=== PATIENT | male | born 1965 | race Hispanic/Latino ===

== ENCOUNTER 2017-09-16 15:26 | Emergency (ER) | payer OTHER ==
[2017-09-16 15:43] VITALS: BMI 21.8
[2017-09-16 15:48] VITALS: O2SAT 100
--- NOTE | 2017-09-16 16:17 | C.PDOC ---
History Of Present Illness 51 y/o male presents to ED requesting ETOH detox. Patient state she drinks 2 bottles of wine daily and currently denies SI/HI, nausea, vomiting, sob or any other physical complaints at this time. Time Seen by Provider: 09/16/17 16:05 Chief Complaint (Nursing): Substance Abuse History Per: Patient History/Exam Limitations: no limitations Onset/Duration Of Symptoms: Days Current Symptoms Are (Timing): Still Present Suicide/Self Injury Attempted (Context): None Modifying Factor(s): Alcohol Past Medical History Reviewed: Historical Data, Nursing Documentation, Vital Signs Vital Signs: Last Vital Signs Temp 98.6 F 09/16/17 16:26 Pulse 88 09/16/17 16:26 Resp 20 09/16/17 16:26 BP 112/72 09/16/17 16:26 Pulse Ox 100 09/16/17 16:26 - Medical History PMH: No Chronic Diseases Surgical History: No Surg Hx Family History: States: No Known Family Hx - Social History Hx Alcohol Use: Yes Hx Substance Use: No - Immunization History Hx Tetanus Toxoid Vaccination: No Hx Influenza Vaccination: No Hx Pneumococcal Vaccination: No Review Of Systems Constitutional: Negative for: Fever, Chills Cardiovascular: Negative for: Chest Pain Respiratory: Negative for: Shortness of Breath Skin: Negative for: Rash Psych: Negative for: Suicidal ideation, Withdrawal Physical Exam - Physical Exam Appears: Non-toxic, Chronically Ill, Other (Mild tremors) Skin: Warm, Dry Head: Atraumatic, Normacephalic Eye(s): bilateral: Normal Inspection Oral Mucosa: Moist Neck: Normal ROM, Supple Cardiovascular: Rhythm Regular Respiratory: Normal Breath Sounds, No Rales, No Rhonchi, No Wheezing Gastrointestinal/Abdominal: Soft, No Tenderness, No Guarding, No Rebound Neurological/Psych: Oriented x3, Normal Speech, Normal Cognition Gait: Steady ED Course And Treatment O2 Sat by Pulse Oximetry: 100 (RA) Pulse Ox Interpretation: Normal Medical Decision Making Medical Decision Making: seeking etoh detox, none available today d/c with outpatient f/u. Disposition Doctor Will See Patient In The: Office Counseled Patient/Family Regarding: Studies Performed, Diagnosis - Disposition Referrals: [facility] [Outside] [facility] [Outside] [facility] [Outside] Disposition: HOME/ ROUTINE Disposition Time: 16:16 Condition: GOOD Additional Instructions: continue to seek outpatient psych and alcohol abuse resources Instructions: Alcohol Use - When Is Drinking a Problem?, Drug Abuse and Drug Addiction (DC) Forms: [facility] ([place]) - Clinical Impression Clinical Impression: Alcohol dependence - Scribe Statement The provider has reviewed the documentation as recorded by the Jerzyibjax Black All medical record entries made by the Jerzyibjax were at my direction and personally dictated by me. I have reviewed the chart and agree that the record accurately reflects my personal performance of the history, physical exam, medical decision making, and the department course for this patient. I have also personally directed, reviewed, and agree with the discharge instructions and disposition.
[2017-09-16 16:38] VITALS: BP 112/72; PULSE 88; RESP 20; TEMP 98.6
== END 2017-09-16 16:34 | disposition home or self-care (01) ==
LOC: C.ER 15:26
DX: F10.20 Alcohol dependence, uncomplicated (principal)

== ENCOUNTER 2017-09-17 12:52 | Inpatient (IN) | payer OTHER ==
[2017-09-17 12:57] VITALS: BMI 21.2
[2017-09-17 13:56] LABS: BASO % 0.4 % (0.0-2.0); EOS % 0.4 % (0.0-4.0); HEMOGLOBIN 11.2 g/dL (12.0-18.0); LYMPH % 12.6 % (20.0-40.0); MEAN CELL VOLUME 108.1 fL (80.0-94.0); MEAN CORPUSCULAR HEMOGLOBIN 37.3 pg (27.0-31.0); MEAN CORPUSCULAR HGB CONC 34.5 g/dL (33.0-37.0); MEAN PLATELET VOLUME 10.3 fL (7.2-11.7); MONO # 0.7 K/uL (0.0-0.8); MONO % 9.5 % (0.0-10.0); NEUT % 77.1 % (50.0-75.0); NRBC % 0.4 % (0.0-2.0); RBC 2.99 Mil/uL (4.40-5.90); RED CELL DISTRIBUTION WIDTH 14.9 % (11.5-14.5); WHITE BLOOD COUNT 7.7 K/uL (4.8-10.8)
[2017-09-17 14:09] LABS: ALB/GLOB RATIO 0.9 (1.0-2.1); ALBUMIN 3.5 g/dL (3.5-5.0); ALT/SGPT 115 U/L (21-72); AST/SGOT 321 U/L (17-59); BLOOD UREA NITROGEN 6 mg/dL (9-20); CALCIUM 9.4 mg/dl (8.6-10.4); GFR AFRICAN-AMERICAN > 60; GFR NON-AFRICAN AMERICAN > 60
[2017-09-17 16:00] LABS: SQUAMOUS EPITHIAL < 1 /hpf (0-5); URINE AMORPHOUS SEDIMENT RARE /ul (<OCC); URINE BACTERIA RARE (<OCC); URINE BILIRUBIN 1+ (NEGATIVE); URINE BLOOD NEGATIVE (NEGATIVE); URINE CLARITY Hazy (Clear); URINE COLOR Amber (YELLOW); URINE GLUCOSE (UA) NORMAL (Normal); URINE HYALINE CAST 0-2 /lpf (0-2); URINE LEUKOCYTE ESTERASE NEG Leu/uL (Negative); URINE PROTEIN 1+ mg/dL (NEGATIVE)
[2017-09-17 16:31] LABS: BARBITURATES, UR NEGATIVE (NEGATIVE); BENZODIAZEPINES, UR POSITIVE (NEGATIVE); OPIATES, UR NEGATIVE (NEGATIVE); PHENCYCLIDINE, UR NEGATIVE (NEGATIVE)
--- NOTE | 2017-09-17 16:42 | C.PDOC ---
History Of Present Illness Pt is here requesting detox from alcohol. Pt states last drink was 2 days ago. Time Seen by Provider: 09/17/17 13:08 Chief Complaint (Nursing): Substance Abuse History Per: Patient, Family Onset/Duration Of Symptoms: Days Current Symptoms Are (Timing): Still Present Suicide/Self Injury Attempted (Context): None Modifying Factor(s): Alcohol Severity: Severe Associated Symptoms: denies: Suicidal Thoughts, Suicidal Plan Additional History Per: Prior Records Past Medical History Reviewed: Historical Data, Nursing Documentation, Vital Signs Vital Signs: Last Vital Signs Temp 98.1 F 09/17/17 15:28 Pulse 129 H 09/17/17 15:28 Resp 18 09/17/17 15:28 BP 114/83 09/17/17 15:28 Pulse Ox 100 09/17/17 16:42 - Medical History Other PMH: Alcohol abuse Family History: States: Unknown Family Hx - Social History Hx Tobacco Use: Yes Hx Alcohol Use: Yes (Wine) Hx Substance Use: No - Immunization History Hx Tetanus Toxoid Vaccination: No Hx Influenza Vaccination: No Hx Pneumococcal Vaccination: No Review Of Systems Except As Marked, All Systems Reviewed And Found Negative. Constitutional: Negative for: Fever Cardiovascular: Negative for: Chest Pain Respiratory: Negative for: Shortness of Breath Gastrointestinal: Negative for: Vomiting, Abdominal Pain Musculoskeletal: Negative for: Neck Pain Neurological: Negative for: Weakness, Seizures Psych: Negative for: Psychosis Physical Exam - Physical Exam Appears: No Acute Distress Skin: Warm, Dry Head: Atraumatic Eye(s): bilateral: PERRL, EOMI Neck: Normal ROM, Supple Gastrointestinal/Abdominal: Soft, No Tenderness Extremity: Normal ROM, No Deformity Neurological/Psych: Oriented x3, Normal Motor, Other (Pt is mildly tremulous) ED Course And Treatment - Laboratory Results Result Diagrams: 09/17/17 13:50 09/17/17 13:50 Interpretation Of Abnormal: Abnormal LFTs, thrombocytopenia. Sequelae of chronic alcohol abuse. ECG: Interpreted By Me, Viewed By Me ECG Rhythm: Sinus Tachycardia, Nonspecific Changes Rate From EC O2 Sat by Pulse Oximetry: 100 Pulse Ox Interpretation: Normal Progress Note: Pt is medically stable for detox admission. Disposition Counseled Patient/Family Regarding: Studies Performed, Diagnosis, Smoking Cessation - Disposition Disposition: HOSPITALIZED Disposition Time: 16:54 Condition: STABLE - Clinical Impression Clinical Impression: Alcohol dependence Decision To Admit - Pt Status Changed To: Hospital Disposition Of: Inpatient - Admit Certification Admit to Inpatient:: After my assessment, the patient will require hospitalization for at least two midnights. This is because of the severity of symptoms shown, intensity of services needed, and/or the medical risk in this patient being treated as an outpatient. - InPatient: Physician Admission Certification: I certify that this patient requires 2 or more midnights of care for the following reason:: Detox. - . Bed Request Type: Detox Admitting Physician: Brooks Steele Patient Diagnosis: Alcohol dependence
--- NOTE | 2017-09-18 07:39 | PCM.PSYCH ---
Initial Psychiatric Evaluation - Initial Psychiatric Evaluation Type of Admission: Voluntary Legal Status: Capacity Chief Complaint (in patient's own words): "Alcohol" History of Present Illness and Precipitating Events: This is a 51 y/o LM, lives with his , unemployed He is here for alcohol detox He says he drinks "a lot" but denies seizures/DTs and this is his first detox He was admitted to [facility] but d/c'ed bc of medical issues. 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 Family psych hx: Unknown Current Medications: Active Medications Generic Name Dose Route Start Last Admin Trade Name Freq PRN Reason Stop Dose Admin Clonidine HCl 0.1 mg 09/17/17 17:51 Catapres PO Q4H PRN Symptoms of alcohol withdrawl Folic Acid 1 mg 09/18/17 10:00 Folic Acid PO DAILY YAIMA Gabapentin 300 mg 09/17/17 18:00 09/17/17 18:27 Neurontin PO 300 mg TID YAIMA Administration Hydroxyzine HCl 25 mg 09/17/17 18:00 Atarax PO Q6H PRN Anxiety Lorazepam 1 mg 09/17/17 17:51 Ativan PO Q4H PRN Symptoms of alcohol withdrawl Lorazepam 2 mg 09/17/17 18:00 09/18/17 05:39 Ativan PO 09/22/17 17:59 2 mg Q4H YAIMA Administration Taper Multivitamins 1 tab 09/18/17 10:00 Hexavitamin PO DAILY YAIMA Thiamine HCl 100 mg 09/18/17 10:00 Vitamin B1 Tab PO DAILY YAIMA Trazodone HCl 50 mg 09/17/17 22:00 09/17/17 22:09 Desyrel PO Not Given HS YAIMA Past Psychiatric History - Past Psychiatric History Previous Treatment History: None Pertinent Medical Hx (Current Medical&Sleep Prob, Allergies): Allergies Allergy/AdvReac Type Severity Reaction Status Date / Time No Known Allergies Allergy Verified 09/17/17 12:56 Ibuprofen [Advil] 2 tab PO PRN PRN 09/16/17 Review of Systems - Neurological Neurological: Focal Weakness (legs), Lack of Coordination, Tremor, Weakness - Psychiatric Psychiatric: Abnormal Sleep Pattern, Anhedonia, Anxiety, Depression, Difficulty Concentrating. absent: Homicidal Ideation, Paranoia, Suicidal Ideation Mental Status Examination - Personal Presentation Personal Presentation: Looks older than stated age - Affect Affect: Constricted - Motor Activity Motor Activity: Calm - Reliability in Providing Information Reliability in Providing Information: Good - Speech Speech: Organized - Mood Mood: Depressed, Anxious - Formal Thought Process Formal Thought Process: No Impairment - Cognitive Functions Orientation: Person, Place, Situation, Time Sensorium: Alert Attention/Concentration: Easily distracted Estimate of Intelligence: Average Judgement: Intact, as evidence by: Insight regarding need for hospitalization Memory: Recent intact, as evidence by: Ability to recall events of the day, Remote intact, as evidenced by: Abilit to recall sig. life events - Risk Risk: Withdrawal, Diminished functioning - Strength & Assets Inventory Strength & Assets Inventory: Cooperative DSM 5 DX - DSM 5 DSM 5 Diagnosis: Alcohol withdrawal with complication Alcohol use d/o- severe Depressive d/o- unspecified - Recommended/Plan of Treatment Treatment Recommendations and Plan of Treatment: Ativan detox As needed medications Gabapentin for augmentation if needed All risks, benefits and alternatives of medications, including no medications, discussed and the patient understood and agreed. Attend groups and activities Supportive therapy and psychoeducation MT for abstinence CBT for relapse prevention Encourage MAT Refer to rehab or IOP Attend self-help groups as well MT for smoking cessation and patch if needed 34 min Projected ELOS: 4 days - Smoking Cessation Smoking Cessation Initiated: Yes
[2017-09-18 08:53] LABS: BASO % 0.3 % (0.0-2.0); EOS # 0.1 K/uL (0.0-0.7); EOS % 0.7 % (0.0-4.0); HEMOGLOBIN 10.6 g/dL (12.0-18.0); LYMPH # 1.1 K/uL (1.0-4.3); LYMPH % 14.9 % (20.0-40.0); MEAN CORPUSCULAR HEMOGLOBIN 37.3 pg (27.0-31.0); MEAN CORPUSCULAR HGB CONC 34.2 g/dL (33.0-37.0); MEAN PLATELET VOLUME 10.4 fL (7.2-11.7); MONO # 0.9 K/uL (0.0-0.8); MONO % 11.2 % (0.0-10.0); NEUT # 5.6 K/uL (1.8-7.0); NEUT % 72.9 % (50.0-75.0); NRBC % 0.3 % (0.0-2.0); RBC 2.84 Mil/uL (4.40-5.90); RED CELL DISTRIBUTION WIDTH 15.1 % (11.5-14.5); WHITE BLOOD COUNT 7.7 K/uL (4.8-10.8)
[2017-09-18] MEDS: Multiple Vitamins Tab PO SCH (11:08)
--- NOTE | 2017-09-18 15:46 | PCM.BM ---
<Deb Smith - Last Filed: 09/18/17 15:44> Treatment Plan Problems - Problems identified on initial assessmt Potential for alcohol withdrawal Date Initiated: 09/18/17 Time Initiated: 15:46 Assessment reference: NA Treatment assets and liabiliti Patient Assests: cooperative, cognitively intact Patient Liabilities: medical problems (neuropathy), other (needs help with ADL's ) - Milieu Protocol Maintain good personal hygiene: daily Encourage regular showers, daily Remind patient to perform daily oral care, daily Assist patient to perform ADL's Conduct patient checks and document Observation sheet: Q15 minutes Maintain personal safety: every shift Educate patient to report safety concerns to staff, every shift Monitor environment for contraband/sharps Medication safety: Monitor for expected outcome, potential side effects: every shift, Assess barriers to learning: every shift, Assess readiness for medication education: every shift <Brooks Steele - Last Filed: 09/19/17 14:56> - Diagnosis (1) Alcohol dependence Status: Acute Interventions: 09/19/17 14:55 * Assess 7x/week regarding severity of withdrawal * Educate regarding risks, benefits, side effects and alternatives of medications * Use Motivational Interviewing for abstinence * Use CBT for relapse prevention * Medication management for withdrawal symptoms * Encourage medication assisted treatment *
[2017-09-19] MEDS: Multiple Vitamins Tab PO SCH (09:15)
[2017-09-19] MEDS ORDERED: Multivitamin (MVI) 10 ML, Thiamine 100 MG, Folic Acid 1 MG in Sodium Chloride 0.9% 1,00... IV ONE (10:00)
[2017-09-19 11:57] LABS: BASO % 0.6 % (0.0-2.0); EOS % 0.5 % (0.0-4.0); HEMOGLOBIN 10.6 g/dL (12.0-18.0); LYMPH # 1.1 K/uL (1.0-4.3); LYMPH % 14.7 % (20.0-40.0); MEAN CORPUSCULAR HEMOGLOBIN 37.3 pg (27.0-31.0); MEAN CORPUSCULAR HGB CONC 34.2 g/dL (33.0-37.0); MEAN PLATELET VOLUME 10.1 fL (7.2-11.7); MONO # 1.1 K/uL (0.0-0.8); MONO % 15.3 % (0.0-10.0); NEUT % 68.9 % (50.0-75.0); NRBC % 0.3 % (0.0-2.0); RBC 2.84 Mil/uL (4.40-5.90); RED CELL DISTRIBUTION WIDTH 15.1 % (11.5-14.5); WHITE BLOOD COUNT 7.2 K/uL (4.8-10.8)
[2017-09-19 12:15] LABS: ALB/GLOB RATIO 0.9 (1.0-2.1); ALBUMIN 3.2 g/dL (3.5-5.0); ALT/SGPT 88 U/L (21-72); AST/SGOT 194 U/L (17-59); BLOOD UREA NITROGEN 7 mg/dL (9-20); CALCIUM 8.9 mg/dl (8.6-10.4); GFR AFRICAN-AMERICAN > 60; GFR NON-AFRICAN AMERICAN > 60
--- NOTE | 2017-09-19 12:57 | CP.PCM.CON ---
<ClaudiaabyShira TulioJossie - Last Filed: 09/19/17 16:46> History of Present Illness - History of Present Illness History of Present Illness: Consult for Ambulatory dysfunction Patient is a 51 year old male with no past medical history who originally presents to the hospital for alcohol detox. Patient drinks 1/2 gallon of wine daily for the past 8 years. He first started drinking at 14 years of age. Patient's last drink was night. Patient states he has had ambulatory issues for the past 6 months. He uses a cane to ambulate. He also states he has has bilateral lower extremity neuropathy and weakness for "at least 3 months". 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 Patient denies chest pain, dyspnea, headaches, dizziness, nausea, vomiting, fevers, abdominal pain. Patient is lethargic and is a poor historian. PMHx: denies SurgHx: denies FamHx: Father- [place] SocHx: drinks 1/2 gallon of wine daily x8 years; started drinking at age 14. Smokes 1/4 pack daily since age 14. denies drug use; lives with in [place]. Unemployed Allergies: NKDA Medications: denies Review of Systems - Review of Systems Review of Systems: Limited due to patients condition, lethargy, sedated - Constitutional Constitutional: Weakness. absent: Fever, Headache - EENT Ears: absent: Dizziness - Cardiovascular Cardiovascular: absent: Chest Pain, Dyspnea - Respiratory Respiratory: absent: Cough, Dyspnea - Gastrointestinal Gastrointestinal: absent: Abdominal Pain, Constipation, Diarrhea, Nausea, Vomiting - Genitourinary Genitourinary: absent: Dysuria - Musculoskeletal Musculoskeletal: Limited Range of Motion, Muscle Weakness, Numbness - Neurological Neurological: Numbness (tingling b/l LE), Weakness (b/l LE&UE). absent: Dizziness, Headaches Past Patient History - Past Medical History & Family History Past Medical History?: Yes - Past Social History Smoking Status: Light Smoker < 10 Cigarettes Daily - CARDIAC Hx Cardiac Disorders: No Hx Hypertension: No - PULMONARY Hx Tuberculosis: No - NEUROLOGICAL HX Cerebrovascular Accident: No Hx Seizures: No - HEMATOLOGICAL/ONCOLOGICAL Hx Cancer: No Hx Human Immunodeficiency Virus (HIV): No - MUSCULOSKELETAL/RHEUMATOLOGICAL Hx Falls: Yes Other/Comment: Neuropathy - GENITOURINARY/GYNECOLOGICAL Hx Sexually Transmitted Disorders: No - PSYCHIATRIC Hx Substance Use: Yes - SURGICAL HISTORY Hx Surgeries: No - ANESTHESIA Hx Anesthesia: No Meds Allergies/Adverse Reactions: Allergies Allergy/AdvReac Type Severity Reaction Status Date / Time No Known Allergies Allergy Verified 09/17/17 12:56 - Medications Medications: Current Medications Clonidine HCl (Catapres) 0.1 mg PO Q4H PRN PRN Reason: Symptoms of alcohol withdrawl Folic Acid (Folic Acid) 1 mg PO DAILY [facility] Last Admin: 09/19/17 09:15 Dose: 1 mg Hydroxyzine HCl (Atarax) 25 mg PO Q6H PRN PRN Reason: Anxiety Multivitamins/Vitamin C 10 ml/Thiamine HCl 100 mg/ Folic Acid 1 mg/ Sodium Chloride 1,011.2 mls @ 75 mls/hr IV .[id number] ONE Stop: 09/20/17 01:39 Lorazepam (Ativan) 1 mg PO Q4H PRN PRN Reason: Symptoms of alcohol withdrawl Last Admin: 09/19/17 09:15 Dose: 1 mg Lorazepam (Ativan) 1 mg PO TID [facility] PRN Reason: Taper Stop: 09/22/17 13:59 Multivitamins (Hexavitamin) 1 tab PO DAILY [facility] Last Admin: 09/19/17 09:15 Dose: 1 tab Thiamine HCl (Vitamin B1 Tab) 100 mg PO DAILY [facility] Last Admin: 09/19/17 09:15 Dose: 100 mg Trazodone HCl (Desyrel) 50 mg PO HS [facility] Last Admin: 09/18/17 21:21 Dose: Not Given Physical Exam - Constitutional Appears: No Acute Distress - Head Exam Head Exam: ATRAUMATIC, NORMAL INSPECTION - Eye Exam Eye Exam: EOMI, PERRL - ENT Exam ENT Exam: Mucous Membranes Moist - Respiratory Exam Respiratory Exam: NORMAL BREATHING PATTERN. absent: Rales, Rhonchi, Wheezes, Respiratory Distress - Cardiovascular Exam Cardiovascular Exam: Tachycardia, REGULAR RHYTHM, +S1, +S2 - GI/Abdominal Exam GI & Abdominal Exam: Normal Bowel Sounds, Soft. absent: Distended, Firm, Tenderness - Extremities Exam Extremities exam: Positive for: pedal pulses present. Negative for: full ROM ( decreased ROM due to weakness), normal inspection (tremors bilateral UE/LE), pedal edema, tenderness Additional comments: babinski negative b/l; sensation intact-withdraws to pain; pain with palpation of LE b/l 2/2 neuropathy. 1/5 strength b/l LE; 2/5 strength b/l UE - Neurological Exam Neurological exam: Abnormal Gait, Oriented x3 Additional comments: babinski negative b/l; sensation intact-withdraws to pain; pain with palpation of LE b/l 2/2 neuropathy. 1/5 strength b/l LE; 2/5 strength b/l UE; no saddle anesthesia. - Psychiatric Exam Psychiatric exam: Flat Affect (lethargic) - Skin Skin Exam: Dry, Intact, Normal Color, Warm Results - Vital Signs Recent Vital Signs: Last Vital Signs Temp 98.4 F 09/19/17 09:00 Pulse 117 H 09/19/17 09:00 Resp 18 09/19/17 09:00 BP 94/68 L 09/19/17 09:00 Pulse Ox 99 09/19/17 09:00 - Labs Result Diagrams: 09/19/17 11:45 09/19/17 11:45 Labs: Laboratory Results - last 24 hr 09/19/17 09/19/17 11:45 11:45 WBC 7.2 RBC 2.84 L Hgb 10.6 L Hct 31.0 L MCV 109.0 H MCH 37.3 H MCHC 34.2 RDW 15.1 H Plt Count 72 L MPV 10.1 Neut % (Auto) 68.9 Lymph % (Auto) 14.7 L [place] % (Auto) 15.3 H Eos % (Auto) 0.5 Baso % (Auto) 0.6 Neut # (Auto) 5.0 Lymph # (Auto) 1.1 [place] # (Auto) 1.1 H Eos # (Auto) 0.0 Baso # (Auto) 0.0 Sodium 140 Potassium 3.5 L Chloride 105 Carbon Dioxide 25 Anion Gap 14 BUN 7 L Creatinine 0.7 L Est GFR ( Amer) > 60 Est GFR (Non-Af Amer) > 60 Random Glucose 89 Calcium 8.9 Phosphorus 3.5 Magnesium 1.5 L Total Bilirubin 1.6 H AST 194 H D ALT 88 H D Alkaline Phosphatase 171 H Total Creatine Kinase < 20 L Total Protein 6.9 Albumin 3.2 L Globulin 3.7 Albumin/Globulin Ratio 0.9 L TSH 3rd Generation 0.82 Assessment & Plan (1) Ambulatory dysfunction Assessment and Plan: Neurology consulted, Dr. Abdi, to rule out neurologic causes of ambulatory dysfunction. Help appreciated. Per Neurology, dysfunction may be due to parkinson's Transferred to medical floors Lumbar xray: f/u results Lumbar MRI: f/u results Head CT: f/u results Ammonia level: f/u results Fall precautions PT/OT Medication: - Pramipexole 0.25mg PO BID (started on 09/19 by neurologist) Status: Acute (2) Alcohol dependence Assessment and Plan: Per psychiatry Transferred from Detox to Med/Surg Floors Continue to monitor Medications: - Clonidine 0.1mg PO Q4 prn - Atarax 25mg PO Q6 prn - Ativan 1mg PO Q4 prn - Ativan 1mg taper - Trazadone 50mg PO HS - Banana bag to be give on 09/20/17 - Folic Acid 1mg PO daily (held due to banana bag- restart on 09/21/17) - Multivitamin daily (held due to banana bag- restart on 09/21/17) - Thiamine 100mg PO daily (held due to banana bag- restart on 09/21/17) Status: Acute <Patrizia Gonzalez V - Last Filed: 09/19/17 17:43> Meds - Medications Medications: Current Medications Clonidine HCl (Catapres) 0.1 mg PO Q4H PRN PRN Reason: Symptoms of alcohol withdrawl Folic Acid (Folic Acid) 1 mg PO DAILY [facility] Last Admin: 09/19/17 09:15 Dose: 1 mg Hydroxyzine HCl (Atarax) 25 mg PO Q6H PRN PRN Reason: Anxiety Multivitamins/Vitamin C 10 ml/Thiamine HCl 100 mg/ Folic Acid 1 mg/ Sodium Chloride 1,011.2 mls @ 75 mls/hr IV .[id number] ONE Stop: 09/21/17 01:28 Lorazepam (Ativan) 1 mg PO Q8 [facility] PRN Reason: Taper Stop: 09/22/17 13:59 Last Admin: 09/19/17 14:56 Dose: 1 mg Multivitamins (Hexavitamin) 1 tab PO DAILY [facility] Last Admin: 09/19/17 09:15 Dose: 1 tab Pramipexole Dihydrochloride (Mirapex) 0.25 mg PO BID [facility] Thiamine HCl (Vitamin B1 Tab) 100 mg PO DAILY YAIMA Last Admin: 09/19/17 09:15 Dose: 100 mg Trazodone HCl (Desyrel) 50 mg PO HS [facility] Last Admin: 09/18/17 21:21 Dose: Not Given Results - Vital Signs Recent Vital Signs: Last Vital Signs Temp 98.4 F 09/19/17 09:00 Pulse 117 H 09/19/17 09:00 Resp 18 09/19/17 09:00 BP 94/68 L 09/19/17 09:00 Pulse Ox 99 09/19/17 09:00 - Labs Result Diagrams: 09/19/17 11:45 09/19/17 11:45 Labs: Laboratory Results - last 24 hr 09/19/17 09/19/17 09/19/17 11:45 11:45 13:31 WBC 7.2 RBC 2.84 L Hgb 10.6 L Hct 31.0 L MCV 109.0 H MCH 37.3 H MCHC 34.2 RDW 15.1 H Plt Count 72 L MPV 10.1 Neut % (Auto) 68.9 Lymph % (Auto) 14.7 L [place] % (Auto) 15.3 H Eos % (Auto) 0.5 Baso % (Auto) 0.6 Neut # (Auto) 5.0 Lymph # (Auto) 1.1 [place] # (Auto) 1.1 H Eos # (Auto) 0.0 Baso # (Auto) 0.0 Sodium 140 Potassium 3.5 L Chloride 105 Carbon Dioxide 25 Anion Gap 14 BUN 7 L Creatinine 0.7 L Est GFR ( Amer) > 60 Est GFR (Non-Af Amer) > 60 Random Glucose 89 Calcium 8.9 Phosphorus 3.5 Magnesium 1.5 L Total Bilirubin 1.6 H AST 194 H D ALT 88 H D Alkaline Phosphatase 171 H Ammonia 31 Total Creatine Kinase < 20 L Total Protein 6.9 Albumin 3.2 L Globulin 3.7 Albumin/Globulin Ratio 0.9 L Vitamin B12 > 1000 H Folate > 20.0 TSH 3rd Generation 0.82 Assessment & Plan (1) Alcohol dependence Status: Acute (2) Ambulatory dysfunction Status: Acute (3) Abnormal gait Status: Acute (4) Tremor Status: Acute Attending/Attestation - Attestation I have personally seen and examined this patient.: Yes I have fully participated in the care of the patient.: Yes I have reviewed all pertinent clinical information: Yes Notes (Text): Patient seen, examined and case discussed with day-time resident. medicine consult given change in patient's gait. Per ED triage note, patient was able to walk in. history noted for smoking, neuropathy secondary to alcohol use, and alcoholism. Per discussion with detox staff, patient's walked in to detox but there was change in gait wherein patient cannot put weight on his legs. Patient required the use of the early mobility device this morning which was change from psychiatry who had saw him on the weekend. Patient reports he has some sort of disease which affects his legs unclear if its neuropathy or something else. Patient reports last drink was about /Tuesday on exam. Patient has mild tremor noticable on left hand. Patient had received Ativan prior to our arrival this morning. Patient reports he had a fall last week but reports did not need to go to the hospital and denies LOC. Recommend for neurology consult; discussed with neurology concern for Parkinson' s dz; has started patient on Mirapex. Fall precautions Place on telemetry for alcohol withdrawal Assessment/Plan 1) Alcohol Abuse Alcohol Withdrawal Transaminitis Assessment/Plan * Psych (Dr. Steele) on board-->help appreciated * Ativan 1mg PO q8H * MVI 1 tab PO daily * Thiamine 100mg PO daily * Folic aicd 1mg PO daily * Ammonia level: normal * Abdominal US (09/19/17): hepatomegaly, hepatic steatosis. otherwise unremarkable study * Clondine 0.1 mg PO q4H PRN 2) Ambulatory Dysfunction Gait Dysfunction Concern for Parkinsons Disease Assessment/Plan * Lumbar xray (09/19/17): unremarkable * pending MRI Lumbar Spine * Order for Brain MRI with and without contrast * Start Mirapex 0.25mg PO daily 3) s/p Fall Assessment/Plan * CT Head (09/19/17): no evidence of acute intracranial hemorrhage intracranial collection mass effect or midline shift. Moderate atrophy. 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 * Lumbar xray (09/19/17): unremarkable 4) Thrombocytopenia Assessment/Plan * Likely secondary to bone marrow suppression secondary to alcoholism * Abdominal US (09/19/17): hepatomegaly, hepatic steatosis. otherwise unremarkable study * will order for HIV and hepatitis panel 5) Electrolyte disorder Assessment/Plan * monitor and replete 6) Prophylatic measure * Fall risk precautions * PT/OT eval * Chemical contraindication to DVT ppx secondary to thrombocytopenia
[2017-09-19 13:21] LABS: FOLATE > 20.0 ng/mL
--- NOTE | 2017-09-19 14:38 | CT ---
PROCEDURE: CT HEAD WITHOUT CONTRAST. HISTORY: ambulatory dysfunction COMPARISON: None available. TECHNIQUE: Axial computed tomography images were obtained through the head/brain without intravenous contrast. Radiation dose: Total exam DLP = 833.02 mGy-cm. This CT exam was performed using one or more of the following dose reduction techniques: Automated exposure control, adjustment of the mA and/or kV according to patient size, and/or use of iterative reconstruction technique. FINDINGS: HEMORRHAGE: No intracranial hemorrhage. BRAIN: No mass effect or edema. Rltn-bo-jvfrlued atrophy is noted. There are also mild white matter changes likely represent chronic microvascular ischemic disease. VENTRICLES: Unremarkable. No hydrocephalus. CALVARIUM: Unremarkable. PARANASAL SINUSES: Unremarkable as visualized. No significant inflammatory changes. MASTOID AIR CELLS: Unremarkable as visualized. No inflammatory changes. OTHER FINDINGS: None. IMPRESSION: No evidence of acute intracranial hemorrhage intracranial collection mass effect or midline shift. Moderate atrophy. Mild white matter changes likely represent chronic microvascular ischemic disease.
--- NOTE | 2017-09-19 14:55 | PCM.PYCHPN ---
Psychiatric Progress Note - Psychiatric Progress Note Patient seen today, length of contact: 18 min Patient Chief Complaint: "I am very weak" Problems Identified/Issues Discussed: The pt is seen, chart reviewed, case discussed with staff. The pt is compliant with medications and reports some sedation. Symptoms are NOT improving and needs more time to stabilize. We called medicine as he seemed worse now bc he says he cannot walk properly PT also called, wheelchair/walker and 1:1 provided due to fall risk Support and psychoeducation given. Meds adjusted to decrease sedation Medication Change: Yes (detox adjusted) Medical Record Reviewed: Yes Mental Status Examination - Cognitive Function Orientation: Person, Place, Situation, Time Memory: Impaired Attention: Poor Concentration: Poor Association: WNL Fund of Knowledge: WNL - Mood Mood: Depressed, Anxious - Affect Affect: Constricted - Speech Speech: Appropriate - Formal Thought Process Formal Thought Process: No Impairment - Suicidal Ideation Suicidal Ideation: No - Homicidal Ideation Homicidal Ideation: No Goal/Treatment Plan - Goal/Treatment Plan Need for Continued Stay: Discharge may exacerbated symptoms, Severe functional impairment Progress Toward Problem(s) and Goals/Treatment Plan: Ativan detox adjusted To be transferred to medicine As needed medications Gabapentin for augmentation discontinued All risks, benefits and alternatives of medications, including no medications, discussed and the patient understood and agreed. Attend groups and activities Supportive therapy and psychoeducation [place] for abstinence Refer to rehab or IOP Attend self-help groups as well [place] for smoking cessation and patch if needed PT Labs
--- NOTE | 2017-09-19 15:03 | US ---
HISTORY: Alcohol use, COMPARISON: None. TECHNIQUE: Sonographic evaluation of the abdomen. FINDINGS: LIVER: Measures 20.7 cm. Patent portal vein. Portal venous flow: Hepatopetal. Unremarkable echogenicity of the liver parenchyma. No mass. No intrahepatic bile duct dilatation. GALLBLADDER: Sludge identified. No gallstones apparent. COMMON BILE DUCT: Measures 3.4 mm. No stones. No dilatation. PANCREAS: Unremarkable as visualized. No mass. No ductal dilatation. RIGHT KIDNEY: Measures 4.7 x 12.0cm. Normal echogenicity. No calculus, mass, or hydronephrosis. LEFT KIDNEY: Measures 6.3 x 13.5cm. Normal echogenicity. No calculus, mass, or hydronephrosis. SPLEEN: Normal in size and contour. No mass. AORTA: No aneurysmal dilatation. IVC: Unremarkable. OTHER FINDINGS: None. IMPRESSION: Hepatomegaly, hepatic steatosis. Otherwise unremarkable study.
--- NOTE | 2017-09-19 15:59 | RAD ---
PROCEDURE: Radiographs of the Lumbar Spine. HISTORY: ambulatory dysfunction COMPARISON: No prior. FINDINGS: BONES: Normal alignment. No listhesis. No fracture. DISC SPACES: Unremarkable. OTHER FINDINGS: None. IMPRESSION: Unremarkable radiographs of the lumbar spine.
[2017-09-19] MEDS ORDERED: Potassium Chloride 20 mEq ER Tab PO ONE (17:24)
[2017-09-19] MEDS: Magnesium Sulfate 1 gm in D5W 1 GM/100 ML BAG IVPB SCH ×2 (18:04→18:42)
--- NOTE | 2017-09-20 10:30 | CP.PCM.PN ---
<Shira Brown - Last Filed: 09/20/17 16:19> Subjective - Date & Time of Evaluation Date of Evaluation: 09/20/17 Time of Evaluation: 10:28 - Subjective Subjective: Medicine progress note for Dr. Gonzalez Patient was seen and examined at bedside in no acute distress. He reports he "was holding his at 4 am and saw creatures and vampires at night". Patient currently denies visual and auditory hallucinations. Patient denies chest pain, abdominal pain, nausea, vomiting, fevers, tremors, dyspnea, leg pain, leg swelling. Objective - Vital Signs/Intake and Output Vital Signs (last 24 hours): Temp Pulse Resp BP Pulse Ox 97.3 F L 97 H 20 113/80 97 09/20/17 07:40 09/20/17 07:40 09/20/17 07:40 09/20/17 07:40 09/20/17 07:40 - Medications Medications: Current Medications Clonidine HCl (Catapres) 0.1 mg PO Q4H PRN PRN Reason: Symptoms of alcohol withdrawl Last Admin: 09/20/17 02:08 Dose: 0.1 mg Folic Acid (Folic Acid) 1 mg PO DAILY [facility] Last Admin: 09/19/17 09:15 Dose: 1 mg Hydroxyzine HCl (Atarax) 25 mg PO Q6H PRN PRN Reason: Anxiety Multivitamins/Vitamin C 10 ml/Thiamine HCl 100 mg/ Folic Acid 1 mg/ Sodium Chloride 1,011.2 mls @ 75 mls/hr IV .[id number] ONE Stop: 09/21/17 01:28 Lorazepam (Ativan) 1 mg PO Q8 [facility] PRN Reason: Taper Stop: 09/22/17 13:59 Last Admin: 09/20/17 06:07 Dose: 1 mg Multivitamins (Hexavitamin) 1 tab PO DAILY [facility] Last Admin: 09/19/17 09:15 Dose: 1 tab Pramipexole Dihydrochloride (Mirapex) 0.25 mg PO BID [facility] Last Admin: 09/19/17 18:04 Dose: 0.25 mg Thiamine HCl (Vitamin B1 Tab) 100 mg PO DAILY [facility] Last Admin: 09/19/17 09:15 Dose: 100 mg Trazodone HCl (Desyrel) 50 mg PO HS [facility] Last Admin: 09/19/17 21:10 Dose: 50 mg - Labs Labs: 09/19/17 11:45 09/19/17 11:45 - Additional Findings Additional findings: - Constitutional Appears: No Acute Distress - Head Exam Head Exam: ATRAUMATIC, NORMAL INSPECTION - Eye Exam Eye Exam: EOMI, PERRL - ENT Exam ENT Exam: Mucous Membranes Moist - Respiratory Exam Respiratory Exam: NORMAL BREATHING PATTERN. absent: Rales, Rhonchi, Wheezes, Respiratory Distress - Cardiovascular Exam Cardiovascular Exam: REGULAR RHYTHM, +S1, +S2 - GI/Abdominal Exam GI & Abdominal Exam: Normal Bowel Sounds, Soft. absent: Distended, Firm, Tenderness - Extremities Exam Extremities exam: Positive for: pedal pulses present. Negative for: full ROM ( decreased ROM due to weakness), normal inspection (tremors bilateral UE/LE), pedal edema, tenderness Additional comments: babinski negative b/l; sensation intact-withdraws to pain; pain with palpation of LE b/l 2/2 neuropathy. 2/5 strength b/l LE; 2/5 strength b/l UE - Neurological Exam Neurological exam: Abnormal Gait, Oriented x3 Additional comments: babinski negative b/l; sensation intact-withdraws to pain; pain with palpation of LE b/l 2/2 neuropathy. 2/5 strength b/l LE; 2/5 strength b/l UE; no saddle anesthesia. - Psychiatric Exam Psychiatric exam: Flat Affect (lethargic) - Skin Skin Exam: Dry, Intact, Normal Color, Warm Assessment and Plan (1) Ambulatory dysfunction Status: Acute (2) Alcohol dependence Status: Acute - Assessment and Plan (Free Text) Plan: (1) Ambulatory dysfunction Parkinson's Disease? Assessment and Plan: Neurology consulted, Dr. Abdi, to rule out neurologic causes of ambulatory dysfunction. Help appreciated. Per Neurology, dysfunction may be due to parkinson's Transferred to medical floors Lumbar xray: unremarkable Lumbar MRI: f/u results Head CT: no evidence of acute intracranial hemorrhage intracranial collection mass effect or midline shift. Moderate atrophy. 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 Brain MRI: f/u results Ammonia level: 31, wnl TSH wnl Folate >20, wnl, Vit B12 >1000 H Fall precautions PT/OT Medication: - Pramipexole 0.25mg PO BID (started on 09/19 by neurologist) - Per neurologist, will increase by 0.25mg daily BID (2) Alcohol dependence/withdrawal Assessment and Plan: Per psychiatry Transferred from Detox to Med/Surg Floors Continue to monitor Medications: - Clonidine 0.1mg PO Q4 prn - Atarax 25mg PO Q6 prn - Seroquel 25mg PO daily prn for agitation (per neurologist) - Trazadone 50mg PO HS - Banana bag to be give on 09/20/17 - Folic Acid 1mg PO daily (held due to banana bag- restart on 09/21/17) - Multivitamin daily (held due to banana bag- restart on 09/21/17) - Thiamine 100mg PO daily (held due to banana bag- restart on 09/21/17) (3) Hx of Fall Assessment and Plan: - CT Head (09/19/17): no evidence of acute intracranial hemorrhage intracranial collection mass effect or midline shift. Moderate atrophy. 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 - Lumbar xray (09/19/17): unremarkable (4) Thrombocytopenia Assessment and Plan: - HIV: negative - Hepatitis panel: negative - Abdominal US: hepatomegaly, hepatic steatosis - Likely secondary to alcohol abuse (5) Prophylaxis Assessment and Plan: - Fall precautions - PT/OT - Chemical anticoagulation contraindicated 2/2 thrombocytopenia <Patrizia Gonzalez V - Last Filed: 09/20/17 22:37> Objective - Vital Signs/Intake and Output Vital Signs (last 24 hours): Temp Pulse Resp BP Pulse Ox 98.1 F 92 H 20 147/76 98 09/20/17 17:01 09/20/17 17:01 09/20/17 17:01 09/20/17 17:01 09/20/17 17:01 - Medications Medications: Current Medications Clonidine HCl (Catapres) 0.1 mg PO Q4H PRN PRN Reason: Symptoms of alcohol withdrawl Last Admin: 09/20/17 02:08 Dose: 0.1 mg Folic Acid (Folic Acid) 1 mg PO DAILY [facility] Last Admin: 09/19/17 09:15 Dose: 1 mg Hydroxyzine HCl (Atarax) 25 mg PO Q6H PRN PRN Reason: Anxiety Multivitamins/Vitamin C 10 ml/Thiamine HCl 100 mg/ Folic Acid 1 mg/ Sodium Chloride 1,011.2 mls @ 75 mls/hr IV .[id number] ONE Stop: 09/21/17 01:28 Last Admin: 09/20/17 11:30 Dose: 75 mls/hr Lorazepam (Ativan) 1 mg IVP Q6H PRN PRN Reason: Seizure activity Multivitamins (Hexavitamin) 1 tab PO DAILY [facility] Last Admin: 09/19/17 09:15 Dose: 1 tab Pramipexole Dihydrochloride (Mirapex) 0.25 mg PO TID [facility] Last Admin: 09/20/17 18:54 Dose: 0.25 mg Quetiapine Fumarate (Seroquel) 25 mg PO HS PRN PRN Reason: Agitation Thiamine HCl (Vitamin B1 Tab) 100 mg PO DAILY [facility] Last Admin: 09/19/17 09:15 Dose: 100 mg Trazodone HCl (Desyrel) 50 mg PO HS [facility] Last Admin: 09/20/17 21:47 Dose: 50 mg - Labs Labs: 09/20/17 11:20 09/20/17 11:20 Assessment and Plan (1) Alcohol dependence Status: Acute (2) Ambulatory dysfunction Status: Acute (3) Abnormal gait Status: Acute (4) Tremor Status: Acute Attending/Attestation - Attestation I have personally seen and examined this patient.: Yes I have fully participated in the care of the patient.: Yes I have reviewed all pertinent clinical information, including history, physical exam and plan: Yes Notes (Text): Patient seen, examined and case discussed with day-time resident. Patient seen this morning working with physical therapy. Patient is remarkably doing better compared to my last visit with him. He is more alert, participatory , and moving his body to engage with physical therapist. Discussed case with neurology, hallucinations likely due to suspected Parkinsons. We are awaiting MRI studies. Resident has spoken with patient's since there was concern patient may have metal/rods in his body and points to legs unclear. To the best of 's knowledge, he has not had such procedures. Patient had attempted to go to MRI but was kicking and screaming inspite PRN seroquel. Will re-attempt tomorrow per MRI trailer. Also note, Patient has hepatitis C which is reactive, it is unclear if that means he has hepatitis; he will need further testing as outpatient. Assessment/Plan (1) Ambulatory dysfunction Suspected Parkinson's Disease? Assessment and Plan: * Neurology consulted, Dr. Abdi, to rule out neurologic causes of ambulatory dysfunction. Help appreciated. * Per Neurology, dysfunction may be due to parkinson's * Transferred to medical floors on 09/19/17 * Lumbar xray: unremarkable * Lumbar MRI: f/u results * Head CT: no evidence of acute intracranial hemorrhage intracranial collection mass effect or midline shift. Moderate atrophy. Mild white matter changes likely represent chronic microvacular ischemic disease * Brain MRI: f/u results * Ammonia level: 31, wnl * TSH wnl * Folate >20, wnl, Vit B12 >1000 H * Fall precautions * PT/OT eval * Medication: * Pramipexole 0.25mg PO BID (started on 09/19 by neurologist) * Per neurologist, will increase by 0.25mg daily BID (2) Alcohol dependence/withdrawal Assessment and Plan: * Per psychiatry * Transferred from Detox to Med/Surg Floors on 09/19/17 * Continue to monitor * Neurology has recommended to d/c ativan and recommended seroquel for agitation Medications: * Clonidine 0.1mg PO Q4 prn * Atarax 25mg PO Q6 prn * Seroquel 25mg PO daily prn for agitation (per neurologist) * Trazadone 50mg PO HS * Banana bag to be give on 09/20/17 * Folic Acid 1mg PO daily (held due to banana bag- restart on 09/21/17) * Multivitamin daily (held due to banana bag- restart on 09/21/17) * Thiamine 100mg PO daily (held due to banana bag- restart on 09/21/17) (3) Hx of Fall Assessment and Plan: * CT Head (09/19/17): no evidence of acute intracranial hemorrhage intracranial collection mass effect or midline shift. Moderate atrophy. Mild white matter changes likely reprsent chronic microvascular ischemic disease * Lumbar xray (09/19/17): unremarkable (4) Thrombocytopenia Assessment and Plan: * HIV: negative * Hepatitis panel: negative * Abdominal US: hepatomegaly, hepatic steatosis * Likely secondary to alcohol abuse * improving (5) Hepatitis C Reactive Assessment and Plan: * will need outpatient following in regards to possible hepatitis C (5) Prophylaxis Assessment and Plan: * Fall precautions * PT/OT eval * Chemical anticoagulation contraindicated 2/2 thrombocytopenia
[2017-09-20 11:33] LABS: BASO % 0.4 % (0.0-2.0); EOS % 0.6 % (0.0-4.0); LYMPH # 1.2 K/uL (1.0-4.3); LYMPH % 17.3 % (20.0-40.0); MEAN CELL VOLUME 109.7 fL (80.0-94.0); MEAN CORPUSCULAR HEMOGLOBIN 36.7 pg (27.0-31.0); MEAN CORPUSCULAR HGB CONC 33.5 g/dL (33.0-37.0); MEAN PLATELET VOLUME 9.7 fL (7.2-11.7); MONO % 13.7 % (0.0-10.0); NEUT # 4.8 K/uL (1.8-7.0); NRBC % 0.1 % (0.0-2.0); RBC 2.99 Mil/uL (4.40-5.90); RED CELL DISTRIBUTION WIDTH 14.9 % (11.5-14.5); WHITE BLOOD COUNT 7.1 K/uL (4.8-10.8)
--- NOTE | 2017-09-20 11:39 | CP.PCM.CON ---
History of Present Illness - History of Present Illness History of Present Illness: 51 yr old male who has a history of alcoholism for many years, consumes about 1/2 gallon of wine daily, and was in the detox facility in [facility], when he was found to have frequent falls and altered mental status. On my examination, Mr. Mejia appeared to have bradykinesia, pill rolling tremor of left hand, but normal mentation. He told me the president, made a joke, but did have trouble with calculations. There is no history of epilepsy, or stroke, and he lives at home with his family who takes complete care of him. 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 PMH/PSH: as above. FH/SH: as above. All: nkda. On exam: aaox3. PERRL. decreased facial expression. Has resolving nystagmus bilaterally. CN 2-12 normal. no facial asymmetry. square wave jerks on exam. Motor: strength 3/5 in upper limbs, lower limbs : 2/5, but i feel that this is bradykinesia. +cogwheel rigidity in right arm more than left. +tremor left more than right. +2 dtr ul andll bl. toes downgoing no clonus. Past Patient History - Past Medical History & Family History Past Medical History?: Yes - Past Social History Smoking Status: Light Smoker < 10 Cigarettes Daily - CARDIAC Hx Cardiac Disorders: No Hx Hypertension: No - PULMONARY Hx Tuberculosis: No - NEUROLOGICAL HX Cerebrovascular Accident: No Hx Seizures: No - HEMATOLOGICAL/ONCOLOGICAL Hx Cancer: No Hx Human Immunodeficiency Virus (HIV): No - MUSCULOSKELETAL/RHEUMATOLOGICAL Hx Falls: Yes Other/Comment: Neuropathy - GENITOURINARY/GYNECOLOGICAL Hx Sexually Transmitted Disorders: No - PSYCHIATRIC Hx Substance Use: Yes - SURGICAL HISTORY Hx Surgeries: No - ANESTHESIA Hx Anesthesia: No Meds Allergies/Adverse Reactions: Allergies Allergy/AdvReac Type Severity Reaction Status Date / Time No Known Allergies Allergy Verified 09/17/17 12:56 - Medications Medications: Current Medications Clonidine HCl (Catapres) 0.1 mg PO Q4H PRN PRN Reason: Symptoms of alcohol withdrawl Last Admin: 09/20/17 02:08 Dose: 0.1 mg Folic Acid (Folic Acid) 1 mg PO DAILY [facility] Last Admin: 09/19/17 09:15 Dose: 1 mg Hydroxyzine HCl (Atarax) 25 mg PO Q6H PRN PRN Reason: Anxiety Multivitamins/Vitamin C 10 ml/Thiamine HCl 100 mg/ Folic Acid 1 mg/ Sodium Chloride 1,011.2 mls @ 75 mls/hr IV .[id number] ONE Stop: 09/21/17 01:28 Lorazepam (Ativan) 1 mg PO Q8 [facility] PRN Reason: Taper Stop: 09/22/17 13:59 Last Admin: 09/20/17 06:07 Dose: 1 mg Multivitamins (Hexavitamin) 1 tab PO DAILY [facility] Last Admin: 09/19/17 09:15 Dose: 1 tab Pramipexole Dihydrochloride (Mirapex) 0.25 mg PO BID [facility] Last Admin: 09/20/17 10:52 Dose: 0.25 mg Thiamine HCl (Vitamin B1 Tab) 100 mg PO DAILY [facility] Last Admin: 09/19/17 09:15 Dose: 100 mg Trazodone HCl (Desyrel) 50 mg PO HS [facility] Last Admin: 09/19/17 21:10 Dose: 50 mg Results - Vital Signs Recent Vital Signs: Last Vital Signs Temp 97.3 F L 09/20/17 07:40 Pulse 97 H 09/20/17 07:40 Resp 20 09/20/17 07:40 BP 113/80 09/20/17 07:40 Pulse Ox 97 09/20/17 07:40 - Labs Result Diagrams: 09/20/17 11:20 09/19/17 11:45 Labs: Laboratory Results - last 24 hr 09/19/17 09/19/17 09/19/17 11:45 11:45 13:31 WBC 7.2 RBC 2.84 L Hgb 10.6 L Hct 31.0 L MCV 109.0 H MCH 37.3 H MCHC 34.2 RDW 15.1 H Plt Count 72 L MPV 10.1 Neut % (Auto) 68.9 Lymph % (Auto) 14.7 L [place] % (Auto) 15.3 H Eos % (Auto) 0.5 Baso % (Auto) 0.6 Neut # (Auto) 5.0 Lymph # (Auto) 1.1 [place] # (Auto) 1.1 H Eos # (Auto) 0.0 Baso # (Auto) 0.0 Sodium 140 Potassium 3.5 L Chloride 105 Carbon Dioxide 25 Anion Gap 14 BUN 7 L Creatinine 0.7 L Est GFR ( Amer) > 60 Est GFR (Non-Af Amer) > 60 Random Glucose 89 Calcium 8.9 Phosphorus 3.5 Magnesium 1.5 L Total Bilirubin 1.6 H AST 194 H D ALT 88 H D Alkaline Phosphatase 171 H Ammonia 31 Total Creatine Kinase < 20 L Total Protein 6.9 Albumin 3.2 L Globulin 3.7 Albumin/Globulin Ratio 0.9 L Vitamin B12 > 1000 H Folate > 20.0 TSH 3rd Generation 0.82 Assessment & Plan - Assessment and Plan (Free Text) Assessment: 51 yr old male who I feel has young onset bradykinesia predominant Parkinsons disease, etiology as of yet unclear. It is possible that he may have had a stroke in the basal ganglia, but more likely this is related to one of the PARK genes. Plan; 1. in this age group, i prefer mirapex because it avoids the sinemet induced dyskinesias.Start at .250 mg bid and increase daily by .25mg bid. 2. Physical therapy tomorrow. 3. MRI Brain without contrast. Thank you Dr. calloway
[2017-09-20 11:54] LABS: ALB/GLOB RATIO 0.9 (1.0-2.1); ALBUMIN 3.2 g/dL (3.5-5.0); ALT/SGPT 82 U/L (21-72); AST/SGOT 178 U/L (17-59); BLOOD UREA NITROGEN 5 mg/dL (9-20); CALCIUM 8.6 mg/dl (8.6-10.4); GFR AFRICAN-AMERICAN > 60; GFR NON-AFRICAN AMERICAN > 60
[2017-09-20] MEDS ORDERED: Multivitamin (MVI) 10 ML, Thiamine 100 MG, Folic Acid 1 MG in Sodium Chloride 0.9% 1,00... IV ONE (12:00)
--- NOTE | 2017-09-20 12:09 | CARD ---
APPROVED REPORT EKG Measurement Heart [id number] <Conclusion> Sinus tachycardia Cannot rule out Anterior infarct, age undetermined Abnormal ECG
--- NOTE | 2017-09-20 12:40 | PCM.PYCHPN ---
Psychiatric Progress Note - Psychiatric Progress Note Patient seen today, length of contact: 17 min Patient Chief Complaint: "I am not well" Problems Identified/Issues Discussed: The pt is seen, chart reviewed, case discussed with staff. Still sedated, tremulous, somewhat disoriented Denies severe psych sxs Detox is ongoing Seen by neuro - may have Parkinsons Medication Change: Yes (detox adjusted) Medical Record Reviewed: Yes Mental Status Examination - Cognitive Function Orientation: Person, Situation Memory: Impaired Attention: Poor Concentration: Poor Association: WNL Fund of Knowledge: WNL - Mood Mood: Depressed, Anxious - Affect Affect: Constricted - Speech Speech: Appropriate - Formal Thought Process Formal Thought Process: No Impairment - Suicidal Ideation Suicidal Ideation: No - Homicidal Ideation Homicidal Ideation: No Goal/Treatment Plan - Goal/Treatment Plan Need for Continued Stay: Discharge may exacerbated symptoms, Severe functional impairment, Other (medical) Progress Toward Problem(s) and Goals/Treatment Plan: Ativan detox adjusted As needed medications All risks, benefits and alternatives of medications, including no medications, discussed and the patient understood and agreed. Supportive therapy and psychoeducation [place] for abstinence Refer to rehab or [place] Attend self-help groups as well [place] for smoking cessation and patch if needed PT Labs
[2017-09-20 14:49] LABS: HEPATITIS B SURFACE AG Negative (NEGATIVE)
[2017-09-20 14:55] LABS: HEPATITIS A IGM NEGATIVE (NEGATIVE); HEPATITIS B CORE AB NEGATIVE (NEGATIVE)
[2017-09-20 16:31] LABS: HEPATITIS C ANTIBODY REACTIVE (NEGATIVE)
--- NOTE | 2017-09-20 17:07 | RAD ---
PROCEDURE: Bilateral ankles dated 09/20/2017 HISTORY: Unknown surgical history- check for metal COMPARISON: No prior study available for comparison TECHNIQUE: AP oblique and lateral views of the right and left ankles performed. No prior study available for comparison FINDINGS: No acute displaced fracture nor dislocation. The osseous structures appear intact. Talar dome is intact. Ankle mortises maintained. . No significant soft tissue swelling. No significant degenerative osteoarthritis. IMPRESSION: Unremarkable examination of the right and left ankle
--- NOTE | 2017-09-21 06:51 | CP.PCM.PN ---
<Shira Brown - Last Filed: 09/21/17 17:52> Subjective - Date & Time of Evaluation Date of Evaluation: 09/21/17 Time of Evaluation: 06:48 - Subjective Subjective: Medicine progress note for Dr. Gonzalez Patient was seen and examined at bedside in no acute distress. Patient is awake , oriented to person, place, and knows its 2018; however, he still appears confused. Patient denies complaints at this time. Review of systems otherwise negative. Per nursing, patient was agitated overnight. Objective - Vital Signs/Intake and Output Vital Signs (last 24 hours): Temp Pulse Resp BP Pulse Ox 98 F 115 H 20 148/86 98 09/21/17 01:00 09/21/17 01:00 09/21/17 01:00 09/21/17 01:00 09/21/17 01:00 - Medications Medications: Current Medications Clonidine HCl (Catapres) 0.1 mg PO Q4H PRN PRN Reason: Symptoms of alcohol withdrawl Last Admin: 09/21/17 03:05 Dose: 0.1 mg Folic Acid (Folic Acid) 1 mg PO DAILY [facility] Last Admin: 09/19/17 09:15 Dose: 1 mg Hydroxyzine HCl (Atarax) 25 mg PO Q6H PRN PRN Reason: Anxiety Lorazepam (Ativan) 1 mg IVP Q6H PRN PRN Reason: Seizure activity Multivitamins (Hexavitamin) 1 tab PO DAILY [facility] Last Admin: 09/19/17 09:15 Dose: 1 tab Pramipexole Dihydrochloride (Mirapex) 0.5 mg PO BID [facility] Quetiapine Fumarate (Seroquel) 25 mg PO HS PRN PRN Reason: Agitation Thiamine HCl (Vitamin B1 Tab) 100 mg PO DAILY [facility] Last Admin: 09/19/17 09:15 Dose: 100 mg Trazodone HCl (Desyrel) 50 mg PO HS [facility] Last Admin: 09/20/17 21:47 Dose: 50 mg - Labs Labs: 09/20/17 11:20 09/20/17 11:20 - Additional Findings Additional findings: - Constitutional Appears: No Acute Distress - Head Exam Head Exam: ATRAUMATIC, NORMAL INSPECTION - Eye Exam Eye Exam: EOMI, PERRL - ENT Exam ENT Exam: Mucous Membranes Moist - Respiratory Exam Respiratory Exam: NORMAL BREATHING PATTERN. absent: Rales, Rhonchi, Wheezes, Respiratory Distress - Cardiovascular Exam Cardiovascular Exam: REGULAR RHYTHM, +S1, +S2 - GI/Abdominal Exam GI & Abdominal Exam: Normal Bowel Sounds, Soft. absent: Distended, Firm, Tenderness - Extremities Exam Extremities exam: Positive for: pedal pulses present. Negative for: full ROM ( decreased ROM due to weakness), normal inspection (tremors bilateral UE/LE), pedal edema, tenderness Additional comments: babinski negative b/l; sensation intact-withdraws to pain; pain with palpation of LE b/l 2/2 neuropathy. 2/5 strength b/l LE; 2/5 strength b/l UE - Neurological Exam Neurological exam: Abnormal Gait, Oriented x3 Additional comments: babinski negative b/l; sensation intact-withdraws to pain; pain with palpation of LE b/l 2/2 neuropathy. 2/5 strength b/l LE; 2/5 strength b/l UE; no saddle anesthesia. - Psychiatric Exam Psychiatric exam: Flat Affect (lethargic) - Skin Skin Exam: Dry, Intact, Normal Color, Warm Assessment and Plan (1) Ambulatory dysfunction Status: Acute (2) Alcohol dependence Status: Acute - Assessment and Plan (Free Text) Plan: (1) Ambulatory dysfunction Parkinson's Disease? Assessment and Plan: Neurology consulted, Dr. Abdi, to rule out neurologic causes of ambulatory dysfunction. Help appreciated. Per Neurology, dysfunction may be due to parkinson's Transferred to medical floors Lumbar xray: unremarkable Lumbar MRI: f/u results Head CT: no evidence of acute intracranial hemorrhage intracranial collection mass effect or midline shift. Moderate atrophy. 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 Brain MRI: f/u results Ammonia level: 31, wnl TSH wnl Folate >20, wnl, Vit B12 >1000 H Fall precautions PT/OT Medication: - Pramipexole 0.5mg PO BID (started 0.25 on 09/19 by neurologist) - Per neurologist, will increase by 0.25mg daily BID (2) Alcohol dependence/withdrawal Assessment and Plan: Per psychiatry Transferred from Detox to Med/Surg Floors Continue to monitor Medications: - Clonidine 0.1mg PO Q4 prn - Atarax 25mg PO Q6 prn - Seroquel 25mg PO bid prn for agitation (per neurologist) - Ativan prn for seizure activity - Trazadone 50mg PO HS - Banana bag given on 09/20/17 - Folic Acid 1mg PO daily - Multivitamin daily - Thiamine 100mg PO daily (3) Hx of Fall Assessment and Plan: - CT Head (09/19/17): no evidence of acute intracranial hemorrhage intracranial collection mass effect or midline shift. Moderate atrophy. 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 - Lumbar xray (09/19/17): unremarkable (4) Thrombocytopenia Assessment and Plan: - Improving - HIV: negative - Hepatitis B panel: negative - Hepatitis C reactive - Abdominal US: hepatomegaly, hepatic steatosis - Likely secondary to alcohol abuse (5) Hepatitis C Reactive Assessment and Plan: - Hep C reactive - Will need outpatient follow up (6) Conjunctivitis Assessment and Plan: - Artificial tears - Tobramycin opht solution OU Q6 (7) Prophylaxis Assessment and Plan: - Fall precautions - PT/OT - Chemical anticoagulation contraindicated 2/2 thrombocytopenia <Patrizia Gonzalez V - Last Filed: 09/21/17 21:01> Objective - Vital Signs/Intake and Output Vital Signs (last 24 hours): Temp Pulse Resp BP Pulse Ox 97.3 F L 108 H 20 138/98 H 98 09/21/17 07:40 09/21/17 07:40 09/21/17 07:40 09/21/17 07:40 09/21/17 07:40 - Medications Medications: Current Medications Artificial Tears (Artificial Tears) 1 ml OU Q4 PRN PRN Reason: Other Clonidine HCl (Catapres) 0.1 mg PO Q4H PRN PRN Reason: Symptoms of alcohol withdrawl Last Admin: 09/21/17 03:05 Dose: 0.1 mg Diphenhydramine HCl (Benadryl) 50 mg IVP Q12 PRN PRN Reason: Agitation Folic Acid (Folic Acid) 1 mg PO DAILY [facility] Last Admin: 09/19/17 09:15 Dose: 1 mg Hydroxyzine HCl (Atarax) 25 mg PO Q6H PRN PRN Reason: Anxiety Lorazepam (Ativan) 1 mg IVP Q6H PRN PRN Reason: Seizure activity Multivitamins (Hexavitamin) 1 tab PO DAILY [facility] Last Admin: 09/19/17 09:15 Dose: 1 tab Pramipexole Dihydrochloride (Mirapex) 0.5 mg PO BID [facility] Last Admin: 09/21/17 11:09 Dose: 0.5 mg Quetiapine Fumarate (Seroquel) 25 mg PO BID PRN PRN Reason: Agitation Thiamine HCl (Vitamin B1 Tab) 100 mg PO DAILY [facility] Last Admin: 09/19/17 09:15 Dose: 100 mg Tobramycin Sulfate (Tobrex 0.3% Ophth Soln) 0 drop OU Q6H [facility] Last Admin: 09/21/17 14:06 Dose: 1 applic Trazodone HCl (Desyrel) 50 mg PO HS [facility] Last Admin: 09/20/17 21:47 Dose: 50 mg - Labs Labs: 09/21/17 07:00 09/21/17 07:00 Assessment and Plan (1) Alcohol dependence Status: Acute (2) Ambulatory dysfunction Status: Acute (3) Abnormal gait Status: Acute (4) Tremor Status: Acute Attending/Attestation - Attestation I have personally seen and examined this patient.: Yes I have fully participated in the care of the patient.: Yes I have reviewed all pertinent clinical information, including history, physical exam and plan: Yes Notes (Text): Patient seen, examined and case discussed with program medical director. Patient seen this morning. Patient's movement appears to be improving. Patient mutters which makes it hard to understand. Patient is awaiting MRI. Delayed secondary to due agitation yesterday and again patient was agitated again today. We will try to coordinate with MRI timing tomorrow such that patient can receive his MRI. I spoke with patient's Kristy, i have indicated the concern for Parkinsons and awaiting the MRI. Patient is on medication to help improvement. Per description when she saw him this afternoon, that it appeared for the patient to be improving and speaking with her. However, he notes patient is very eager to go home and associates seeing her with being able to go home. We try to coordinate with MRI to retrieve imaging and coordinate with neurology for discharge planning purposes. Patient is on higher dose of Praipexole 0.5mg PO bid today and Bendaryl PRN. We have indicated for Ativan PRN for seizure activity since he is long time alcoholic. Patient does have a tremor, likely more Parkinson than alcohol related. Assessment/Plan (1) Ambulatory dysfunction Suspected Parkinson's Disease? Assessment and Plan: * Neurology consulted, Dr. Abdi, to rule out neurologic causes of ambulatory dysfunction. Help appreciated. * Per Neurology, dysfunction may be due to parkinson's * Transferred to medical floors on 09/19/17 * Lumbar xray: unremarkable * Lumbar MRI: f/u results * Head CT: no evidence of acute intracranial hemorrhage intracranial collection mass effect or midline shift. Moderate atrophy. Mild white matter changes likely represent chronic microvacular ischemic disease * Brain MRI: f/u results * Ammonia level: 31, wnl * TSH wnl * Folate >20, wnl, Vit B12 >1000 H * Fall precautions * PT/OT eval * Medication: * Pramipexole 0.5mg PO BID (2) Alcohol dependence/withdrawal Assessment and Plan: * Per psychiatry * Transferred from Detox to Med/Surg Floors on 09/19/17 * Continue to monitor * Neurology has recommended to d/c ativan and recommended seroquel for agitation Medications: * Clonidine 0.1mg PO Q4 prn * Atarax 25mg PO Q6 prn * Seroquel 25mg PO daily prn for agitation (per neurologist) * Trazadone 50mg PO HS * Banana bag to be give on 09/20/17 * Folic Acid 1mg PO daily (held due to banana bag- restart on 09/21/17) * Multivitamin daily (held due to banana bag- restart on 09/21/17) * Thiamine 100mg PO daily (held due to banana bag- restart on 09/21/17) (3) Hx of Fall Assessment and Plan: * CT Head (09/19/17): no evidence of acute intracranial hemorrhage intracranial collection mass effect or midline shift. Moderate atrophy. Mild white matter changes likely reprsent chronic microvascular ischemic disease * Lumbar xray (09/19/17): unremarkable (4) Thrombocytopenia Assessment and Plan: * HIV: negative * Hepatitis panel: negative * Abdominal US: hepatomegaly, hepatic steatosis * Likely secondary to alcohol abuse * improving (5) Hepatitis C Reactive Assessment and Plan: * will need outpatient following in regards to possible hepatitis C (5) Prophylaxis Assessment and Plan: * Fall precautions * PT/OT eval * Chemical anticoagulation contraindicated 2/2 thrombocytopenia
[2017-09-21 07:07] LABS: BASO # 0.1 K/uL (0.0-0.2); BASO % 0.7 % (0.0-2.0); EOS % 0.5 % (0.0-4.0); HEMOGLOBIN 11.1 g/dL (12.0-18.0); LYMPH # 1.5 K/uL (1.0-4.3); LYMPH % 18.3 % (20.0-40.0); MEAN CELL VOLUME 108.9 fL (80.0-94.0); MEAN CORPUSCULAR HEMOGLOBIN 37.3 pg (27.0-31.0); MEAN CORPUSCULAR HGB CONC 34.2 g/dL (33.0-37.0); MEAN PLATELET VOLUME 9.7 fL (7.2-11.7); MONO # 1.3 K/uL (0.0-0.8); MONO % 15.9 % (0.0-10.0); NEUT # 5.2 K/uL (1.8-7.0); NEUT % 64.6 % (50.0-75.0); NRBC % 0.1 % (0.0-2.0); RBC 2.98 Mil/uL (4.40-5.90); RED CELL DISTRIBUTION WIDTH 14.7 % (11.5-14.5)
--- NOTE | 2017-09-21 07:16 | CP.PCM.PN ---
Subjective - Date & Time of Evaluation Date of Evaluation: 09/21/17 Time of Evaluation: 07:08 - Subjective Subjective: Mr. Mejia was seen and examined at the bedside. He is awake with confusion unable to state place, time, and person. He mumbles incomprehensible words. He is slowly moving his bilateral upper extremities and withdraws from pain stimuli. He had episode of agitation and restlessness last night with bilateral hand mittens on. Objective - Vital Signs/Intake and Output Vital Signs (last 24 hours): Temp Pulse Resp BP Pulse Ox 98 F 115 H 20 148/86 98 09/21/17 01:00 09/21/17 01:00 09/21/17 01:00 09/21/17 01:00 09/21/17 01:00 - Medications Medications: Current Medications Clonidine HCl (Catapres) 0.1 mg PO Q4H PRN PRN Reason: Symptoms of alcohol withdrawl Last Admin: 09/21/17 03:05 Dose: 0.1 mg Folic Acid (Folic Acid) 1 mg PO DAILY [facility] Last Admin: 09/19/17 09:15 Dose: 1 mg Hydroxyzine HCl (Atarax) 25 mg PO Q6H PRN PRN Reason: Anxiety Lorazepam (Ativan) 1 mg IVP Q6H PRN PRN Reason: Seizure activity Multivitamins (Hexavitamin) 1 tab PO DAILY [facility] Last Admin: 09/19/17 09:15 Dose: 1 tab Pramipexole Dihydrochloride (Mirapex) 0.5 mg PO BID [facility] Quetiapine Fumarate (Seroquel) 25 mg PO HS PRN PRN Reason: Agitation Thiamine HCl (Vitamin B1 Tab) 100 mg PO DAILY [facility] Last Admin: 09/19/17 09:15 Dose: 100 mg Trazodone HCl (Desyrel) 50 mg PO HS [facility] Last Admin: 09/20/17 21:47 Dose: 50 mg - Labs Labs: 09/20/17 11:20 09/20/17 11:20 - Constitutional Appears: No Acute Distress - Head Exam Head Exam: NORMAL INSPECTION - Neurological Exam Neurological Exam: Awake Neuro motor strength exam: Left Upper Extremity: 3, Right Upper Extremity: 2/1, Left Lower Extremity: 2/1, Right Lower Extremity: 2/1 Additional comments: awake, confused, unable to follow simple commands, keeps on mumbling incomprehensible words. Assessment and Plan (1) Bradykinesia Assessment & Plan: Case discussed with Dr. Abdi, continue all current medical regimen, recommend increasing mirapex .25 mg PO BID daily, just increase from .25 to .5 mg PO BID, encourage PO intake, Status: Acute
[2017-09-21 08:14] LABS: ALB/GLOB RATIO 0.9 (1.0-2.1); ALBUMIN 3.3 g/dL (3.5-5.0); ALT/SGPT 76 U/L (21-72); AST/SGOT 171 U/L (17-59); BLOOD UREA NITROGEN 3 mg/dL (9-20); CALCIUM 8.8 mg/dl (8.6-10.4); GFR AFRICAN-AMERICAN > 60; GFR NON-AFRICAN AMERICAN > 60
--- NOTE | 2017-09-21 13:14 | PCM.PYCHPN ---
Psychiatric Progress Note - Psychiatric Progress Note Patient seen today, length of contact: 15 min Patient Chief Complaint: "I am home" Problems Identified/Issues Discussed: He is seen, chart reviewed, case discussed he is more confused and agitated today He is in delirium Support given Medication Change: Yes (detox adjusted) Medical Record Reviewed: Yes Mental Status Examination - Cognitive Function Orientation: Situation (disoriented) Memory: Impaired Attention: Poor Concentration: Poor Association: Loose Fund of Knowledge: WNL - Mood Mood: Anxious - Affect Affect: Constricted - Speech Speech: Slurred - Formal Thought Process Formal Thought Process: Hallucinations, Loosening of associations - Suicidal Ideation Suicidal Ideation: No - Homicidal Ideation Homicidal Ideation: No Goal/Treatment Plan - Goal/Treatment Plan Need for Continued Stay: Discharge may exacerbated symptoms, Severe functional impairment, Other (medical) Progress Toward Problem(s) and Goals/Treatment Plan: Ativan detox - increase the dose As needed medications Supportive therapy and psychoeducation Refer to rehab or [place] after d/c Attend self-help groups as well afetr d/c [place] for smoking cessation and patch if needed PT Labs
[2017-09-21] MEDS: Tobramycin 0.3% OPHT SOLN OU SCH ×2 (14:06→18:27)
[2017-09-22] MEDS: Tobramycin 0.3% OPHT SOLN OU SCH ×4 (00:39→18:22)
--- NOTE | 2017-09-22 06:59 | CP.PCM.PN ---
<Shira Brown - Last Filed: 09/22/17 13:22> Subjective - Date & Time of Evaluation Date of Evaluation: 09/22/17 Time of Evaluation: 06:59 - Subjective Subjective: Medicine progress note for Dr. Gonzalez Patient was seen and examined at bedside in no acute distress. Patient is oriented, however, is talking about sports when asked questions. Patient answered correctly to person, place, president, and said the year was "18". Patient says he still feels weak, however, denies chest pain, abdominal pain, nausea, vomiting, hallucinations, tremors, dyspnea. Objective - Vital Signs/Intake and Output Vital Signs (last 24 hours): Temp Pulse Resp BP Pulse Ox 98.1 F 97 H 20 135/89 98 09/22/17 00:32 09/22/17 01:00 09/22/17 00:32 09/22/17 00:32 09/22/17 00:32 Intake and Output: 09/21/17 09/22/17 18:59 06:59 Intake Total 250 Output Total 200 Balance 50 - Medications Medications: Current Medications Artificial Tears (Artificial Tears) 1 ml OU Q4 PRN PRN Reason: Other Clonidine HCl (Catapres) 0.1 mg PO Q4H PRN PRN Reason: Symptoms of alcohol withdrawl Last Admin: 09/21/17 03:05 Dose: 0.1 mg Diphenhydramine HCl (Benadryl) 50 mg IVP Q12 PRN PRN Reason: Agitation Folic Acid (Folic Acid) 1 mg PO DAILY [facility] Last Admin: 09/19/17 09:15 Dose: 1 mg Hydroxyzine HCl (Atarax) 25 mg PO Q6H PRN PRN Reason: Anxiety Lorazepam (Ativan) 1 mg IVP Q6H PRN PRN Reason: Seizure activity Last Admin: 09/21/17 18:55 Dose: 1 mg Multivitamins (Hexavitamin) 1 tab PO DAILY [facility] Last Admin: 09/19/17 09:15 Dose: 1 tab Pramipexole Dihydrochloride (Mirapex) 0.75 mg PO BID [facility] Quetiapine Fumarate (Seroquel) 25 mg PO BID PRN PRN Reason: Agitation Thiamine HCl (Vitamin B1 Tab) 100 mg PO DAILY [facility] Last Admin: 09/19/17 09:15 Dose: 100 mg Tobramycin Sulfate (Tobrex 0.3% Ophth Soln) 0 drop OU Q6H [facility] Last Admin: 09/22/17 06:52 Dose: 1 drop Trazodone HCl (Desyrel) 50 mg PO HS [facility] Last Admin: 09/21/17 22:21 Dose: 50 mg - Labs Labs: 09/21/17 07:00 09/21/17 07:00 - Additional Findings Additional findings: - Constitutional Appears: No Acute Distress - Head Exam Head Exam: ATRAUMATIC, NORMAL INSPECTION - Eye Exam Eye Exam: EOMI, PERRL - ENT Exam ENT Exam: Mucous Membranes Moist - Respiratory Exam Respiratory Exam: NORMAL BREATHING PATTERN. absent: Rales, Rhonchi, Wheezes, Respiratory Distress - Cardiovascular Exam Cardiovascular Exam: REGULAR RHYTHM, +S1, +S2 - GI/Abdominal Exam GI & Abdominal Exam: Normal Bowel Sounds, Soft. absent: Distended, Firm, Tenderness - Extremities Exam Extremities exam: Positive for: pedal pulses present. Negative for: full ROM ( decreased ROM due to weakness), normal inspection (tremors bilateral UE/LE), pedal edema, tenderness Additional comments: babinski negative b/l; sensation intact-withdraws to pain; pain with palpation of LE b/l 2/2 neuropathy. 2/5 strength b/l LE; 2/5 strength b/l UE; patient withdraws to pain b/l when palpating feet - Neurological Exam Neurological exam: Abnormal Gait, Oriented x3 Additional comments: babinski negative b/l; sensation intact-withdraws to pain; pain with palpation of LE b/l 2/2 neuropathy. 2/5 strength b/l LE; 2/5 strength b/l UE; no saddle anesthesia. - Psychiatric Exam Psychiatric exam: Flat Affect (lethargic) - Skin Skin Exam: Dry, Intact, Normal Color, Warm Assessment and Plan (1) Ambulatory dysfunction Status: Acute (2) Alcohol dependence Status: Acute - Assessment and Plan (Free Text) Plan: (1) Ambulatory dysfunction Parkinson's Disease? Assessment and Plan: Neurology consulted, Dr. Abdi, to rule out neurologic causes of ambulatory dysfunction. Help appreciated. Per Neurology, dysfunction may be due to parkinson's Transferred to medical floors Lumbar xray: unremarkable Lumbar MRI: f/u results Head CT: no evidence of acute intracranial hemorrhage intracranial collection mass effect or midline shift. Moderate atrophy. 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 Brain MRI: no acute intracranial hemorrhage or infarction; minimal chronic pervientricular white matter ischemic changes; moderate generalized volume loss ; no enhancing lesions. Ammonia level: 31, wnl TSH wnl Folate >20, wnl, Vit B12 >1000 H Fall precautions PT/OT Medication: - Pramipexole 0.75mg PO BID (started 0.25 on 09/19 by neurologist) - Per neurologist, will increase by 0.25mg daily BID (2) Alcohol dependence/withdrawal Assessment and Plan: Per psychiatry Transferred from Detox to Med/Surg Floors Continue to monitor Medications: - Clonidine 0.1mg PO Q4 prn - Atarax 25mg PO Q6 prn - Benadryl 25mg IV Q12 prn for agitation (per neurologist) - Seroquel 25mg PO bid prn for agitation (per neurologist) - Ativan prn for seizure activity - Trazadone 50mg PO HS - Banana bag given on 09/20/17 - Folic Acid 1mg PO daily - Multivitamin daily - Thiamine 100mg PO daily (3) Hx of Fall Assessment and Plan: - CT Head (09/19/17): no evidence of acute intracranial hemorrhage intracranial collection mass effect or midline shift. Moderate atrophy. 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 - Lumbar xray (09/19/17): unremarkable (4) Thrombocytopenia Assessment and Plan: - Improving - HIV: negative - Hepatitis B panel: negative - Hepatitis C reactive - Abdominal US: hepatomegaly, hepatic steatosis - Likely secondary to alcohol abuse (5) Hepatitis C Reactive Assessment and Plan: - Hep C reactive - Will need outpatient follow up (6) Conjunctivitis Assessment and Plan: - Artificial tears - Tobramycin opht solution OU Q6 (7) Tachycardia Assessment and Plan: - Likely secondary to withdrawal - TSH: wnl - Free T4: f/u - EKG: f/u - DDimer: f/u (8) Prophylaxis Assessment and Plan: - Fall precautions - PT/OT - Chemical anticoagulation contraindicated 2/2 thrombocytopenia <Patrizia Gonzalez V - Last Filed: 09/25/17 22:40> Objective - Vital Signs/Intake and Output Vital Signs (last 24 hours): Temp Pulse Resp BP Pulse Ox 97.7 F 83 20 142/76 100 09/25/17 15:10 09/25/17 15:10 09/25/17 15:10 09/25/17 18:43 09/25/17 15:10 - Medications Medications: Current Medications Artificial Tears (Artificial Tears) 1 ml OU Q4 PRN PRN Reason: Other Last Admin: 09/24/17 09:12 Dose: 1 drop Clonidine HCl (Catapres) 0.1 mg PO Q4H PRN PRN Reason: Symptoms of alcohol withdrawl Last Admin: 09/21/17 03:05 Dose: 0.1 mg Folic Acid (Folic Acid) 1 mg PO DAILY [facility] Last Admin: 09/25/17 11:11 Dose: 1 mg Hydroxyzine HCl (Atarax) 25 mg PO Q6H PRN PRN Reason: Anxiety Sodium Chloride (Sodium Chloride 0.9%) 1,000 mls @ 75 mls/hr IV .[id number] [facility] Last Admin: 09/25/17 07:15 Dose: Not Given Piperacillin Sod/Tazobactam (Sod 3.375 gm/ Sodium Chloride) 100 mls @ 200 mls/ hr IVPB Q6H [facility] PRN Reason: Protocol Last Admin: 09/25/17 21:35 Dose: 200 mls/hr Metoprolol Tartrate (Lopressor) 25 mg PO BID [facility] Last Admin: 09/25/17 18:43 Dose: 25 mg Multivitamins (Hexavitamin) 1 tab PO DAILY [facility] Last Admin: 09/25/17 11:11 Dose: 1 tab Pramipexole Dihydrochloride (Mirapex) 0.75 mg PO 0700,1200,1500 [facility] Last Admin: 09/25/17 15:54 Dose: 0.75 mg Quetiapine Fumarate (Seroquel) 25 mg PO ONCE PRN PRN Reason: Agitation Last Admin: 09/25/17 18:43 Dose: 25 mg Thiamine HCl (Vitamin B1 Tab) 100 mg PO DAILY [facility] Last Admin: 09/25/17 11:12 Dose: 100 mg Tobramycin Sulfate (Tobrex 0.3% Ophth Soln) 1 drop OU Q6H [facility] Stop: 09/26/17 18:46 Last Admin: 09/25/17 18:46 Dose: 1 drop Trazodone HCl (Desyrel) 50 mg PO HS [facility] Last Admin: 09/25/17 21:35 Dose: 50 mg - Labs Labs: 09/25/17 06:53 09/25/17 06:53 Assessment and Plan (1) Alcohol dependence Status: Acute (2) Ambulatory dysfunction Status: Acute (3) Abnormal gait Status: Acute (4) Tremor Status: Acute Attending/Attestation - Attestation I have personally seen and examined this patient.: Yes I have fully participated in the care of the patient.: Yes I have reviewed all pertinent clinical information, including history, physical exam and plan: Yes Notes (Text): This is late computer entry for 09/22/17. patient seen, examined and case discussed with medical office professional instructor. Patient noted this morning to crust over his eyelids bilateral. We have started artifical tears and tobramycin eye drops. Patient went to Brain MRI and Lumbar MRI this morning. Patient was seen following completion of this imaging. Patient had received Ativan prior to imaging given his agitation inspite two attempts this week. Patient remains persistently tachycardia. Unclear if this due to alcohol withdrawal. We have ordered for TSH/Free T4, EKG, and d-dimer. If D-dimer is positive, we will order for CT angio to rule out PE and dopplers to r/o clots. I spoke with patient's in regards to completion of Brain MRI/Lumbar MRI and the need for possible CT scan. Patient's Brain MRI discussed with neurology-->does not rule out parkinson's for the patient. Mirapex dose adjusted in the afternoon to three times a day when I discussed with neurologist. Assessment/Plan (1) Ambulatory dysfunction Suspected Parkinson's Disease? Assessment and Plan: * Neurology consulted, Dr. Abdi, to rule out neurologic causes of ambulatory dysfunction. Help appreciated. * Per Neurology, dysfunction may be due to parkinson's * Transferred to medical floors on 09/19/17 * Lumbar xray: unremarkable * Lumbar MRI: f/u results * Head CT: no evidence of acute intracranial hemorrhage intracranial collection mass effect or midline shift. Moderate atrophy. Mild white matter changes likely represent chronic microvacular ischemic disease * Brain MRI: f/u results * Ammonia level: 31, wnl * TSH wnl * Folate >20, wnl, Vit B12 >1000 H * Fall precautions * PT/OT eval * Medication: * Pramipexole 0.5mg PO BID (2) Alcohol dependence/withdrawal Assessment and Plan: * Per psychiatry * Transferred from Detox to Med/Surg Floors on 09/19/17 * Continue to monitor * Neurology has recommended to d/c ativan and recommended seroquel for agitation Medications: * Clonidine 0.1mg PO Q4 prn * Atarax 25mg PO Q6 prn * Seroquel 25mg PO daily prn for agitation (per neurologist) * Trazadone 50mg PO HS * Banana bag to be give on 09/20/17 * Folic Acid 1mg PO daily * Multivitamin daily * Thiamine 100mg PO daily (3) Hx of Fall Assessment and Plan: * CT Head (09/19/17): no evidence of acute intracranial hemorrhage intracranial collection mass effect or midline shift. Moderate atrophy. Mild white matter changes likely reprsent chronic microvascular ischemic disease * Lumbar xray (09/19/17): unremarkable (4) Thrombocytopenia Assessment and Plan: * HIV: negative * Hepatitis panel: negative * Abdominal US: hepatomegaly, hepatic steatosis * Likely secondary to alcohol abuse * improving (5) Hepatitis C Reactive Assessment and Plan: * will need outpatient following in regards to possible hepatitis C (6) Conjunctivitis Assessment and Plan: * Artificial tears * Tobramycin opht solution OU Q6H (7) Prophylaxis Assessment and Plan: * Fall precautions * PT/OT eval * Chemical anticoagulation contraindicated 2/2 thrombocytopenia
[2017-09-22 07:41] LABS: BASO % 0.4 % (0.0-2.0); EOS % 0.5 % (0.0-4.0); LYMPH # 1.4 K/uL (1.0-4.3); LYMPH % 14.4 % (20.0-40.0); MEAN CELL VOLUME 108.3 fL (80.0-94.0); MEAN CORPUSCULAR HEMOGLOBIN 37.2 pg (27.0-31.0); MEAN CORPUSCULAR HGB CONC 34.3 g/dL (33.0-37.0); MEAN PLATELET VOLUME 9.8 fL (7.2-11.7); MONO # 1.5 K/uL (0.0-0.8); MONO % 14.8 % (0.0-10.0); NEUT # 6.9 K/uL (1.8-7.0); NEUT % 69.9 % (50.0-75.0); NRBC % 0.2 % (0.0-2.0); RBC 3.24 Mil/uL (4.40-5.90); RED CELL DISTRIBUTION WIDTH 14.4 % (11.5-14.5); WHITE BLOOD COUNT 9.8 K/uL (4.8-10.8)
[2017-09-22 07:50] LABS: ALB/GLOB RATIO 0.9 (1.0-2.1); ALBUMIN 3.5 g/dL (3.5-5.0); ALT/SGPT 79 U/L (21-72); AST/SGOT 154 U/L (17-59); BLOOD UREA NITROGEN 6 mg/dL (9-20); GFR AFRICAN-AMERICAN > 60; GFR NON-AFRICAN AMERICAN > 60
--- NOTE | 2017-09-22 08:15 | CP.PCM.PN ---
Subjective - Date & Time of Evaluation Date of Evaluation: 09/22/17 Time of Evaluation: 08:15 - Subjective Subjective: Mr. Mejia was seen and examined at the bedside. He is awake with confusion unable to state place, time, and person. He mumbles incomprehensible words, but able to let the staff knows his needs. He is slowly moving his bilateral upper extremities and withdraws from pain stimuli. He had episode of agitation and restlessness last night with bilateral hand mittens on.He remains on 1: 1 sitter for patient safety. Objective - Vital Signs/Intake and Output Vital Signs (last 24 hours): Temp Pulse Resp BP Pulse Ox 98.1 F 97 H 20 135/89 98 09/22/17 00:32 09/22/17 01:00 09/22/17 00:32 09/22/17 00:32 09/22/17 00:32 Intake and Output: 09/22/17 09/22/17 06:59 18:59 Intake Total 250 Output Total 200 Balance 50 - Medications Medications: Current Medications Artificial Tears (Artificial Tears) 1 ml OU Q4 PRN PRN Reason: Other Clonidine HCl (Catapres) 0.1 mg PO Q4H PRN PRN Reason: Symptoms of alcohol withdrawl Last Admin: 09/21/17 03:05 Dose: 0.1 mg Diphenhydramine HCl (Benadryl) 50 mg IVP Q12 PRN PRN Reason: Agitation Folic Acid (Folic Acid) 1 mg PO DAILY [facility] Last Admin: 09/19/17 09:15 Dose: 1 mg Hydroxyzine HCl (Atarax) 25 mg PO Q6H PRN PRN Reason: Anxiety Lorazepam (Ativan) 1 mg IVP Q6H PRN PRN Reason: Seizure activity Last Admin: 09/21/17 18:55 Dose: 1 mg Multivitamins (Hexavitamin) 1 tab PO DAILY [facility] Last Admin: 09/19/17 09:15 Dose: 1 tab Pramipexole Dihydrochloride (Mirapex) 0.75 mg PO BID [facility] Quetiapine Fumarate (Seroquel) 25 mg PO BID PRN PRN Reason: Agitation Thiamine HCl (Vitamin B1 Tab) 100 mg PO DAILY [facility] Last Admin: 09/19/17 09:15 Dose: 100 mg Tobramycin Sulfate (Tobrex 0.3% Ophth Soln) 0 drop OU Q6H [facility] Last Admin: 09/22/17 06:52 Dose: 1 drop Trazodone HCl (Desyrel) 50 mg PO HS [facility] Last Admin: 09/21/17 22:21 Dose: 50 mg - Labs Labs: 09/22/17 07:19 09/22/17 07:19 - Constitutional Appears: No Acute Distress - Head Exam Head Exam: NORMAL INSPECTION - Eye Exam Pupil Exam: PERRL - Neurological Exam Neurological Exam: Awake Neuro motor strength exam: Left Upper Extremity: 4, Right Upper Extremity: 4, Left Lower Extremity: 2/1, Right Lower Extremity: 2/1 Additional comments: neurological unchanged from previous examination. Assessment and Plan (1) Bradykinesia Assessment & Plan: ase discussed with Dr. Abdi, continue all current medical regimen, recommend increasing mirapex .25 mg PO BID daily, just increase from .25 to .75 mg PO BID , encourage PO intake, Status: Acute
[2017-09-22] MEDS: Multiple Vitamins Tab PO SCH (09:12)
[2017-09-22] MEDS ORDERED: Gadodiamide 287 mg/ml 20 ml IV ONE (10:45)
--- NOTE | 2017-09-22 10:55 | PCM.PYCHPN ---
Psychiatric Progress Note - Psychiatric Progress Note Patient seen today, length of contact: 16 min Patient Chief Complaint: "I don't know" Problems Identified/Issues Discussed: He is seen, chart reviewed, case discussed Still disoriented and confused Less agitated/restless Support given Medication Change: Yes (detox changes daily) Medical Record Reviewed: Yes Mental Status Examination - Cognitive Function Orientation: Situation (disoriented) Memory: Impaired Attention: Poor Concentration: Poor Association: Loose Fund of Knowledge: WNL - Mood Mood: Anxious - Affect Affect: Constricted - Speech Speech: Slurred - Formal Thought Process Formal Thought Process: Hallucinations, Loosening of associations - Suicidal Ideation Suicidal Ideation: No - Homicidal Ideation Homicidal Ideation: No Goal/Treatment Plan - Goal/Treatment Plan Need for Continued Stay: Discharge may exacerbated symptoms, Severe functional impairment, Other (medical) Progress Toward Problem(s) and Goals/Treatment Plan: Ativan detox - increase the dose As needed medications Supportive therapy and psychoeducation Refer to rehab or [place] after d/c Attend self-help groups as well afetr d/c [place] for smoking cessation and patch if needed PT Labs
--- NOTE | 2017-09-22 12:33 | MRI ---
PROCEDURE: MRI BRAIN WITH AND WITHOUT CONTRAST HISTORY: Gait dysfunction, concern for parkinsons dz COMPARISON: None. TECHNIQUE: Multiplanar, multisequence MR images of the brain were obtained with and without intravenous contrast enhancement. FINDINGS: HEMORRHAGE: No acute parenchymal, subarachnoid or extra-axial hemorrhage. No evidence of hemosiderin deposition identified on gradient echo weighted sequence. DWI: No evidence of an acute or early subacute infarction seen on diffusion imaging. . BRAIN PARENCHYMA: Minimal chronic periventricular white matter ischemic changes felt be present. Mild chronic periventricular white matter ischemic changes. ENHANCEMENT: No enhancing parenchymal nor extra-axial masses or collections. No evidence of abnormal meningeal enhancement VENTRICLES: No obstructive hydrocephalus. CRANIUM: Unremarkable. ORBITS: Orbits and contents unremarkable. PARANASAL SINUSES/MASTOIDS: Minor mucosal thickening within the right anterior superior ethmoid air complex/ frontal sinus junction. Questionable minimal mucosal thickening floor right maxillary antrum VASCULAR SYSTEM: Major vascular flow voids at skull base patent. OTHER FINDINGS: None . IMPRESSION: No acute intracranial hemorrhage or infarction. Minimal chronic periventricular white matter ischemic changes. Moderate generalized volume loss. No enhancing lesions.
--- NOTE | 2017-09-22 16:27 | MRI ---
PROCEDURE: MRI lumbar spine dated 09/22/2017 HISTORY: Ambulatory dysfunction COMPARISON: None available. TECHNIQUE: Multiecho multiplanar sequences were performed through the lumbar spine without the use of intravenous contrast. . . Note that the study is limited by motion artifact. FINDINGS: Normal lumbar lordosis. Vertebral body heights are preserved. Marrow signal unremarkable. Conus medullaris terminates at approximately mid to upper L1 level Paraspinal soft tissues are unremarkable. T12-L1: No disc herniation, spinal canal stenosis or neural foraminal narrowing. . . L1-2: No disc herniation, spinal canal stenosis or neural foraminal narrowing. Facet joints are moderately hypertrophic distally. L2-3: No disc herniation, spinal canal stenosis or neural foraminal narrowing. Facets moderately hypertrophic at this level. L3-4: No disc herniation, spinal canal stenosis or neural foraminal narrowing. Facets mildly hypertrophic. L4-5: Mild age related disc desiccation. Disc space height maintained. No disc herniation or significant disc bulge. Facets are hypertrophic. Proximal exit foramina appear mildly narrowed on the left. Note also made of a small radial fissure in the left posterolateral annulus at the of the level of the proximal exit foramen. L5-S1: Mild age related disc desiccation. Minor posterior disc space narrowing. Small broad-based bulge of the posterior annulus with an associated tiny the fissure in the posterolateral border of the annulus near the proximal aspect of the left exit foramen. Facets are hypertrophic. Central canal and exit foramina adequate. OTHER FINDINGS: None. IMPRESSION: Limited motion degraded study. Multilevel facet arthropathy. No disc herniations nor significant disc bulges. . Small annular fissure seen within the at L4-L5 and L5-S1 posterolateral disc margins as outlined above.
[2017-09-22 16:52] LABS: SQUAMOUS EPITHIAL 1 /hpf (0-5); URINE BACTERIA OCC (<OCC); URINE BILIRUBIN 1+ (NEGATIVE); URINE BLOOD NEGATIVE (NEGATIVE); URINE CALCIUM OXALATE CRYSTALS FEW /hpf (<OCC); URINE CLARITY Hazy (Clear); URINE COLOR Amber (YELLOW); URINE GLUCOSE (UA) NORMAL (Normal); URINE LEUKOCYTE ESTERASE NEG Leu/uL (Negative); URINE PROTEIN NEGATIVE (NEGATIVE)
[2017-09-22] MEDS: DiphenhydrAMINE 50 mg/ml Inj IVP PRN (23:46)
[2017-09-23] MEDS: Tobramycin 0.3% OPHT SOLN OU SCH ×4 (00:10→18:12)
--- NOTE | 2017-09-23 08:00 | CP.PCM.PN ---
Subjective - Date & Time of Evaluation Date of Evaluation: 09/23/17 Time of Evaluation: 08:00 - Subjective Subjective: Mr. Mejia was seen and examined at the bedside. He is awake with confusion unable to state place, time, and person. He mumbles incomprehensible words, but able to let the staff knows his needs such as using bedpan. He is moveshis bilateral upper extremities with no problem, strong, and withdraws from pain stimuli. He had episode of agitation and restlessness last night with bilateral hand mittens on.He remains on 1: 1 sitter for patient safety. Objective - Vital Signs/Intake and Output Vital Signs (last 24 hours): Temp Pulse Resp BP Pulse Ox 97.5 F L 106 H 20 132/84 97 09/23/17 00:00 09/23/17 00:00 09/23/17 00:00 09/23/17 00:00 09/23/17 00:00 Intake and Output: 09/23/17 09/23/17 06:59 18:59 Intake Total 200 Balance 200 - Medications Medications: Current Medications Artificial Tears (Artificial Tears) 1 ml OU Q4 PRN PRN Reason: Other Clonidine HCl (Catapres) 0.1 mg PO Q4H PRN PRN Reason: Symptoms of alcohol withdrawl Last Admin: 09/21/17 03:05 Dose: 0.1 mg Diphenhydramine HCl (Benadryl) 50 mg IVP Q12 PRN PRN Reason: Agitation Last Admin: 09/22/17 23:46 Dose: 50 mg Folic Acid (Folic Acid) 1 mg PO DAILY [facility] Last Admin: 09/22/17 09:12 Dose: 1 mg Hydroxyzine HCl (Atarax) 25 mg PO Q6H PRN PRN Reason: Anxiety Ceftriaxone Sodium 1 gm/ (Sodium Chloride) 100 mls @ 100 mls/hr IVPB DAILY@ 1500 [facility] PRN Reason: Protocol Last Admin: 09/22/17 14:55 Dose: 100 mls/hr Lorazepam (Ativan) 1 mg IVP Q6H PRN PRN Reason: Seizure activity Last Admin: 09/23/17 00:58 Dose: 1 mg Multivitamins (Hexavitamin) 1 tab PO DAILY [facility] Last Admin: 09/22/17 09:12 Dose: 1 tab Pramipexole Dihydrochloride (Mirapex) 0.75 mg PO 0700,1200,1500 [facility] Last Admin: 09/23/17 06:58 Dose: 0.75 mg Quetiapine Fumarate (Seroquel) 25 mg PO BID PRN PRN Reason: Agitation Thiamine HCl (Vitamin B1 Tab) 100 mg PO DAILY [facility] Last Admin: 09/22/17 09:14 Dose: 100 mg Tobramycin Sulfate (Tobrex 0.3% Ophth Soln) 0 drop OU Q6H [facility] Last Admin: 09/23/17 05:55 Dose: 1 drop Trazodone HCl (Desyrel) 50 mg PO HS [facility] Last Admin: 09/22/17 21:17 Dose: 50 mg - Labs Labs: 09/22/17 07:19 09/22/17 07:19 - Constitutional Appears: No Acute Distress - Head Exam Head Exam: NORMAL INSPECTION - Eye Exam Pupil Exam: PERRL - Neurological Exam Neurological Exam: Awake Neuro motor strength exam: Left Upper Extremity: 5, Right Upper Extremity: 5, Left Lower Extremity: 3, Right Lower Extremity: 3 Additional comments: neurological improving, the strength of his bilateral upper extremities are improving, but remains with extremities tremors. Assessment and Plan (1) Bradykinesia Assessment & Plan: Case discussed with Dr. Abdi, continue all current medical regimen, recommend increasing mirapex .25 mg PO BID daily, with a target dose of 1.5 mg PO q 8 hours for maintenance.,encourage PO intake, Status: Acute
[2017-09-23 08:01] LABS: BASO # 0.1 K/uL (0.0-0.2); BASO % 0.5 % (0.0-2.0); EOS % 0.3 % (0.0-4.0); HEMOGLOBIN 11.9 g/dL (12.0-18.0); LYMPH # 1.5 K/uL (1.0-4.3); LYMPH % 12.8 % (20.0-40.0); MEAN CELL VOLUME 108.1 fL (80.0-94.0); MEAN CORPUSCULAR HEMOGLOBIN 36.5 pg (27.0-31.0); MEAN CORPUSCULAR HGB CONC 33.8 g/dL (33.0-37.0); MEAN PLATELET VOLUME 9.4 fL (7.2-11.7); MONO # 1.5 K/uL (0.0-0.8); MONO % 12.1 % (0.0-10.0); NEUT % 74.3 % (50.0-75.0); NRBC % 0.1 % (0.0-2.0); RBC 3.27 Mil/uL (4.40-5.90); RED CELL DISTRIBUTION WIDTH 14.2 % (11.5-14.5); WHITE BLOOD COUNT 12.1 K/uL (4.8-10.8)
[2017-09-23 08:21] LABS: ALB/GLOB RATIO 0.9 (1.0-2.1); ALBUMIN 3.6 g/dL (3.5-5.0); ALT/SGPT 74 U/L (21-72); AST/SGOT 140 U/L (17-59); BLOOD UREA NITROGEN 6 mg/dL (9-20); CALCIUM 9.2 mg/dl (8.6-10.4); GFR AFRICAN-AMERICAN > 60; GFR NON-AFRICAN AMERICAN > 60
[2017-09-23] MEDS: Multiple Vitamins Tab PO SCH (10:10)
[2017-09-23] MEDS: DiphenhydrAMINE 50 mg/ml Inj IVP PRN (11:27)
[2017-09-23] MEDS ORDERED: Iodixanol 320 MG/ML 100 ML BOTTLE IV ONE (11:50)
--- NOTE | 2017-09-23 12:54 | CT ---
PROCEDURE: CT Chest with contrast (Pulmonary Angiogram) HISTORY: Status tachycardia, elevated d-dimer COMPARISON: None available. TECHNIQUE: Axial computed tomography images were obtained of the chest in the pulmonary arterial phase of enhancement. Coronal and sagittal reformatted images were created and reviewed. Intravenous contrast dose: Radiation dose: Total exam DLP = 358.76 mGy-cm. This CT exam was performed using one or more of the following dose reduction techniques: Automated exposure control, adjustment of the mA and/or kV according to patient size, and/or use of iterative reconstruction technique. FINDINGS: PULMONARY ARTERIES: Unremarkable. No pulmonary embolism. The visualized portions of the pulmonary trunk, right and left main, lobar, segmental and proximal subsegmental branches of the pulmonary arteries are well opacified with no definitive filling defects seen to suggest pulmonary embolus. Pulmonary trunk measures approximately 3.0 cm AORTA: No acute findings. No thoracic aortic aneurysm. Ascending thoracic aorta measures approximately 3 point 2 cm and descending thoracic aorta measures approximately 2.9 cm. LUNGS: Mild centrilobular emphysematous changes upper lobe predominance. Small calcified granuloma right anterior upper lobe near the anterior pleural surface image 29. Small granuloma right lateral upper lobe in the anterolateral pleural surface image 37. Another tiny granuloma posterolateral pleural surface right lung apex. An additional punctate granuloma right lateral upper lobe image 18. Small left pleural based scar right lung posterior pleural surface right upper lobe image 19. There numerous small calcified granulomata right lung base - image numbers [id number]). Mild scarring changes left lung base and left posterior sulcus. . . There is also 2 small linear a nodular densities left lateral upper lung field near the lateral pleural surface image 32 and 33. Punctate granuloma seen lateral lower lung base image 44. The the the the Mild passive/dependent type atelectasis both posterior lower lung zones. Minimal biapical pleural thickening PLEURAL SPACES: Unremarkable. No evidence of effusion or pneumothorax. HEART: Heart size normal. No significant pericardial effusion. LYMPH NODES: There are multiple small nonspecific mediastinal lymph nodes. BONES, CHEST WALL: There are chronic appearing anterior wedge deformities of the T3 and T4 segments. The minor multilevel degenerative spondylosis of the thoracic spine. Mild changes of gynecomastia. OTHER FINDINGS: There is a small hiatal hernia with wall thickening of the distal esophagus likely due to protrusion of gastric mucosa however esophagitis or other intrinsic wall lesion not excluded. Clinical correlation recommended. Spleen appears upper limits of normal/borderline enlarged. IMPRESSION: No evidence of acute central pulmonary embolus. Multiple calcified granulomata scattered throughout the right lung and to a lesser degree left lung. Findings consistent with prior exposure to granulomatous disease process. Mild dependent atelectasis both posterior lower lung zones. Mild scarring changes left lung base. Borderline splenomegaly.
[2017-09-23] MEDS ORDERED: Magnesium Sulfate 1 gm in D5W 1 GM/100 ML BAG IVPB ONE (14:31)
--- NOTE | 2017-09-23 14:37 | CP.PCM.PN ---
<Nicole Adrian - Last Filed: 09/23/17 14:32> Subjective - Date & Time of Evaluation Date of Evaluation: 09/23/17 Time of Evaluation: 07:00 - Subjective Subjective: PGY2- Dr. Gonzalez's Service Patient seen and examined at bedside and in no acute distress. Patient is slightly confused, but is able to tell me he is in the hospital. Patient denies any headache, chest pain, abdominal pain, nausea, vomiting, constipation, or diarrhea. Objective - Vital Signs/Intake and Output Vital Signs (last 24 hours): Temp Pulse Resp BP Pulse Ox 98.7 F 106 H 20 112/81 97 09/23/17 08:27 09/23/17 08:27 09/23/17 08:27 09/23/17 08:27 09/23/17 08:27 Intake and Output: 09/23/17 09/23/17 06:59 18:59 Intake Total 200 Balance 200 - Medications Medications: Current Medications Artificial Tears (Artificial Tears) 1 ml OU Q4 PRN PRN Reason: Other Clonidine HCl (Catapres) 0.1 mg PO Q4H PRN PRN Reason: Symptoms of alcohol withdrawl Last Admin: 09/21/17 03:05 Dose: 0.1 mg Diphenhydramine HCl (Benadryl) 50 mg IVP Q12 PRN PRN Reason: Agitation Last Admin: 09/23/17 11:27 Dose: 50 mg Folic Acid (Folic Acid) 1 mg PO DAILY [facility] Last Admin: 09/23/17 10:10 Dose: 1 mg Hydroxyzine HCl (Atarax) 25 mg PO Q6H PRN PRN Reason: Anxiety Ceftriaxone Sodium 1 gm/ (Sodium Chloride) 100 mls @ 100 mls/hr IVPB DAILY@ 1500 [facility] PRN Reason: Protocol Last Admin: 09/22/17 14:55 Dose: 100 mls/hr Sodium Chloride (Sodium Chloride 0.9%) 1,000 mls @ 75 mls/hr IV .[id number] [facility] Magnesium Sulfate/Dextrose (Magnesium Sulfate 1 Gm/100 Ml D5w) 1 gm in 100 mls @ 200 mls/hr IVPB ONCE ONE Stop: 09/23/17 15:00 Lactulose (Enulose) 20 gm PO ONCE ONE Stop: 09/23/17 14:31 Lorazepam (Ativan) 1 mg IVP Q6H PRN PRN Reason: Seizure activity Last Admin: 09/23/17 00:58 Dose: 1 mg Metoprolol Tartrate (Lopressor) 25 mg PO BID [facility] Multivitamins (Hexavitamin) 1 tab PO DAILY [facility] Last Admin: 09/23/17 10:10 Dose: 1 tab Pramipexole Dihydrochloride (Mirapex) 0.75 mg PO 0700,1200,1500 [facility] Last Admin: 09/23/17 11:28 Dose: 0.75 mg Quetiapine Fumarate (Seroquel) 25 mg PO BID PRN PRN Reason: Agitation Thiamine HCl (Vitamin B1 Tab) 100 mg PO DAILY [facility] Last Admin: 09/23/17 10:10 Dose: 100 mg Tobramycin Sulfate (Tobrex 0.3% Ophth Soln) 0 drop OU Q6H [facility] Last Admin: 09/23/17 11:27 Dose: 1 drop Trazodone HCl (Desyrel) 50 mg PO HS [facility] Last Admin: 09/22/17 21:17 Dose: 50 mg - Labs Labs: 09/23/17 07:48 09/23/17 07:48 - Additional Findings Additional findings: - Constitutional Appears: No Acute Distress - Head Exam Head Exam: ATRAUMATIC, NORMAL INSPECTION - Eye Exam Eye Exam: EOMI, PERRL - ENT Exam ENT Exam: Mucous Membranes Moist - Respiratory Exam Respiratory Exam: NORMAL BREATHING PATTERN. absent: Rales, Rhonchi, Wheezes, Respiratory Distress - Cardiovascular Exam Cardiovascular Exam: REGULAR RHYTHM, +S1, +S2 - GI/Abdominal Exam GI & Abdominal Exam: Normal Bowel Sounds, Soft. absent: Distended, Firm, Tenderness - Extremities Exam Extremities exam: Positive for: pedal pulses present. Negative for: full ROM ( decreased ROM due to weakness), normal inspection (tremors bilateral UE/LE), pedal edema, tenderness Additional comments: babinski negative b/l; sensation intact-withdraws to pain; pain with palpation of LE b/l 2/2 neuropathy. 2/5 strength b/l LE; 2/5 strength b/l UE; patient withdraws to pain b/l when palpating feet - Neurological Exam Neurological exam: Abnormal Gait, Oriented x3 Additional comments: babinski negative b/l; sensation intact-withdraws to pain; pain with palpation of LE b/l 2/2 neuropathy. 2/5 strength b/l LE; 2/5 strength b/l UE; no saddle anesthesia. - Psychiatric Exam Psychiatric exam: Flat Affect (lethargic) - Skin Skin Exam: Dry, Intact, Normal Color, Warm Assessment and Plan - Assessment and Plan (Free Text) Assessment: (1) Ambulatory dysfunction Parkinson's Disease? Assessment and Plan: Neurology consulted, Dr. Abdi, to rule out neurologic causes of ambulatory dysfunction. Help appreciated. Per Neurology, dysfunction may be due to parkinson's Transferred to medical floors Lumbar xray: unremarkable Lumbar MRI: f/u results Head CT: no evidence of acute intracranial hemorrhage intracranial collection mass effect or midline shift. Moderate atrophy. 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 Brain MRI: no acute intracranial hemorrhage or infarction; minimal chronic pervientricular white matter ischemic changes; moderate generalized volume loss ; no enhancing lesions. Ammonia level: 31, wnl TSH wnl Folate >20, wnl, Vit B12 >1000 H Fall precautions PT/OT Medication: - Pramipexole 0.75mg PO BID (started 0.25 on 09/19 by neurologist) - Per neurologist, will increase by 0.25mg daily BID (2) Alcohol dependence/withdrawal Assessment and Plan: Per psychiatry Transferred from Detox to Med/Surg Floors Continue to monitor Medications: - Clonidine 0.1mg PO Q4 prn - Atarax 25mg PO Q6 prn - Benadryl 25mg IV Q12 prn for agitation (per neurologist) - Seroquel 25mg PO bid prn for agitation (per neurologist) - Ativan prn for seizure activity - Trazadone 50mg PO HS - Banana bag given on 09/20/17 - Folic Acid 1mg PO daily - Multivitamin daily - Thiamine 100mg PO daily (3) Hx of Fall Assessment and Plan: - CT Head (09/19/17): no evidence of acute intracranial hemorrhage intracranial collection mass effect or midline shift. Moderate atrophy. 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 - Lumbar xray (09/19/17): unremarkable (4) Thrombocytopenia Assessment and Plan: - Improving - HIV: negative - Hepatitis B panel: negative - Hepatitis C reactive - Abdominal US: hepatomegaly, hepatic steatosis - Likely secondary to alcohol abuse (5) Hepatitis C Reactive Assessment and Plan: - Hep C reactive - Will need outpatient follow up (6) Conjunctivitis Assessment and Plan: - Artificial tears - Tobramycin opht solution OU Q6 (7) Tachycardia Assessment and Plan: - Likely secondary to withdrawal - TSH: wnl - Free T4: 1.41 - DDimer: 736 -CTA: neg for PE -f/u LE dopplers -started on Lopressor 25mg po BID (8) Constipation -lactulose given on 09/23 (9) Hypomagnesemia -Mg 1.5 -check level in AM (8) Prophylaxis Assessment and Plan: - Fall precautions - PT/OT - Chemical anticoagulation contraindicated 2/2 thrombocytopenia -NS at 75cc started on 09/23 <Patrizia Gonzalez V - Last Filed: 09/25/17 22:47> Objective - Vital Signs/Intake and Output Vital Signs (last 24 hours): Temp Pulse Resp BP Pulse Ox 97.7 F 83 20 142/76 100 09/25/17 15:10 09/25/17 15:10 09/25/17 15:10 09/25/17 18:43 09/25/17 15:10 Intake and Output: 09/25/17 09/26/17 18:59 06:59 Output Total 400 Balance -400 - Medications Medications: Current Medications Artificial Tears (Artificial Tears) 1 ml OU Q4 PRN PRN Reason: Other Last Admin: 09/24/17 09:12 Dose: 1 drop Clonidine HCl (Catapres) 0.1 mg PO Q4H PRN PRN Reason: Symptoms of alcohol withdrawl Last Admin: 09/21/17 03:05 Dose: 0.1 mg Folic Acid (Folic Acid) 1 mg PO DAILY [facility] Last Admin: 09/25/17 11:11 Dose: 1 mg Hydroxyzine HCl (Atarax) 25 mg PO Q6H PRN PRN Reason: Anxiety Sodium Chloride (Sodium Chloride 0.9%) 1,000 mls @ 75 mls/hr IV .[id number] [facility] Last Admin: 09/25/17 07:15 Dose: Not Given Piperacillin Sod/Tazobactam (Sod 3.375 gm/ Sodium Chloride) 100 mls @ 200 mls/ hr IVPB Q6H [facility] PRN Reason: Protocol Last Admin: 09/25/17 21:35 Dose: 200 mls/hr Metoprolol Tartrate (Lopressor) 25 mg PO BID [facility] Last Admin: 09/25/17 18:43 Dose: 25 mg Multivitamins (Hexavitamin) 1 tab PO DAILY [facility] Last Admin: 09/25/17 11:11 Dose: 1 tab Pramipexole Dihydrochloride (Mirapex) 0.75 mg PO 0700,1200,1500 [facility] Last Admin: 09/25/17 15:54 Dose: 0.75 mg Quetiapine Fumarate (Seroquel) 25 mg PO ONCE PRN PRN Reason: Agitation Last Admin: 09/25/17 18:43 Dose: 25 mg Thiamine HCl (Vitamin B1 Tab) 100 mg PO DAILY [facility] Last Admin: 09/25/17 11:12 Dose: 100 mg Tobramycin Sulfate (Tobrex 0.3% Oph Soln) 1 drop OU Q6H [facility] Stop: 09/26/17 18:46 Last Admin: 09/25/17 18:46 Dose: 1 drop Trazodone HCl (Desyrel) 50 mg PO HS [facility] Last Admin: 09/25/17 21:35 Dose: 50 mg - Labs Labs: 09/25/17 06:53 09/25/17 06:53 Assessment and Plan (1) Alcohol dependence Status: Acute (2) Ambulatory dysfunction Status: Acute (3) Abnormal gait Status: Acute (4) Tremor Status: Acute Attending/Attestation - Attestation I have personally seen and examined this patient.: Yes I have fully participated in the care of the patient.: Yes I have reviewed all pertinent clinical information, including history, physical exam and plan: Yes Notes (Text): This is late computer entry for 09/23/17. Patient seen, examined, and case discussed with day-time resident. Patient seen this morning. He was slightly confused per clinical partner this morning. When I spoke with his nurse, he was able to eat his lunch. I spoke with his and mother in law during rounds. I have indicated the results of the brain mri to them and we have also given the family's phone number for the neurologist to elaborate on in terms of parkinson's diagnoses. Patient's CT angio is negative for PE. Patient is pending dopplers; i have spoken with cardiovascular doppler department to see if this can get done. Patient is having difficult time having a bowel movement. He has been seen on the bed pain but discussion with nursing staff notes he is not going. We will given him a dose of Lactulose. We will start gentle IV hydration since he looks dehydrated. Will continue to monitor on telemetry Assessment/Plan (1) Ambulatory dysfunction Suspected Parkinson's Disease? Assessment and Plan: * Neurology consulted, Dr. Abdi, to rule out neurologic causes of ambulatory dysfunction. Help appreciated. * Per Neurology, dysfunction may be due to parkinson's * Transferred to medical floors on 09/19/17 * Lumbar xray: unremarkable * Lumbar MRI:Limited motion degraded study. Multilevel facet arthropathy. No disc herniations nor significant disc bulges. Small annual fissure seen within the L4-L5 and L5-S1 posterior lateral disc margins as outlined above * Head CT: no evidence of acute intracranial hemorrhage intracranial collection mass effect or midline shift. Moderate atrophy. Mild white matter changes likely represent chronic microvacular ischemic disease * Brain MRI: No acute intracranial hemorrhage or infarction. Minimal chronic periventricular white matter ischemic changes. Moderate generalized volume loss. No enhancing lesions. * Ammonia level: 31, wnl * TSH wnl * Folate >20, wnl, Vit B12 >1000 H * Fall precautions * PT/OT eval * Medication: * Pramipexole 0.75mg PO TID (2) Alcohol dependence/withdrawal Assessment and Plan: * Per psychiatry * Transferred from Detox to Med/Surg Floors on 09/19/17 * Continue to monitor * Neurology has recommended to d/c ativan and recommended seroquel for agitation Medications: * Clonidine 0.1mg PO Q4 prn * Atarax 25mg PO Q6 prn * Seroquel 25mg PO daily prn for agitation (per neurologist) * Trazadone 50mg PO HS * Banana bag to be give on 09/20/17 * Folic Acid 1mg PO daily * Multivitamin daily * Thiamine 100mg PO daily (3) Hx of Fall Assessment and Plan: * CT Head (09/19/17): no evidence of acute intracranial hemorrhage intracranial collection mass effect or midline shift. Moderate atrophy. Mild white matter changes likely reprsent chronic microvascular ischemic disease * Lumbar xray (09/19/17): unremarkable * Lumbar MRI:Limited motion degraded study. Multilevel facet arthropathy. No disc herniations nor significant disc bulges. Small annual fissure seen within the L4-L5 and L5-S1 posterior lateral disc margins as outlined above (4) Thrombocytopenia Assessment and Plan: * HIV: negative * Hepatitis panel: negative * Abdominal US: hepatomegaly, hepatic steatosis * Likely secondary to alcohol abuse * improving (5) Hepatitis C Reactive Assessment and Plan: * will need outpatient following in regards to possible hepatitis C (6) Conjunctivitis Assessment and Plan: * Artificial tears * Tobramycin opht solution OU Q6H (7) Tachycardia-->controlled Assessment and Plan: * CT angio (09/23/17): No evidence of acute central pulmonary embolus. Multiple calcified granulomata scattered throughout the right lung and to a lesser degree left lung findings consistent with prior exposure to granulomatous disease process. Mild dependent atelectasis both posterior lower lung zones mild scarring of the left lung base borderline splenomegaly * pending dopplers * Thyroid studies are within normal * Suspecting tachycardia secondary to withdrawal * Patient start on Lopressor 25 mg by mouth twice a day (8) Prophylaxis Assessment and Plan: * Fall precautions * PT/OT eval * Chemical anticoagulation contraindicated 2/2 thrombocytopenia
[2017-09-23] MEDS: Sodium Chloride 0.9% 1,000 ML IV SCH (14:56)
--- NOTE | 2017-09-23 22:50 | CARD ---
APPROVED REPORT EKG Measurement Heart [id number] <Conclusion> Sinus tachycardia Anterolateral infarct, age undetermined Abnormal ECG
--- NOTE | 2017-09-24 00:52 | CP.PCM.PN ---
<Shira Brown - Last Filed: 09/24/17 00:46> Subjective - Date & Time of Evaluation Date of Evaluation: 09/24/17 Time of Evaluation: 00:46 - Subjective Subjective: Medicine progress note for Dr. Gonzalez Patient was seen and examined at bedside in no acute distress. Patient appears lethargic, however, per nursing, he recently received medication. Review of systems limited because patient was sleeping. Per nursing, no acute events overnight. Objective - Vital Signs/Intake and Output Vital Signs (last 24 hours): Temp Pulse Resp BP Pulse Ox 98 F 96 H 20 130/89 96 09/23/17 23:33 09/23/17 23:33 09/23/17 23:33 09/23/17 23:33 09/23/17 23:33 Intake and Output: 09/23/17 09/24/17 18:59 06:59 Intake Total 300 850 Balance 300 850 - Medications Medications: Current Medications Artificial Tears (Artificial Tears) 1 ml OU Q4 PRN PRN Reason: Other Clonidine HCl (Catapres) 0.1 mg PO Q4H PRN PRN Reason: Symptoms of alcohol withdrawl Last Admin: 09/21/17 03:05 Dose: 0.1 mg Diphenhydramine HCl (Benadryl) 50 mg IVP Q12 PRN PRN Reason: Agitation Last Admin: 09/23/17 11:27 Dose: 50 mg Folic Acid (Folic Acid) 1 mg PO DAILY [facility] [place] Last Admin: 09/23/17 10:10 Dose: 1 mg Hydroxyzine HCl (Atarax) 25 mg PO Q6H PRN PRN Reason: Anxiety Sodium Chloride (Sodium Chloride 0.9%) 1,000 mls @ 75 mls/hr IV .[id number] [facility] [place] Last Admin: 09/23/17 14:56 Dose: 75 mls/hr Lorazepam (Ativan) 1 mg IVP Q6H [facility] [place] Last Admin: 09/23/17 19:28 Dose: 1 mg Metoprolol Tartrate (Lopressor) 25 mg PO BID [facility] [place] Last Admin: 09/23/17 18:11 Dose: 25 mg Multivitamins (Hexavitamin) 1 tab PO DAILY [facility] [place] Last Admin: 09/23/17 10:10 Dose: 1 tab Pramipexole Dihydrochloride (Mirapex) 0.75 mg PO 0700,1200,1500 [facility] [place] Last Admin: 09/23/17 15:51 Dose: 0.75 mg Quetiapine Fumarate (Seroquel) 25 mg PO BID PRN PRN Reason: Agitation Thiamine HCl (Vitamin B1 Tab) 100 mg PO DAILY [facility] [place] Last Admin: 09/23/17 10:10 Dose: 100 mg Tobramycin Sulfate (Tobrex 0.3% Ophth Soln) 0 drop OU Q6H [facility] [place] Last Admin: 09/23/17 18:12 Dose: 1 drop Trazodone HCl (Desyrel) 50 mg PO HS [facility] [place] Last Admin: 09/23/17 21:44 Dose: Not Given - Labs Labs: 09/23/17 07:48 09/23/17 07:48 - Additional Findings Additional findings: - Constitutional Appears: No Acute Distress, sedated - Head Exam Head Exam: ATRAUMATIC, NORMAL INSPECTION - Eye Exam Eye Exam: EOMI, PERRL - ENT Exam ENT Exam: Mucous Membranes Moist - Respiratory Exam Respiratory Exam: NORMAL BREATHING PATTERN. absent: Rales, Rhonchi, Wheezes, Respiratory Distress - Cardiovascular Exam Cardiovascular Exam: REGULAR RHYTHM, +S1, +S2 - GI/Abdominal Exam GI & Abdominal Exam: Normal Bowel Sounds, Soft. absent: Distended, Firm, Tenderness - Extremities Exam Extremities exam: Positive for: pedal pulses present. Negative for: full ROM ( decreased ROM due to weakness), normal inspection (tremors bilateral UE/LE), pedal edema, tenderness Additional comments: babinski negative b/l; sensation intact-withdraws to pain; pain with palpation of LE b/l 2/2 neuropathy. 2/5 strength b/l LE; 2/5 strength b/l UE; patient withdraws to pain b/l when palpating feet - Neurological Exam Neurological exam: Abnormal Gait, Oriented x3 Additional comments: babinski negative b/l; sensation intact-withdraws to pain; pain with palpation of LE b/l 2/2 neuropathy. 2/5 strength b/l LE; 2/5 strength b/l UE; no saddle anesthesia. - Psychiatric Exam Psychiatric exam: Flat Affect (lethargic) - Skin Skin Exam: Dry, Intact, Normal Color, Warm Assessment and Plan (1) Ambulatory dysfunction Status: Acute (2) Alcohol dependence Status: Acute - Assessment and Plan (Free Text) Plan: (1) Ambulatory dysfunction Parkinson's Disease? Assessment and Plan: - Neurology consulted, Dr. Abdi, to rule out neurologic causes of ambulatory dysfunction. Help appreciated. - Per Neurology, dysfunction may be due to parkinson's - Transferred to medical floors - Lumbar xray: unremarkable - Lumbar MRI: f/u results - Head CT: no evidence of acute intracranial hemorrhage intracranial collection mass effect or midline shift. Moderate atrophy. 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 - Ammonia level: 31, wnl - TSH wnl - Folate >20, wnl, Vit B12 >1000 H - Fall precautions - PT/OT Medication: - Pramipexole 0.75mg PO TID at 7am, 12pm, & 3pm (started 0.25 on 09/19 by neurologist) (2) Alcohol dependence/withdrawal Assessment and Plan: Per psychiatry Transferred from Detox to Med/Surg Floors Continue to monitor Medications: - Clonidine 0.1mg PO Q4 prn - Atarax 25mg PO Q6 prn - Benadryl 50mg IV Q12 prn for agitation (per neurologist) - Seroquel 25mg PO bid prn for agitation (per neurologist) - Ativan prn for agitation/seizure activity - Trazadone 50mg PO HS - Banana bag given on 09/20/17 - Folic Acid 1mg PO daily - Multivitamin daily - Thiamine 100mg PO daily (3) Hx of Fall Assessment and Plan: - CT Head (09/19/17): no evidence of acute intracranial hemorrhage intracranial collection mass effect or midline shift. Moderate atrophy. 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 - Lumbar xray (09/19/17): unremarkable (4) Thrombocytopenia Assessment and Plan: - Improving - HIV: negative - Hepatitis B panel: negative - Hepatitis C reactive - Abdominal US: hepatomegaly, hepatic steatosis - Likely secondary to alcohol abuse (5) Hepatitis C Reactive Assessment and Plan: - Hep C reactive - Will need outpatient follow up (6) Conjunctivitis Assessment and Plan: - Artificial tears - Tobramycin opht solution OU Q6 (7) Tachycardia Assessment and Plan: - Likely secondary to withdrawal - Started on Lopressor 25mg PO BID (active since 09/23) - TSH: wnl - Free T4: 1.41 - DDimer: 736 - CTA: neg for PE - f/u LE dopplers (8) Constipation - Lactulose given on 09/23 (9) Hypomagnesemia - Mg 1.5 - Continue to monitor (8) Prophylaxis Assessment and Plan: - Fall precautions - PT/OT - Chemical anticoagulation contraindicated 2/2 thrombocytopenia - NS at 75cc started on 09/23 <Patrizia Gonzalez V - Last Filed: 09/24/17 18:12> Objective - Vital Signs/Intake and Output Vital Signs (last 24 hours): Temp Pulse Resp BP Pulse Ox 98.1 F 89 20 137/70 100 09/24/17 15:00 09/24/17 15:00 09/24/17 15:00 09/24/17 17:29 09/24/17 15:00 Intake and Output: 09/24/17 09/24/17 06:59 18:59 Intake Total 850 850 Balance 850 850 - Medications Medications: Current Medications Artificial Tears (Artificial Tears) 1 ml OU Q4 PRN PRN Reason: Other Last Admin: 09/24/17 09:12 Dose: 1 drop Clonidine HCl (Catapres) 0.1 mg PO Q4H PRN PRN Reason: Symptoms of alcohol withdrawl Last Admin: 09/21/17 03:05 Dose: 0.1 mg Diphenhydramine HCl (Benadryl) 50 mg IVP Q12 PRN PRN Reason: Agitation Last Admin: 09/23/17 11:27 Dose: 50 mg Folic Acid (Folic Acid) 1 mg PO DAILY [facility] [place] Last Admin: 09/24/17 09:10 Dose: 1 mg Hydroxyzine HCl (Atarax) 25 mg PO Q6H PRN PRN Reason: Anxiety Sodium Chloride (Sodium Chloride 0.9%) 1,000 mls @ 75 mls/hr IV .[id number] Last Admin: 09/24/17 17:13 Dose: Not Given Piperacillin Sod/Tazobactam (Sod 3.375 gm/ Sodium Chloride) 100 mls @ 200 mls/ hr IVPB Q6H [facility] PRN Reason: Protocol Last Admin: 09/24/17 17:03 Dose: 200 mls/hr Lorazepam (Ativan) 1 mg IVP Q6H [facility] [place] Last Admin: 09/24/17 13:49 Dose: Not Given Metoprolol Tartrate (Lopressor) 25 mg PO BID [facility] [place] Last Admin: 09/24/17 17:29 Dose: 25 mg Multivitamins (Hexavitamin) 1 tab PO DAILY [facility] [place] Last Admin: 09/24/17 09:10 Dose: 1 tab Pramipexole Dihydrochloride (Mirapex) 0.75 mg PO 0700,1200,1500 [facility] [place] Last Admin: 09/24/17 15:55 Dose: 0.75 mg Quetiapine Fumarate (Seroquel) 25 mg PO BID PRN PRN Reason: Agitation Last Admin: 09/24/17 09:10 Dose: 25 mg Thiamine HCl (Vitamin B1 Tab) 100 mg PO DAILY [facility] [place] Last Admin: 09/24/17 09:09 Dose: 100 mg Tobramycin Sulfate (Tobrex 0.3% Oph Soln) 0 drop OU Q6H [facility] [place] Last Admin: 09/24/17 17:14 Dose: 1 drop Trazodone HCl (Desyrel) 50 mg PO HS [facility] [place] Last Admin: 09/23/17 21:44 Dose: Not Given - Labs Labs: 09/24/17 07:30 09/24/17 07:30 Assessment and Plan (1) Alcohol dependence Status: Acute (2) Ambulatory dysfunction Status: Acute (3) Abnormal gait Status: Acute (4) Tremor Status: Acute Attending/Attestation - Attestation I have personally seen and examined this patient.: Yes I have fully participated in the care of the patient.: Yes I have reviewed all pertinent clinical information, including history, physical exam and plan: Yes Notes (Text): Patient seen, examined, and case discussed with medical claims representative. Patient seen this morning. Patient was okay was not agitated we briefly spoke he would like to go home. He doesn't feel like eating his breakfast. Spoke with his nurse patient was agitated this try to get out of bed. Per review of labs: Patient's white count is increasing. I have ordered for blood cultures, urine culture, and pro-calcitonin. Patient started on empiric Zosyn IV. Renewed telemetry. If discontinue the Ativan dose. I have lowered the Seroquel 25 mg by mouth once when necessary for agitation. And I discontinue the Benadryl dose. Assessment/Plan (1) Ambulatory dysfunction Suspected Parkinson's Disease? Assessment and Plan: * Neurology consulted, Dr. Abdi, help appreciated * Per Neurology, dysfunction may be due to parkinson's * Transferred to medical floors on 09/19/17 * Lumbar xray: unremarkable * Lumbar MRI: Limited motion degraded study. Multilevel facet arthropathy. No disc herniations nor significant disc bulges. Small annual fissure seen within the L4-L5 and L5-S1 posterior lateral disc margins as outlined above * Head CT: no evidence of acute intracranial hemorrhage intracranial collection mass effect or midline shift. Moderate atrophy. Mild white matter changes likely represent chronic microvacular ischemic disease * Brain MRI: No acute intracranial hemorrhage or infarction. Minimal chronic periventricular white matter ischemic changes. Moderate generalized volume loss. No enhancing lesions. * Ammonia level: 31, wnl * TSH wnl * Folate >20, wnl, Vit B12 >1000 H * Fall precautions * PT/OT eval * Medication: * Pramipexole 0. 75 mg by mouth 3 times a day specifically at 7 AM 12 PM and 3 PM and advised and neurology did not give a dose after 5 PM because it'll cause patient to become very restless. (2) Alcohol dependence/withdrawal Assessment and Plan: * Per psychiatry * Transferred from Detox to Med/Surg Floors on 09/19/17 * Continue to monitor * Have discontinued the Ativan, Benadryl. Medications: * Clonidine 0.1mg PO Q4 prn * Atarax 25mg PO Q6 prn * Seroquel 25mg PO daily prn for agitation (per neurologist) * Trazadone 50mg PO HS * Folic Acid 1mg PO daily * Multivitamin daily * Thiamine 100mg PO daily (3) Hx of Fall Assessment and Plan: * CT Head (09/19/17): no evidence of acute intracranial hemorrhage intracranial collection mass effect or midline shift. Moderate atrophy. Mild white matter changes likely reprsent chronic microvascular ischemic disease * Lumbar xray (09/19/17): unremarkable * Lumbar MRI: Limited motion degraded study. Multilevel facet arthropathy. No disc herniations nor significant disc bulges. Small annual fissure seen within the L4-L5 and L5-S1 posterior lateral disc margins as outlined above (4) Thrombocytopenia-->resolved Assessment and Plan: * HIV: negative * Hepatitis panel: negative * Abdominal US: hepatomegaly, hepatic steatosis * Have normalized (5) Hepatitis C Reactive Assessment and Plan: * will need outpatient following in regards to possible hepatitis C (6) Leukocytosis Assessment and Plan: * Increasing * Blood cultures follow-up on September 25 * Urine culture follow-up September 25 * Started on Zosyn 3.375 IV every 6 on September 25 * Pro-calcitonin is elevated (7) Tachycardia Assessment and Plan: * CT angio (09/23/17): No evidence of acute central pulmonary embolus. Multiple calcified granulomata scattered throughout the right lung and to a lesser degree left lung findings consistent with prior exposure to granulomatous disease process. Mild dependent atelectasis both posterior lower lung zones mild scarring of the left lung base borderline splenomegaly * Thyroid studies are within normal * Suspecting tachycardia secondary to withdrawal * Patient start on Lopressor 25 mg by mouth twice a day since September 23 (8) Conjunctivitis Assessment and Plan: * Started on Tobrex 0.3 every 6 hours since September 21 * Should complete a five-day course * Improving * Patient is seen well and is not in renal failure (9) Prophylaxis Assessment and Plan: * Fall precautions * PT/OT eval * We'll start heparin 5000 subcutaneous 8Hfor DVT prophylaxis * Aspiration precautions * Seizure precautions
[2017-09-24] MEDS: Tobramycin 0.3% OPHT SOLN OU SCH ×5 (02:10→18:48)
[2017-09-24] MEDS: Sodium Chloride 0.9% 1,000 ML IV SCH ×3 (03:57→17:13)
[2017-09-24 07:38] LABS: BASO # 0.1 K/uL (0.0-0.2); BASO % 0.7 % (0.0-2.0); EOS % 0.2 % (0.0-4.0); HEMOGLOBIN 11.5 g/dL (12.0-18.0); LYMPH # 1.4 K/uL (1.0-4.3); MEAN CELL VOLUME 108.7 fL (80.0-94.0); MEAN CORPUSCULAR HEMOGLOBIN 35.9 pg (27.0-31.0); MEAN CORPUSCULAR HGB CONC 33.1 g/dL (33.0-37.0); MEAN PLATELET VOLUME 9.8 fL (7.2-11.7); MONO # 1.5 K/uL (0.0-0.8); MONO % 10.2 % (0.0-10.0); NEUT # 11.4 K/uL (1.8-7.0); NEUT % 78.9 % (50.0-75.0); RBC 3.19 Mil/uL (4.40-5.90); RED CELL DISTRIBUTION WIDTH 14.5 % (11.5-14.5); WHITE BLOOD COUNT 14.5 K/uL (4.8-10.8)
[2017-09-24 08:23] LABS: ALB/GLOB RATIO 0.9 (1.0-2.1); ALBUMIN 3.3 g/dL (3.5-5.0); ALT/SGPT 68 U/L (21-72); AST/SGOT 117 U/L (17-59); BLOOD UREA NITROGEN 6 mg/dL (9-20); CALCIUM 8.8 mg/dl (8.6-10.4); GFR AFRICAN-AMERICAN > 60; GFR NON-AFRICAN AMERICAN > 60
[2017-09-24] MEDS: Multiple Vitamins Tab PO SCH (09:10)
[2017-09-24] MEDS: Aritificial Tears (15ml) OU PRN (09:12)
[2017-09-24] MEDS: Piperacillin/Tazobact 3.375 GM in Sodium Chloride 100 ML IVPB SCH ×3 (11:00→21:58)
[2017-09-25] MEDS: Tobramycin 0.3% OPHT SOLN OU SCH ×4 (01:08→18:46)
--- NOTE | 2017-09-25 02:57 | CP.PCM.PN ---
<Shira Brown - Last Filed: 09/25/17 02:48> Subjective - Date & Time of Evaluation Date of Evaluation: 09/25/17 Time of Evaluation: 02:48 - Subjective Subjective: Medicine progress note for Dr. Gonzalez Patient was seen and examined at bedside in no acute distress. Patient still appears lethargic. Per nursing, patient is intermittently agitated throughout the day. Review of systems limited because patient was sleeping. Per nursing, no acute events overnight. Objective - Vital Signs/Intake and Output Vital Signs (last 24 hours): Temp Pulse Resp BP Pulse Ox 98.7 F 76 20 125/75 98 09/25/17 00:00 09/25/17 00:00 09/25/17 00:00 09/25/17 00:00 09/25/17 00:00 Intake and Output: 09/24/17 09/25/17 18:59 06:59 Intake Total 850 1150 Output Total 500 Balance 850 650 - Medications Medications: Current Medications Artificial Tears (Artificial Tears) 1 ml OU Q4 PRN PRN Reason: Other Last Admin: 09/24/17 09:12 Dose: 1 drop Clonidine HCl (Catapres) 0.1 mg PO Q4H PRN PRN Reason: Symptoms of alcohol withdrawl Last Admin: 09/21/17 03:05 Dose: 0.1 mg Folic Acid (Folic Acid) 1 mg PO DAILY [facility] Last Admin: 09/24/17 09:10 Dose: 1 mg Hydroxyzine HCl (Atarax) 25 mg PO Q6H PRN PRN Reason: Anxiety Sodium Chloride (Sodium Chloride 0.9%) 1,000 mls @ 75 mls/hr IV .[id number] [facility] Last Admin: 09/24/17 17:13 Dose: Not Given Piperacillin Sod/Tazobactam (Sod 3.375 gm/ Sodium Chloride) 100 mls @ 200 mls/ hr IVPB Q6H [facility] PRN Reason: Protocol Last Admin: 09/24/17 21:58 Dose: 200 mls/hr Metoprolol Tartrate (Lopressor) 25 mg PO BID [facility] Last Admin: 09/24/17 17:29 Dose: 25 mg Multivitamins (Hexavitamin) 1 tab PO DAILY [facility] Last Admin: 09/24/17 09:10 Dose: 1 tab Pramipexole Dihydrochloride (Mirapex) 0.75 mg PO 0700,1200,1500 [facility] Last Admin: 09/24/17 15:55 Dose: 0.75 mg Quetiapine Fumarate (Seroquel) 25 mg PO ONCE PRN PRN Reason: Agitation Last Admin: 09/25/17 01:07 Dose: 25 mg Thiamine HCl (Vitamin B1 Tab) 100 mg PO DAILY [facility] Last Admin: 09/24/17 09:09 Dose: 100 mg Tobramycin Sulfate (Tobrex 0.3% Ophth Soln) 1 drop OU Q6H [facility] Stop: 09/26/17 18:46 Last Admin: 09/25/17 01:08 Dose: 1 drop Trazodone HCl (Desyrel) 50 mg PO HS [facility] Last Admin: 09/24/17 21:55 Dose: 50 mg - Labs Labs: 09/24/17 07:30 09/24/17 07:30 - Additional Findings Additional findings: - Constitutional Appears: No Acute Distress, sedated - Head Exam Head Exam: ATRAUMATIC, NORMAL INSPECTION - Eye Exam Eye Exam: EOMI, PERRL - ENT Exam ENT Exam: Mucous Membranes Moist - Respiratory Exam Respiratory Exam: NORMAL BREATHING PATTERN. absent: Rales, Rhonchi, Wheezes, Respiratory Distress - Cardiovascular Exam Cardiovascular Exam: REGULAR RHYTHM, +S1, +S2 - GI/Abdominal Exam GI & Abdominal Exam: Normal Bowel Sounds, Soft. absent: Distended, Firm, Tenderness - Extremities Exam Extremities exam: Positive for: pedal pulses present. Negative for: full ROM ( decreased ROM due to weakness), normal inspection (tremors bilateral UE/LE), pedal edema, tenderness Additional comments: babinski negative b/l; sensation intact-withdraws to pain; pain with palpation of LE b/l 2/2 neuropathy. 2/5 strength b/l LE; 2/5 strength b/l UE; patient withdraws to pain b/l when palpating feet - Neurological Exam Neurological exam: Abnormal Gait, Oriented x3 Additional comments: babinski negative b/l; sensation intact-withdraws to pain; pain with palpation of LE b/l 2/2 neuropathy. 2/5 strength b/l LE; 2/5 strength b/l UE; no saddle anesthesia. - Psychiatric Exam Psychiatric exam: Flat Affect (lethargic) - Skin Skin Exam: Dry, Intact, Normal Color, Warm Assessment and Plan (1) Ambulatory dysfunction Status: Acute (2) Alcohol dependence Status: Acute - Assessment and Plan (Free Text) Plan: (1) Ambulatory dysfunction Parkinson's Disease? Assessment and Plan: - Neurology consulted, Dr. Abdi, to rule out neurologic causes of ambulatory dysfunction. Help appreciated. - Per Neurology, dysfunction may be due to parkinson's - Transferred to medical floors - Lumbar xray: unremarkable - Lumbar MRI: Multilevel facet arthropathy. No disc herniations nor significant disc bulges. Small annual fissure seen within the L4-L5 and L5-S1 posterior lateral disc margins as outlined above - Head CT: no evidence of acute intracranial hemorrhage intracranial collection mass effect or midline shift. Moderate atrophy. 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 - Ammonia level: 31, wnl - TSH wnl - Folate >20, wnl, Vit B12 >1000 H - Fall precautions - PT/OT Medication: - Pramipexole 0.75mg PO TID at 7am, 12pm, & 3pm (started 0.25 on 09/19 by neurologist) (2) Alcohol dependence/withdrawal Assessment and Plan: Per psychiatry Transferred from Detox to Med/Surg Floors Continue to monitor Medications: - Clonidine 0.1mg PO Q4 prn - Atarax 25mg PO Q6 prn - Benadryl 50mg IV Q12 prn for agitation (per neurologist) - Seroquel 25mg PO daily prn for agitation (per neurologist) - Ativan prn for agitation/seizure activity - Trazadone 50mg PO HS - Banana bag given on 09/20/17 - Folic Acid 1mg PO daily - Multivitamin daily - Thiamine 100mg PO daily (3) Hx of Fall Assessment and Plan: - CT Head (09/19/17): no evidence of acute intracranial hemorrhage intracranial collection mass effect or midline shift. Moderate atrophy. 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 - Lumbar xray (09/19/17): unremarkable (4) Thrombocytopenia, resolved Assessment and Plan: - Improving - HIV: negative - Hepatitis B panel: negative - Hepatitis C reactive - Abdominal US: hepatomegaly, hepatic steatosis - Likely secondary to alcohol abuse (5) Hepatitis C Reactive Assessment and Plan: - Hep C reactive - Will need outpatient follow up (6) Conjunctivitis Assessment and Plan: - Artificial tears - Tobramycin opht solution OU Q6 (7) Tachycardia Assessment and Plan: - Likely secondary to withdrawal - Started on Lopressor 25mg PO BID (active since 09/23) - TSH: wnl - Free T4: 1.41 - DDimer: 736 - CTA: neg for PE - f/u LE dopplers (8) Constipation - Lactulose given on 09/23 (9) Hypomagnesemia - Mg 1.5 - Continue to monitor (10) Leukocytosis Assessment and Plan: - Increasing - Pro-calcitonin: elevated - Blood cultures (09/24): f/u - Urine culture (09/24): f/u - Started on Zosyn 3.375 IV Q6h on September 25 (11) Prophylaxis Assessment and Plan: - Heparin 5000u SC Q8h - Fall precautions - PT/OT - Aspiration/seizure precautions <Patrizia Gonzalez V - Last Filed: 09/25/17 12:43> Objective - Vital Signs/Intake and Output Vital Signs (last 24 hours): Temp Pulse Resp BP Pulse Ox 97.5 F L 96 H 20 138/82 98 09/25/17 07:25 09/25/17 07:25 09/25/17 07:25 09/25/17 11:12 09/25/17 07:25 Intake and Output: 09/25/17 09/25/17 06:59 18:59 Intake Total 1250 Output Total 1000 Balance 250 - Medications Medications: Current Medications Artificial Tears (Artificial Tears) 1 ml OU Q4 PRN PRN Reason: Other Last Admin: 09/24/17 09:12 Dose: 1 drop Clonidine HCl (Catapres) 0.1 mg PO Q4H PRN PRN Reason: Symptoms of alcohol withdrawl Last Admin: 09/21/17 03:05 Dose: 0.1 mg Folic Acid (Folic Acid) 1 mg PO DAILY [facility] Last Admin: 09/24/17 09:10 Dose: 1 mg Hydroxyzine HCl (Atarax) 25 mg PO Q6H PRN PRN Reason: Anxiety Sodium Chloride (Sodium Chloride 0.9%) 1,000 mls @ 75 mls/hr IV .[id number] [facility] Last Admin: 09/24/17 17:13 Dose: Not Given Piperacillin Sod/Tazobactam (Sod 3.375 gm/ Sodium Chloride) 100 mls @ 200 mls/ hr IVPB Q6H [facility] PRN Reason: Protocol Last Admin: 09/25/17 11:10 Dose: 200 mls/hr Metoprolol Tartrate (Lopressor) 25 mg PO BID [facility] Last Admin: 09/25/17 11:12 Dose: 25 mg Multivitamins (Hexavitamin) 1 tab PO DAILY [facility] Last Admin: 09/25/17 11:11 Dose: 1 tab Pramipexole Dihydrochloride (Mirapex) 0.75 mg PO 0700,1200,1500 [facility] Last Admin: 09/25/17 11:11 Dose: 0.75 mg Quetiapine Fumarate (Seroquel) 25 mg PO ONCE PRN PRN Reason: Agitation Last Admin: 09/25/17 01:07 Dose: 25 mg Thiamine HCl (Vitamin B1 Tab) 100 mg PO DAILY [facility] Last Admin: 09/25/17 11:12 Dose: 100 mg Tobramycin Sulfate ([facility]obrex [facility]) 1 drop OU Q6H [facility] Stop: 09/26/17 18:46 Last Admin: 09/25/17 05:45 Dose: 1 drop Trazodone HCl (Desyrel) 50 mg PO HS [facility] Last Admin: 09/24/17 21:55 Dose: 50 mg - Labs Labs: 09/25/17 06:53 09/25/17 06:53 Assessment and Plan (1) Alcohol dependence Status: Acute (2) Ambulatory dysfunction Status: Acute (3) Abnormal gait Status: Acute (4) Tremor Status: Acute Attending/Attestation - Attestation I have personally seen and examined this patient.: Yes I have fully participated in the care of the patient.: Yes I have reviewed all pertinent clinical information, including history, physical exam and plan: Yes Notes (Text): Patient seen, examined, and case discussed with medical billing coder. Patient seen at 12:10PM. Patient is doing remarkably better. Patient is off sedative medications. Patient has urinated. When I spoke with the clinical partner, appeared patient was struggling to urinate. patient has cira colored urine in the matthews bag. We will order for renal/bladder US. procalcitonin was mildly elevated. We will need to f/u blood and urine culture from 09/24/17. Per review of labs: Patient's white count is increasing. Discontinued telemetry. If discontinue the Ativan dose. I have lowered the Seroquel 25 mg by mouth once when necessary for agitation. And I discontinue the Benadryl dose. We will need to f/u blood and urine (09/24/17), renal/bladder US, and f/u pt/ot. We will see from neurology regarding any further recommendations for discharge planning purposes. Assessment/Plan (1) Ambulatory dysfunction Suspected Parkinson's Disease? Assessment and Plan: * Neurology consulted, Dr. Abdi, help appreciated * Per Neurology, dysfunction may be due to parkinson's * Transferred to medical floors on 09/19/17 * Lumbar xray: unremarkable * Lumbar MRI: Limited motion degraded study. Multilevel facet arthropathy. No disc herniations nor significant disc bulges. Small annual fissure seen within the L4-L5 and L5-S1 posterior lateral disc margins as outlined above * Head CT: no evidence of acute intracranial hemorrhage intracranial collection mass effect or midline shift. Moderate atrophy. Mild white matter changes likely represent chronic microvacular ischemic disease * Brain MRI: No acute intracranial hemorrhage or infarction. Minimal chronic periventricular white matter ischemic changes. Moderate generalized volume loss. No enhancing lesions. * Ammonia level: 31, wnl * TSH wnl * Folate >20, wnl, Vit B12 >1000 H * Fall precautions * PT/OT eval * Medication: * Pramipexole 0. 75 mg by mouth 3 times a day specifically at 7 AM 12 PM and 3 PM and advised and neurology did not give a dose after 5 PM because it'll cause patient to become very restless. (2) Alcohol dependence/withdrawal Assessment and Plan: * Per psychiatry * Transferred from Detox to Med/Surg Floors on 09/19/17 * Continue to monitor * Have discontinued the Ativan, Benadryl. Medications: * Clonidine 0.1mg PO Q4 prn * Atarax 25mg PO Q6 prn * Seroquel 25mg PO daily prn for agitation (per neurologist) * Trazadone 50mg PO HS * Folic Acid 1mg PO daily * Multivitamin daily * Thiamine 100mg PO daily (3) Hx of Fall Assessment and Plan: * CT Head (09/19/17): no evidence of acute intracranial hemorrhage intracranial collection mass effect or midline shift. Moderate atrophy. Mild white matter changes likely reprsent chronic microvascular ischemic disease * Lumbar xray (09/19/17): unremarkable * Lumbar MRI: Limited motion degraded study. Multilevel facet arthropathy. No disc herniations nor significant disc bulges. Small annual fissure seen within the L4-L5 and L5-S1 posterior lateral disc margins as outlined above (4) Thrombocytopenia-->resolved Assessment and Plan: * HIV: negative * Hepatitis panel: negative * Abdominal US: hepatomegaly, hepatic steatosis * Have normalized (5) Hepatitis C Reactive Assessment and Plan: * will need outpatient following in regards to possible hepatitis C * will need to cruise counselor patient since he is more awake and alert today (6) Leukocytosis Assessment and Plan: * Increasing * Blood cultures follow-up on September 25 * Urine culture follow-up September 25 * Started on Zosyn 3.375 IV every 6 on September 25 * Pro-calcitonin is elevated (7) Tachycardia-->controlled Assessment and Plan: * CT angio (09/23/17): No evidence of acute central pulmonary embolus. Multiple calcified granulomata scattered throughout the right lung and to a lesser degree left lung findings consistent with prior exposure to granulomatous disease process. Mild dependent atelectasis both posterior lower lung zones mild scarring of the left lung base borderline splenomegaly * Thyroid studies are within normal * Suspecting tachycardia secondary to withdrawal * Patient start on Lopressor 25 mg by mouth twice a day since September 23 (8) Conjunctivitis Assessment and Plan: * Started on Tobrex 0.3 every 6 hours since September 21 * Should complete a five-day course to end today * Improving * Patient is seen well and is not in renal failure (9) Prophylaxis Assessment and Plan: * Fall precautions * PT/OT eval * We'll start heparin 5000 subcutaneous 8H for DVT prophylaxis * Aspiration precautions * Seizure precautions
[2017-09-25] MEDS: Piperacillin/Tazobact 3.375 GM in Sodium Chloride 100 ML IVPB SCH ×4 (04:51→21:35)
[2017-09-25 07:00] LABS: BASO # 0.2 K/uL (0.0-0.2); BASO % 1.1 % (0.0-2.0); EOS # 0.1 K/uL (0.0-0.7); EOS % 0.4 % (0.0-4.0); HEMOGLOBIN 11.6 g/dL (12.0-18.0); LYMPH # 1.4 K/uL (1.0-4.3); LYMPH % 9.8 % (20.0-40.0); MEAN CELL VOLUME 107.9 fL (80.0-94.0); MEAN CORPUSCULAR HEMOGLOBIN 35.5 pg (27.0-31.0); MEAN PLATELET VOLUME 9.5 fL (7.2-11.7); MONO # 1.2 K/uL (0.0-0.8); MONO % 8.1 % (0.0-10.0); NEUT # 11.8 K/uL (1.8-7.0); NEUT % 80.6 % (50.0-75.0); NRBC % 0.1 % (0.0-2.0); PLATELET COUNT 201 K/uL (130-400); RBC 3.27 Mil/uL (4.40-5.90); RED CELL DISTRIBUTION WIDTH 14.6 % (11.5-14.5); WHITE BLOOD COUNT 14.6 K/uL (4.8-10.8)
[2017-09-25] MEDS: Sodium Chloride 0.9% 1,000 ML IV SCH ×2 (07:15→20:46)
[2017-09-25 07:20] LABS: ALB/GLOB RATIO 0.8 (1.0-2.1); ALBUMIN 3.1 g/dL (3.5-5.0); ALT/SGPT 70 U/L (21-72); AST/SGOT 125 U/L (17-59); BLOOD UREA NITROGEN 5 mg/dL (9-20); CALCIUM 8.8 mg/dl (8.6-10.4); GFR AFRICAN-AMERICAN > 60; GFR NON-AFRICAN AMERICAN > 60
[2017-09-25 08:50] LABS: ANISOCYTOSIS SLIGHT; BANDS 6 % (0-2); LYMPHOCYTE 5 % (20-40); MONOCYTE 7 % (0-10); NEUTROPHIL 82 % (50-75); PLATELET ESTIMATE NORMAL (NORMAL); TOTAL CELLS COUNTED 100
[2017-09-25 08:51] LABS: HYPOCHROMIC SLIGHT; OVALOCYTES SLIGHT; POLYCHROMIC SLIGHT; TOXIC GRANULATION PRESENT
[2017-09-25] MEDS: Multiple Vitamins Tab PO SCH (11:11)
--- NOTE | 2017-09-25 15:18 | US ---
PROCEDURE: Ultrasound of the Kidneys HISTORY: Urinary retention COMPARISON: None available. TECHNIQUE: Grayscale imaging was performed. FINDINGS: RIGHT KIDNEY: Measures: 12.4 cm. Normal in size, contour and echogenicity. No stone, solid mass lesion or hydronephrosis visualized. LEFT KIDNEY: Measures: 11.3 cm. Normal in size, contour and echogenicity. No stone, solid mass lesion or hydronephrosis visualized. OTHER FINDINGS: The urinary bladder is partially distended and grossly normal in appearance. Bilateral ureteral jets were not visualized on color flow imaging. The patient was not able to void. The prevoid urinary volume is 106.8 cc. IMPRESSION: No nephrolithiasis or hydronephrosis.
[2017-09-26] MEDS: Tobramycin 0.3% OPHT SOLN OU SCH ×4 (01:45→18:12)
[2017-09-26] MEDS: Piperacillin/Tazobact 3.375 GM in Sodium Chloride 100 ML IVPB SCH ×4 (04:59→21:34)
--- NOTE | 2017-09-26 06:53 | CP.PCM.PN ---
Subjective - Date & Time of Evaluation Date of Evaluation: 09/26/17 Time of Evaluation: 06:52 - Subjective Subjective: Mr. Mejia was seen and examined at the bedside. He is awake, able to state person (Trump), but confused of time ( 1985), and place ( at home). He is able to verbalize clear words such as " I am ok." He is moves his bilateral upper extremities with no problem, strong, and withdraws from pain stimuli. He had episode of agitation and restlessness last night with bilateral hand mittens on.He remains on 1: 1 sitter for patient safety. Objective - Vital Signs/Intake and Output Vital Signs (last 24 hours): Temp Pulse Resp BP Pulse Ox 98.1 F 96 H 20 124/88 98 09/25/17 23:37 09/25/17 23:37 09/25/17 23:37 09/25/17 23:37 09/25/17 23:37 Intake and Output: 09/25/17 09/26/17 18:59 06:59 Intake Total 1260 Output Total 1000 Balance 260 - Medications Medications: Current Medications Artificial Tears (Artificial Tears) 1 ml OU Q4 PRN PRN Reason: Other Last Admin: 09/24/17 09:12 Dose: 1 drop Clonidine HCl (Catapres) 0.1 mg PO Q4H PRN PRN Reason: Symptoms of alcohol withdrawl Last Admin: 09/21/17 03:05 Dose: 0.1 mg Folic Acid (Folic Acid) 1 mg PO DAILY [facility] Last Admin: 09/25/17 11:11 Dose: 1 mg Hydroxyzine HCl (Atarax) 25 mg PO Q6H PRN PRN Reason: Anxiety Sodium Chloride (Sodium Chloride 0.9%) 1,000 mls @ 75 mls/hr IV .[id number] [facility] Last Admin: 09/25/17 20:46 Dose: 75 mls/hr Piperacillin Sod/Tazobactam (Sod 3.375 gm/ Sodium Chloride) 100 mls @ 200 mls/ hr IVPB Q6H [facility] PRN Reason: Protocol Last Admin: 09/26/17 04:59 Dose: 200 mls/hr Metoprolol Tartrate (Lopressor) 25 mg PO BID [facility] Last Admin: 09/25/17 18:43 Dose: 25 mg Multivitamins (Hexavitamin) 1 tab PO DAILY [facility] Last Admin: 09/25/17 11:11 Dose: 1 tab Pramipexole Dihydrochloride (Mirapex) 1 mg PO TID [facility] Quetiapine Fumarate (Seroquel) 25 mg PO ONCE PRN PRN Reason: Agitation Last Admin: 09/25/17 18:43 Dose: 25 mg Thiamine HCl (Vitamin B1 Tab) 100 mg PO DAILY [facility] Last Admin: 09/25/17 11:12 Dose: 100 mg Tobramycin Sulfate (Tobrex 0.3% [facility]) 1 drop OU Q6H [facility] Stop: 09/26/17 18:46 Last Admin: 09/26/17 06:37 Dose: Not Given Trazodone HCl (Desyrel) 50 mg PO [facility] Last Admin: 09/25/17 21:35 Dose: 50 mg - Labs Labs: 09/25/17 06:53 09/25/17 06:53 - Constitutional Appears: No Acute Distress - Head Exam Head Exam: NORMAL INSPECTION - Neurological Exam Neurological Exam: Awake Neuro motor strength exam: Left Upper Extremity: 4, Right Upper Extremity: 4, Left Lower Extremity: 3, Right Lower Extremity: 3 Additional comments: neurological improving from previous examination. Assessment and Plan (1) Bradykinesia Assessment & Plan: Case discussed with Dr. York, continue all current medical regimen. Recommend Mirapex 1 mg PO TID ( 0700, 1200, 1500), hydration, treat any underlying infection, and electrolyte abnormalities. keep head of bed elevated at least 30 degrees. Status: Acute
[2017-09-26 07:58] LABS: BASO # 0.1 K/uL (0.0-0.2); EOS # 0.1 K/uL (0.0-0.7); EOS % 0.5 % (0.0-4.0); HEMOGLOBIN 11.8 g/dL (12.0-18.0); LYMPH # 1.3 K/uL (1.0-4.3); LYMPH % 9.7 % (20.0-40.0); MEAN CELL VOLUME 106.7 fL (80.0-94.0); MEAN CORPUSCULAR HEMOGLOBIN 36.1 pg (27.0-31.0); MEAN CORPUSCULAR HGB CONC 33.8 g/dL (33.0-37.0); MEAN PLATELET VOLUME 9.8 fL (7.2-11.7); MONO # 0.9 K/uL (0.0-0.8); MONO % 6.2 % (0.0-10.0); NEUT # 11.5 K/uL (1.8-7.0); NEUT % 82.6 % (50.0-75.0); NRBC % 0.1 % (0.0-2.0); PLATELET COUNT 209 K/uL (130-400); RBC 3.28 Mil/uL (4.40-5.90); RED CELL DISTRIBUTION WIDTH 14.6 % (11.5-14.5); WHITE BLOOD COUNT 13.9 K/uL (4.8-10.8)
[2017-09-26 08:22] LABS: ALB/GLOB RATIO 0.8 (1.0-2.1); ALT/SGPT 72 U/L (21-72); AST/SGOT 127 U/L (17-59); BLOOD UREA NITROGEN 4 mg/dL (9-20); CALCIUM 8.4 mg/dl (8.6-10.4); GFR AFRICAN-AMERICAN > 60; GFR NON-AFRICAN AMERICAN > 60
[2017-09-26] MEDS: Sodium Chloride 0.9% 1,000 ML IV SCH ×2 (09:00→18:36)
[2017-09-26] MEDS: Multiple Vitamins Tab PO SCH (09:02)
[2017-09-26 09:22] LABS: BANDS 2 % (0-2); LYMPHOCYTE 7 % (20-40); MONOCYTE 4 % (0-10); NEUTROPHIL 87 % (50-75); TOTAL CELLS COUNTED 100
[2017-09-26 09:23] LABS: HYPOCHROMIC SLIGHT; PLATELET ESTIMATE NORMAL (NORMAL); POLYCHROMIC SLIGHT
[2017-09-26 09:24] LABS: MICROCYTOSIS SLIGHT
--- NOTE | 2017-09-26 10:06 | CP.PCM.PN ---
Subjective - Date & Time of Evaluation Date of Evaluation: 09/26/17 Time of Evaluation: 10:02 - Subjective Subjective: Medicine progress note for Dr. Steve Gómez Patient was seen and examined at bedside in no acute distress. Patient is awake , but disoriented. He knows the president, but believes its 1987 and thinks he is home. He says he is feeling a little stronger and wants to go home. Patient denies chest pain, abdominal pain, nausea, vomiting, fevers, headaches, leg pain and swelling. Objective - Vital Signs/Intake and Output Vital Signs (last 24 hours): Temp Pulse Resp BP Pulse Ox 98.4 F 76 20 118/70 98 09/26/17 07:00 09/26/17 07:00 09/26/17 07:00 09/26/17 09:02 09/26/17 07:00 Intake and Output: 09/26/17 09/26/17 06:59 18:59 Intake Total 1260 Output Total 1000 Balance 260 - Medications Medications: Current Medications Artificial Tears (Artificial Tears) 1 ml OU Q4 PRN PRN Reason: Other Last Admin: 09/24/17 09:12 Dose: 1 drop Clonidine HCl (Catapres) 0.1 mg PO Q4H PRN PRN Reason: Symptoms of alcohol withdrawl Last Admin: 09/21/17 03:05 Dose: 0.1 mg Folic Acid (Folic Acid) 1 mg PO DAILY [facility] Last Admin: 09/26/17 09:02 Dose: 1 mg Hydroxyzine HCl (Atarax) 25 mg PO Q6H PRN PRN Reason: Anxiety Sodium Chloride (Sodium Chloride 0.9%) 1,000 mls @ 75 mls/hr IV .[id number] [facility] Last Admin: 09/26/17 09:00 Dose: 75 mls/hr Piperacillin Sod/Tazobactam (Sod 3.375 gm/ Sodium Chloride) 100 mls @ 200 mls/ hr IVPB Q6H [facility] PRN Reason: Protocol Last Admin: 09/26/17 09:43 Dose: 200 mls/hr Metoprolol Tartrate (Lopressor) 25 mg PO BID [facility] Last Admin: 09/26/17 09:02 Dose: 25 mg Multivitamins (Hexavitamin) 1 tab PO DAILY [facility] Last Admin: 09/26/17 09:02 Dose: 1 tab Pramipexole Dihydrochloride (Mirapex) 1 mg PO 0700,1200,1500 [facility] Quetiapine Fumarate (Seroquel) 25 mg PO ONCE PRN PRN Reason: Agitation Last Admin: 09/25/17 18:43 Dose: 25 mg Thiamine HCl (Vitamin B1 Tab) 100 mg PO DAILY [facility] Last Admin: 09/26/17 09:02 Dose: 100 mg Tobramycin Sulfate (Tobrex 0.3% Ophth Soln) 1 drop OU Q6H [facility] Stop: 09/26/17 18:46 Last Admin: 09/26/17 06:37 Dose: Not Given Trazodone HCl (Desyrel) 50 mg PO HS [facility] Last Admin: 09/25/17 21:35 Dose: 50 mg - Labs Labs: 09/26/17 07:50 09/26/17 07:50 - Additional Findings Additional findings: - Constitutional Appears: No Acute Distress - Head Exam Head Exam: ATRAUMATIC, NORMAL INSPECTION - Eye Exam Eye Exam: EOMI, PERRL - ENT Exam ENT Exam: Mucous Membranes Moist - Respiratory Exam Respiratory Exam: NORMAL BREATHING PATTERN. absent: Rales, Rhonchi, Wheezes, Respiratory Distress - Cardiovascular Exam Cardiovascular Exam: REGULAR RHYTHM, +S1, +S2 - GI/Abdominal Exam GI & Abdominal Exam: Normal Bowel Sounds, Soft. absent: Distended, Firm, Tenderness - Extremities Exam Extremities exam: Positive for: pedal pulses present. Negative for: full ROM ( decreased ROM due to weakness), normal inspection (tremors bilateral UE/LE), pedal edema, tenderness Additional comments: babinski negative b/l; sensation intact-withdraws to pain; pain with palpation of LE b/l 2/2 neuropathy. 2/5 strength b/l LE; 2/5 strength b/l UE; patient withdraws to pain b/l when palpating feet - Neurological Exam Neurological exam: Abnormal Gait Additional comments: babinski negative b/l; sensation intact-withdraws to pain; pain with palpation of LE b/l 2/2 neuropathy. 2/5 strength b/l LE; 2/5 strength b/l UE; no saddle anesthesia. - Psychiatric Exam Psychiatric exam: Normal affect - Skin Skin Exam: Dry, Intact, Normal Color, Warm Assessment and Plan (1) Ambulatory dysfunction Status: Acute (2) Alcohol dependence Status: Acute - Assessment and Plan (Free Text) Plan: (1) Ambulatory dysfunction Parkinson's Disease? Assessment and Plan: - Neurology consulted, Dr. Abdi, to rule out neurologic causes of ambulatory dysfunction. Help appreciated. - Per Neurology, dysfunction may be due to parkinson's - Transferred to medical floors - Lumbar xray: unremarkable - Lumbar MRI: Multilevel facet arthropathy. No disc herniations nor significant disc bulges. Small annual fissure seen within the L4-L5 and L5-S1 posterior lateral disc margins as outlined above - Head CT: no evidence of acute intracranial hemorrhage intracranial collection mass effect or midline shift. Moderate atrophy. 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 - Ammonia level: 31, wnl - TSH wnl - Folate >20, wnl, Vit B12 >1000 H - Fall precautions - PT/OT Medication: - Pramipexole 1mg PO TID at 7am, 12pm, & 3pm (started 0.25 on 09/19 by neurologist) * Per neurology recommendation: Target goal of increasing mirapex 0.25 mg PO BID daily, with a target dose of 1.5 mg PO q 8 hours for maintenance. * Please note this should be timed last dose of medication should be before 5PM. (2) Alcohol dependence/withdrawal Assessment and Plan: Per psychiatry Transferred from Detox to Med/Surg Floors Continue to monitor Medications: - Clonidine 0.1mg PO Q4 prn - Atarax 25mg PO Q6 prn - Seroquel 25mg PO daily prn for agitation (per neurologist) - Trazadone 50mg PO HS - Banana bag given on 09/20/17 - Folic Acid 1mg PO daily - Multivitamin daily - Thiamine 100mg PO daily (3) Hx of Fall Assessment and Plan: - CT Head (09/19/17): no evidence of acute intracranial hemorrhage intracranial collection mass effect or midline shift. Moderate atrophy. 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 - Lumbar xray (09/19/17): unremarkable (4) Thrombocytopenia, resolved Assessment and Plan: - Improving - HIV: negative - Hepatitis B panel: negative - Hepatitis C reactive - Abdominal US: hepatomegaly, hepatic steatosis - Likely secondary to alcohol abuse (5) Hepatitis C Reactive Assessment and Plan: - Hep C reactive - Will need outpatient follow up (6) Conjunctivitis Assessment and Plan: - Artificial tears - Tobramycin opht solution OU Q6 (7) Tachycardia Assessment and Plan: - Likely secondary to withdrawal - Started on Lopressor 25mg PO BID (active since 09/23) - TSH: wnl - Free T4: 1.41 - DDimer: 736 - CTA: neg for PE - f/u LE dopplers (8) Constipation - Lactulose given on 09/23 (9) Hypomagnesemia - Mg 1.5 - Continue to monitor (10) Leukocytosis Assessment and Plan: - Decreasing - Pro-calcitonin: elevated, 0.94 - Blood cultures (09/24): negative to date - Urine culture (09/24): negative to do - Started on Zosyn 3.375 IV Q6h on September 25--> last dose to be given on 09/27/17 (11) Prophylaxis Assessment and Plan: - Heparin 5000u SC Q8h - Fall precautions - PT/OT - Aspiration/seizure precautions - Case management/social consult for DC planning to [place]
[2017-09-26] MEDS ORDERED: Magnesium Sulfate 1 gm in D5W 1 GM/100 ML BAG IVPB ONE (12:44)
[2017-09-26] MEDS ORDERED: Potassium Chloride 20 mEq ER Tab PO ONE (12:45)
--- NOTE | 2017-09-26 14:08 | PCM.PYCHPN ---
Psychiatric Progress Note - Psychiatric Progress Note Patient seen today, length of contact: 15 min Patient Chief Complaint: "OK" Problems Identified/Issues Discussed: He is seen, chart reviewed, case discussed He is still in cognitive decline; disoriented, confabulates, gets perplexed, guesses or makes up answers... He is wearing mittens, on 1:1, has poor judgment and doesn't know why he is here Detox completed already He likely has dementia or cognitive loss due to chronic alcohol use (and newly- diagnosed Parkinson's) Support given Medication Change: Yes (detox ended) Medical Record Reviewed: Yes Mental Status Examination - Cognitive Function Orientation: Situation (disoriented) Memory: Impaired Attention: Poor Concentration: Poor Association: Loose Fund of Knowledge: WNL - Mood Mood: Anxious - Affect Affect: Constricted - Speech Speech: Slurred - Formal Thought Process Formal Thought Process: Loosening of associations - Suicidal Ideation Suicidal Ideation: No - Homicidal Ideation Homicidal Ideation: No Goal/Treatment Plan - Goal/Treatment Plan Need for Continued Stay: Discharge may exacerbated symptoms, Severe functional impairment, Other (medical) Progress Toward Problem(s) and Goals/Treatment Plan: As needed medications Supportive therapy and psychoeducation Refer to rehab or [place] after d/c Attend self-help groups as well after d/c AL for smoking cessation and patch if needed PT Psych will sign off
[2017-09-27] MEDS: Piperacillin/Tazobact 3.375 GM in Sodium Chloride 100 ML IVPB SCH ×2 (04:32→10:32)
--- NOTE | 2017-09-27 07:04 | CP.PCM.PN ---
<Shira Brown - Last Filed: 09/27/17 16:17> Subjective - Date & Time of Evaluation Date of Evaluation: 09/27/17 Time of Evaluation: 07:04 - Subjective Subjective: Medicine progress note for Dr. Steve Gómez Patient was seen and examined at bedside in no acute distress. Patient appears alert, awake but is disoriented (does not know time or place). He reports feeling well and says he "he has to leave to get to work". He thinks he is at his aunt's and uncle's house. Patient states he feels well and denies chest pain , abdominal pain, dyspnea, nausea, vomiting, fevers, headaches, dysuria, constipation, and diarrhea. Objective - Vital Signs/Intake and Output Vital Signs (last 24 hours): Temp Pulse Resp BP Pulse Ox 98.3 F 98 H 22 143/95 H 98 09/26/17 23:43 09/26/17 23:43 09/26/17 23:43 09/26/17 23:43 09/26/17 23:43 Intake and Output: 09/27/17 09/27/17 06:59 18:59 Intake Total 600 Balance 600 - Medications Medications: Current Medications Artificial Tears (Artificial Tears) 1 ml OU Q4 PRN PRN Reason: Other Last Admin: 09/24/17 09:12 Dose: 1 drop Clonidine HCl (Catapres) 0.1 mg PO Q4H PRN PRN Reason: Symptoms of alcohol withdrawl Last Admin: 09/21/17 03:05 Dose: 0.1 mg Folic Acid (Folic Acid) 1 mg PO DAILY [facility] Last Admin: 09/26/17 09:02 Dose: 1 mg Hydroxyzine HCl (Atarax) 25 mg PO Q6H PRN PRN Reason: Anxiety Last Admin: 09/27/17 01:45 Dose: 25 mg Piperacillin Sod/Tazobactam (Sod 3.375 gm/ Sodium Chloride) 100 mls @ 200 mls/ hr IVPB Q6H [facility] PRN Reason: Protocol Last Admin: 09/27/17 04:32 Dose: 200 mls/hr Sodium Chloride (Sodium Chloride 0.9%) 1,000 mls @ 50 mls/hr IV .Q20H [facility] Last Admin: 09/26/17 18:36 Dose: 50 mls/hr Metoprolol Tartrate (Lopressor) 25 mg PO BID [facility] Last Admin: 09/26/17 18:10 Dose: 25 mg Multivitamins (Hexavitamin) 1 tab PO DAILY [facility] Last Admin: 09/26/17 09:02 Dose: 1 tab Pramipexole Dihydrochloride (Mirapex) 1 mg PO 0700,1200,1500 [facility] Last Admin: 09/26/17 14:23 Dose: 1 mg Thiamine HCl (Vitamin B1 Tab) 100 mg PO DAILY [facility] Last Admin: 09/26/17 09:02 Dose: 100 mg Trazodone HCl (Desyrel) 50 mg PO HS [facility] Last Admin: 09/26/17 21:33 Dose: 50 mg - Labs Labs: 09/26/17 07:50 09/26/17 07:50 - Additional Findings Additional findings: - Constitutional Appears: No Acute Distress, confused - Head Exam Head Exam: ATRAUMATIC, NORMAL INSPECTION - Eye Exam Eye Exam: EOMI, PERRL - ENT Exam ENT Exam: Mucous Membranes Moist - Respiratory Exam Respiratory Exam: NORMAL BREATHING PATTERN. absent: Rales, Rhonchi, Wheezes, Respiratory Distress - Cardiovascular Exam Cardiovascular Exam: REGULAR RHYTHM, +S1, +S2 - GI/Abdominal Exam GI & Abdominal Exam: Normal Bowel Sounds, Soft. absent: Distended, Firm, Tenderness - Extremities Exam Extremities exam: Positive for: pedal pulses present. Negative for: full ROM ( decreased ROM due to weakness- improving), normal inspection (tremors bilateral UE/LE), pedal edema, tenderness Additional comments: babinski negative b/l; sensation intact-withdraws to pain; pain with palpation of LE b/l 2/2 neuropathy. 3/5 strength b/l LE-improving; 4/ 5 strength b/l UE-improving; patient withdraws to pain b/l when palpating feet - Neurological Exam Neurological exam: Abnormal Gait Additional comments: babinski negative b/l; sensation intact-withdraws to pain; pain with palpation of LE b/l 2/2 neuropathy. 3/5 strength b/l LE-improving; 4/ 5 strength b/l UE-improving; no saddle anesthesia. - Psychiatric Exam Psychiatric exam: Normal affect - Skin Skin Exam: Dry, Intact, Normal Color, Warm Assessment and Plan (1) Ambulatory dysfunction Status: Acute (2) Alcohol dependence Status: Acute - Assessment and Plan (Free Text) Plan: (1) Ambulatory dysfunction Parkinson's Disease? Assessment and Plan: - Neurology consulted, Dr. Abdi, to rule out neurologic causes of ambulatory dysfunction. Help appreciated. - Per Neurology, dysfunction may be due to parkinson's - Transferred to medical floors - Lumbar xray: unremarkable - Lumbar MRI: Multilevel facet arthropathy. No disc herniations nor significant disc bulges. Small annual fissure seen within the L4-L5 and L5-S1 posterior lateral disc margins as outlined above - Head CT: no evidence of acute intracranial hemorrhage intracranial collection mass effect or midline shift. Moderate atrophy. 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 - Ammonia level: 31, wnl - TSH wnl - Folate >20, wnl, Vit B12 >1000 H - Fall precautions - PT/OT Medication: - Pramipexole 1mg PO TID at 7am, 12pm, & 3pm (started 0.25 on 09/19 by neurologist) * Per neurology recommendation: Target goal of increasing mirapex 0.25 mg PO BID daily, with a target dose of 1.5 mg PO q 8 hours for maintenance. * Please note this should be timed last dose of medication should be before 5PM. - Valproic acid started on 09/27 for agitation per neurologist * Valproic acid 1000mg loading dose given * Continue Valproic acid 500mg PO BID (2) Alcohol dependence/withdrawal Assessment and Plan: Per psychiatry Transferred from Detox to Med/Surg Floors Continue to monitor Medications: - Clonidine 0.1mg PO Q4 prn - Atarax 25mg PO Q6 prn - Seroquel 25mg PO daily prn for agitation (per neurologist) - Trazadone 50mg PO HS - Banana bag given on 09/20/17 - Folic Acid 1mg PO daily - Multivitamin daily - Thiamine 100mg PO daily (3) Hx of Fall Assessment and Plan: - CT Head (09/19/17): no evidence of acute intracranial hemorrhage intracranial collection mass effect or midline shift. Moderate atrophy. 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 - Lumbar xray (09/19/17): unremarkable (4) Thrombocytopenia, resolved Assessment and Plan: - Improving - HIV: negative - Hepatitis B panel: negative - Hepatitis C reactive - Abdominal US: hepatomegaly, hepatic steatosis - Likely secondary to alcohol abuse (5) Hepatitis C Reactive Assessment and Plan: - Hep C reactive - Will need outpatient follow up (6) Conjunctivitis, resolved Assessment and Plan: - Artificial tears - Tobramycin opht solution OU Q6--> discontinued on 09.27 (7) Tachycardia Assessment and Plan: - Likely secondary to withdrawal - Started on Lopressor 25mg PO BID (active since 09/23) - TSH: wnl - Free T4: 1.41 - DDimer: 736 - CTA: neg for PE - f/u LE dopplers (8) Constipation - Lactulose given on 09/23 (9) Hypomagnesemia - Mg 1.5 - Continue to monitor (10) Leukocytosis Assessment and Plan: - Decreasing - Pro-calcitonin: elevated, 0.94 - Blood cultures (09/24): negative to date - Urine culture (09/24): negative to do - Discontinued Zosyn 3.375 IV Q6h--> last dose given on 09/27/17 (11) Prophylaxis Assessment and Plan: - Heparin 5000u SC Q8h - Fall precautions - PT/OT - Aspiration/seizure precautions - Case management/social consult for DC planning to [facility] <Nolan Gómez - Last Filed: 09/27/17 20:14> Objective - Vital Signs/Intake and Output Vital Signs (last 24 hours): Temp Pulse Resp BP Pulse Ox 97.9 F 89 20 167/77 H 97 09/27/17 15:54 09/27/17 15:54 09/27/17 15:54 09/27/17 17:18 09/27/17 15:54 Intake and Output: 09/27/17 09/28/17 18:59 06:59 Intake Total 500 Output Total 100 Balance 400 - Medications Medications: Current Medications Artificial Tears (Artificial Tears) 1 ml OU Q4 PRN PRN Reason: Other Last Admin: 09/24/17 09:12 Dose: 1 drop Clonidine HCl (Catapres) 0.1 mg PO Q4H PRN PRN Reason: Symptoms of alcohol withdrawl Last Admin: 09/21/17 03:05 Dose: 0.1 mg Folic Acid (Folic Acid) 1 mg PO DAILY [facility] Last Admin: 09/27/17 10:32 Dose: 1 mg Hydroxyzine HCl (Atarax) 25 mg PO Q6H PRN PRN Reason: Anxiety Last Admin: 09/27/17 01:45 Dose: 25 mg Sodium Chloride (Sodium Chloride 0.9%) 1,000 mls @ 50 mls/hr IV .Q20H [facility] Last Admin: 09/27/17 13:23 Dose: Not Given Valproate Sodium 500 mg/ (Sodium Chloride) 105 mls @ 100 mls/hr IVPB Q12H [facility] Metoprolol Tartrate (Lopressor) 25 mg PO BID [facility] Last Admin: 09/27/17 17:18 Dose: 25 mg Multivitamins (Hexavitamin) 1 tab PO DAILY [facility] Last Admin: 09/27/17 10:32 Dose: 1 tab Pramipexole Dihydrochloride (Mirapex) 1.25 mg PO 0700,1200,1500 [facility] Thiamine HCl (Vitamin B1 Tab) 100 mg PO DAILY [facility] Last Admin: 09/27/17 10:32 Dose: 100 mg Trazodone HCl (Desyrel) 50 mg PO HS [facility] Last Admin: 09/26/17 21:33 Dose: 50 mg - Labs Labs: 09/27/17 10:49 09/27/17 10:49 Attending/Attestation - Attestation I have personally seen and examined this patient.: Yes I have fully participated in the care of the patient.: Yes I have reviewed all pertinent clinical information, including history, physical exam and plan: Yes Notes (Text): 09/27/17 20:07 Patient was seen and examined at 5:45 PM Exam, assessment and plan were discussed with Resident Dr. Collado Patient was awake and alert but not oriented. When asking about ROS he stated that he saw a thick mustached woman earlier. He does not appear to be aware of his current medical situation at the time of my exam He followed some aspect of exam (when performing CN exam) but not others (would not breath in deeply during Respiratory exam or not be able to follow instructions when trying to perform muscle strength testing) Spoke with [employer] present in the room and patient ate his breakfast and lunch without difficulty (had to be assisted as he has bilateral mittens on as he has been trying to get out of bed and go to work in [employer]ED[employer] AT [facility], which he repeated to me at the time of my exam). Neurology has added Valproic Acid 500 mg PO Q12H after giving 1,000 mg bolus to hopefully help stabilize mood. I have explained to Nurse Arabella who was caring for patient today that Medicine Team did not want to give Ativan or Haldol at this time for agitation as patient has been more alert and we don't want to potentially regress him. Zosyn was discontinued as blood culture is negative at 72 hours, no fevers. Tachycardia has resolved Conjunctivitis has resolved and he has finished Tobramycin drops Thrombocytopenia has resolved Will speak with Panel Monitor concerning placement Nolan Gómez D.O.
[2017-09-27] MEDS: Multiple Vitamins Tab PO SCH (10:32)
[2017-09-27 11:00] LABS: BASO # 0.1 K/uL (0.0-0.2); BASO % 1.1 % (0.0-2.0); EOS % 0.3 % (0.0-4.0); HEMOGLOBIN 11.9 g/dL (12.0-18.0); LYMPH # 1.3 K/uL (1.0-4.3); LYMPH % 9.3 % (20.0-40.0); MEAN CORPUSCULAR HEMOGLOBIN 35.6 pg (27.0-31.0); MEAN CORPUSCULAR HGB CONC 33.3 g/dL (33.0-37.0); MEAN PLATELET VOLUME 10.1 fL (7.2-11.7); MONO % 7.2 % (0.0-10.0); NEUT # 11.5 K/uL (1.8-7.0); NEUT % 82.1 % (50.0-75.0); PLATELET COUNT 216 K/uL (130-400); RBC 3.33 Mil/uL (4.40-5.90); RED CELL DISTRIBUTION WIDTH 14.9 % (11.5-14.5)
[2017-09-27 11:14] LABS: ALB/GLOB RATIO 0.9 (1.0-2.1); ALBUMIN 3.3 g/dL (3.5-5.0); ALT/SGPT 73 U/L (21-72); AST/SGOT 147 U/L (17-59); BLOOD UREA NITROGEN 5 mg/dL (9-20); CALCIUM 8.6 mg/dl (8.6-10.4); GFR AFRICAN-AMERICAN > 60; GFR NON-AFRICAN AMERICAN > 60
[2017-09-27 11:30] LABS: BANDS 1 % (0-2); LYMPHOCYTE 10 % (20-40); MONOCYTE 5 % (0-10); NEUTROPHIL 84 % (50-75); TOTAL CELLS COUNTED 100
[2017-09-27 11:31] LABS: PLATELET ESTIMATE NORMAL (NORMAL)
[2017-09-27] MEDS ORDERED: Potassium Chloride 20 mEq ER Tab PO ONE (13:21)
[2017-09-27] MEDS: Sodium Chloride 0.9% 1,000 ML IV SCH (13:23)
[2017-09-27] MEDS ORDERED: Valproate 1,000 MG in Sodium Chloride 0.9% 100 ML IVPB ONE (15:30)
[2017-09-28] MEDS: Sodium Chloride 0.9% 1,000 ML IV SCH ×3 (01:37→22:26)
[2017-09-28] MEDS ORDERED: Valproate 1,000 MG in Sodium Chloride 0.9% 100 ML IVPB SCH (03:00)
[2017-09-28] MEDS ORDERED: Valproate 500 MG in Sodium Chloride 0.9% 100 ML IVPB SCH (04:00)
--- NOTE | 2017-09-28 06:42 | CP.PCM.PN ---
Subjective - Date & Time of Evaluation Date of Evaluation: 09/28/17 Time of Evaluation: 06:41 - Subjective Subjective: Mr Mejia was seen and examined at the bedside. He is asleep, however according to the staff,the patient just fell asleep at around 5:30 am. He has episode of agitation yesterday where depakote was given with some relief.He moves his upper extremities spontaneously. He moves his lower extremities slower than the upper. Objective - Vital Signs/Intake and Output Vital Signs (last 24 hours): Temp Pulse Resp BP Pulse Ox 97.8 F 74 20 147/89 98 09/28/17 00:00 09/28/17 00:00 09/28/17 00:00 09/28/17 00:00 09/28/17 00:00 Intake and Output: 09/27/17 09/28/17 18:59 06:59 Intake Total 500 1120 Output Total 100 Balance 400 1120 - Medications Medications: Current Medications Artificial Tears (Artificial Tears) 1 ml OU Q4 PRN PRN Reason: Other Last Admin: 09/24/17 09:12 Dose: 1 drop Clonidine HCl (Catapres) 0.1 mg PO Q4H PRN PRN Reason: Symptoms of alcohol withdrawl Last Admin: 09/21/17 03:05 Dose: 0.1 mg Folic Acid (Folic Acid) 1 mg PO DAILY [facility] Last Admin: 09/27/17 10:32 Dose: 1 mg Hydroxyzine HCl (Atarax) 25 mg PO Q6H PRN PRN Reason: Anxiety Last Admin: 09/28/17 02:18 Dose: 25 mg Sodium Chloride (Sodium Chloride 0.9%) 1,000 mls @ 50 mls/hr IV .Q20H [facility] Last Admin: 09/28/17 01:37 Dose: 50 mls/hr Metoprolol Tartrate (Lopressor) 25 mg PO BID [facility] Last Admin: 09/27/17 17:18 Dose: 25 mg Multivitamins (Hexavitamin) 1 tab PO DAILY [facility] Last Admin: 09/27/17 10:32 Dose: 1 tab Pramipexole Dihydrochloride (Mirapex) 1.25 mg PO 0700,1200,1500 [facility] Thiamine HCl (Vitamin B1 Tab) 100 mg PO DAILY [facility] Last Admin: 09/27/17 10:32 Dose: 100 mg Trazodone HCl (Desyrel) 50 mg PO HS [facility] Last Admin: 09/27/17 21:15 Dose: 50 mg - Labs Labs: 09/27/17 10:49 09/27/17 10:49 - Constitutional Appears: No Acute Distress - Neurological Exam Neuro motor strength exam: Left Upper Extremity: 3, Right Upper Extremity: 3, Left Lower Extremity: 2/1, Right Lower Extremity: 2/1 Additional comments: asleep, unable to do assessment. Assessment and Plan (1) Bradykinesia Assessment & Plan: Case discussed with Dr. York, continue all current medical regimen, this am mirapex will be increase to 1.2 mg PO TID., seroquel 12.5 mg Po q HS PRN to help with his agitation. Recommend to discontinue depakote due to elevated liver enzymes, hydration, treat any underlying infection and electrolytes abnormalities. Status: Acute
--- NOTE | 2017-09-28 06:52 | CP.PCM.PN ---
Subjective - Date & Time of Evaluation Date of Evaluation: 09/28/17 Time of Evaluation: 06:52 - Subjective Subjective: Medicine progress note for Dr. Steve Gómez Patient was seen and examined at bedside in no acute distress. Patient was sleeping comfortably in bed. Patient denies chest pain, abdominal pain, dyspnea , nausea, vomiting, fevers, headaches. No acute events overnight. Objective - Vital Signs/Intake and Output Vital Signs (last 24 hours): Temp Pulse Resp BP Pulse Ox 97.8 F 74 20 147/89 98 09/28/17 00:00 09/28/17 00:00 09/28/17 00:00 09/28/17 00:00 09/28/17 00:00 Intake and Output: 09/27/17 09/28/17 18:59 06:59 Intake Total 500 1120 Output Total 100 Balance 400 1120 - Medications Medications: Current Medications Artificial Tears (Artificial Tears) 1 ml OU Q4 PRN PRN Reason: Other Last Admin: 09/24/17 09:12 Dose: 1 drop Clonidine HCl (Catapres) 0.1 mg PO Q4H PRN PRN Reason: Symptoms of alcohol withdrawl Last Admin: 09/21/17 03:05 Dose: 0.1 mg Folic Acid (Folic Acid) 1 mg PO DAILY [facility] Last Admin: 09/27/17 10:32 Dose: 1 mg Hydroxyzine HCl (Atarax) 25 mg PO Q6H PRN PRN Reason: Anxiety Last Admin: 09/28/17 02:18 Dose: 25 mg Sodium Chloride (Sodium Chloride 0.9%) 1,000 mls @ 50 mls/hr IV .Q20H [facility] Last Admin: 09/28/17 01:37 Dose: 50 mls/hr Metoprolol Tartrate (Lopressor) 25 mg PO BID [facility] Last Admin: 09/27/17 17:18 Dose: 25 mg Multivitamins (Hexavitamin) 1 tab PO DAILY [facility] Last Admin: 09/27/17 10:32 Dose: 1 tab Pramipexole Dihydrochloride (Mirapex) 1.25 mg PO 0700,1200,1500 [facility] Thiamine HCl (Vitamin B1 Tab) 100 mg PO DAILY [facility] Last Admin: 09/27/17 10:32 Dose: 100 mg Trazodone HCl (Desyrel) 50 mg PO HS [facility] Last Admin: 09/27/17 21:15 Dose: 50 mg - Labs Labs: 09/27/17 10:49 09/27/17 10:49 - Additional Findings Additional findings: - Constitutional Appears: No Acute Distress, confused - Head Exam Head Exam: ATRAUMATIC, NORMAL INSPECTION - Eye Exam Eye Exam: EOMI, PERRL - ENT Exam ENT Exam: Mucous Membranes Moist - Respiratory Exam Respiratory Exam: NORMAL BREATHING PATTERN. absent: Rales, Rhonchi, Wheezes, Respiratory Distress - Cardiovascular Exam Cardiovascular Exam: REGULAR RHYTHM, +S1, +S2 - GI/Abdominal Exam GI & Abdominal Exam: Normal Bowel Sounds, Soft. absent: Distended, Firm, Tenderness - Extremities Exam Extremities exam: Positive for: pedal pulses present. Negative for: full ROM ( decreased ROM due to weakness- improving), normal inspection (tremors bilateral UE/LE), pedal edema, tenderness Additional comments: babinski negative b/l; sensation intact-withdraws to pain; pain with palpation of LE b/l 2/2 neuropathy. 3/5 strength b/l LE-improving; 4/ 5 strength b/l UE-improving; patient withdraws to pain b/l when palpating feet - Neurological Exam Neurological exam: Abnormal Gait Additional comments: babinski negative b/l; sensation intact-withdraws to pain; pain with palpation of LE b/l 2/2 neuropathy. 3/5 strength b/l LE-improving; 4/ 5 strength b/l UE-improving; no saddle anesthesia. - Psychiatric Exam Psychiatric exam: Normal affect - Skin Skin Exam: Dry, Intact, Normal Color, Warm Assessment and Plan (1) Ambulatory dysfunction Status: Acute (2) Alcohol dependence Status: Acute - Assessment and Plan (Free Text) Plan: (1) Ambulatory dysfunction Parkinson's Disease? Assessment and Plan: - Neurology consulted, Dr. Abdi, to rule out neurologic causes of ambulatory dysfunction. Help appreciated. - Per Neurology, dysfunction may be due to parkinson's - Transferred to medical floors - Lumbar xray: unremarkable - Lumbar MRI: Multilevel facet arthropathy. No disc herniations nor significant disc bulges. Small annual fissure seen within the L4-L5 and L5-S1 posterior lateral disc margins as outlined above - Head CT: no evidence of acute intracranial hemorrhage intracranial collection mass effect or midline shift. Moderate atrophy. 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 - Ammonia level: 31, wnl - TSH wnl - Folate >20, wnl, Vit B12 >1000 H - Fall precautions - PT/OT Medication: - Pramipexole 1.25mg PO TID at 7am, 12pm, & 3pm (started 0.25 on 09/19 by neurologist) * Per neurology recommendation: Target goal of increasing mirapex 0.25 mg PO BID daily, with a target dose of 1.5 mg PO q 8 hours for maintenance. * Please note this should be timed last dose of medication should be before 5PM. - Valproic acid started on 09/27 for agitation per neurologist * Valproic acid 1000mg loading dose given * Continue Valproic acid 500mg PO BID (2) Alcohol dependence/withdrawal Assessment and Plan: Per psychiatry Transferred from Detox to Med/Surg Floors Continue to monitor Medications: - Clonidine 0.1mg PO Q4 prn - Atarax 25mg PO Q6 prn - Seroquel 25mg PO daily prn for agitation (per neurologist) - Trazadone 50mg PO HS - Banana bag given on 09/20/17 - Folic Acid 1mg PO daily - Multivitamin daily - Thiamine 100mg PO daily (3) Hx of Fall Assessment and Plan: - CT Head (09/19/17): no evidence of acute intracranial hemorrhage intracranial collection mass effect or midline shift. Moderate atrophy. 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 - Lumbar xray (09/19/17): unremarkable (4) Thrombocytopenia, resolved Assessment and Plan: - Improving - HIV: negative - Hepatitis B panel: negative - Hepatitis C reactive - Abdominal US: hepatomegaly, hepatic steatosis - Likely secondary to alcohol abuse (5) Hepatitis C Reactive Assessment and Plan: - Hep C reactive - Will need outpatient follow up (6) Conjunctivitis, resolved Assessment and Plan: - Artificial tears - Tobramycin opht solution OU Q6--> discontinued on 09.27 (7) Tachycardia, resolved Assessment and Plan: - Likely secondary to withdrawal - Started on Lopressor 25mg PO BID (active since 09/23) - TSH: wnl - Free T4: 1.41 - DDimer: 736 - CTA: neg for PE - LE dopplers- negative (8) Constipation - Lactulose given on 09/23 (9) Hypomagnesemia - Mg 1.5 - Continue to monitor (10) Leukocytosis Assessment and Plan: - Decreasing - Pro-calcitonin: elevated, 0.94 - Blood cultures (09/24): negative to date - Urine culture (09/24): negative to do - Discontinued Zosyn 3.375 IV Q6h--> last dose given on 09/27/17 (11) Prophylaxis Assessment and Plan: - Heparin 5000u SC Q8h - Fall precautions - PT/OT - Aspiration/seizure precautions - Case management/social consult for DC planning to [place]
[2017-09-28 08:39] LABS: BASO # 0.1 K/uL (0.0-0.2); BASO % 0.8 % (0.0-2.0); EOS # 0.1 K/uL (0.0-0.7); EOS % 0.5 % (0.0-4.0); HEMOGLOBIN 11.8 g/dL (12.0-18.0); LYMPH # 1.9 K/uL (1.0-4.3); LYMPH % 14.7 % (20.0-40.0); MEAN CELL VOLUME 105.2 fL (80.0-94.0); MEAN CORPUSCULAR HEMOGLOBIN 35.6 pg (27.0-31.0); MEAN CORPUSCULAR HGB CONC 33.9 g/dL (33.0-37.0); MEAN PLATELET VOLUME 10.3 fL (7.2-11.7); MONO % 7.6 % (0.0-10.0); NEUT # 10.1 K/uL (1.8-7.0); NEUT % 76.4 % (50.0-75.0); NRBC % 0.1 % (0.0-2.0); RBC 3.3 Mil/uL (4.40-5.90); RED CELL DISTRIBUTION WIDTH 14.9 % (11.5-14.5); WHITE BLOOD COUNT 13.2 K/uL (4.8-10.8)
[2017-09-28 08:56] LABS: ALB/GLOB RATIO 0.8 (1.0-2.1); ALBUMIN 3.1 g/dL (3.5-5.0); ALT/SGPT 76 U/L (21-72); AST/SGOT 145 U/L (17-59); BLOOD UREA NITROGEN 3 mg/dL (9-20); CALCIUM 8.3 mg/dl (8.6-10.4); GFR AFRICAN-AMERICAN > 60; GFR NON-AFRICAN AMERICAN > 60
[2017-09-28] MEDS: Multiple Vitamins Tab PO SCH (09:39)
--- NOTE | 2017-09-28 10:03 | VASCLAB ---
PROCEDURE: Lower Extremity Venous Duplex Exam. HISTORY: Elevated D-Dimer PRIORS: None. TECHNIQUE: Bilateral common femoral, femoral, popliteal and posterior tibial, peroneal and great saphenous veins were evaluated. Flow was assessed with color Doppler, compressibility, assessment of phasic flow and augmentation response. Report prepared by LUKE Parra FINDINGS: RIGHT: 1. Common Femoral Vein: 1.1. Compressibility - Fully compressible: Thrombus - None : Flow - Phasic: Augmentation -Normal: Reflux - None. 2. Femoral Vein: 2.1. Compressibility - Fully compressible: Thrombus - None : Flow - Phasic: Augmentation -Normal: Reflux - None. 3. Popliteal Vein: 3.1. Compressibility - Fully compressible: Thrombus - None : Flow - Phasic: Augmentation -Normal: Reflux - None. 4. Posterior Tibial Vein: 4.1. Compressibility - Fully compressible: Thrombus - None: Flow - Phasic: Augmentation -Normal: Reflux - None. 5. Peroneal Vein: 5.1. Compressibility - Fully compressible: Thrombus - None: Flow - Phasic: Augmentation -Normal: Reflux - None. 6. Great Saphenous Vein: 6.1. Compressibility - Fully compressible: Thrombus - None: Flow - Phasic: Augmentation - Normal: Reflux - None. LEFT: 1. Common Femoral Vein: 1.1. Compressibility - Fully compressible: Thrombus - None: Flow - Phasic: Augmentation -Normal: Reflux - None. 2. Femoral Vein: 2.1. Compressibility - Fully compressible: Thrombus - None: Flow - Phasic: Augmentation -Normal: Reflux - None. 3. Popliteal Vein: 3.1. Compressibility - Fully compressible: Thrombus - None : Flow - Phasic: Augmentation -Normal: Reflux - None. 4. Posterior Tibial Vein: 4.1. Compressibility - Fully compressible: Thrombus - None: Flow - Phasic: Augmentation -Normal: Reflux - None. 5. Peroneal Vein: 5.1. Compressibility - Fully compressible: Thrombus - None: Flow - Phasic: Augmentation -Normal: Reflux - None. 6. Great Saphenous Vein: 6.1. Compressibility - Fully compressible: Thrombus - None: Flow - Phasic: Augmentation - Normal: Reflux - None. OTHER FINDINGS: Right: None significant. Left: None significant. IMPRESSION: Right: No evidence of deep or superficial vein thrombosis of the right lower extremity. Normal valve function noted of the right side. Left: No evidence of deep or superficial vein thrombosis of the left lower extremity. Normal valve function noted of the left side.
--- NOTE | 2017-09-28 10:03 | VASCLAB ---
PROCEDURE: Upper Extremity Venous Duplex Exam HISTORY: Elevated D-Dimer PRIORS: None. TECHNIQUE: Bilateral upper extremity, internal jugular, subclavian, axillary, brachial, ulnar, radial, basilic and upper cephalic veins were evaluated. Flow was assessed with color Doppler, compressibility, assessment of phasic flow and augmentation response. Report prepared by LUKE Parra FINDINGS: RIGHT: 1. Internal Jugular: 1.1. Compressibility - Fully compressible: Thrombus - None : Flow - Phasic: Augmentation -Normal: Reflux - None. 2. Subclavian: 2.1. Compressibility - Fully compressible: Thrombus - None : Flow - Phasic: Augmentation -Normal: Reflux - None. 3. Axillary: 3.1. Compressibility - Fully compressible: Thrombus - None : Flow - Phasic: Augmentation -Normal: Reflux - None. 4. Brachial: 4.1. Compressibility - Fully compressible: Thrombus - None: Flow - Phasic: Augmentation -Normal: Reflux - None. 5. Ulnar: Line in forearm 6. Radial: Line in forearm 7. Cephalic: Upper arm only 7.1. Compressibility - Fully compressible: Thrombus - None: Flow - Phasic: Augmentation -Normal: Reflux - None. 8. Basilic: Upper arm only 8.1. Compressibility - Fully compressible: Thrombus - None: Flow - Phasic: Augmentation -Normal: Reflux - None. LEFT: 1. Internal Jugular: 1.1. Compressibility - Fully compressible: Thrombus - None : Flow - Phasic: Augmentation -Normal: Reflux - None. 2. Subclavian: 2.1. Compressibility - Fully compressible: Thrombus - None : Flow - Phasic: Augmentation -Normal: Reflux - None. 3. Axillary: 3.1. Compressibility - Fully compressible: Thrombus - None : Flow - Phasic: Augmentation -Normal: Reflux - None. 4. Brachial: 4.1. Compressibility - Fully compressible: Thrombus - None: Flow - Phasic: Augmentation -Normal: Reflux - None. 5. Ulnar: Line in forearm 6. Radial: Line in forearm 7. Cephalic:Upper arm only 7.1. Compressibility - Fully compressible: Thrombus - None: Flow - Phasic: Augmentation -Normal: Reflux - None. 8. Basilic: Upper arm only 8.1. Compressibility - Fully compressible: Thrombus - None: Flow - Phasic: Augmentation -Normal: Reflux - None. OTHER FINDINGS: Right: None. Left: None. IMPRESSION: Right: No evidence of vein thrombosis of the right upper extremity with excellent venous flow. Normal valve function noted of the right side. Left: No evidence of vein thrombosis of the left upper extremity with excellent venous flow. Normal valve function noted of the left side.
[2017-09-28] MEDS ORDERED: Potassium Chloride 20 mEq ER Tab PO ONE (17:30)
[2017-09-29] MEDS: QUEtiapine 12.5 MG TAB PO PRN (00:37)
[2017-09-29] MEDS: Sodium Chloride 0.9% 1,000 ML IV SCH ×2 (05:50→17:30)
--- NOTE | 2017-09-29 06:59 | CP.PCM.PN ---
<Shira Brown - Last Filed: 09/29/17 15:04> Subjective - Date & Time of Evaluation Date of Evaluation: 09/29/17 Time of Evaluation: 06:58 - Subjective Subjective: Medicine progress note for Patient was seen and examined at bedside in no acute distress. Patient was more awake, followed commands, and went in and out of confusion. Patient was oriented to person, time and president, but not place. Patient denies chest pain , abdominal pain, dyspnea, nausea, vomiting, fevers, headaches. Objective - Vital Signs/Intake and Output Vital Signs (last 24 hours): Temp Pulse Resp BP Pulse Ox 98.2 F 67 18 143/96 H 99 09/28/17 23:49 09/28/17 23:49 09/28/17 23:49 09/28/17 23:49 09/28/17 23:49 Intake and Output: 09/28/17 09/29/17 18:59 06:59 Intake Total 600 Output Total 400 650 Balance -400 -50 - Medications Medications: Current Medications Artificial Tears (Artificial Tears) 1 ml OU Q4 PRN PRN Reason: Other Last Admin: 09/24/17 09:12 Dose: 1 drop Clonidine HCl (Catapres) 0.1 mg PO Q4H PRN PRN Reason: Symptoms of alcohol withdrawl Last Admin: 09/21/17 03:05 Dose: 0.1 mg Folic Acid (Folic Acid) 1 mg PO DAILY [facility] Last Admin: 09/28/17 09:39 Dose: 1 mg Hydroxyzine HCl (Atarax) 25 mg PO Q6H PRN PRN Reason: Anxiety Last Admin: 09/28/17 02:18 Dose: 25 mg Sodium Chloride (Sodium Chloride 0.9%) 1,000 mls @ 50 mls/hr IV .Q20H [facility] Last Admin: 09/29/17 05:50 Dose: Not Given Metoprolol Tartrate (Lopressor) 25 mg PO BID [facility] Last Admin: 09/28/17 18:20 Dose: 25 mg Multivitamins (Hexavitamin) 1 tab PO DAILY [facility] Last Admin: 09/28/17 09:39 Dose: 1 tab Pramipexole Dihydrochloride (Mirapex) 1.5 mg PO TID [facility] Quetiapine Fumarate (Seroquel) 12.5 mg PO HS PRN PRN Reason: Agitation Last Admin: 09/29/17 00:37 Dose: 12.5 mg Thiamine HCl (Vitamin B1 Tab) 100 mg PO DAILY [facility] Last Admin: 09/28/17 09:39 Dose: 100 mg Trazodone HCl (Desyrel) 50 mg PO HS [facility] Last Admin: 09/28/17 22:27 Dose: 50 mg - Labs Labs: 09/28/17 08:22 09/28/17 08:22 - Additional Findings Additional findings: - Constitutional Appears: No Acute Distress, confused - Head Exam Head Exam: ATRAUMATIC, NORMAL INSPECTION - Eye Exam Eye Exam: EOMI, PERRL - ENT Exam ENT Exam: Mucous Membranes Moist - Respiratory Exam Respiratory Exam: NORMAL BREATHING PATTERN. absent: Rales, Rhonchi, Wheezes, Respiratory Distress - Cardiovascular Exam Cardiovascular Exam: REGULAR RHYTHM, +S1, +S2 - GI/Abdominal Exam GI & Abdominal Exam: Normal Bowel Sounds, Soft. absent: Distended, Firm, Tenderness - Extremities Exam Extremities exam: Positive for: pedal pulses present. Negative for: full ROM ( decreased ROM due to weakness- improving), normal inspection (tremors bilateral UE/LE), pedal edema, tenderness Additional comments: babinski negative b/l; sensation intact-withdraws to pain; pain with palpation of LE b/l 2/2 neuropathy. 4/5 strength b/l LE-improving; 5/ 5 strength b/l UE-improving; patient withdraws to pain b/l when palpating feet; poor balance when standing/unstable. - Neurological Exam Neurological exam: Abnormal Gait Additional comments: babinski negative b/l; sensation intact-withdraws to pain; pain with palpation of LE b/l 2/2 neuropathy. 4/5 strength b/l LE-improving; 5/ 5 strength b/l UE-improving; no saddle anesthesia. - Psychiatric Exam Psychiatric exam: Normal affect - Skin Skin Exam: Dry, Intact, Normal Color, Warm Assessment and Plan (1) Ambulatory dysfunction Status: Acute (2) Alcohol dependence Status: Acute - Assessment and Plan (Free Text) Plan: (1) Ambulatory dysfunction Parkinson's Disease? Assessment and Plan: - Neurology consulted, Dr. Abdi, to rule out neurologic causes of ambulatory dysfunction. Help appreciated. - Per Neurology, dysfunction may be due to parkinson's - Transferred to medical floors - Lumbar xray: unremarkable - Lumbar MRI: Multilevel facet arthropathy. No disc herniations nor significant disc bulges. Small annual fissure seen within the L4-L5 and L5-S1 posterior lateral disc margins as outlined above - Head CT: no evidence of acute intracranial hemorrhage intracranial collection mass effect or midline shift. Moderate atrophy. 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 - Ammonia level: 31, wnl - TSH wnl - Folate >20, wnl, Vit B12 >1000 H - Fall precautions - PT/OT Medication: - Pramipexole 1.25mg PO TID at 7am, 12pm, & 3pm (started 0.25 on 09/19 by neurologist) * Per neurology recommendation: Target goal of increasing mirapex 0.25 mg PO BID daily, with a target dose of 1.5 mg PO q 8 hours for maintenance. * Please note this should be timed last dose of medication should be before 5PM. - Discontinued Valproic acid due to transaminitis on 09/29 (2) Alcohol dependence/withdrawal Assessment and Plan: Per psychiatry Transferred from Detox to Med/Surg Floors Continue to monitor Medications: - Clonidine 0.1mg PO Q4 prn - Atarax 25mg PO Q6 prn - Seroquel 12.5mg PO HS prn for agitation (per neurologist) - Trazadone 50mg PO HS - Banana bag given on 09/20/17 - Folic Acid 1mg PO daily - Multivitamin daily - Thiamine 100mg PO daily (3) Hx of Fall Assessment and Plan: - CT Head (09/19/17): no evidence of acute intracranial hemorrhage intracranial collection mass effect or midline shift. Moderate atrophy. 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 - Lumbar xray (09/19/17): unremarkable (4) Thrombocytopenia, resolved Assessment and Plan: - Improving - HIV: negative - Hepatitis B panel: negative - Hepatitis C reactive - Abdominal US: hepatomegaly, hepatic steatosis - Likely secondary to alcohol abuse (5) Hepatitis C Reactive Assessment and Plan: - Hep C reactive - Will need outpatient follow up (6) Conjunctivitis, resolved Assessment and Plan: - Artificial tears - Tobramycin opht solution OU Q6--> discontinued on 09.27 (7) Tachycardia, resolved Assessment and Plan: - Likely secondary to withdrawal - Started on Lopressor 25mg PO BID (active since 09/23) - TSH: wnl - Free T4: 1.41 - DDimer: 736 - CTA: neg for PE - LE dopplers- negative (8) Constipation - Lactulose given on 09/23 (9) Hypomagnesemia - Mg 1.5 - Continue to monitor (10) Leukocytosis Assessment and Plan: - Decreasing - Pro-calcitonin: elevated, 0.94 - Blood cultures (09/24): negative to date - Urine culture (09/24): negative to do - Discontinued Zosyn 3.375 IV Q6h--> last dose given on 09/27/17 (11) Transaminitis Assessment and Plan: - Likely due to valproic acid - Discontinued on 09/29 - Continue to monitor (12) Prophylaxis Assessment and Plan: - Heparin 5000u SC Q8h - Fall precautions - PT/OT - Aspiration/seizure precautions - Case management/social consult for DC planning to [facility] <Nolan Gómez - Last Filed: 09/29/17 23:25> Objective - Vital Signs/Intake and Output Vital Signs (last 24 hours): Temp Pulse Resp BP Pulse Ox 97.7 F 75 20 145/91 H 96 09/29/17 15:54 09/29/17 15:54 09/29/17 15:54 09/29/17 17:32 09/29/17 15:54 Intake and Output: 09/29/17 09/30/17 18:59 06:59 Intake Total 400 Output Total 400 Balance -400 400 - Medications Medications: Current Medications Artificial Tears (Artificial Tears) 1 ml OU Q4 PRN PRN Reason: Other Last Admin: 09/24/17 09:12 Dose: 1 drop Clonidine HCl (Catapres) 0.1 mg PO Q4H PRN PRN Reason: Symptoms of alcohol withdrawl Last Admin: 09/21/17 03:05 Dose: 0.1 mg Folic Acid (Folic Acid) 1 mg PO DAILY [facility] Last Admin: 09/29/17 09:17 Dose: 1 mg Hydroxyzine HCl (Atarax) 25 mg PO Q6H PRN PRN Reason: Anxiety Last Admin: 09/28/17 02:18 Dose: 25 mg Sodium Chloride (Sodium Chloride 0.9%) 1,000 mls @ 50 mls/hr IV .Q20H [facility] Last Admin: 09/29/17 17:30 Dose: 50 mls/hr Metoprolol Tartrate (Lopressor) 25 mg PO BID [facility] Last Admin: 09/29/17 17:32 Dose: 25 mg Multivitamins (Hexavitamin) 1 tab PO DAILY [facility] Last Admin: 09/29/17 09:18 Dose: 1 tab Potassium Chloride (K-Dur 20 Meq Er Tab) 20 meq PO DAILY [facility] Last Admin: 09/29/17 09:19 Dose: 20 meq Pramipexole Dihydrochloride (Mirapex) 1.5 mg PO TIDCC [facility] Last Admin: 09/29/17 17:31 Dose: 1.5 mg Quetiapine Fumarate (Seroquel) 12.5 mg PO HS PRN PRN Reason: Agitation Last Admin: 09/29/17 00:37 Dose: 12.5 mg Thiamine HCl (Vitamin B1 Tab) 100 mg PO DAILY [facility] Last Admin: 09/29/17 09:20 Dose: 100 mg Trazodone HCl (Desyrel) 50 mg PO HS [facility] Last Admin: 09/29/17 21:25 Dose: 50 mg - Labs Labs: 09/29/17 08:19 09/29/17 08:19 Attending/Attestation - Attestation I have personally seen and examined this patient.: Yes I have fully participated in the care of the patient.: Yes I have reviewed all pertinent clinical information, including history, physical exam and plan: Yes Notes (Text): 09/29/17 23:20 Patient was seen together with resident Dr. Collado. Exam, assessment and plan were gone over with Dr. Collado. Patient had much improved mentation today. Dr. Collado and I tried to get patient out of bed and into standing position. Patient was unable to stand upright on his own without our assistance and even then was very unsteady on his feet. I believe that the patient has cognitive decline and possibly the beginnings of dementia due to his history of heavy alcohol abuse and finding of moderate volume loss on CT Head. We will need clearance from Psychiatry, Neurology prior to transferring patient to either [facility] or watermaster placement. Medicine Team please cotinue to keep patient's updated. Dr. Collado has been doing so this week. Nolan Gómez D.O.
--- NOTE | 2017-09-29 07:01 | CP.PCM.PN ---
Subjective - Date & Time of Evaluation Date of Evaluation: 09/29/17 Time of Evaluation: 06:55 - Subjective Subjective: Mr. Mejia was seen and examined at the bedside. He is awake, but confused unable to state his name, time, and place. 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 He is able to follow simple commands such as raising his bilateral upper extremities and slow movement of his lower extremities. He remains on 1:1 sitter for patient safety. There was no untoward events overnight. Objective - Vital Signs/Intake and Output Vital Signs (last 24 hours): Temp Pulse Resp BP Pulse Ox 98.2 F 67 18 143/96 H 99 09/28/17 23:49 09/28/17 23:49 09/28/17 23:49 09/28/17 23:49 09/28/17 23:49 Intake and Output: 09/28/17 09/29/17 18:59 06:59 Intake Total 600 Output Total 400 650 Balance -400 -50 - Medications Medications: Current Medications Artificial Tears (Artificial Tears) 1 ml OU Q4 PRN PRN Reason: Other Last Admin: 09/24/17 09:12 Dose: 1 drop Clonidine HCl (Catapres) 0.1 mg PO Q4H PRN PRN Reason: Symptoms of alcohol withdrawl Last Admin: 09/21/17 03:05 Dose: 0.1 mg Folic Acid (Folic Acid) 1 mg PO DAILY [facility] Last Admin: 09/28/17 09:39 Dose: 1 mg Hydroxyzine HCl (Atarax) 25 mg PO Q6H PRN PRN Reason: Anxiety Last Admin: 09/28/17 02:18 Dose: 25 mg Sodium Chloride (Sodium Chloride 0.9%) 1,000 mls @ 50 mls/hr IV .Q20H [facility] Last Admin: 09/29/17 05:50 Dose: Not Given Metoprolol Tartrate (Lopressor) 25 mg PO BID [facility] Last Admin: 09/28/17 18:20 Dose: 25 mg Multivitamins (Hexavitamin) 1 tab PO DAILY [facility] Last Admin: 09/28/17 09:39 Dose: 1 tab Pramipexole Dihydrochloride (Mirapex) 1.5 mg PO TID [facility] Quetiapine Fumarate (Seroquel) 12.5 mg PO HS PRN PRN Reason: Agitation Last Admin: 09/29/17 00:37 Dose: 12.5 mg Thiamine HCl (Vitamin B1 Tab) 100 mg PO DAILY [facility] Last Admin: 09/28/17 09:39 Dose: 100 mg Trazodone HCl (Desyrel) 50 mg PO HS [facility] Last Admin: 09/28/17 22:27 Dose: 50 mg - Labs Labs: 09/28/17 08:22 09/28/17 08:22 - Constitutional Appears: No Acute Distress - Head Exam Head Exam: NORMAL INSPECTION - Eye Exam Pupil Exam: PERRL - Neurological Exam Neurological Exam: Awake Neuro motor strength exam: Left Upper Extremity: 5, Right Upper Extremity: 5, Left Lower Extremity: 3 (slow), Right Lower Extremity: 3 (slow) Additional comments: neurological unchanged from previous examination Assessment and Plan (1) Bradykinesia Assessment & Plan: Case discussed with Dr. York, continue all current medical regimen, this am mirapex will be increase to 1.5 mg PO TID.Recommend to discontinue depakote due to elevated liver enzymes, hydration, treat any underlying infection and electrolytes abnormalities. Status: Acute
[2017-09-29 08:28] LABS: BASO # 0.1 K/uL (0.0-0.2); BASO % 0.8 % (0.0-2.0); EOS # 0.1 K/uL (0.0-0.7); EOS % 0.9 % (0.0-4.0); HEMOGLOBIN 11.8 g/dL (12.0-18.0); LYMPH # 1.5 K/uL (1.0-4.3); LYMPH % 12.1 % (20.0-40.0); MEAN CELL VOLUME 106.1 fL (80.0-94.0); MEAN CORPUSCULAR HEMOGLOBIN 35.5 pg (27.0-31.0); MEAN CORPUSCULAR HGB CONC 33.5 g/dL (33.0-37.0); MEAN PLATELET VOLUME 10.7 fL (7.2-11.7); MONO # 0.9 K/uL (0.0-0.8); MONO % 7.2 % (0.0-10.0); NEUT # 9.6 K/uL (1.8-7.0); NRBC % 0.1 % (0.0-2.0); RBC 3.32 Mil/uL (4.40-5.90); RED CELL DISTRIBUTION WIDTH 15.1 % (11.5-14.5); WHITE BLOOD COUNT 12.1 K/uL (4.8-10.8)
[2017-09-29 08:43] LABS: ALB/GLOB RATIO 0.8 (1.0-2.1); ALBUMIN 3.1 g/dL (3.5-5.0); ALT/SGPT 87 U/L (21-72); AST/SGOT 152 U/L (17-59); BLOOD UREA NITROGEN 3 mg/dL (9-20); CALCIUM 8.5 mg/dl (8.6-10.4); GFR AFRICAN-AMERICAN > 60; GFR NON-AFRICAN AMERICAN > 60
[2017-09-29] MEDS: Multiple Vitamins Tab PO SCH (09:18)
[2017-09-29] MEDS: Potassium Chloride 20 mEq ER Tab PO SCH (09:19)
[2017-09-29] MEDS: Magnesium Sulfate 1 gm in D5W 1 GM/100 ML BAG IVPB SCH ×2 (16:31→17:30)
--- NOTE | 2017-09-30 06:43 | CP.PCM.PN ---
Subjective - Date & Time of Evaluation Date of Evaluation: 09/30/17 Time of Evaluation: 06:43 - Subjective Subjective: Mr. Mejia was seen and examined at the bedside. He is awake, but confused unable to state his name, time, and place. According to the staff, his behavior is much improved last night that seroquel was not given. 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 He is able to follow simple commands such as raising his bilateral upper extremities and slow movement of his lower extremities. He remains on 1:1 sitter for patient safety. There was no untoward events overnight. Objective - Vital Signs/Intake and Output Vital Signs (last 24 hours): Temp Pulse Resp BP Pulse Ox 98.6 F 91 H 18 140/91 H 96 09/30/17 00:11 09/30/17 00:11 09/30/17 00:11 09/30/17 00:11 09/30/17 00:11 Intake and Output: 09/29/17 09/30/17 18:59 06:59 Intake Total 800 Output Total 400 Balance -400 800 - Medications Medications: Current Medications Artificial Tears (Artificial Tears) 1 ml OU Q4 PRN PRN Reason: Other Last Admin: 09/24/17 09:12 Dose: 1 drop Clonidine HCl (Catapres) 0.1 mg PO Q4H PRN PRN Reason: Symptoms of alcohol withdrawl Last Admin: 09/21/17 03:05 Dose: 0.1 mg Folic Acid (Folic Acid) 1 mg PO DAILY [facility] Last Admin: 09/29/17 09:17 Dose: 1 mg Hydroxyzine HCl (Atarax) 25 mg PO Q6H PRN PRN Reason: Anxiety Last Admin: 09/28/17 02:18 Dose: 25 mg Sodium Chloride (Sodium Chloride 0.9%) 1,000 mls @ 50 mls/hr IV .Q20H [facility] Last Admin: 09/29/17 17:30 Dose: 50 mls/hr Metoprolol Tartrate (Lopressor) 25 mg PO BID [facility] Last Admin: 09/29/17 17:32 Dose: 25 mg Multivitamins (Hexavitamin) 1 tab PO DAILY [facility] Last Admin: 09/29/17 09:18 Dose: 1 tab Potassium Chloride (K-Dur 20 Meq Er Tab) 20 meq PO DAILY [facility] Last Admin: 09/29/17 09:19 Dose: 20 meq Pramipexole Dihydrochloride (Mirapex) 1.5 mg PO TIDCC [facility] Last Admin: 09/29/17 17:31 Dose: 1.5 mg Quetiapine Fumarate (Seroquel) 12.5 mg PO HS PRN PRN Reason: Agitation Last Admin: 09/29/17 00:37 Dose: 12.5 mg Thiamine HCl (Vitamin B1 Tab) 100 mg PO DAILY [facility] Last Admin: 09/29/17 09:20 Dose: 100 mg Trazodone HCl (Desyrel) 50 mg PO HS [facility] Last Admin: 09/29/17 21:25 Dose: 50 mg - Labs Labs: 09/29/17 08:19 09/29/17 08:19 - Constitutional Appears: No Acute Distress - Head Exam Head Exam: NORMAL INSPECTION - Neurological Exam Neurological Exam: Awake Neuro motor strength exam: Left Upper Extremity: 4, Right Upper Extremity: 4, Left Lower Extremity: 3, Right Lower Extremity: 3 Additional comments: neurostatus unchanged from previous examination. Assessment and Plan (1) Bradykinesia Assessment & Plan: Case discussed with Dr. York, continue all current medical, physical, and occupational regimen. Recommend hydration, treat any underlying infection and electrolytes abnormalities. Status: Acute
[2017-09-30 08:28] LABS: BASO # 0.1 K/uL (0.0-0.2); BASO % 0.9 % (0.0-2.0); EOS # 0.1 K/uL (0.0-0.7); EOS % 0.6 % (0.0-4.0); HEMOGLOBIN 11.3 g/dL (12.0-18.0); LYMPH # 1.6 K/uL (1.0-4.3); LYMPH % 13.2 % (20.0-40.0); MEAN CELL VOLUME 105.3 fL (80.0-94.0); MEAN CORPUSCULAR HEMOGLOBIN 35.5 pg (27.0-31.0); MEAN CORPUSCULAR HGB CONC 33.8 g/dL (33.0-37.0); MEAN PLATELET VOLUME 10.7 fL (7.2-11.7); MONO # 0.9 K/uL (0.0-0.8); MONO % 7.1 % (0.0-10.0); NEUT # 9.5 K/uL (1.8-7.0); NEUT % 78.2 % (50.0-75.0); NRBC % 0.1 % (0.0-2.0); RBC 3.18 Mil/uL (4.40-5.90); RED CELL DISTRIBUTION WIDTH 14.8 % (11.5-14.5); WHITE BLOOD COUNT 12.2 K/uL (4.8-10.8)
[2017-09-30 08:42] LABS: ALB/GLOB RATIO 0.8 (1.0-2.1); ALT/SGPT 85 U/L (21-72); AST/SGOT 132 U/L (17-59); BLOOD UREA NITROGEN 4 mg/dL (9-20); CALCIUM 8.4 mg/dl (8.6-10.4); GFR AFRICAN-AMERICAN > 60; GFR NON-AFRICAN AMERICAN > 60
--- NOTE | 2017-09-30 09:18 | CP.PCM.PN ---
<Shira Brown - Last Filed: 09/30/17 14:48> Subjective - Date & Time of Evaluation Date of Evaluation: 09/30/17 Time of Evaluation: 09:15 - Subjective Subjective: Medicine progress note for Dr. Landry Patient was seen and examined at bedside in no acute distress. Patient was more lethargic today. Nodded his head yes and no to questions. Patient denies chest pain, abdominal pain, dyspnea, nausea, vomiting, fevers, headaches, and leg pain. No acute events overnight. Objective - Vital Signs/Intake and Output Vital Signs (last 24 hours): Temp Pulse Resp BP Pulse Ox 98.6 F 91 H 18 140/91 H 96 09/30/17 00:11 09/30/17 00:11 09/30/17 00:11 09/30/17 00:11 09/30/17 00:11 Intake and Output: 09/30/17 09/30/17 06:59 18:59 Intake Total 800 Balance 800 - Medications Medications: Current Medications Artificial Tears (Artificial Tears) 1 ml OU Q4 PRN PRN Reason: Other Last Admin: 09/24/17 09:12 Dose: 1 drop Clonidine HCl (Catapres) 0.1 mg PO Q4H PRN PRN Reason: Symptoms of alcohol withdrawl Last Admin: 09/21/17 03:05 Dose: 0.1 mg Folic Acid (Folic Acid) 1 mg PO DAILY [facility] Last Admin: 09/29/17 09:17 Dose: 1 mg Hydroxyzine HCl (Atarax) 25 mg PO Q6H PRN PRN Reason: Anxiety Last Admin: 09/28/17 02:18 Dose: 25 mg Sodium Chloride (Sodium Chloride 0.9%) 1,000 mls @ 50 mls/hr IV .Q20H [facility] Last Admin: 09/29/17 17:30 Dose: 50 mls/hr Metoprolol Tartrate (Lopressor) 25 mg PO BID [facility] Last Admin: 09/29/17 17:32 Dose: 25 mg Multivitamins (Hexavitamin) 1 tab PO DAILY [facility] Last Admin: 09/29/17 09:18 Dose: 1 tab Potassium Chloride (K-Dur 20 Meq Er Tab) 20 meq PO DAILY [facility] Last Admin: 09/29/17 09:19 Dose: 20 meq Pramipexole Dihydrochloride (Mirapex) 1.5 mg PO TIDCC [facility] Last Admin: 09/30/17 08:08 Dose: 1.5 mg Quetiapine Fumarate (Seroquel) 12.5 mg PO HS PRN PRN Reason: Agitation Last Admin: 09/29/17 00:37 Dose: 12.5 mg Thiamine HCl (Vitamin B1 Tab) 100 mg PO DAILY [facility] Last Admin: 09/29/17 09:20 Dose: 100 mg Trazodone HCl (Desyrel) 50 mg PO HS [facility] Last Admin: 09/29/17 21:25 Dose: 50 mg - Labs Labs: 09/30/17 08:18 09/30/17 08:18 - Additional Findings Additional findings: - Constitutional Appears: No Acute Distress, confused - Head Exam Head Exam: ATRAUMATIC, NORMAL INSPECTION - Eye Exam Eye Exam: EOMI, PERRL - ENT Exam ENT Exam: Mucous Membranes Moist - Respiratory Exam Respiratory Exam: NORMAL BREATHING PATTERN. absent: Rales, Rhonchi, Wheezes, Respiratory Distress - Cardiovascular Exam Cardiovascular Exam: REGULAR RHYTHM, +S1, +S2 - GI/Abdominal Exam GI & Abdominal Exam: Normal Bowel Sounds, Soft. absent: Distended, Firm, Tenderness - Extremities Exam Extremities exam: Positive for: pedal pulses present. Negative for: full ROM ( decreased ROM due to weakness- improving), normal inspection (tremors bilateral UE/LE), pedal edema, tenderness Additional comments: babinski negative b/l; sensation intact-withdraws to pain; pain with palpation of LE b/l 2/2 neuropathy. 4/5 strength b/l LE-improving; 5/ 5 strength b/l UE-improving; patient withdraws to pain b/l when palpating feet; poor balance when standing/unstable. - Neurological Exam Neurological exam: Abnormal Gait Additional comments: babinski negative b/l; sensation intact-withdraws to pain; pain with palpation of LE b/l 2/2 neuropathy. 4/5 strength b/l LE-improving; 5/ 5 strength b/l UE-improving; no saddle anesthesia. - Psychiatric Exam Psychiatric exam: lethargic - Skin Skin Exam: Dry, Intact, Normal Color, Warm Assessment and Plan (1) Ambulatory dysfunction Status: Acute (2) Alcohol dependence Status: Acute - Assessment and Plan (Free Text) Plan: (1) Ambulatory dysfunction Parkinson's Disease? Assessment and Plan: - Neurology consulted, Dr. Abdi, to rule out neurologic causes of ambulatory dysfunction. Help appreciated. - Per Neurology, dysfunction may be due to parkinson's - Transferred to medical floors - Lumbar xray: unremarkable - Lumbar MRI: Multilevel facet arthropathy. No disc herniations nor significant disc bulges. Small annual fissure seen within the L4-L5 and L5-S1 posterior lateral disc margins as outlined above - Head CT: no evidence of acute intracranial hemorrhage intracranial collection mass effect or midline shift. Moderate atrophy. 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 - Ammonia level: 31, wnl - TSH wnl - Folate >20, wnl, Vit B12 >1000 H - Fall precautions - PT/OT Medication: - Pramipexole 1.5mg PO TID at 7am, 12pm, & 3pm (started 0.25 on 09/19 by neurologist) * Per neurology recommendation: Target goal of increasing mirapex 0.25 mg PO BID daily, with a target dose of 1.5 mg PO q 8 hours for maintenance. * Please note this should be timed last dose of medication should be before 5PM. - Discontinued Valproic acid due to transaminitis on 09/29 (2) Alcohol dependence/withdrawal Assessment and Plan: Per psychiatry Transferred from Detox to Med/Surg Floors Continue to monitor Medications: - Clonidine 0.1mg PO Q4 prn - Atarax 25mg PO Q6 prn - Seroquel 12.5mg PO HS prn for agitation (per neurologist) - Trazadone 50mg PO HS - Banana bag given on 09/20/17 - Folic Acid 1mg PO daily - Multivitamin daily - Thiamine 100mg PO daily (3) Hx of Fall Assessment and Plan: - CT Head (09/19/17): no evidence of acute intracranial hemorrhage intracranial collection mass effect or midline shift. Moderate atrophy. 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 - Lumbar xray (09/19/17): unremarkable (4) Thrombocytopenia, resolved Assessment and Plan: - Improving - HIV: negative - Hepatitis B panel: negative - Hepatitis C reactive - Abdominal US: hepatomegaly, hepatic steatosis - Likely secondary to alcohol abuse (5) Hepatitis C Reactive Assessment and Plan: - Hep C reactive - Will need outpatient follow up (6) Conjunctivitis, resolved Assessment and Plan: - Artificial tears - Tobramycin opht solution OU Q6--> discontinued on 09.27 (7) Tachycardia, resolved Assessment and Plan: - Likely secondary to withdrawal - Started on Lopressor 25mg PO BID (active since 09/23) - TSH: wnl - Free T4: 1.41 - DDimer: 736 - CTA: neg for PE - LE dopplers- negative (8) Constipation - Lactulose given on 09/23 (9) Hypomagnesemia - Mg 1.5 - Continue to monitor (10) Leukocytosis Assessment and Plan: - Decreasing - Pro-calcitonin: elevated, 0.94 - Blood cultures (09/24): negative to date - Urine culture (09/24): negative to do - Discontinued Zosyn 3.375 IV Q6h--> last dose given on 09/27/17 (11) Transaminitis Assessment and Plan: - Likely due to valproic acid - Discontinued on 09/29 - Continue to monitor (12) Prophylaxis Assessment and Plan: - Heparin 5000u SC Q8h - Fall precautions - PT/OT - Aspiration/seizure precautions - Case management/social consult for DC planning to [facility] <Osmani Landry - Last Filed: 10/02/17 08:13> Objective - Vital Signs/Intake and Output Vital Signs (last 24 hours): Temp Pulse Resp BP Pulse Ox 98.2 F 86 20 122/85 97 10/02/17 07:40 10/02/17 07:40 10/02/17 07:40 10/02/17 07:40 10/02/17 07:40 Intake and Output: 10/02/17 10/02/17 06:59 18:59 Intake Total 1100 Output Total 300 Balance 800 - Medications Medications: Current Medications Artificial Tears (Artificial Tears) 1 ml OU Q4 PRN PRN Reason: Other Last Admin: 10/01/17 18:31 Dose: 1 drop Clonidine HCl (Catapres) 0.1 mg PO Q4H PRN PRN Reason: Symptoms of alcohol withdrawl Last Admin: 09/30/17 10:08 Dose: 0.1 mg Folic Acid (Folic Acid) 1 mg PO DAILY [facility] Last Admin: 10/01/17 12:36 Dose: 1 mg Hydroxyzine HCl (Atarax) 25 mg PO Q6H PRN PRN Reason: Anxiety Last Admin: 10/02/17 02:54 Dose: 25 mg Metoprolol Tartrate (Lopressor) 25 mg PO BID [facility] Last Admin: 10/01/17 17:26 Dose: 25 mg Multivitamins (Hexavitamin) 1 tab PO DAILY [facility] Last Admin: 10/01/17 10:27 Dose: 1 tab Potassium Chloride (K-Dur 20 Meq Er Tab) 20 meq PO DAILY [facility] Last Admin: 10/01/17 10:27 Dose: 20 meq Pramipexole Dihydrochloride (Mirapex) 1.5 mg PO TIDCC [facility] Last Admin: 10/01/17 17:23 Dose: 1.5 mg Quetiapine Fumarate (Seroquel) 12.5 mg PO HS PRN PRN Reason: Agitation Last Admin: 09/29/17 00:37 Dose: 12.5 mg Thiamine HCl (Vitamin B1 Tab) 100 mg PO DAILY [facility] Last Admin: 10/01/17 10:27 Dose: 100 mg Trazodone HCl (Desyrel) 50 mg PO HS [facility] Last Admin: 10/01/17 21:07 Dose: 50 mg - Labs Labs: 10/01/17 07:20 10/01/17 07:20 Attending/Attestation - Attestation I have personally seen and examined this patient.: Yes I have fully participated in the care of the patient.: Yes I have reviewed all pertinent clinical information, including history, physical exam and plan: Yes Notes (Text): Seen and examined with the resident Patient is confused . Lying comfortable ambulatory disfunction.Started on Parkinsonism medication by neurologist we will follow with CW about D/C plan Assessment and the plan discussed with the resident and I agree with documentation
[2017-09-30] MEDS: Aritificial Tears (15ml) OU PRN (10:06)
[2017-09-30] MEDS: Multiple Vitamins Tab PO SCH (10:09)
[2017-09-30] MEDS: Potassium Chloride 20 mEq ER Tab PO SCH (10:09)
[2017-09-30] MEDS: Sodium Chloride 0.9% 1,000 ML IV SCH (22:31)
--- NOTE | 2017-10-01 04:13 | CP.PCM.PN ---
<DillanIsabelaarianna E - Last Filed: 10/01/17 08:21> Subjective - Date & Time of Evaluation Date of Evaluation: 10/01/17 Time of Evaluation: 00:50 - Subjective Subjective: Medicine progress note ( Hospitalist Service) Patient was seen and examined at bedside. Patient was resting comfortably in bed. Patient nodded "no" to any discomfort. Objective - Vital Signs/Intake and Output Vital Signs (last 24 hours): Temp Pulse Resp BP Pulse Ox 98.1 F 74 20 132/85 95 09/30/17 23:06 09/30/17 23:06 09/30/17 23:06 09/30/17 23:06 09/30/17 23:06 Intake and Output: 09/30/17 10/01/17 18:59 06:59 Intake Total 650 800 Output Total 500 Balance 650 300 - Medications Medications: Current Medications Artificial Tears (Artificial Tears) 1 ml OU Q4 PRN PRN Reason: Other Last Admin: 09/30/17 10:06 Dose: 1 drop Clonidine HCl (Catapres) 0.1 mg PO Q4H PRN PRN Reason: Symptoms of alcohol withdrawl Last Admin: 09/30/17 10:08 Dose: 0.1 mg Folic Acid (Folic Acid) 1 mg PO DAILY [facility] Last Admin: 09/30/17 10:08 Dose: 1 mg Hydroxyzine HCl (Atarax) 25 mg PO Q6H PRN PRN Reason: Anxiety Last Admin: 09/30/17 10:00 Dose: 25 mg Sodium Chloride (Sodium Chloride 0.9%) 1,000 mls @ 50 mls/hr IV .Q20H [facility] Last Admin: 09/30/17 22:31 Dose: 50 mls/hr Metoprolol Tartrate (Lopressor) 25 mg PO BID [facility] Last Admin: 09/30/17 17:47 Dose: 25 mg Multivitamins (Hexavitamin) 1 tab PO DAILY [facility] Last Admin: 09/30/17 10:09 Dose: 1 tab Potassium Chloride (K-Dur 20 Meq Er Tab) 20 meq PO DAILY [facility] Last Admin: 09/30/17 10:09 Dose: 20 meq Pramipexole Dihydrochloride (Mirapex) 1.5 mg PO TIDCC [facility] Last Admin: 09/30/17 17:47 Dose: 1.5 mg Quetiapine Fumarate (Seroquel) 12.5 mg PO HS PRN PRN Reason: Agitation Last Admin: 09/29/17 00:37 Dose: 12.5 mg Thiamine HCl (Vitamin B1 Tab) 100 mg PO DAILY [facility] Last Admin: 09/30/17 10:08 Dose: 100 mg Trazodone HCl (Desyrel) 50 mg PO HS [facility] Last Admin: 09/30/17 21:41 Dose: Not Given - Labs Labs: 09/30/17 08:18 09/30/17 08:18 - Constitutional Appears: No Acute Distress - Head Exam Head Exam: ATRAUMATIC - Eye Exam Eye Exam: EOMI - Respiratory Exam Respiratory Exam: NORMAL BREATHING PATTERN. absent: Prolonged Expiratory Phase , Rhonchi, Wheezes, Respiratory Distress - Cardiovascular Exam Cardiovascular Exam: REGULAR RHYTHM, +S1, +S2 - GI/Abdominal Exam GI & Abdominal Exam: Soft, Normal Bowel Sounds. absent: Firm, Guarding, Rigid, Tenderness - Extremities Exam Extremities Exam: Pedal Edema. absent: Full ROM Additional comments: babinski negative b/l; sensation intact-withdraws to pain; pain with palpation of LE b/l 2/2 neuropathy. 4/5 strength b/l LE-improving; 5/5 strength b/l UE- improving; patient withdraws to pain b/l when palpating feet; poor balance when standing/unstable. - Neurological Exam Neurological Exam: Abnormal Gait. absent: Oriented x3 - Psychiatric Exam Psychiatric exam: Flat Affect - Skin Skin Exam: Normal Color Assessment and Plan (1) Ambulatory dysfunction Assessment & Plan: - Neurology consulted, Dr. Abdi, to rule out neurologic causes of ambulatory dysfunction. Help appreciated. - Per Neurology, dysfunction may be due to parkinson's - Transferred to medical floors - Lumbar xray: unremarkable - Lumbar MRI: Multilevel facet arthropathy. No disc herniations nor significant disc bulges. Small annual fissure seen within the L4-L5 and L5-S1 posterior lateral disc margins as outlined above - Head CT: no evidence of acute intracranial hemorrhage intracranial collection mass effect or midline shift. Moderate atrophy. 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 - Ammonia level: 31, wnl - TSH wnl - Folate >20, wnl, Vit B12 >1000 H - Fall precautions - PT/OT Medication: - Pramipexole 1.5mg PO TID at 7am, 12pm, & 3pm (started 0.25 on 09/19 by neurologist) * Per neurology recommendation: Target goal of increasing mirapex 0.25 mg PO BID daily, with a target dose of 1.5 mg PO q 8 hours for maintenance. * Please note this should be timed last dose of medication should be before 5PM. - Discontinued Valproic acid due to transaminitis on 09/29 Status: Acute (2) Alcohol dependence with withdrawal Assessment & Plan: Per psychiatry Transferred from Detox to Med/Surg Floors Continue to monitor Medications: - Clonidine 0.1mg PO Q4 prn - Atarax 25mg PO Q6 prn - Seroquel 12.5mg PO HS prn for agitation (per neurologist) - Trazadone 50mg PO HS - Banana bag given on 09/20/17 - Folic Acid 1mg PO daily - Multivitamin daily - Thiamine 100mg PO daily Status: Acute (3) Hx of fall Assessment & Plan: - CT Head (09/19/17): no evidence of acute intracranial hemorrhage intracranial collection mass effect or midline shift. Moderate atrophy. 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 - Lumbar xray (09/19/17): unremarkable Status: Acute (4) Thrombocytopenia Assessment & Plan: Resolved - HIV: negative - Hepatitis B panel: negative - Hepatitis C reactive - Abdominal US: hepatomegaly, hepatic steatosis - Likely secondary to alcohol abuse Status: Acute (5) Hepatitis C Assessment & Plan: - Hep C reactive - Will need outpatient follow up Status: Acute (6) Conjunctivitis Assessment & Plan: - Artificial tears - Tobramycin opht solution OU Q6--> discontinued on 09.27 Status: Acute (7) Tachycardia Assessment & Plan: Resolved - Likely secondary to withdrawal - Started on Lopressor 25mg PO BID (active since 09/23) - TSH: wnl - Free T4: 1.41 - DDimer: 736 - CTA: neg for PE - LE dopplers- negative Status: Acute (8) Transaminitis Assessment & Plan: D/C hepatoxic medications Continue to monitor Status: Acute (9) Prophylactic measure Assessment & Plan: - Heparin 5000u SC Q8h - Fall precautions - PT/OT - Aspiration/seizure precautions - Case management/social consult for DC planning to [facility] Status: Acute <MichaelKobe [email or web address] - Last Filed: 10/02/17 08:14> Objective - Vital Signs/Intake and Output Vital Signs (last 24 hours): Temp Pulse Resp BP Pulse Ox 98.2 F 86 20 122/85 97 10/02/17 07:40 10/02/17 07:40 10/02/17 07:40 10/02/17 07:40 10/02/17 07:40 Intake and Output: 10/02/17 10/02/17 06:59 18:59 Intake Total 1100 Output Total 300 Balance 800 - Medications Medications: Current Medications Artificial Tears (Artificial Tears) 1 ml OU Q4 PRN PRN Reason: Other Last Admin: 10/01/17 18:31 Dose: 1 drop Clonidine HCl (Catapres) 0.1 mg PO Q4H PRN PRN Reason: Symptoms of alcohol withdrawl Last Admin: 09/30/17 10:08 Dose: 0.1 mg Folic Acid (Folic Acid) 1 mg PO DAILY [facility] Last Admin: 10/01/17 12:36 Dose: 1 mg Hydroxyzine HCl (Atarax) 25 mg PO Q6H PRN PRN Reason: Anxiety Last Admin: 10/02/17 02:54 Dose: 25 mg Metoprolol Tartrate (Lopressor) 25 mg PO BID [facility] Last Admin: 10/01/17 17:26 Dose: 25 mg Multivitamins (Hexavitamin) 1 tab PO DAILY [facility] Last Admin: 10/01/17 10:27 Dose: 1 tab Potassium Chloride (K-Dur 20 Meq Er Tab) 20 meq PO DAILY [facility] Last Admin: 10/01/17 10:27 Dose: 20 meq Pramipexole Dihydrochloride (Mirapex) 1.5 mg PO TIDCC [facility] Last Admin: 10/01/17 17:23 Dose: 1.5 mg Quetiapine Fumarate (Seroquel) 12.5 mg PO HS PRN PRN Reason: Agitation Last Admin: 09/29/17 00:37 Dose: 12.5 mg Thiamine HCl (Vitamin B1 Tab) 100 mg PO DAILY [facility] Last Admin: 10/01/17 10:27 Dose: 100 mg Trazodone HCl (Desyrel) 50 mg PO HS [facility] Last Admin: 10/01/17 21:07 Dose: 50 mg - Labs Labs: 10/01/17 07:20 10/01/17 07:20 Attending/Attestation - Attestation I have personally seen and examined this patient.: Yes I have fully participated in the care of the patient.: Yes I have reviewed all pertinent clinical information, including history, physical exam and plan: Yes Notes (Text): Seen and examined by me. awake and oriented,confused,lying on bed comfortable. I agree with the resident's documentation
[2017-10-01 07:29] LABS: BASO # 0.1 K/uL (0.0-0.2); BASO % 0.6 % (0.0-2.0); EOS # 0.1 K/uL (0.0-0.7); EOS % 0.8 % (0.0-4.0); HEMOGLOBIN 12.3 g/dL (12.0-18.0); LYMPH # 1.7 K/uL (1.0-4.3); MEAN CELL VOLUME 105.3 fL (80.0-94.0); MEAN CORPUSCULAR HEMOGLOBIN 35.2 pg (27.0-31.0); MEAN CORPUSCULAR HGB CONC 33.5 g/dL (33.0-37.0); MEAN PLATELET VOLUME 11.3 fL (7.2-11.7); MONO # 0.9 K/uL (0.0-0.8); MONO % 6.3 % (0.0-10.0); NEUT # 11.5 K/uL (1.8-7.0); NEUT % 80.3 % (50.0-75.0); RBC 3.49 Mil/uL (4.40-5.90); RED CELL DISTRIBUTION WIDTH 15.3 % (11.5-14.5); WHITE BLOOD COUNT 14.3 K/uL (4.8-10.8)
[2017-10-01 07:46] LABS: ALB/GLOB RATIO 0.8 (1.0-2.1); ALBUMIN 3.2 g/dL (3.5-5.0); ALT/SGPT 83 U/L (21-72); AST/SGOT 129 U/L (17-59); BLOOD UREA NITROGEN 4 mg/dL (9-20); CALCIUM 8.6 mg/dl (8.6-10.4); GFR AFRICAN-AMERICAN > 60; GFR NON-AFRICAN AMERICAN > 60
[2017-10-01] MEDS: Potassium Chloride 20 mEq ER Tab PO SCH (10:27)
[2017-10-01] MEDS: Aritificial Tears (15ml) OU PRN ×2 (10:27→18:31)
[2017-10-01] MEDS: Multiple Vitamins Tab PO SCH (10:27)
[2017-10-01] MEDS ORDERED: Potassium Chloride 20 mEq ER Tab PO ONE (17:05)
[2017-10-01] MEDS: Sodium Chloride 0.9% 1,000 ML IV SCH (17:24)
[2017-10-01] MEDS: Magnesium Sulfate 1 gm in D5W 1 GM/100 ML BAG IVPB SCH ×2 (17:25→18:38)
--- NOTE | 2017-10-02 03:54 | CP.PCM.PN ---
<DillanIsabelaarianna E - Last Filed: 10/02/17 07:34> Subjective - Date & Time of Evaluation Date of Evaluation: 10/02/17 Time of Evaluation: 01:45 - Subjective Subjective: Medicine progress note ( Hospitalist Service) Patient was seen and examined at bedside. Patient is clinically unchanged. Patient still remains on 1:1 observation Objective - Vital Signs/Intake and Output Vital Signs (last 24 hours): Temp Pulse Resp BP Pulse Ox 98 F 81 20 124/80 98 10/01/17 23:54 10/01/17 23:54 10/01/17 23:54 10/01/17 23:54 10/01/17 23:54 Intake and Output: 10/01/17 10/02/17 18:59 06:59 Intake Total 480 700 Output Total 800 Balance -320 700 - Medications Medications: Current Medications Artificial Tears (Artificial Tears) 1 ml OU Q4 PRN PRN Reason: Other Last Admin: 10/01/17 18:31 Dose: 1 drop Clonidine HCl (Catapres) 0.1 mg PO Q4H PRN PRN Reason: Symptoms of alcohol withdrawl Last Admin: 09/30/17 10:08 Dose: 0.1 mg Folic Acid (Folic Acid) 1 mg PO DAILY [facility] Last Admin: 10/01/17 12:36 Dose: 1 mg Hydroxyzine HCl (Atarax) 25 mg PO Q6H PRN PRN Reason: Anxiety Last Admin: 10/02/17 02:54 Dose: 25 mg Metoprolol Tartrate (Lopressor) 25 mg PO BID [facility] Last Admin: 10/01/17 17:26 Dose: 25 mg Multivitamins (Hexavitamin) 1 tab PO DAILY [facility] Last Admin: 10/01/17 10:27 Dose: 1 tab Potassium Chloride (K-Dur 20 Meq Er Tab) 20 meq PO DAILY [facility] Last Admin: 10/01/17 10:27 Dose: 20 meq Pramipexole Dihydrochloride (Mirapex) 1.5 mg PO TIDCC [facility] Last Admin: 10/01/17 17:23 Dose: 1.5 mg Quetiapine Fumarate (Seroquel) 12.5 mg PO HS PRN PRN Reason: Agitation Last Admin: 09/29/17 00:37 Dose: 12.5 mg Thiamine HCl (Vitamin B1 Tab) 100 mg PO DAILY [facility] Last Admin: 10/01/17 10:27 Dose: 100 mg Trazodone HCl (Desyrel) 50 mg PO HS [facility] Last Admin: 10/01/17 21:07 Dose: 50 mg - Labs Labs: 10/01/17 07:20 10/01/17 07:20 - Constitutional Appears: No Acute Distress - Eye Exam Eye Exam: EOMI - Respiratory Exam Respiratory Exam: Clear to Ausculation Bilateral, NORMAL BREATHING PATTERN. absent: Rhonchi, Wheezes - Cardiovascular Exam Cardiovascular Exam: REGULAR RHYTHM, +S1, +S2. absent: Murmur - GI/Abdominal Exam GI & Abdominal Exam: Soft, Normal Bowel Sounds. absent: Firm, Guarding, Rigid, Tenderness - Extremities Exam Additional comments: babinski negative b/l; sensation intact-withdraws to pain; pain with palpation of LE b/l 2/2 neuropathy. 4/5 strength b/l LE-improving; 5/5 strength b/l UE- improving; patient withdraws to pain b/l when palpating feet; poor balance when standing/unstable. - Neurological Exam Neurological Exam: Alert, Awake. absent: Oriented x3 Additional comments: babinski negative b/l; sensation intact-withdraws to pain; pain with palpation of LE b/l 2/2 neuropathy. 4/5 strength b/l LE-improving; 5/5 strength b/l UE- improving; patient withdraws to pain b/l when palpating feet; poor balance when standing/unstable. - Psychiatric Exam Psychiatric exam: Flat Affect Assessment and Plan (1) Ambulatory dysfunction Assessment & Plan: - Neurology consulted, Dr. Abdi, to rule out neurologic causes of ambulatory dysfunction. Help appreciated. - Per Neurology, dysfunction may be due to parkinson's - Transferred to medical floors - Lumbar xray: unremarkable - Lumbar MRI: Multilevel facet arthropathy. No disc herniations nor significant disc bulges. Small annual fissure seen within the L4-L5 and L5-S1 posterior lateral disc margins as outlined above - Head CT: no evidence of acute intracranial hemorrhage intracranial collection mass effect or midline shift. Moderate atrophy. 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 - Ammonia level: 31, wnl - TSH wnl - Folate >20, wnl, Vit B12 >1000 H - Fall precautions - PT/OT Medication: - Pramipexole 1.5mg PO TID at 7am, 12pm, & 3pm (started 0.25 on 09/19 by neurologist) * Per neurology recommendation: Target goal of increasing mirapex 0.25 mg PO BID daily, with a target dose of 1.5 mg PO q 8 hours for maintenance. * Please note this should be timed last dose of medication should be before 5PM. - Discontinued Valproic acid due to transaminitis on 09/29 Status: Acute (2) Alcohol dependence with withdrawal Assessment & Plan: Per psychiatry Transferred from Detox to Med/Surg Floors Continue to monitor Medications: - Clonidine 0.1mg PO Q4 prn - Atarax 25mg PO Q6 prn - Seroquel 12.5mg PO HS prn for agitation (per neurologist) - Trazadone 50mg PO HS - Banana bag given on 09/20/17 - Folic Acid 1mg PO daily - Multivitamin daily - Thiamine 100mg PO daily Status: Acute (3) Hx of fall Assessment & Plan: - CT Head (09/19/17): no evidence of acute intracranial hemorrhage intracranial collection mass effect or midline shift. Moderate atrophy. 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 - Lumbar xray (09/19/17): unremarkable Status: Acute (4) Thrombocytopenia Assessment & Plan: Resolved - HIV: negative - Hepatitis B panel: negative - Hepatitis C reactive - Abdominal US: hepatomegaly, hepatic steatosis - Likely secondary to alcohol abuse Status: Acute (5) Hepatitis C Assessment & Plan: - Hep C reactive - Will need outpatient follow up Status: Acute (6) Conjunctivitis Assessment & Plan: - Artificial tears - Tobramycin opht solution OU Q6--> discontinued on 09/27 Status: Acute (7) Tachycardia Assessment & Plan: Resolved - Likely secondary to withdrawal - Started on Lopressor 25mg PO BID (active since 09/23) - TSH: wnl - Free T4: 1.41 - DDimer: 736 - CTA: neg for PE - LE dopplers- negative Status: Acute (8) Transaminitis Assessment & Plan: Downtrending D/C hepatoxic medications Continue to monitor Status: Acute (9) Prophylactic measure Assessment & Plan: - Heparin 5000u SC Q8h - Fall precautions - PT/OT - Aspiration/seizure precautions - Case management/social consult for DC planning to [place] Status: Acute <Patrizia Gonzalez V - Last Filed: 10/02/17 17:40> Objective - Vital Signs/Intake and Output Vital Signs (last 24 hours): Temp Pulse Resp BP Pulse Ox 98.2 F 86 20 114/69 97 10/02/17 07:40 10/02/17 07:40 10/02/17 07:40 10/02/17 09:46 10/02/17 07:40 Intake and Output: 10/02/17 10/02/17 06:59 18:59 Intake Total 1100 Output Total 300 Balance 800 - Medications Medications: Current Medications Artificial Tears (Artificial Tears) 1 ml OU Q4 PRN PRN Reason: Other Last Admin: 10/01/17 18:31 Dose: 1 drop Clonidine HCl (Catapres) 0.1 mg PO Q4H PRN PRN Reason: Symptoms of alcohol withdrawl Last Admin: 09/30/17 10:08 Dose: 0.1 mg Folic Acid (Folic Acid) 1 mg PO DAILY [facility] Last Admin: 10/02/17 09:46 Dose: 1 mg Hydroxyzine HCl (Atarax) 25 mg PO Q6H PRN PRN Reason: Anxiety Last Admin: 10/02/17 02:54 Dose: 25 mg Metoprolol Tartrate (Lopressor) 25 mg PO BID [facility] Last Admin: 10/02/17 09:46 Dose: 25 mg Multivitamins (Hexavitamin) 1 tab PO DAILY [facility] Last Admin: 10/02/17 09:46 Dose: 1 tab Pramipexole Dihydrochloride (Mirapex) 1.5 mg PO TIDCC [facility] Last Admin: 10/02/17 09:46 Dose: 1.5 mg Quetiapine Fumarate (Seroquel) 12.5 mg PO HS PRN PRN Reason: Agitation Last Admin: 09/29/17 00:37 Dose: 12.5 mg Thiamine HCl (Vitamin B1 Tab) 100 mg PO DAILY [facility] Last Admin: 10/02/17 09:46 Dose: 100 mg Trazodone HCl (Desyrel) 50 mg PO HS [facility] Last Admin: 10/01/17 21:07 Dose: 50 mg - Labs Labs: 10/02/17 07:50 10/02/17 07:50 Assessment and Plan (1) Alcohol dependence Status: Acute (2) Ambulatory dysfunction Status: Acute (3) Abnormal gait Status: Acute (4) Tremor Status: Acute Attending/Attestation - Attestation I have personally seen and examined this patient.: Yes I have fully participated in the care of the patient.: Yes I have reviewed all pertinent clinical information, including history, physical exam and plan: Yes Notes (Text): Patient seen, examined and case discussed with medical director. Patient seen this morning the clinical partner at bedside. Patient trying to get out of bed. Patient unable to state the correct date report it's in the 1920s. However when I ask him with a present is he reports: "It's the ugly sena or its the crazy sena". Patient is on a max dose of Mirapex 1.5 mg by mouth 3 times a day. Patient's prior urine culture and blood cultures are negative. Electrolytes were repleted. Patient's pro calcitonin repeated. Reviewed prior to social work note which indicated [place]place [place] the [place] we will fall forward social and case management for discharge planning. Prior PT note as well indicating for subacute rehabilitation. Prior OT note from September 23 noted for subacute rehabilitation. We'll plan for discharge planning hopefully for tomorrow. I have spoken with neurology as well home and patient may follow-up with him as outpatient for Parkinson's. Assessment/Plan (1) Ambulatory dysfunction Suspected Parkinson's Disease Assessment and Plan: * Neurology consulted, Dr. Abdi, help appreciated * Per Neurology, dysfunction may be due to parkinson's * Transferred to medical floors on 09/19/17 * Lumbar xray: unremarkable * Lumbar MRI: Limited motion degraded study. Multilevel facet arthropathy. No disc herniations nor significant disc bulges. Small annual fissure seen within the L4-L5 and L5-S1 posterior lateral disc margins as outlined above * Head CT: no evidence of acute intracranial hemorrhage intracranial collection mass effect or midline shift. Moderate atrophy. Mild white matter changes likely represent chronic microvacular ischemic disease * Brain MRI: No acute intracranial hemorrhage or infarction. Minimal chronic periventricular white matter ischemic changes. Moderate generalized volume loss. No enhancing lesions. * Ammonia level: 31, wnl * TSH wnl * Folate >20, wnl, Vit B12 >1000 H * Fall precautions * PT/OT eval * Medication: * Pramipexole 1.5 mg by mouth 3 times a day specifically at 7 AM 12 PM and 3 PM and advised and neurology did not give a dose after 5 PM because it'll cause patient to become very restless. (2) Alcohol dependence/withdrawal Cognitive Decline to Multifactorial (Alcohol and Parkinsons) Assessment and Plan: * Completed detox * Transferred from Detox to Med/Surg Floors on 09/19/17 * Continue to monitor Medications: * Seroquel 12.5mg PO daily prn for agitation (per neurologist) * Trazadone 50mg PO HS * Folic Acid 1mg PO daily * Multivitamin daily * Thiamine 100mg PO daily (3) Hx of Fall Assessment and Plan: * CT Head (09/19/17): no evidence of acute intracranial hemorrhage intracranial collection mass effect or midline shift. Moderate atrophy. Mild white matter changes likely reprsent chronic microvascular ischemic disease * Lumbar xray (09/19/17): unremarkable * Lumbar MRI: Limited motion degraded study. Multilevel facet arthropathy. No disc herniations nor significant disc bulges. Small annual fissure seen within the L4-L5 and L5-S1 posterior lateral disc margins as outlined above (4) Thrombocytopenia-->resolved Assessment and Plan: * HIV: negative * Hepatitis panel: negative * Abdominal US: hepatomegaly, hepatic steatosis * Have normalized (5) Hepatitis C Reactive Assessment and Plan: * will need outpatient following in regards to possible hepatitis C * will need to general counsel patient since this is treatable (6) Leukocytosis Assessment and Plan: * Decreasing * Blood cultures (09/25/17): negative * Urine culture (09/25/17): no growth * Completed 5 days of IV abx * Pro-calcitonin is elevated-->will repeat (7) Tachycardia-->controlled Assessment and Plan: * CT angio (09/23/17): No evidence of acute central pulmonary embolus. Multiple calcified granulomata scattered throughout the right lung and to a lesser degree left lung findings consistent with prior exposure to granulomatous disease process. Mild dependent atelectasis both posterior lower lung zones mild scarring of the left lung base borderline splenomegaly * Thyroid studies are within normal * Suspecting tachycardia secondary to withdrawal * Patient start on Lopressor 25 mg by mouth twice a day since September 23 (8) Conjunctivitis-->resolved Assessment and Plan: * Started on Tobrex 0.3 every 6 hours since September 21 and finished * Patient is seen well (9) Prophylaxis Assessment and Plan: * Fall precautions * PT/OT eval * Heparin 5000 subcutaneous 8H for DVT prophylaxis * Aspiration precautions * Seizure precautions
--- NOTE | 2017-10-02 08:15 | CP.PCM.PN ---
Subjective - Date & Time of Evaluation Date of Evaluation: 10/02/17 Time of Evaluation: 08:15 - Subjective Subjective: Mr. Mejia was seen and examined at the bedside. He is awake, but confused unable to state his name, time, and place. According to the staff, his behavior is much improved milder last night. 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 He is able to follow simple commands such as raising his bilateral upper extremities and slow movement of his lower extremities. He remains on 1:1 sitter and bilateral hand mitten for patient safety. There was no untoward events overnight. Objective - Vital Signs/Intake and Output Vital Signs (last 24 hours): Temp Pulse Resp BP Pulse Ox 98.2 F 86 20 122/85 97 10/02/17 07:40 10/02/17 07:40 10/02/17 07:40 10/02/17 07:40 10/02/17 07:40 Intake and Output: 10/02/17 10/02/17 06:59 18:59 Intake Total 1100 Output Total 300 Balance 800 - Medications Medications: Current Medications Artificial Tears (Artificial Tears) 1 ml OU Q4 PRN PRN Reason: Other Last Admin: 10/01/17 18:31 Dose: 1 drop Clonidine HCl (Catapres) 0.1 mg PO Q4H PRN PRN Reason: Symptoms of alcohol withdrawl Last Admin: 09/30/17 10:08 Dose: 0.1 mg Folic Acid (Folic Acid) 1 mg PO DAILY [facility] Last Admin: 10/01/17 12:36 Dose: 1 mg Hydroxyzine HCl (Atarax) 25 mg PO Q6H PRN PRN Reason: Anxiety Last Admin: 10/02/17 02:54 Dose: 25 mg Metoprolol Tartrate (Lopressor) 25 mg PO BID [facility] Last Admin: 10/01/17 17:26 Dose: 25 mg Multivitamins (Hexavitamin) 1 tab PO DAILY [facility] Last Admin: 10/01/17 10:27 Dose: 1 tab Potassium Chloride (K-Dur 20 Meq Er Tab) 20 meq PO DAILY [facility] Last Admin: 10/01/17 10:27 Dose: 20 meq Pramipexole Dihydrochloride (Mirapex) 1.5 mg PO TIDCC [facility] Last Admin: 10/01/17 17:23 Dose: 1.5 mg Quetiapine Fumarate (Seroquel) 12.5 mg PO HS PRN PRN Reason: Agitation Last Admin: 09/29/17 00:37 Dose: 12.5 mg Thiamine HCl (Vitamin B1 Tab) 100 mg PO DAILY [facility] Last Admin: 10/01/17 10:27 Dose: 100 mg Trazodone HCl (Desyrel) 50 mg PO HS [facility] Last Admin: 10/01/17 21:07 Dose: 50 mg - Labs Labs: 10/01/17 07:20 10/01/17 07:20 - Constitutional Appears: No Acute Distress - Head Exam Head Exam: NORMAL INSPECTION - Neurological Exam Neurological Exam: Awake Neuro motor strength exam: Left Upper Extremity: 4, Right Upper Extremity: 4, Left Lower Extremity: 3, Right Lower Extremity: 3 Additional comments: neurological unchanged from previous examination Assessment and Plan (1) Bradykinesia Assessment & Plan: Case discussed with Dr. York, continue all current medical, physical, and occupational regimen. Recommend hydration, treat any underlying infection and electrolytes abnormalities. Status: Acute
[2017-10-02 08:24] LABS: BASO # 0.1 K/uL (0.0-0.2); BASO % 0.6 % (0.0-2.0); EOS # 0.1 K/uL (0.0-0.7); EOS % 0.6 % (0.0-4.0); HEMOGLOBIN 11.5 g/dL (12.0-18.0); LYMPH # 1.6 K/uL (1.0-4.3); LYMPH % 11.8 % (20.0-40.0); MEAN CELL VOLUME 104.6 fL (80.0-94.0); MEAN CORPUSCULAR HEMOGLOBIN 35.2 pg (27.0-31.0); MEAN CORPUSCULAR HGB CONC 33.7 g/dL (33.0-37.0); MONO # 0.9 K/uL (0.0-0.8); MONO % 6.8 % (0.0-10.0); NEUT # 10.9 K/uL (1.8-7.0); NEUT % 80.2 % (50.0-75.0); NRBC % 0.1 % (0.0-2.0); RBC 3.26 Mil/uL (4.40-5.90); RED CELL DISTRIBUTION WIDTH 15.3 % (11.5-14.5); WHITE BLOOD COUNT 13.6 K/uL (4.8-10.8)
[2017-10-02 08:33] LABS: ALB/GLOB RATIO 0.8 (1.0-2.1); ALT/SGPT 75 U/L (21-72); AST/SGOT 109 U/L (17-59); BLOOD UREA NITROGEN 4 mg/dL (9-20); CALCIUM 8.4 mg/dl (8.6-10.4); GFR AFRICAN-AMERICAN > 60; GFR NON-AFRICAN AMERICAN > 60
[2017-10-02] MEDS: Potassium Chloride 20 mEq ER Tab PO SCH (09:46)
[2017-10-02] MEDS: Multiple Vitamins Tab PO SCH (09:46)
[2017-10-02] MEDS: Sodium Chloride 0.9% 1,000 ML IV SCH (21:34)
[2017-10-02] MEDS: QUEtiapine 12.5 MG TAB PO PRN (23:39)
--- NOTE | 2017-10-03 06:04 | CP.PCM.PN ---
Subjective - Date & Time of Evaluation Date of Evaluation: 10/03/17 Time of Evaluation: 06:04 - Subjective Subjective: Mr. Mejia was seen and examined at the bedside. He is awake, but confused unable to state his name, time, and place. According to the staff, his behavior is still with episode of restlessness. He spontaneously moves his bilateral upper extremities and slow movement of his lower extremities. He remains on 1:1 sitter and bilateral hand mitten for patient safety. There was no untoward events overnight Objective - Vital Signs/Intake and Output Vital Signs (last 24 hours): Temp Pulse Resp BP Pulse Ox 98.1 F 84 20 117/83 96 10/02/17 23:22 10/02/17 23:22 10/02/17 23:22 10/02/17 23:22 10/02/17 23:22 Intake and Output: 10/02/17 10/03/17 18:59 06:59 Intake Total 640 600 Output Total 300 200 Balance 340 400 - Medications Medications: Current Medications Artificial Tears (Artificial Tears) 1 ml OU Q4 PRN PRN Reason: Other Last Admin: 10/01/17 18:31 Dose: 1 drop Folic Acid (Folic Acid) 1 mg PO DAILY [facility] Last Admin: 10/02/17 09:46 Dose: 1 mg Metoprolol Tartrate (Lopressor) 25 mg PO BID [facility] Last Admin: 10/02/17 17:30 Dose: 25 mg Multivitamins (Hexavitamin) 1 tab PO DAILY [facility] Last Admin: 10/02/17 09:46 Dose: 1 tab Pramipexole Dihydrochloride (Mirapex) 1.5 mg PO TIDCC [facility] Last Admin: 10/02/17 17:30 Dose: 1.5 mg Quetiapine Fumarate (Seroquel) 12.5 mg PO HS PRN PRN Reason: Agitation Last Admin: 10/02/17 23:39 Dose: 12.5 mg Thiamine HCl (Vitamin B1 Tab) 100 mg PO DAILY [facility] Last Admin: 10/02/17 09:46 Dose: 100 mg Trazodone HCl (Desyrel) 50 mg PO HS [facility] Last Admin: 10/02/17 21:34 Dose: 50 mg - Labs Labs: 10/02/17 07:50 10/02/17 07:50 - Constitutional Appears: No Acute Distress - Head Exam Head Exam: NORMAL INSPECTION - Neurological Exam Neurological Exam: Awake Neuro motor strength exam: Left Upper Extremity: 4, Right Upper Extremity: 4, Left Lower Extremity: 3, Right Lower Extremity: 3 Additional comments: neurological examination unchanged from previous examination. Assessment and Plan (1) Bradykinesia Assessment & Plan: Case discussed with Dr. York, continue all current medical, physical, and occupational regimen. Recommend hydration, treat any underlying infection and electrolytes abnormalities. Status: Acute
[2017-10-03 06:29] LABS: BASO # 0.2 K/uL (0.0-0.2); BASO % 1.3 % (0.0-2.0); EOS # 0.1 K/uL (0.0-0.7); EOS % 0.8 % (0.0-4.0); HEMOGLOBIN 12.1 g/dL (12.0-18.0); LYMPH # 1.7 K/uL (1.0-4.3); LYMPH % 11.9 % (20.0-40.0); MEAN CELL VOLUME 103.2 fL (80.0-94.0); MEAN CORPUSCULAR HEMOGLOBIN 35.3 pg (27.0-31.0); MEAN CORPUSCULAR HGB CONC 34.3 g/dL (33.0-37.0); MEAN PLATELET VOLUME 10.5 fL (7.2-11.7); MONO # 0.8 K/uL (0.0-0.8); MONO % 5.7 % (0.0-10.0); NEUT # 11.2 K/uL (1.8-7.0); NEUT % 80.3 % (50.0-75.0); NRBC % 0.1 % (0.0-2.0); RBC 3.42 Mil/uL (4.40-5.90); RED CELL DISTRIBUTION WIDTH 14.8 % (11.5-14.5); WHITE BLOOD COUNT 13.9 K/uL (4.8-10.8)
[2017-10-03 06:53] LABS: ALB/GLOB RATIO 0.8 (1.0-2.1); ALBUMIN 3.3 g/dL (3.5-5.0); ALT/SGPT 73 U/L (21-72); AST/SGOT 115 U/L (17-59); BLOOD UREA NITROGEN 5 mg/dL (9-20); CALCIUM 8.8 mg/dl (8.6-10.4); GFR AFRICAN-AMERICAN > 60; GFR NON-AFRICAN AMERICAN > 60
[2017-10-03] MEDS: Multiple Vitamins Tab PO SCH (10:52)
[2017-10-03 14:18] LABS: SQUAMOUS EPITHIAL 19 /hpf (0-5); URINE BACTERIA RARE (<OCC); URINE BILIRUBIN NEGATIVE (NEGATIVE); URINE BLOOD 1+ (NEGATIVE); URINE CLARITY Hazy (Clear); URINE COLOR Yellow (YELLOW); URINE GLUCOSE (UA) NORMAL (Normal); URINE LEUKOCYTE ESTERASE TRACE Leu/uL (Negative); URINE PROTEIN NEGATIVE (NEGATIVE)
[2017-10-03] MEDS: Magnesium Sulfate 1 gm in D5W 1 GM/100 ML BAG IVPB SCH ×4 (14:28→17:51)
[2017-10-03 15:48] LABS: LEGIONELLA AG URINE NEGATIVE (NEGATIVE)
[2017-10-03 16:14] LABS: MYCOPLASMA PNEUMONIAE IGM NEGATIVE (NEGATIVE)
[2017-10-03] MEDS ORDERED: Albuterol-Ipratrop 3 mg / 0.5 (3 ml) UD INH PRN (17:06)
[2017-10-03 17:31] LABS: N MENINGITIS ACY/W135 NEGATIVE (NEGATIVE); N MENINGITIS B/ECOLI K1 NEGATIVE (NEGATIVE); STREP PNEUMONIAE NEGATIVE (NEGATIVE); STREPTOCOCCUS B NEGATIVE (NEGATIVE)
--- NOTE | 2017-10-03 17:37 | RAD ---
HISTORY: leukocytosis COMPARISON: Chest CT with contrast 09/23/2017. FINDINGS: LUNGS: Calcified granuloma again seen the right upper lung zone. Nodular density is felt to be artifactual lateral to the aortic knob is no such nodule is appreciable in the left upper lobe and prior chest CT noted above. No infiltrate at the left lung. Linear atelectasis in the inferior left lung zone with borderline patchy infiltrate in the interval at the right middle lobe inferiorly. PLEURA: No significant pleural effusion identified, no pneumothorax apparent. CARDIOVASCULAR: Normal. OSSEOUS STRUCTURES: No significant abnormalities. VISUALIZED UPPER ABDOMEN: Normal. OTHER FINDINGS: None. IMPRESSION: Interval atelectasis or infiltrate right middle lobe. Linear atelectasis left base. No cardiomegaly or pulmonary vascular congestion.
--- NOTE | 2017-10-03 20:14 | CP.PCM.PN ---
<Lola Dennison P - Last Filed: 10/03/17 21:57> Subjective - Date & Time of Evaluation Date of Evaluation: 10/03/17 Time of Evaluation: 12:00 - Subjective Subjective: PGY-[address] Gonzalez. Pt was seen and evaluated at bedside. During examination today, pt was somnolent. As per nurse, pt was agitated overnight and did not sleep for most of the night. Unable to obtain further history, as pt was extremely sleepy and uncooperative. Objective - Vital Signs/Intake and Output Vital Signs (last 24 hours): Temp Pulse Resp BP Pulse Ox 98.2 F 82 18 131/89 95 10/03/17 15:00 10/03/17 17:49 10/03/17 15:00 10/03/17 17:49 10/03/17 15:00 Intake and Output: 10/03/17 10/04/17 18:59 06:59 Intake Total 1010 Output Total 300 Balance 710 - Medications Medications: Current Medications Albuterol/Ipratropium (Duoneb 3 Mg/0.5 Mg (3 Ml) Ud) 3 ml INH RQ4 PRN PRN Reason: Shortness of Breath Amantadine HCl (Amantadine 100 Mg Cap) 100 mg PO BID [facility] Last Admin: 10/03/17 17:48 Dose: 100 mg Artificial Tears (Artificial Tears) 1 ml OU Q4 PRN PRN Reason: Other Last Admin: 10/01/17 18:31 Dose: 1 drop Folic Acid (Folic Acid) 1 mg PO DAILY [facility] Last Admin: 10/03/17 10:52 Dose: 1 mg Lactulose (Enulose) 20 gm PO QID [facility] Metoprolol Tartrate (Lopressor) 25 mg PO BID [facility] Last Admin: 10/03/17 17:48 Dose: 25 mg Multivitamins (Hexavitamin) 1 tab PO DAILY [facility] Last Admin: 10/03/17 10:52 Dose: 1 tab Pramipexole Dihydrochloride (Mirapex) 1.5 mg PO TIDCC [facility] Last Admin: 10/03/17 16:58 Dose: 1.5 mg Quetiapine Fumarate (Seroquel) 12.5 mg PO HS PRN PRN Reason: Agitation Last Admin: 10/02/17 23:39 Dose: 12.5 mg Thiamine HCl (Vitamin B1 Tab) 100 mg PO DAILY [facility] Last Admin: 10/03/17 10:52 Dose: 100 mg Trazodone HCl (Desyrel) 50 mg PO HS [facility] Last Admin: 10/02/17 21:34 Dose: 50 mg - Labs Labs: 10/03/17 06:21 10/03/17 06:21 - Constitutional Appears: No Acute Distress, Other (Pt noted to be somnolent.) - Head Exam Head Exam: ATRAUMATIC, NORMOCEPHALIC - Respiratory Exam Respiratory Exam: Clear to Ausculation Bilateral - Cardiovascular Exam Cardiovascular Exam: RRR, +S1, +S2. absent: Murmur - GI/Abdominal Exam GI & Abdominal Exam: Soft, Normal Bowel Sounds. absent: Tenderness - Extremities Exam Extremities Exam: absent: Pedal Edema Assessment and Plan - Assessment and Plan (Free Text) Assessment: 51 yo M with PMHx of alcohol use disorder presenting for alcohol detoxification and ambulatory dysfunction. Plan: 1. Ambulatory Dysfunction - Neurology consulted, Dr. Abdi, to rule out neurologic causes of ambulatory dysfunction. Help appreciated. - Per Neurology, dysfunction may be due to parkinson's - 09/19 Lumbar xray: unremarkable - 09/03 Lumbar MRI: Multilevel facet arthropathy. No disc herniations nor significant disc bulges. Small annual fissure seen within the L4-L5 and L5-S1 posterior lateral disc margins as outlined above - 09/[address]: no evidence of acute intracranial hemorrhage intracranial collection mass effect or midline shift. Moderate atrophy. 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 - 09/22 Brain MRI: no acute intracranial hemorrhage or infarction; minimal chronic pervientricular white matter ischemic changes; moderate generalized volume loss; no enhancing lesions. -10/03 f/u EEG - TSH wnl - Folate >20, wnl, Vit B12 >1000 H - Fall precautions - PT/OT Medication: - Pramipexole 1.5mg PO TID at 7am, 12pm, & 3pm (started 0.25 on 09/19 by neurologist) * Per neurology recommendation: Target goal of increasing mirapex 0.25 mg PO BID daily, with a target dose of 1.5 mg PO q 8 hours for maintenance. * Please note this should be timed last dose of medication should be before 5PM. - Discontinued Valproic acid due to transaminitis on 09/29 -10/03: pt started on Amantadine 100mg PO BID -10/03: pt started on Lactulose 25mg PO QID 2. Alcohol dependence with withdrawal Per Psychiatry Transferred from Detox to Med/Surg Floors Continue to monitor Medications: - Seroquel 12.5mg PO HS prn for agitation (per neurologist) - Trazadone 50mg PO HS - Folic Acid 1mg PO daily - Multivitamin daily - Thiamine 100mg PO daily 3. Hx of fall - CT Head (09/19/17): no evidence of acute intracranial hemorrhage intracranial collection mass effect or midline shift. Moderate atrophy. 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 - Lumbar xray (09/19/17): unremarkable 4. Hyperammonemia - Ammonia level: -09/17: 31, wnl -09/22: 22, wnl -10/03: 37, elevated -10/03 pt started on Lactulose 20gm PO QID 5. leukocytosis- persistent -10/03 WBC: 13.9 -10/03 CXR: Interval atelectasis or infiltrate R middle lobe. Linear atelectasis L base. No cardiomegaly or pulmonary vascular congestion. -Order placed for Duonebs 3ml INH RQ4 PRN shortness of breath -F/U 10/03 blood cx -F/u 10/03 urine cx -Hematology, consulted, help appreciated. 6. Hypomagnesemia -10/03 M.4 -Ordered Mg sulfate 4gm IVPB oce -F/u Mg AM labs 7. Tachycardia likely secondary to withdrawal-stable - Started on Lopressor 25mg PO BID (active since 09/23) - TSH: wnl - Free T4: 1.41 - DDimer: 736 - CTA: neg for PE - LE dopplers- negative 8. Hepatitis C reactive -Outpatient follow up 9. Transaminitis-stable -D/C hepatoxic medications -Continue to monitor 10. Conjunctivits- resolved -Artificial tears -Tobramycin opht solution OU Q6H- completed on 09/27 11. Thrombocytopenia-resolved - HIV: negative - Hepatitis B panel: negative - Hepatitis C reactive - Abdominal US: hepatomegaly, hepatic steatosis - Likely secondary to alcohol abuse 12. Prophylaxis -Fall precautions -PT/OT eval -Aspiration/seizure precaustions -case management/social consult for DC planning to rehab facility -Heparin 5000 U SC Q8 <Patrizia Gonzalez V - Last Filed: 10/04/17 08:39> Objective - Vital Signs/Intake and Output Vital Signs (last 24 hours): Temp Pulse Resp BP Pulse Ox 98.7 F 92 H 20 113/76 98 10/04/17 07:49 10/04/17 07:49 10/04/17 07:49 10/04/17 07:49 10/04/17 07:49 Intake and Output: 10/04/17 10/04/17 06:59 18:59 Intake Total 200 Output Total 500 Balance -300 - Medications Medications: Current Medications Albuterol/Ipratropium (Duoneb 3 Mg/0.5 Mg (3 Ml) Ud) 3 ml INH RQ4 PRN PRN Reason: Shortness of Breath Amantadine HCl (Amantadine 100 Mg Cap) 100 mg PO BID [facility] Last Admin: 10/03/17 17:48 Dose: 100 mg Artificial Tears (Artificial Tears) 1 ml OU Q4 PRN PRN Reason: Other Last Admin: 10/01/17 18:31 Dose: 1 drop Folic Acid (Folic Acid) 1 mg PO DAILY [facility] Last Admin: 10/03/17 10:52 Dose: 1 mg Heparin Sodium (Porcine) (Heparin) 5,000 units SC Q8 [facility] Last Admin: 10/04/17 05:35 Dose: 5,000 units Lactulose (Enulose) 20 gm PO QID [facility] Last Admin: 10/03/17 21:44 Dose: 20 gm Metoprolol Tartrate (Lopressor) 25 mg PO BID [facility] Last Admin: 10/03/17 17:48 Dose: 25 mg Multivitamins (Hexavitamin) 1 tab PO DAILY [facility] Last Admin: 10/03/17 10:52 Dose: 1 tab Pramipexole Dihydrochloride (Mirapex) 1.5 mg PO TIDCC [facility] Last Admin: 10/04/17 08:05 Dose: 1.5 mg Quetiapine Fumarate (Seroquel) 12.5 mg PO HS PRN PRN Reason: Agitation Last Admin: 10/04/17 02:15 Dose: 12.5 mg Thiamine HCl (Vitamin B1 Tab) 100 mg PO DAILY [facility] Last Admin: 10/03/17 10:52 Dose: 100 mg Trazodone HCl (Desyrel) 50 mg PO HS [facility] Last Admin: 10/03/17 21:42 Dose: 50 mg - Labs Labs: 10/04/17 07:08 10/04/17 07:08 Assessment and Plan (1) Alcohol dependence Status: Acute (2) Ambulatory dysfunction Status: Acute (3) Abnormal gait Status: Acute (4) Tremor Status: Acute Attending/Attestation - Attestation I have personally seen and examined this patient.: Yes I have fully participated in the care of the patient.: Yes I have reviewed all pertinent clinical information, including history, physical exam and plan: Yes Notes (Text): This is a late computer entry for 10/03/2017. Patient seen and examined this morning. Patient was restless overnight. Patient is arousable and will speak 1 to words unable to state the year reports he doesn 't like the president and reports he is otherwise okay. Case discussed with neurology, recommends for EEG to rule out seizure and to start amantadine 100 mg by mouth twice a day to promote more alertness in light of patient's Parkinson's symptoms. Patient continues to have persistent leukocytosis unclear etiology. We will repeat blood cultures, urine culture and portable chest x-ray. Chest x-ray does not show any pneumonia. We'll consult hematology oncology for this leukocytosis. I've spoken with him on-call evaluate the patient later today. I have also ordered an ammonia level in light of patient's likely hepatitis C and alcohol use history.. It was elevated today we'll start lactulose to see if that helps improve mental status as well. Assessment/Plan (1) Ambulatory dysfunction Suspected Parkinson's Disease Assessment and Plan: * Neurology consulted, Dr. Abdi, help appreciated * Per Neurology, dysfunction may be due to parkinson's * Transferred to medical floors on 09/19/17 * Lumbar xray: unremarkable * Lumbar MRI: Limited motion degraded study. Multilevel facet arthropathy. No disc herniations nor significant disc bulges. Small annual fissure seen within the L4-L5 and L5-S1 posterior lateral disc margins as outlined above * Head CT: no evidence of acute intracranial hemorrhage intracranial collection mass effect or midline shift. Moderate atrophy. Mild white matter changes likely represent chronic microvacular ischemic disease * Brain MRI: No acute intracranial hemorrhage or infarction. Minimal chronic periventricular white matter ischemic changes. Moderate generalized volume loss. No enhancing lesions. * Ammonia level: 31, wnl * TSH wnl * Folate >20, wnl, Vit B12 >1000 H * Fall precautions * PT/OT eval * Medication: * Pramipexole 1.5 mg by mouth 3 times a day specifically at 7 AM 12 PM and 3 PM and advised and neurology did not give a dose after 5 PM because it'll cause patient to become very restless. * Amantadine 100 mg by mouth twice a day (2) Alcohol dependence/withdrawal Cognitive Decline to Multifactorial (Alcohol and Parkinsons) Assessment and Plan: * Completed detox * Transferred from Detox to Med/Surg Floors on 09/19/17 * Continue to monitor Medications: * Seroquel 25 mg PO daily prn for agitation (per neurologist) * Trazadone 50mg PO HS * Folic Acid 1mg PO daily * Multivitamin daily * Thiamine 100mg PO daily (3) Hx of Fall Assessment and Plan: * CT Head (09/19/17): no evidence of acute intracranial hemorrhage intracranial collection mass effect or midline shift. Moderate atrophy. Mild white matter changes likely reprsent chronic microvascular ischemic disease * Lumbar xray (09/19/17): unremarkable * Lumbar MRI: Limited motion degraded study. Multilevel facet arthropathy. No disc herniations nor significant disc bulges. Small annual fissure seen within the L4-L5 and L5-S1 posterior lateral disc margins as outlined above (4) Thrombocytopenia-->resolved Assessment and Plan: * HIV: negative * Hepatitis panel: negative * Abdominal US: hepatomegaly, hepatic steatosis * Have normalized (5) Hepatitis C Reactive Assessment and Plan: * will need outpatient following in regards to possible hepatitis C * will need to cancer genetic counselor patient since this is treatable * Ammonia elevated will start lactulose (6) Leukocytosis Assessment and Plan: * Hematology oncology consult Dr. Hargrove on consult * Blood cultures (09/25/17): negative * Urine culture (09/25/17): no growth * Completed 5 days of IV abx * Pro-calcitonin is elevated--> improved * Blood cultures, urine culture, and chest x-ray repeated on 10/03/2017 (7) Tachycardia-->controlled Assessment and Plan: * CT angio (09/23/17): No evidence of acute central pulmonary embolus. Multiple calcified granulomata scattered throughout the right lung and to a lesser degree left lung findings consistent with prior exposure to granulomatous disease process. Mild dependent atelectasis both posterior lower lung zones mild scarring of the left lung base borderline splenomegaly * Thyroid studies are within normal * Suspecting tachycardia secondary to withdrawal * Patient start on Lopressor 25 mg by mouth twice a day since September 23 (8) Conjunctivitis-->resolved Assessment and Plan: * Started on Tobrex 0.3 every 6 hours since September 21 and finished * Patient is seen well (9) Prophylaxis Assessment and Plan: * Fall precautions * PT/OT eval * Heparin 5000 subcutaneous 8H for DVT prophylaxis * Aspiration precautions * Seizure precautions
[2017-10-04] MEDS: QUEtiapine 12.5 MG TAB PO PRN (02:15)
--- NOTE | 2017-10-04 07:15 | CP.PCM.PN ---
<Lola Dennison P - Last Filed: 10/05/17 02:00> Subjective - Date & Time of Evaluation Date of Evaluation: 10/04/17 Time of Evaluation: 09:00 - Subjective Subjective: PGY-[address] Bowling. Pt was seen and evaluated at bedside. Today, pt is awake and more alert than yesterday, however mumbles indistinctly at times. Denies chest pain, abdominal pain, shortness of breath. Pt tolerated PT today. Objective - Vital Signs/Intake and Output Vital Signs (last 24 hours): Temp Pulse Resp BP Pulse Ox 97.7 F 78 20 114/75 98 10/03/17 23:47 10/03/17 23:47 10/03/17 23:47 10/03/17 23:47 10/03/17 23:47 Intake and Output: 10/04/17 10/04/17 06:59 18:59 Intake Total 200 Output Total 500 Balance -300 - Medications Medications: Current Medications Albuterol/Ipratropium (Duoneb 3 Mg/0.5 Mg (3 Ml) Ud) 3 ml INH RQ4 PRN PRN Reason: Shortness of Breath Amantadine HCl (Amantadine 100 Mg Cap) 100 mg PO BID [facility] Last Admin: 10/03/17 17:48 Dose: 100 mg Artificial Tears (Artificial Tears) 1 ml OU Q4 PRN PRN Reason: Other Last Admin: 10/01/17 18:31 Dose: 1 drop Folic Acid (Folic Acid) 1 mg PO DAILY [facility] Last Admin: 10/03/17 10:52 Dose: 1 mg Heparin Sodium (Porcine) (Heparin) 5,000 units SC Q8 [facility] Last Admin: 10/04/17 05:35 Dose: 5,000 units Lactulose (Enulose) 20 gm PO QID [facility] Last Admin: 10/03/17 21:44 Dose: 20 gm Metoprolol Tartrate (Lopressor) 25 mg PO BID [facility] Last Admin: 10/03/17 17:48 Dose: 25 mg Multivitamins (Hexavitamin) 1 tab PO DAILY [facility] Last Admin: 10/03/17 10:52 Dose: 1 tab Pramipexole Dihydrochloride (Mirapex) 1.5 mg PO TIDCC [facility] Last Admin: 10/03/17 16:58 Dose: 1.5 mg Quetiapine Fumarate (Seroquel) 12.5 mg PO HS PRN PRN Reason: Agitation Last Admin: 10/04/17 02:15 Dose: 12.5 mg Thiamine HCl (Vitamin B1 Tab) 100 mg PO DAILY [facility] Last Admin: 10/03/17 10:52 Dose: 100 mg Trazodone HCl (Desyrel) 50 mg PO HS [facility] Last Admin: 10/03/17 21:42 Dose: 50 mg - Labs Labs: 10/03/17 06:21 10/03/17 06:21 - Constitutional Appears: Unkempt - Head Exam Head Exam: ATRAUMATIC, NORMOCEPHALIC - Eye Exam Eye Exam: EOMI - ENT Exam ENT Exam: Mucous Membranes Moist - Respiratory Exam Respiratory Exam: Clear to Ausculation Bilateral - Cardiovascular Exam Cardiovascular Exam: REGULAR RHYTHM, +S1, +S2. absent: Murmur - GI/Abdominal Exam GI & Abdominal Exam: Soft, Normal Bowel Sounds. absent: Tenderness - Extremities Exam Extremities Exam: absent: Pedal Edema - Neurological Exam Neurological Exam: Alert, Awake. absent: Oriented x3 (oriented to person and place, not time) - Psychiatric Exam Psychiatric exam: Flat Affect - Skin Skin Exam: Dry, Intact, Warm Assessment and Plan - Assessment and Plan (Free Text) Assessment: 51 yo M with PMHx of alcohol use disorder presenting for alcohol detoxification and ambulatory dysfunction. Plan: 1. Ambulatory Dysfunction with Hx of fall - Neurology consulted, Dr. Abdi, to rule out neurologic causes of ambulatory dysfunction. Help appreciated. - Per Neurology, dysfunction may be due to parkinson's - 09/19 Lumbar xray: unremarkable - 09/03 Lumbar MRI: Multilevel facet arthropathy. No disc herniations nor significant disc bulges. Small annual fissure seen within the L4-L5 and L5-S1 posterior lateral disc margins as outlined above - 09/[address]: no evidence of acute intracranial hemorrhage intracranial collection mass effect or midline shift. Moderate atrophy. 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 - 09/22 Brain MRI: no acute intracranial hemorrhage or infarction; minimal chronic pervientricular white matter ischemic changes; moderate generalized volume loss; no enhancing lesions. -10/03 f/u EEG - TSH wnl - Folate >20, wnl, Vit B12 >1000 H - Fall precautions - PT/OT Medication: - Pramipexole 1.5mg PO TID at 7am, 12pm, & 3pm (started 0.25 on 09/19 by neurologist) * Per neurology recommendation: Target goal of increasing mirapex 0.25 mg PO BID daily, with a target dose of 1.5 mg PO q 8 hours for maintenance. * Please note this should be timed last dose of medication should be before 5PM. - Discontinued Valproic acid due to transaminitis on 09/29 -10/03: pt started on Amantadine 100mg PO BID -10/03: pt started on Lactulose 25mg PO QID 2. Alcohol dependence with withdrawal Per Psychiatry Transferred from Detox to Med/Surg Floors Continue to monitor Medications: - Seroquel 12.5mg PO HS prn for agitation (per neurologist) - Trazadone 50mg PO HS - Folic Acid 1mg PO daily - Multivitamin daily - Thiamine 100mg PO daily 3. UTI -10/03 UA: trace leukocyte Esterase, 6RBC, rare bacteria -10/04 Started on Zoxyn 3.375 IVQH -10/04 Started on Tamsulosin 0.4mg PO daily for retention -f/u bladder scan 4. Right middle lobe pneumonia -10/03 CXR: Interval atelectasis or infiltrate in R middle lobe. Linear atelectasis L base.. No cardiomegaly or pulmonary congestion. -Serology: Flu, Legionella, mycoplasma, N Meningiditis, N. meningi B/E.coli, Group B strep, S. pneumoniae all negative -10/04 Started on Zoxyn 3.375 IVQH 5. Hyperammonemia - Ammonia level: -09/17: 31, wnl -09/22: 22, wnl -10/03: 37, elevated -10/03 pt started on Lactulose 20gm PO QID 6. leukocytosis- persistent -10/03 WBC: 13.9 -10/03 CXR: Interval atelectasis or infiltrate R middle lobe. Linear atelectasis L base. No cardiomegaly or pulmonary vascular congestion. -Order placed for Duonebs 3ml INH RQ4 PRN shortness of breath -F/U 10/03 blood cx -F/u 10/03 urine cx -Hematology, consulted, help appreciated. -suspect rebound leukocytosis from bone marrow suppression from alcohol. Anemia also suspected from alcohol induced bone marrow suppression-will check retic count, b12, folate, ferritin 7. Hypomagnesemia-stable -/ M.4 -Ordered Mg sulfate 4gm IVPB oce -10/04 M.8 8. Tachycardia likely secondary to withdrawal-stable - Started on Lopressor 25mg PO BID (active since 09/23) - TSH: wnl - Free T4: 1.41 - DDimer: 736 - CTA: neg for PE - LE dopplers- negative 9. Hepatitis C reactive -Outpatient follow up 10. Transaminitis-stable -D/C hepatoxic medications -Continue to monitor 11. Conjunctivits- resolved -Artificial tears -Tobramycin opht solution OU Q6H- completed on 09/27 12. Thrombocytopenia-resolved - HIV: negative - Hepatitis B panel: negative - Hepatitis C reactive - Abdominal US: hepatomegaly, hepatic steatosis - Likely secondary to alcohol abuse 13. Prophylaxis -Fall precautions -PT/OT eval -Aspiration/seizure precaustions -case management/social consult for DC planning to rehab facility- placement at [facility] pending PT progress note -Heparin 5000 U SC Q8 <Patrizia Gonzalez V - Last Filed: 10/05/17 09:43> Objective - Vital Signs/Intake and Output Vital Signs (last 24 hours): Temp Pulse Resp BP Pulse Ox 97.9 F 90 20 97/64 L 100 10/05/17 07:53 10/05/17 07:53 10/05/17 07:53 10/05/17 07:53 10/05/17 07:53 - Medications Medications: Current Medications Albuterol/Ipratropium (Duoneb 3 Mg/0.5 Mg (3 Ml) Ud) 3 ml INH RQ4 PRN PRN Reason: Shortness of Breath Amantadine HCl (Amantadine 100 Mg Cap) 100 mg PO BID [facility] Last Admin: 10/04/17 17:24 Dose: 100 mg Artificial Tears (Artificial Tears) 1 ml OU Q4 PRN PRN Reason: Other Last Admin: 10/01/17 18:31 Dose: 1 drop Folic Acid (Folic Acid) 1 mg PO DAILY [facility] Last Admin: 10/04/17 10:20 Dose: 1 mg Heparin Sodium (Porcine) (Heparin) 5,000 units SC Q8 [facility] Last Admin: 10/05/17 05:33 Dose: 5,000 units Piperacillin Sod/Tazobactam (Sod 3.375 gm/ Sodium Chloride) 100 mls @ 200 mls/ hr IVPB Q6H [facility]AIMA PRN Reason: Protocol Last Admin: 10/05/17 05:34 Dose: 200 mls/hr Lactulose (Enulose) 20 gm PO QID [facility] Last Admin: 10/04/17 21:50 Dose: 20 gm Metoprolol Tartrate (Lopressor) 25 mg PO BID [facility] Last Admin: 10/04/17 17:24 Dose: 25 mg Multivitamins (Hexavitamin) 1 tab PO DAILY [facility] Last Admin: 10/04/17 10:20 Dose: 1 tab Pramipexole Dihydrochloride (Mirapex) 1.5 mg PO TIDCC [facility] Last Admin: 10/04/17 17:24 Dose: 1.5 mg Quetiapine Fumarate (Seroquel) 12.5 mg PO HS PRN PRN Reason: Agitation Last Admin: 10/04/17 02:15 Dose: 12.5 mg Tamsulosin HCl (Flomax) 0.4 mg PO DAILY [facility] Last Admin: 10/04/17 18:18 Dose: 0.4 mg Thiamine HCl (Vitamin B1 Tab) 100 mg PO DAILY [facility] Last Admin: 10/04/17 10:20 Dose: 100 mg Trazodone HCl (Desyrel) 50 mg PO HS [facility] Last Admin: 10/04/17 21:51 Dose: 50 mg - Labs Labs: 10/05/17 07:38 10/05/17 07:38 Assessment and Plan (1) Alcohol dependence Status: Acute (2) Ambulatory dysfunction Status: Acute (3) Abnormal gait Status: Acute (4) Tremor Status: Acute Attending/Attestation - Attestation I have personally seen and examined this patient.: Yes I have fully participated in the care of the patient.: Yes I have reviewed all pertinent clinical information, including history, physical exam and plan: Yes Notes (Text): This is late computer entry for 10/04/17. Patient seen, examined and case discussed with day-time resident. Patient is more awake and alert today. Patient is speaking well in Japanese and Czech more communicative. Patient reports he was treated for his hepatitis C in the past. Patient agreeable and working with physical therapy. We are following blood and urine cultures from 10/03/17. Patient is a prophylactic dose of Zosyn IV. Hematology oncology on the case-->suspecting white count is reactive in light of alcohol history. Assessment/Plan (1) Ambulatory dysfunction Suspected Parkinson's Disease Assessment and Plan: * Neurology consulted, Dr. Abdi, help appreciated * Per Neurology, dysfunction may be due to parkinson's * Transferred to medical floors on 09/19/17 * Lumbar xray: unremarkable * Lumbar MRI: Limited motion degraded study. Multilevel facet arthropathy. No disc herniations nor significant disc bulges. Small annual fissure seen within the L4-L5 and L5-S1 posterior lateral disc margins as outlined above * Head CT: no evidence of acute intracranial hemorrhage intracranial collection mass effect or midline shift. Moderate atrophy. Mild white matter changes likely represent chronic microvacular ischemic disease * Brain MRI: No acute intracranial hemorrhage or infarction. Minimal chronic periventricular white matter ischemic changes. Moderate generalized volume loss. No enhancing lesions. * Ammonia level: 31, wnl * TSH wnl * Folate >20, wnl, Vit B12 >1000 H * Fall precautions * PT/OT eval * Medication: * Pramipexole 1.5 mg by mouth 3 times a day specifically at 7 AM 12 PM and 3 PM and advised and neurology did not give a dose after 5 PM because it'll cause patient to become very restless. * Amantadine 100 mg by mouth twice a day (2) Alcohol dependence/withdrawal Cognitive Decline to Multifactorial (Alcohol and Parkinsons) Assessment and Plan: * Completed detox * Transferred from Detox to Med/Surg Floors on 09/19/17 * Continue to monitor Medications: * Seroquel 25 mg PO daily prn for agitation (per neurologist) * Trazadone 50mg PO HS * Folic Acid 1mg PO daily * Multivitamin daily * Thiamine 100mg PO daily (3) Hx of Fall Assessment and Plan: * CT Head (09/19/17): no evidence of acute intracranial hemorrhage intracranial collection mass effect or midline shift. Moderate atrophy. Mild white matter changes likely reprsent chronic microvascular ischemic disease * Lumbar xray (09/19/17): unremarkable * Lumbar MRI: Limited motion degraded study. Multilevel facet arthropathy. No disc herniations nor significant disc bulges. Small annual fissure seen within the L4-L5 and L5-S1 posterior lateral disc margins as outlined above (4) Thrombocytopenia-->resolved Assessment and Plan: * HIV: negative * Hepatitis panel: negative * Abdominal US: hepatomegaly, hepatic steatosis * Have normalized (5) Hepatitis C Reactive Assessment and Plan: * Patient reports he has been treated for hepatitis C. * Ammonia elevated will start lactulose (6) Leukocytosis Assessment and Plan: * Hematology oncology consult Dr. Hargrove on consult * Likely reactive given alcohol hx * Blood cultures (09/25/17): negative * Urine culture (09/25/17): no growth * Completed 5 days of IV abx * Pro-calcitonin is elevated--> improved * Blood cultures (10/03/17): no growth after 24hours X2 * Urine culture: No growth * Chest xray (10/03/17): interval atelectasis or infiltrate right middle lobe. linear atelectasis left base. No cardiomegaly or pulmonary vascular congestion. (7) Tachycardia-->controlled Assessment and Plan: * CT angio (09/23/17): No evidence of acute central pulmonary embolus. Multiple calcified granulomata scattered throughout the right lung and to a lesser degree left lung findings consistent with prior exposure to granulomatous disease process. Mild dependent atelectasis both posterior lower lung zones mild scarring of the left lung base borderline splenomegaly * Thyroid studies are within normal * Suspecting tachycardia secondary to withdrawal * Patient start on Lopressor 25 mg by mouth twice a day since September 23 (8) Conjunctivitis-->resolved Assessment and Plan: * Started on Tobrex 0.3 every 6 hours since September 21 and finished * Patient is seen well (9) Prophylaxis Assessment and Plan: * Fall precautions * PT/OT eval * Heparin 5000 subcutaneous 8H for DVT prophylaxis * Aspiration precautions * Seizure precautions
[2017-10-04 07:30] LABS: BASO # 0.1 K/uL (0.0-0.2); EOS # 0.1 K/uL (0.0-0.7); EOS % 0.6 % (0.0-4.0); HEMOGLOBIN 12.1 g/dL (12.0-18.0); LYMPH # 1.6 K/uL (1.0-4.3); LYMPH % 13.5 % (20.0-40.0); MEAN CELL VOLUME 103.4 fL (80.0-94.0); MEAN CORPUSCULAR HEMOGLOBIN 35.1 pg (27.0-31.0); MONO # 0.9 K/uL (0.0-0.8); MONO % 7.3 % (0.0-10.0); NEUT # 9.4 K/uL (1.8-7.0); NEUT % 77.6 % (50.0-75.0); RBC 3.43 Mil/uL (4.40-5.90); RED CELL DISTRIBUTION WIDTH 14.6 % (11.5-14.5); WHITE BLOOD COUNT 12.1 K/uL (4.8-10.8)
[2017-10-04 08:08] LABS: ALB/GLOB RATIO 0.8 (1.0-2.1); ALBUMIN 3.2 g/dL (3.5-5.0); ALT/SGPT 73 U/L (21-72); AST/SGOT 100 U/L (17-59); BLOOD UREA NITROGEN 4 mg/dL (9-20); CALCIUM 8.6 mg/dl (8.6-10.4); GFR AFRICAN-AMERICAN > 60; GFR NON-AFRICAN AMERICAN > 60
[2017-10-04] MEDS: Multiple Vitamins Tab PO SCH (10:20)
--- NOTE | 2017-10-04 12:39 | CP.PCM.CON ---
History of Present Illness - History of Present Illness History of Present Illness: 51 year old male with a history of alcoholism, admitted from detox with AMS and gait instability, with leukocytosis and anemia. The patient denies blood problems in the past. He denies abnormal bleeding and bruising. He denies fevers and chills. Review of his blood work shows persistent leukocytosis with neutrophilia and hgb around 12. Past medical history: Alcoholism PAst surgical history: Denies Family history: Denies hematologic and oncologic problems Social history: Drinks several glasses of wine daily Allergies: NKA Review of systems: All remaining review of systems including HEENT, cardiovascular, respiratory, gastrointestinal, genitourinary, musculoskeletal, dermatologic, neurologic, and psychiatric are negative unless mentioned in the HPI. Past Patient History - Past Medical History & Family History Past Medical History?: Yes - Past Social History Smoking Status: Light Smoker < 10 Cigarettes Daily - CARDIAC Hx Cardiac Disorders: No Hx Hypertension: No - PULMONARY Hx Tuberculosis: No - NEUROLOGICAL HX Cerebrovascular Accident: No Hx Seizures: No - HEMATOLOGICAL/ONCOLOGICAL Hx Cancer: No Hx Human Immunodeficiency Virus (HIV): No - MUSCULOSKELETAL/RHEUMATOLOGICAL Hx Falls: Yes Other/Comment: Neuropathy - GENITOURINARY/GYNECOLOGICAL Hx Sexually Transmitted Disorders: No - PSYCHIATRIC Hx Substance Use: No - SURGICAL HISTORY Hx Surgeries: No - ANESTHESIA Hx Anesthesia: No Meds Allergies/Adverse Reactions: Allergies Allergy/AdvReac Type Severity Reaction Status Date / Time No Known Allergies Allergy Verified 09/17/17 12:56 - Medications Medications: Current Medications Albuterol/Ipratropium (Duoneb 3 Mg/0.5 Mg (3 Ml) Ud) 3 ml INH RQ4 PRN PRN Reason: Shortness of Breath Amantadine HCl (Amantadine 100 Mg Cap) 100 mg PO BID [facility] Last Admin: 10/04/17 10:20 Dose: 100 mg Artificial Tears (Artificial Tears) 1 ml OU Q4 PRN PRN Reason: Other Last Admin: 10/01/17 18:31 Dose: 1 drop Folic Acid (Folic Acid) 1 mg PO DAILY [facility] Last Admin: 10/04/17 10:20 Dose: 1 mg Heparin Sodium (Porcine) (Heparin) 5,000 units SC Q8 [facility] Last Admin: 10/04/17 05:35 Dose: 5,000 units Lactulose (Enulose) 20 gm PO QID [facility] Last Admin: 10/04/17 10:20 Dose: 20 gm Metoprolol Tartrate (Lopressor) 25 mg PO BID [facility] Last Admin: 10/04/17 10:20 Dose: 25 mg Multivitamins (Hexavitamin) 1 tab PO DAILY [facility] Last Admin: 10/04/17 10:20 Dose: 1 tab Pramipexole Dihydrochloride (Mirapex) 1.5 mg PO TIDCC [facility] Last Admin: 10/04/17 08:05 Dose: 1.5 mg Quetiapine Fumarate (Seroquel) 12.5 mg PO HS PRN PRN Reason: Agitation Last Admin: 10/04/17 02:15 Dose: 12.5 mg Thiamine HCl (Vitamin B1 Tab) 100 mg PO DAILY [facility] Last Admin: 10/04/17 10:20 Dose: 100 mg Trazodone HCl (Desyrel) 50 mg PO HS [facility] Last Admin: 10/03/17 21:42 Dose: 50 mg Physical Exam - Head Exam Head Exam: ATRAUMATIC - Eye Exam Eye Exam: Normal appearance - ENT Exam ENT Exam: Mucous Membranes Dry - Respiratory Exam Respiratory Exam: NORMAL BREATHING PATTERN - Cardiovascular Exam Cardiovascular Exam: +S1, +S2 - GI/Abdominal Exam GI & Abdominal Exam: Normal Bowel Sounds - Extremities Exam Extremities exam: Positive for: normal inspection - Neurological Exam Neurological exam: Altered - Psychiatric Exam Psychiatric exam: Agitated - Skin Skin Exam: Warm Results - Vital Signs Recent Vital Signs: Last Vital Signs Temp 98.7 F 10/04/17 07:49 Pulse 92 H 10/04/17 07:49 Resp 20 10/04/17 07:49 BP 113/74 10/04/17 10:20 Pulse Ox 98 10/04/17 07:49 - Labs Result Diagrams: 10/04/17 07:08 10/04/17 07:08 Labs: Laboratory Results - last 24 hr 10/03/17 10/03/17 10/03/17 13:58 13:58 13:58 WBC RBC Hgb Hct MCV MCH MCHC RDW Plt Count MPV Neut % (Auto) Lymph % (Auto) [place] % (Auto) Eos % (Auto) Baso % (Auto) Neut # (Auto) Lymph # (Auto) [place] # (Auto) Eos # (Auto) Baso # (Auto) Sodium Potassium Chloride Carbon Dioxide Anion Gap BUN Creatinine Est GFR ( Amer) Est GFR (Non-Af Amer) Random Glucose Calcium Phosphorus Magnesium Total Bilirubin AST ALT Alkaline Phosphatase Ammonia 37 H D Total Protein Albumin Globulin Albumin/Globulin Ratio Urine Color Yellow Urine Clarity Hazy Urine pH 6.0 Ur Specific [place] 1.014 Urine Protein Negative Urine Glucose (UA) Normal Urine Ketones Negative Urine Blood 1+ H Urine Nitrate Negative Urine Bilirubin Negative Urine Urobilinogen 2.0 Ur Leukocyte Esterase Trace Urine WBC (Auto) 3 Urine RBC (Auto) 6 H Ur Squamous Epith Cells 19 H Urine Bacteria Rare H.influenzae Type B Ag Negative Ur L.pneumophila Ag Negative Mycoplasma pneumon IgM Negative N.meningitidis [id number]/W135 Negative N.meningi B/E.coli K1 Ag Negative Group B Strep Antigen Negative S. pneumoniae Antigen Negative 10/04/17 10/04/17 07:08 07:08 WBC 12.1 H RBC 3.43 L Hgb 12.1 Hct 35.5 MCV 103.4 H MCH 35.1 H MCHC 34.0 RDW 14.6 H Plt Count 154 MPV 11.0 Neut % (Auto) 77.6 H Lymph % (Auto) 13.[address] [place] % (Auto) 7.3 Eos % (Auto) 0.6 Baso % (Auto) 1.0 Neut # (Auto) 9.4 H Lymph # (Auto) 1.6 [place] # (Auto) 0.9 H Eos # (Auto) 0.1 Baso # (Auto) 0.1 Sodium 139 Potassium 3.7 Chloride 107 Carbon Dioxide 23 Anion Gap 14 BUN 4 L Creatinine 0.6 L Est GFR ( Amer) > 60 Est GFR (Non-Af Amer) > 60 Random Glucose 87 Calcium 8.6 Phosphorus 4.4 Magnesium 1.8 Total Bilirubin 1.2 AST 100 H ALT 73 H Alkaline Phosphatase 190 H Ammonia Total Protein 7.0 Albumin 3.2 L Globulin 3.8 Albumin/Globulin Ratio 0.8 L Urine Color Urine Clarity Urine pH Ur Specific [place] Urine Protein Urine Glucose (UA) Urine Ketones Urine Blood Urine Nitrate Urine Bilirubin Urine Urobilinogen Ur Leukocyte Esterase Urine WBC (Auto) Urine RBC (Auto) Ur Squamous Epith Cells Urine Bacteria H.influenzae Type B Ag Ur L.pneumophila Ag Mycoplasma pneumon IgM N.meningitidis [id number]/W135 N.meningi B/E.coli K1 Ag Group B Strep Antigen S. pneumoniae Antigen Assessment & Plan (1) Leukocytosis Assessment and Plan: predominant neutrophilia suspect rebound leukocytosis from bone marrow suppression from alcohol Status: Acute (2) Anemia Assessment and Plan: alcohol induced bone marrow suppression will check retic count, b12, folate, ferritin Thank you for this interesting consult. Status: Acute
[2017-10-04] MEDS: Piperacillin/Tazobact 3.375 GM in Sodium Chloride 100 ML IVPB SCH (18:06)
[2017-10-05] MEDS: Piperacillin/Tazobact 3.375 GM in Sodium Chloride 100 ML IVPB SCH ×5 (00:27→23:43)
--- NOTE | 2017-10-05 00:37 | CP.PCM.PN ---
<Shira Brown - Last Filed: 10/05/17 00:32> Subjective - Date & Time of Evaluation Date of Evaluation: 10/05/17 Time of Evaluation: 00:32 - Subjective Subjective: Medicine progress note for Dr. Gonzalez Patient was seen and examined at bedside in no acute distress. Patient is oriented to person, place, president, but not time. He has no complaints and says he needs to exercise to get stronger. Patient denies chest pain, shortness of breath, nausea, vomiting, abdominal pain, dizziness, and diarrhea. Per nursing, no acute events overnight, bladder scan showed 0cc, and patient had approximately 2-3 loose BMs yesterday and yesterday night. Objective - Vital Signs/Intake and Output Vital Signs (last 24 hours): Temp Pulse Resp BP Pulse Ox 98.2 F 92 H 20 101/69 97 10/04/17 23:42 10/04/17 23:42 10/04/17 23:42 10/04/17 23:42 10/04/17 23:42 Intake and Output: 10/04/17 10/05/17 18:59 06:59 Intake Total 300 Balance 300 - Medications Medications: Current Medications Albuterol/Ipratropium (Duoneb 3 Mg/0.5 Mg (3 Ml) Ud) 3 ml INH RQ4 PRN PRN Reason: Shortness of Breath Amantadine HCl (Amantadine 100 Mg Cap) 100 mg PO BID [facility] Last Admin: 10/04/17 17:24 Dose: 100 mg Artificial Tears (Artificial Tears) 1 ml OU Q4 PRN PRN Reason: Other Last Admin: 10/01/17 18:31 Dose: 1 drop Folic Acid (Folic Acid) 1 mg PO DAILY [facility] Last Admin: 10/04/17 10:20 Dose: 1 mg Heparin Sodium (Porcine) (Heparin) 5,000 units SC Q8 [facility] Last Admin: 10/04/17 21:50 Dose: 5,000 units Piperacillin Sod/Tazobactam (Sod 3.375 gm/ Sodium Chloride) 100 mls @ 200 mls/ hr IVPB Q6H [facility] PRN Reason: Protocol Last Admin: 10/05/17 00:27 Dose: 200 mls/hr Lactulose (Enulose) 20 gm PO QID [facility] Last Admin: 10/04/17 21:50 Dose: 20 gm Metoprolol Tartrate (Lopressor) 25 mg PO BID [facility] Last Admin: 10/04/17 17:24 Dose: 25 mg Multivitamins (Hexavitamin) 1 tab PO DAILY [facility] Last Admin: 10/04/17 10:20 Dose: 1 tab Pramipexole Dihydrochloride (Mirapex) 1.5 mg PO TIDCC [facility] Last Admin: 10/04/17 17:24 Dose: 1.5 mg Quetiapine Fumarate (Seroquel) 12.5 mg PO HS PRN PRN Reason: Agitation Last Admin: 10/04/17 02:15 Dose: 12.5 mg Tamsulosin HCl (Flomax) 0.4 mg PO DAILY [facility] Last Admin: 10/04/17 18:18 Dose: 0.4 mg Thiamine HCl (Vitamin B1 Tab) 100 mg PO DAILY [facility] Last Admin: 10/04/17 10:20 Dose: 100 mg Trazodone HCl (Desyrel) 50 mg PO HS [facility] Last Admin: 10/04/17 21:51 Dose: 50 mg - Labs Labs: 10/04/17 07:08 10/04/17 07:08 - Additional Findings Additional findings: - Constitutional Appears: No Acute Distress, confused - Head Exam Head Exam: ATRAUMATIC, NORMAL INSPECTION - Eye Exam Eye Exam: EOMI, PERRL - ENT Exam ENT Exam: Mucous Membranes Moist - Respiratory Exam Respiratory Exam: NORMAL BREATHING PATTERN. absent: Rales, Rhonchi, Wheezes, Respiratory Distress - Cardiovascular Exam Cardiovascular Exam: REGULAR RHYTHM, +S1, +S2 - GI/Abdominal Exam GI & Abdominal Exam: Normal Bowel Sounds, Soft. absent: Distended, Firm, Tenderness - Extremities Exam Extremities exam: Positive for: pedal pulses present. Negative for: full ROM ( decreased ROM due to weakness- improving), normal inspection (tremors bilateral UE/LE), pedal edema, tenderness Additional comments: babinski negative b/l; sensation intact-withdraws to pain; pain with palpation of LE b/l 2/2 neuropathy. 4/5 strength b/l LE-improving; 5/ 5 strength b/l UE-improving; patient withdraws to pain b/l when palpating feet; poor balance when standing/unstable. - Neurological Exam Neurological exam: Abnormal Gait Additional comments: babinski negative b/l; sensation intact-withdraws to pain; pain with palpation of LE b/l 2/2 neuropathy. 4/5 strength b/l LE-improving; 5/ 5 strength b/l UE-improving; no saddle anesthesia. - Psychiatric Exam Psychiatric exam: Normal affect - Skin Skin Exam: Dry, Intact, Normal Color, Warm Assessment and Plan (1) Ambulatory dysfunction Status: Acute (2) Alcohol dependence Status: Acute - Assessment and Plan (Free Text) Plan: Ambulatory dysfunction Parkinson's Disease? Assessment and Plan: - Neurology consulted, Dr. Abdi, to rule out neurologic causes of ambulatory dysfunction. Help appreciated. - Per Neurology, dysfunction may be due to parkinson's - Transferred to medical floors - Lumbar xray: unremarkable - Lumbar MRI: Multilevel facet arthropathy. No disc herniations nor significant disc bulges. Small annual fissure seen within the L4-L5 and L5-S1 posterior lateral disc margins as outlined above - Head CT: no evidence of acute intracranial hemorrhage intracranial collection mass effect or midline shift. Moderate atrophy. 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 - Ammonia level: 31, wnl - TSH wnl - Folate >20, wnl, Vit B12 >1000 H - Fall precautions - PT/OT Medication: - Pramipexole 1.25mg PO TID at 7am, 12pm, & 3pm (started 0.25 on 09/19 by neurologist) * Per neurology recommendation: Target goal of increasing mirapex 0.25 mg PO BID daily, with a target dose of 1.5 mg PO q 8 hours for maintenance. * Please note this should be timed last dose of medication should be before 5PM. - Discontinued Valproic acid due to transaminitis on 09/29 - 10/03: pt started on Amantadine 100mg PO BID - 10/03: pt started on Lactulose 25mg PO QID (parameters-hold after two liquid BMs) Hyperammonemia Assessment and Plan: - Ammonia level: -09/17: 31, wnl -09/22: 22, wnl -10/03: 37, elevated -10/03 pt started on Lactulose 20gm PO QID (parameters-hold after two liquid BMs) Alcohol dependence/withdrawal Assessment and Plan: Per psychiatry Transferred from Detox to Med/Surg Floors Continue to monitor Medications: - Seroquel 12.5mg PO HS prn for agitation (per neurologist) - Trazadone 50mg PO HS - Folic Acid 1mg PO daily - Multivitamin daily - Thiamine 100mg PO daily Hx of Fall Assessment and Plan: - CT Head (09/19/17): no evidence of acute intracranial hemorrhage intracranial collection mass effect or midline shift. Moderate atrophy. 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 - Lumbar xray (09/19/17): unremarkable Thrombocytopenia, resolved Assessment and Plan: - Improving - HIV: negative - Hepatitis B panel: negative - Hepatitis C reactive - Abdominal US: hepatomegaly, hepatic steatosis - Likely secondary to alcohol abuse Hepatitis C Reactive Assessment and Plan: - Hep C reactive - Will need outpatient follow up Conjunctivitis, resolved Assessment and Plan: - Artificial tears - Tobramycin opht solution OU Q6--> discontinued on 09.27 Tachycardia, resolved Assessment and Plan: - Likely secondary to withdrawal - Started on Lopressor 25mg PO BID (active since 09/23) - TSH: wnl - Free T4: 1.41 - DDimer: 736 - CTA: neg for PE - LE dopplers- negative Hypomagnesemia - Mg 1.5 - Continue to monitor Leukocytosis Assessment and Plan: - Pro-calcitonin: elevated, 0.94; repeat- improving - Blood cultures (09/24): negative to date - Urine culture (09/24): negative to date - Blood cultures, urine culture, and chest x-ray repeated on 10/03/2017 Transaminitis Assessment and Plan: - Likely due to valproic acid - Discontinued on 09/29 - Continue to monitor Prophylaxis Assessment and Plan: - Heparin 5000u SC Q8h - Fall precautions - PT/OT - Aspiration/seizure precautions - Case management/social consult for DC planning to [place] <Patrizia Gonzalez V - Last Filed: 10/08/17 19:10> Objective - Vital Signs/Intake and Output Vital Signs (last 24 hours): Temp Pulse Resp BP Pulse Ox 97.6 F 81 20 115/79 98 10/08/17 16:29 10/08/17 16:29 10/08/17 16:29 10/08/17 17:37 10/08/17 16:29 Intake and Output: 07/07/18 07/08/18 18:59 06:59 Intake Total 1890 Output Total 650 Balance 1240 - Medications Medications: Current Medications Albuterol/Ipratropium (Duoneb 3 Mg/0.5 Mg (3 Ml) Ud) 3 ml INH RQ4 PRN PRN Reason: Shortness of Breath Amantadine HCl (Amantadine 100 Mg Cap) 100 mg PO BID [facility] Last Admin: 10/08/17 17:36 Dose: 100 mg Artificial Tears (Artificial Tears) 1 ml OU Q4 PRN PRN Reason: Other Last Admin: 10/01/17 18:31 Dose: 1 drop Folic Acid (Folic Acid) 1 mg PO DAILY [facility] Last Admin: 10/08/17 11:30 Dose: 1 mg Heparin Sodium (Porcine) (Heparin) 5,000 units SC Q8 [facility] Last Admin: 10/08/17 13:36 Dose: 5,000 units Tigecycline 50 mg/ Sodium (Chloride) 100 mls @ 100 mls/hr IVPB Q12H [facility] PRN Reason: Protocol Last Admin: 10/08/17 17:35 Dose: 100 mls/hr Colistimethate Sodium 80 mg/ (Sodium Chloride) 100 mls @ 200 mls/hr IV Q12H [facility] PRN Reason: Protocol Last Admin: 10/08/17 16:30 Dose: 200 mls/hr Sodium Chloride (Sodium Chloride 0.45%) 1,000 mls @ 70 mls/hr IV .[id number] [facility] Last Admin: 10/08/17 12:50 Dose: 70 mls/hr Metoprolol Tartrate (Lopressor) 25 mg PO BID [facility] Last Admin: 10/08/17 17:37 Dose: 25 mg Multivitamins (Hexavitamin) 1 tab PO DAILY [facility] Last Admin: 10/08/17 11:30 Dose: 1 tab Pramipexole Dihydrochloride (Mirapex) 1.5 mg PO TIDCC [facility] Last Admin: 10/08/17 17:36 Dose: 1.5 mg Quetiapine Fumarate (Seroquel) 25 mg PO DAILY [facility] Last Admin: 10/08/17 11:30 Dose: 25 mg Saccharomyces Boulardii (Florastor) 250 mg PO BID [facility] Last Admin: 10/08/17 17:36 Dose: 250 mg Tamsulosin HCl (Flomax) 0.4 mg PO DAILY [facility] Last Admin: 10/08/17 11:30 Dose: 0.4 mg Thiamine HCl (Vitamin B1 Tab) 100 mg PO DAILY [facility] Last Admin: 10/08/17 11:30 Dose: 100 mg Trazodone HCl (Desyrel) 50 mg PO HS [facility] Last Admin: 10/07/17 22:12 Dose: Not Given - Labs Labs: 10/08/17 07:51 10/08/17 07:51 Assessment and Plan (1) Alcohol dependence Status: Acute (2) Ambulatory dysfunction Status: Acute (3) Abnormal gait Status: Acute (4) Tremor Status: Acute Attending/Attestation - Attestation I have personally seen and examined this patient.: Yes I have fully participated in the care of the patient.: Yes I have reviewed all pertinent clinical information, including history, physical exam and plan: Yes Notes (Text): This is late entry for 10/05/2017. Patient seen, examined, case discussed with medical radiation tech. Agree with the assessment and plan as written by resident. Continue to monitor blood, urine culture order from 10/03/2017 if remains negative patient does have a spot at senior living possible discharge tomorrow.
[2017-10-05 07:48] LABS: BASO # 0.2 K/uL (0.0-0.2); BASO % 1.4 % (0.0-2.0); EOS # 0.1 K/uL (0.0-0.7); EOS % 0.7 % (0.0-4.0); LYMPH # 2.8 K/uL (1.0-4.3); LYMPH % 17.7 % (20.0-40.0); MEAN CELL VOLUME 104.3 fL (80.0-94.0); MEAN CORPUSCULAR HEMOGLOBIN 35.2 pg (27.0-31.0); MEAN CORPUSCULAR HGB CONC 33.8 g/dL (33.0-37.0); MEAN PLATELET VOLUME 11.2 fL (7.2-11.7); MONO # 1.2 K/uL (0.0-0.8); MONO % 7.7 % (0.0-10.0); NEUT # 11.4 K/uL (1.8-7.0); NEUT % 72.5 % (50.0-75.0); RBC 3.7 Mil/uL (4.40-5.90); RED CELL DISTRIBUTION WIDTH 14.6 % (11.5-14.5); WHITE BLOOD COUNT 15.8 K/uL (4.8-10.8)
[2017-10-05 08:05] LABS: ALB/GLOB RATIO 0.9 (1.0-2.1); ALBUMIN 3.6 g/dL (3.5-5.0); ALT/SGPT 70 U/L (21-72); AST/SGOT 108 U/L (17-59); BLOOD UREA NITROGEN 6 mg/dL (9-20); CALCIUM 9.3 mg/dl (8.6-10.4); GFR AFRICAN-AMERICAN > 60; GFR NON-AFRICAN AMERICAN > 60
[2017-10-05] MEDS: Multiple Vitamins Tab PO SCH (09:44)
[2017-10-05] MEDS ORDERED: Lactulose 10 gm/15 ml (Rectal Use) PR ONE (18:36)
[2017-10-05] MEDS: QUEtiapine 12.5 MG TAB PO PRN (23:51)
[2017-10-06] MEDS: Piperacillin/Tazobact 3.375 GM in Sodium Chloride 100 ML IVPB SCH ×2 (05:05→12:47)
--- NOTE | 2017-10-06 06:22 | CP.PCM.PN ---
<Lola Dennison P - Last Filed: 10/07/17 00:30> Subjective - Date & Time of Evaluation Date of Evaluation: 10/06/17 Time of Evaluation: 06:22 - Subjective Subjective: PGY-[address] Bowling. Pt seen and evaluated at bedside. As per nurse, pt agitated over night. Received a dose of ativan, which improved agitation. Patient sleeping and difficult to arouse during exam. Objective - Vital Signs/Intake and Output Vital Signs (last 24 hours): Temp Pulse Resp BP Pulse Ox 98.9 F 114 H 20 113/73 97 10/05/17 23:32 10/05/17 23:32 10/05/17 23:32 10/05/17 23:32 10/05/17 23:32 - Medications Medications: Current Medications Albuterol/Ipratropium (Duoneb 3 Mg/0.5 Mg (3 Ml) Ud) 3 ml INH RQ4 PRN PRN Reason: Shortness of Breath Amantadine HCl (Amantadine 100 Mg Cap) 100 mg PO BID [facility] Last Admin: 10/05/17 17:36 Dose: Not Given Artificial Tears (Artificial Tears) 1 ml OU Q4 PRN PRN Reason: Other Last Admin: 10/01/17 18:31 Dose: 1 drop Folic Acid (Folic Acid) 1 mg PO DAILY [facility] Last Admin: 10/05/17 09:45 Dose: 1 mg Heparin Sodium (Porcine) (Heparin) 5,000 units SC Q8 [facility] Last Admin: 10/06/17 05:06 Dose: 5,000 units Piperacillin Sod/Tazobactam (Sod 3.375 gm/ Sodium Chloride) 100 mls @ 200 mls/ hr IVPB Q6H [facility] PRN Reason: Protocol Last Admin: 10/06/17 05:05 Dose: 200 mls/hr Lactulose (Enulose) 20 gm PO QID [facility] Last Admin: 10/05/17 21:59 Dose: 20 gm Metoprolol Tartrate (Lopressor) 25 mg PO BID [facility] Last Admin: 10/05/17 17:36 Dose: Not Given Multivitamins (Hexavitamin) 1 tab PO DAILY [facility] Last Admin: 10/05/17 09:44 Dose: 1 tab Pramipexole Dihydrochloride (Mirapex) 1.5 mg PO TIDCC [facility] Last Admin: 10/05/17 17:36 Dose: Not Given Quetiapine Fumarate (Seroquel) 12.5 mg PO HS PRN PRN Reason: Agitation Last Admin: 10/05/17 23:51 Dose: 12.5 mg Tamsulosin HCl (Flomax) 0.4 mg PO DAILY [facility] Last Admin: 10/05/17 09:44 Dose: 0.4 mg Thiamine HCl (Vitamin B1 Tab) 100 mg PO DAILY [facility] Last Admin: 10/05/17 09:44 Dose: 100 mg Trazodone HCl (Desyrel) 50 mg PO HS [facility] Last Admin: 10/05/17 21:57 Dose: 50 mg - Labs Labs: 10/05/17 07:38 10/05/17 07:38 - Constitutional Appears: No Acute Distress - Head Exam Head Exam: ATRAUMATIC, NORMOCEPHALIC - Eye Exam Eye Exam: EOMI - Respiratory Exam Respiratory Exam: Clear to Ausculation Bilateral - Cardiovascular Exam Cardiovascular Exam: REGULAR RHYTHM, +S1, +S2. absent: Murmur - GI/Abdominal Exam GI & Abdominal Exam: Soft, Normal Bowel Sounds. absent: Tenderness - Exam Additional comments: [place] catheter removed. - Extremities Exam Extremities Exam: absent: Pedal Edema - Neurological Exam Additional comments: Pt sleeping, difficult to arouse. - Additional Findings Additional findings: - Constitutional Appears: Unkempt - Head Exam Head Exam: ATRAUMATIC, NORMOCEPHALIC - Eye Exam Eye Exam: EOMI - ENT Exam ENT Exam: Mucous Membranes Moist - Respiratory Exam Respiratory Exam: Clear to Ausculation Bilateral - Cardiovascular Exam Cardiovascular Exam: REGULAR RHYTHM, +S1, +S2. absent: Murmur - GI/Abdominal Exam GI & Abdominal Exam: Soft, Normal Bowel Sounds. absent: Tenderness - Extremities Exam Extremities Exam: absent: Pedal Edema - Neurological Exam Neurological Exam: Lethargic, difficult to arouse. - Psychiatric Exam Psychiatric exam: Flat Affect - Skin Skin Exam: Dry, Intact, Warm Assessment and Plan - Assessment and Plan (Free Text) Plan: 51 yo M with PMHx of alcohol use disorder presenting for alcohol detoxification and ambulatory dysfunction. Plan: 1. Ambulatory Dysfunction with Hx of fall - Neurology consulted, Dr. Abdi, to rule out neurologic causes of ambulatory dysfunction. Help appreciated. - Per Neurology, dysfunction may be due to parkinson's - 09/19 Lumbar xray: unremarkable - 09/03 Lumbar MRI: Multilevel facet arthropathy. No disc herniations nor significant disc bulges. Small annual fissure seen within the L4-L5 and L5-S1 posterior lateral disc margins as outlined above - 09/[address]: no evidence of acute intracranial hemorrhage intracranial collection mass effect or midline shift. Moderate atrophy. 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 - 09/22 Brain MRI: no acute intracranial hemorrhage or infarction; minimal chronic pervientricular white matter ischemic changes; moderate generalized volume loss; no enhancing lesions. -10/03 f/u EEG - TSH wnl - Folate >20, wnl, Vit B12 >1000 H - Fall precautions - PT/OT Medication: - Pramipexole 1.5mg PO TID at 7am, 12pm, & 3pm (started 0.25 on 09/19 by neurologist) * Per neurology recommendation: Target goal of increasing mirapex 0.25 mg PO BID daily, with a target dose of 1.5 mg PO q 8 hours for maintenance. * Please note this should be timed last dose of medication should be before 5PM. - Discontinued Valproic acid due to transaminitis on 09/29 -10/03: pt started on Amantadine 100mg PO BID -10/06: started lactulose 200mg MD, discontinued Po 2. Alcohol dependence with withdrawal Per Psychiatry Transferred from Detox to Med/Surg Floors Continue to monitor Medications: - Seroquel 12.5mg PO HS prn for agitation (per neurologist) - Trazadone 50mg PO HS - Folic Acid 1mg PO daily - Multivitamin daily - Thiamine 100mg PO daily 3. UTI -10/03 UA: trace leukocyte Esterase, 6RBC, rare bacteria -10/04 Started on Zoxyn 3.375 IVQH -10/04 Started on Tamsulosin 0.4mg PO daily for retention -f/u bladder scan -10/06 urine culture VRE+ -Id, Dr. Garcia, consulted. Placed patient on Colistimethate 4. Right middle lobe pneumonia -10/03 CXR: Interval atelectasis or infiltrate in R middle lobe. Linear atelectasis L base.. No cardiomegaly or pulmonary congestion. -Serology: Flu, Legionella, mycoplasma, N Meningiditis, N. meningi B/E.coli, Group B strep, S. pneumoniae all negative -10/04 Started on Zoxyn 3.375 IVQH 5. Hyperammonemia - Ammonia level: -09/17: 31, wnl -09/22: 22, wnl -10/03: 37, elevated -10/03 pt started on Lactulose 20gm PO QID 6. leukocytosis- persistent -10/03 WBC: 13.9 -10/03 CXR: Interval atelectasis or infiltrate R middle lobe. Linear atelectasis L base. No cardiomegaly or pulmonary vascular congestion. -Order placed for Duonebs 3ml INH RQ4 PRN shortness of breath -F/U 10/03 blood cx -F/u 10/03 urine cx -Hematology, consulted, help appreciated. -suspect rebound leukocytosis from bone marrow suppression from alcohol. Anemia also suspected from alcohol induced bone marrow suppression-will check retic count, b12, folate, ferritin 7. Hypomagnesemia-stable -10/03 M.4 -Ordered Mg sulfate 4gm IVPB oce -10/04 M.8 8. Tachycardia likely secondary to withdrawal-stable - Started on Lopressor 25mg PO BID (active since 09/23) - TSH: wnl - Free T4: 1.41 - DDimer: 736 - CTA: neg for PE - LE dopplers- negative 9. Hepatitis C reactive -Outpatient follow up 10. Transaminitis-stable -D/C hepatoxic medications -Continue to monitor 11. Conjunctivits- resolved -Artificial tears -Tobramycin opht solution OU Q6H- completed on 09/27 12. Thrombocytopenia-resolved - HIV: negative - Hepatitis B panel: negative - Hepatitis C reactive - Abdominal US: hepatomegaly, hepatic steatosis - Likely secondary to alcohol abuse 13. Prophylaxis -Fall precautions -PT/OT eval -Aspiration/seizure precaustions -case management/social consult for DC planning to rehab facility- placement at [facility] pending PT progress note -Heparin 5000 U SC Q8 <Patrizia Gonzalez V - Last Filed: 10/08/17 19:09> Objective - Vital Signs/Intake and Output Vital Signs (last 24 hours): Temp Pulse Resp BP Pulse Ox 97.6 F 81 20 115/79 98 10/08/17 16:29 07/07/18 16:29 10/08/17 16:29 10/08/17 17:37 10/08/17 16:29 Intake and Output: 10/08/17 10/09/17 18:59 06:59 Intake Total 1890 Output Total 650 Balance 1240 - Medications Medications: Current Medications Albuterol/Ipratropium (Duoneb 3 Mg/0.5 Mg (3 Ml) Ud) 3 ml INH RQ4 PRN PRN Reason: Shortness of Breath Amantadine HCl (Amantadine 100 Mg Cap) 100 mg PO BID [facility] Last Admin: 10/08/17 17:36 Dose: 100 mg Artificial Tears (Artificial Tears) 1 ml OU Q4 PRN PRN Reason: Other Last Admin: 10/01/17 18:31 Dose: 1 drop Folic Acid (Folic Acid) 1 mg PO DAILY [facility] Last Admin: 10/08/17 11:30 Dose: 1 mg Heparin Sodium (Porcine) (Heparin) 5,000 units SC Q8 [facility] Last Admin: 10/08/17 13:36 Dose: 5,000 units Tigecycline 50 mg/ Sodium (Chloride) 100 mls @ 100 mls/hr IVPB Q12H [facility] PRN Reason: Protocol Last Admin: 10/08/17 17:35 Dose: 100 mls/hr Colistimethate Sodium 80 mg/ (Sodium Chloride) 100 mls @ 200 mls/hr IV Q12H [facility] PRN Reason: Protocol Last Admin: 10/08/17 16:30 Dose: 200 mls/hr Sodium Chloride (Sodium Chloride 0.45%) 1,000 mls @ 70 mls/hr IV .[id number] [facility] Last Admin: 10/08/17 12:50 Dose: 70 mls/hr Metoprolol Tartrate (Lopressor) 25 mg PO BID [facility] Last Admin: 10/08/17 17:37 Dose: 25 mg Multivitamins (Hexavitamin) 1 tab PO DAILY [facility] Last Admin: 10/08/17 11:30 Dose: 1 tab Pramipexole Dihydrochloride (Mirapex) 1.5 mg PO TIDCC [facility] Last Admin: 10/08/17 17:36 Dose: 1.5 mg Quetiapine Fumarate (Seroquel) 25 mg PO DAILY [facility] Last Admin: 10/08/17 11:30 Dose: 25 mg Saccharomyces Boulardii (Florastor) 250 mg PO BID [facility] Last Admin: 10/08/17 17:36 Dose: 250 mg Tamsulosin HCl (Flomax) 0.4 mg PO DAILY [facility] Last Admin: 10/08/17 11:30 Dose: 0.4 mg Thiamine HCl (Vitamin B1 Tab) 100 mg PO DAILY [facility] Last Admin: 10/08/17 11:30 Dose: 100 mg Trazodone HCl (Desyrel) 50 mg PO HS [facility] Last Admin: 10/07/17 22:12 Dose: Not Given - Labs Labs: 10/08/17 07:51 10/08/17 07:51 Assessment and Plan (1) Alcohol dependence Status: Acute (2) Ambulatory dysfunction Status: Acute (3) Abnormal gait Status: Acute (4) Tremor Status: Acute Attending/Attestation - Attestation I have personally seen and examined this patient.: Yes I have fully participated in the care of the patient.: Yes I have reviewed all pertinent clinical information, including history, physical exam and plan: Yes Notes (Text): This is a late computer entry for 10/06/2017. Patient seen, examined, case discussed with medical housekeeper. Patient seen during morning rounds. Patient noted to be agitated overnight received Ativan and Seroquel but the stress he when initially seen by resident. Patient's urine culture resulted showing VRE resistant UTI. Infectious disease consultation since all sensitivities noted to be persistent or intermediate. Patient placed on contact isolation. Patient has only a [place] catheter. Follow- up with ID for IV antibiotic recommendations. (1) Ambulatory dysfunction Suspected Parkinson's Disease Assessment and Plan: * Neurology consulted, Dr. Abdi, help appreciated * Per Neurology, dysfunction may be due to parkinson's * Transferred to medical floors on 09/19/17 * Lumbar xray: unremarkable * Lumbar MRI: Limited motion degraded study. Multilevel facet arthropathy. No disc herniations nor significant disc bulges. Small annual fissure seen within the L4-L5 and L5-S1 posterior lateral disc margins as outlined above * Head CT: no evidence of acute intracranial hemorrhage intracranial collection mass effect or midline shift. Moderate atrophy. Mild white matter changes likely represent chronic microvacular ischemic disease * Brain MRI: No acute intracranial hemorrhage or infarction. Minimal chronic periventricular white matter ischemic changes. Moderate generalized volume loss. No enhancing lesions. * Ammonia level: 31, wnl * TSH wnl * Folate >20, wnl, Vit B12 >1000 H * Fall precautions * PT/OT eval * Medication: * Pramipexole 1.5 mg by mouth 3 times a day specifically at 7 AM 12 PM and 3 PM and advised and neurology did not give a dose after 5 PM because it'll cause patient to become very restless. * Amantadine 100 mg by mouth twice a day (2) Alcohol dependence/withdrawal-->resolved Cognitive Decline to Multifactorial (Alcohol and Parkinsons) Assessment and Plan: * Completed detox * Transferred from Detox to Med/Surg Floors on 09/19/17 * Continue to monitor Medications: * Pramipexole 1.5 mg by mouth 3 times a day specifically at 7 AM 12 PM and 3 PM and advised and neurology did not give a dose after 5 PM because it'll cause patient to become very restless. * Amantadine 100 mg by mouth twice a day * Seroquel 25 mg PO daily prn for agitation (per neurologist) * Trazadone 50mg PO HS * Folic Acid 1mg PO daily * Multivitamin daily * Thiamine 100mg PO daily (3) VRE UTI Assessment and Plan: * Infectious Disease (Dr. Monk) on case-->help appreciated * Urine culture (10/04/17): VRE * Tigecycline 50mg IVPB Q12h (active since 10/06/17) * Colistimethate 80mg IVPNB Q12H (10/06/17) * on contact isolation (4) Leukocytosis-->normalized Assessment and Plan: * Hematology oncology consult Dr. Hargrove help appreciated * Likely reactive given alcohol hx * Infectious Disease consult, Dr. Monk, help appreciated\ * VRE UTI treatment * Blood cultures (09/25/17): negative * Urine culture (09/25/17): no growth * Completed 5 days of IV abx (zosyn) * Pro-calcitonin is elevated--> improved * Blood cultures (10/03/17): no growth * Urine culture (09/24/17): No growth * Urine culture (10/04/17): VRE * Chest xray (10/03/17): interval atelectasis or infiltrate right middle lobe. linear atelectasis left base. No cardiomegaly or pulmonary vascular congestion. * Procalcitonin (09/24/17): 0.94---> (10/02/17): 0.55 (5) Hypernatremia Assessment and Plan: * suspected secondary to lactulose * Will monitor patients oral intake-->he only eats the side dishes for breakfast * Will continue to monitor (6) Hx of Fall-->past Assessment and Plan: * CT Head (09/19/17): no evidence of acute intracranial hemorrhage intracranial collection mass effect or midline shift. Moderate atrophy. Mild white matter changes likely reprsent chronic microvascular ischemic disease * Lumbar xray (09/19/17): unremarkable * Lumbar MRI: Limited motion degraded study. Multilevel facet arthropathy. No disc herniations nor significant disc bulges. Small annual fissure seen within the L4-L5 and L5-S1 posterior lateral disc margins as outlined above (7) Tachycardia-->controlled Assessment and Plan: * CT angio (09/23/17): No evidence of acute central pulmonary embolus. Multiple calcified granulomata scattered throughout the right lung and to a lesser degree left lung findings consistent with prior exposure to granulomatous disease process. Mild dependent atelectasis both posterior lower lung zones mild scarring of the left lung base borderline splenomegaly * Thyroid studies are within normal * Suspecting tachycardia secondary to withdrawal * Patient start on Lopressor 25 mg by mouth twice a day since September 23 (8) Conjunctivitis-->resolved Assessment and Plan: * Started on Tobrex 0.3 every 6 hours since September 21 and finished (9) Thrombocytopenia-->resolved Assessment and Plan: * HIV: negative * Hepatitis panel: negative * Abdominal US: hepatomegaly, hepatic steatosis * Have normalized (10) Hepatitis C Reactive-->treated in the past Assessment and Plan: * Patient reports he has been treated for hepatitis C. (11) Prophylaxis Assessment and Plan: * Fall precautions * PT/OT eval * Heparin 5000 subcutaneous 8H for DVT prophylaxis * Aspiration precautions * Seizure precautions
--- NOTE | 2017-10-06 06:57 | CP.PCM.PN ---
Subjective - Date & Time of Evaluation Date of Evaluation: 10/06/17 Time of Evaluation: 06:56 - Subjective Subjective: Mr. Mejia was seen and examined at the bedside. He is asleep, but was restlessness and agitation.According to the staff, his behavior is still with episode of restlessness and was given ativan and extra dose yesterday. He spontaneously moves his bilateral upper extremities and slow movement of his lower extremities. He remains on 1:1 sitter and bilateral hand mitten for patient safety. There was no untoward events overnight Objective - Vital Signs/Intake and Output Vital Signs (last 24 hours): Temp Pulse Resp BP Pulse Ox 98.9 F 114 H 20 113/73 97 10/05/17 23:32 10/05/17 23:32 10/05/17 23:32 10/05/17 23:32 10/05/17 23:32 - Medications Medications: Current Medications Albuterol/Ipratropium (Duoneb 3 Mg/0.5 Mg (3 Ml) Ud) 3 ml INH RQ4 PRN PRN Reason: Shortness of Breath Amantadine HCl (Amantadine 100 Mg Cap) 100 mg PO BID [facility] Last Admin: 10/05/17 17:36 Dose: Not Given Artificial Tears (Artificial Tears) 1 ml OU Q4 PRN PRN Reason: Other Last Admin: 10/01/17 18:31 Dose: 1 drop Folic Acid (Folic Acid) 1 mg PO DAILY [facility] Last Admin: 10/05/17 09:45 Dose: 1 mg Heparin Sodium (Porcine) (Heparin) 5,000 units SC Q8 [facility] Last Admin: 10/06/17 05:06 Dose: 5,000 units Piperacillin Sod/Tazobactam (Sod 3.375 gm/ Sodium Chloride) 100 mls @ 200 mls/ hr IVPB Q6H [facility] PRN Reason: Protocol Last Admin: 10/06/17 05:05 Dose: 200 mls/hr Lactulose (Enulose) 20 gm PO QID [facility] Last Admin: 10/05/17 21:59 Dose: 20 gm Metoprolol Tartrate (Lopressor) 25 mg PO BID [facility] Last Admin: 10/05/17 17:36 Dose: Not Given Multivitamins (Hexavitamin) 1 tab PO DAILY [facility] Last Admin: 10/05/17 09:44 Dose: 1 tab Pramipexole Dihydrochloride (Mirapex) 1.5 mg PO TIDCC [facility] Last Admin: 10/05/17 17:36 Dose: Not Given Tamsulosin HCl (Flomax) 0.4 mg PO DAILY [facility] Last Admin: 10/05/17 09:44 Dose: 0.4 mg Thiamine HCl (Vitamin B1 Tab) 100 mg PO DAILY [facility] Last Admin: 10/05/17 09:44 Dose: 100 mg Trazodone HCl (Desyrel) 50 mg PO HS [facility] Last Admin: 10/05/17 21:57 Dose: 50 mg - Labs Labs: 10/05/17 07:38 10/05/17 07:38 - Constitutional Appears: No Acute Distress - Neurological Exam Neuro motor strength exam: Left Upper Extremity: 4, Right Upper Extremity: 4, Left Lower Extremity: 3, Right Lower Extremity: 3 Additional comments: unable to do ROS due to sleepiness, moves all extremities spontaneously. Assessment and Plan (1) Bradykinesia Assessment & Plan: Case discussed with Dr. York, continue all current medical, physical, and occupational regimen. Recommend changing the time of seroquel to change it in am , to alleviate his restlessness and agitation at night time, hydration, treat any underlying infection and electrolytes abnormalities. Status: Acute
[2017-10-06 07:47] LABS: BASO # 0.1 K/uL (0.0-0.2); EOS # 0.1 K/uL (0.0-0.7); EOS % 0.6 % (0.0-4.0); HEMOGLOBIN 12.5 g/dL (12.0-18.0); LYMPH # 1.9 K/uL (1.0-4.3); LYMPH % 14.3 % (20.0-40.0); MEAN CELL VOLUME 103.7 fL (80.0-94.0); MEAN CORPUSCULAR HEMOGLOBIN 35.4 pg (27.0-31.0); MEAN CORPUSCULAR HGB CONC 34.2 g/dL (33.0-37.0); MEAN PLATELET VOLUME 10.8 fL (7.2-11.7); MONO # 0.9 K/uL (0.0-0.8); MONO % 6.5 % (0.0-10.0); NEUT # 10.2 K/uL (1.8-7.0); NEUT % 77.6 % (50.0-75.0); NRBC % 0.1 % (0.0-2.0); RBC 3.52 Mil/uL (4.40-5.90); WHITE BLOOD COUNT 13.2 K/uL (4.8-10.8)
[2017-10-06 08:09] LABS: ALB/GLOB RATIO 0.8 (1.0-2.1); ALBUMIN 3.4 g/dL (3.5-5.0); ALT/SGPT 66 U/L (21-72); AST/SGOT 85 U/L (17-59); BLOOD UREA NITROGEN 9 mg/dL (9-20); CALCIUM 9.3 mg/dl (8.6-10.4); GFR AFRICAN-AMERICAN > 60; GFR NON-AFRICAN AMERICAN > 60
[2017-10-06 09:50] LABS: FOLATE > 20.0 ng/mL
[2017-10-06] MEDS: Multiple Vitamins Tab PO SCH (10:51)
[2017-10-06] MEDS ORDERED: COLISTIMETHATE IV SCH ×2 (13:30→16:00)
[2017-10-06] MEDS ORDERED: SODIUM CHLORIDE 0.9% IV SCH ×2 (13:30→16:00)
--- NOTE | 2017-10-06 13:30 | CP.PCM.CON ---
History of Present Illness - History of Present Illness History of Present Illness: dictated Past Patient History - Past Medical History & Family History Past Medical History?: Yes - Past Social History Smoking Status: Light Smoker < 10 Cigarettes Daily - CARDIAC Hx Cardiac Disorders: No Hx Hypertension: No - PULMONARY Hx Tuberculosis: No - NEUROLOGICAL HX Cerebrovascular Accident: No Hx Seizures: No - HEMATOLOGICAL/ONCOLOGICAL Hx Cancer: No Hx Human Immunodeficiency Virus (HIV): No - MUSCULOSKELETAL/RHEUMATOLOGICAL Hx Falls: Yes Other/Comment: Neuropathy - GENITOURINARY/GYNECOLOGICAL Hx Sexually Transmitted Disorders: No - PSYCHIATRIC Hx Substance Use: No - SURGICAL HISTORY Hx Surgeries: No - ANESTHESIA Hx Anesthesia: No Meds Allergies/Adverse Reactions: Allergies Allergy/AdvReac Type Severity Reaction Status Date / Time No Known Allergies Allergy Verified 09/17/17 12:56 - Medications Medications: Current Medications Albuterol/Ipratropium (Duoneb 3 Mg/0.5 Mg (3 Ml) Ud) 3 ml INH RQ4 PRN PRN Reason: Shortness of Breath Amantadine HCl (Amantadine 100 Mg Cap) 100 mg PO BID [facility] Last Admin: 10/06/17 10:52 Dose: 100 mg Artificial Tears (Artificial Tears) 1 ml OU Q4 PRN PRN Reason: Other Last Admin: 10/01/17 18:31 Dose: 1 drop Folic Acid (Folic Acid) 1 mg PO DAILY [facility] Last Admin: 10/06/17 10:51 Dose: 1 mg Heparin Sodium (Porcine) (Heparin) 5,000 units SC Q8 [facility] Last Admin: 10/06/17 05:06 Dose: 5,000 units Piperacillin Sod/Tazobactam (Sod 3.375 gm/ Sodium Chloride) 100 mls @ 200 mls/ hr IVPB Q6H [facility] PRN Reason: Protocol Last Admin: 10/06/17 05:05 Dose: 200 mls/hr Tigecycline 100 mg/ Sodium (Chloride) 100 mls @ 100 mls/hr IVPB ONCE ONE PRN Reason: Protocol Stop: 10/06/17 14:23 Tigecycline 50 mg/ Dextrose 100 mls @ 100 mls/hr IVPB Q12H [facility] PRN Reason: Protocol Colistimethate Sodium 60 mg/ (Sodium Chloride) 100 mls @ 200 mls/hr IV Q12H [facility] PRN Reason: Protocol Lactulose (Enulose) 20 gm PO QID [facility] Last Admin: 10/06/17 10:50 Dose: 20 gm Metoprolol Tartrate (Lopressor) 25 mg PO BID [facility] Last Admin: 10/06/17 10:51 Dose: 25 mg Multivitamins (Hexavitamin) 1 tab PO DAILY [facility] Last Admin: 10/06/17 10:51 Dose: 1 tab Pramipexole Dihydrochloride (Mirapex) 1.5 mg PO TIDCC [facility] Last Admin: 10/06/17 08:52 Dose: 1.5 mg Quetiapine Fumarate (Seroquel) 25 mg PO DAILY [facility] Last Admin: 10/06/17 11:36 Dose: 25 mg Tamsulosin HCl (Flomax) 0.4 mg PO DAILY [facility] Last Admin: 10/06/17 10:50 Dose: 0.4 mg Thiamine HCl (Vitamin B1 Tab) 100 mg PO DAILY [facility] Last Admin: 10/06/17 10:51 Dose: 100 mg Trazodone HCl (Desyrel) 50 mg PO HS [facility] Last Admin: 10/05/17 21:57 Dose: 50 mg Results - Vital Signs Recent Vital Signs: Last Vital Signs Temp 98.0 F 10/06/17 07:00 Pulse 95 H 10/06/17 07:00 Resp 20 10/06/17 07:00 BP 177/83 H 10/06/17 10:51 Pulse Ox 96 10/06/17 07:00 - Labs Result Diagrams: 10/06/17 07:00 10/06/17 07:00 Labs: Laboratory Results - last 24 hr 10/05/17 10/06/17 10/06/17 19:00 07:00 07:00 WBC 13.2 H RBC 3.52 L Hgb 12.5 Hct 36.5 MCV 103.7 H MCH 35.4 H MCHC 34.2 RDW 15.0 H Plt Count 176 MPV 10.8 Neut % (Auto) 77.6 H Lymph % (Auto) 14.3 L Hughes % (Auto) 6.5 Eos % (Auto) 0.6 Baso % (Auto) 1.0 Neut # (Auto) 10.2 H Lymph # (Auto) 1.9 Hughes # (Auto) 0.9 H Eos # (Auto) 0.1 Baso # (Auto) 0.1 Retic Count Sodium 149 H Potassium 3.6 Chloride 114 H Carbon Dioxide 21 L Anion Gap 17 BUN 9 Creatinine 1.0 Est GFR ( Amer) > 60 Est GFR (Non-Af Amer) > 60 Random Glucose 91 Calcium 9.3 Phosphorus 5.2 H Magnesium 1.7 Ferritin 490.0 Total Bilirubin 1.3 AST 85 H D ALT 66 Alkaline Phosphatase 174 H Ammonia 21 D Total Protein 7.6 Albumin 3.4 L Globulin 4.2 H Albumin/Globulin Ratio 0.8 L Vitamin B12 > 1000 H Folate > 20.0 10/06/17 07:00 WBC RBC Hgb Hct MCV MCH MCHC RDW Plt Count MPV Neut % (Auto) Lymph % (Auto) Hughes % (Auto) Eos % (Auto) Baso % (Auto) Neut # (Auto) Lymph # (Auto) Hughes # (Auto) Eos # (Auto) Baso # (Auto) Retic Count 2.1 H Sodium Potassium Chloride Carbon Dioxide Anion Gap BUN Creatinine Est GFR ( Amer) Est GFR (Non-Af Amer) Random Glucose Calcium Phosphorus Magnesium Ferritin Total Bilirubin AST ALT Alkaline Phosphatase Ammonia Total Protein Albumin Globulin Albumin/Globulin Ratio Vitamin B12 Folate
--- NOTE | 2017-10-07 02:16 | CON ---
DATE: 10/06/2017 INFECTIOUS DISEASE CONSULTATION REQUESTED BY: Patrizia Gonzalez DO HISTORY OF PRESENT ILLNESS: This patient is a 51-year-old male. He was admitted on 09/19/2017 and today is 10/06/2017. I came to see him as I am asked to see him for an abnormal urine culture report. He was initially in the detox floor for alcohol detox. He used to drink half pint per day for last eight years and has been drinking since 14 years of age, and he uses a cane to ambulate as he has had problems with his ambulation six months ago. He has extreme neuropathy and weakness, and he is being monitored by the neurologist. One of the neurologists has written that he may have Parkinson's. So, he is mostly bedbound. I went to see him, but was not able to communicate much as he appeared confused. Mariah told me that when he urinates, it looks like that he is in pain. He does not verbalize much, but appears to be in no acute respiratory distress and no fevers reported. He is being monitored. Actually, he has mittens in both upper arms at this time. He was also seen by Dr. Hargrove for neutrophilia and hemoglobin and persistent leukocytosis. His past medical history is significant for alcoholism, and he is not allergic to any medication. Has lower leg weakness. He is not able to communicate, does not look like I can get much out of him. So, I am reviewing the charts, but he is in here multiple days. Though he is in multiple days, I am unable to get any review of systems, but he has not had any fevers. His white count remains elevated. He has urinary symptoms. The sitter says he has no breathing problems. No chest pain reported. Head is atraumatic. ALLERGIES: HE IS NOT ALLERGIC TO ANY MEDICATIONS. MEDICATIONS: He is on albuterol, amantadine. He is on Artificial Tears, folic acid, heparin subcu, lactulose, metoprolol, multivitamin. He was on Zosyn. He is on pramipexole which is Mirapex. He is on Seroquel. He is on tamsulosin and thiamine. He is on Tygacil, I just started him on Tygacil and also on Colistin. PHYSICAL EXAMINATION: VITAL SIGNS: I find he is afebrile, temperature is 98, pulse is 95. Blood pressure has been high today; it is 197/70. Respirations are 20. I am surprised that it went up as his last blood pressure was 113/73. HEENT: Head is atraumatic, normocephalic. Pupils are reacting to light. Tongue, I am not able to see. NECK: Supple. JVP is flat. LUNGS: Clear. No crackles or rales present. HEART: S1 and S2 are regular. ABDOMEN: Soft, nontender. No guarding, no rigidity present. EXTREMITIES: His hands have mittens. Extremities have no edema, clubbing or cyanosis. PSYCHIATRIC: He is not talking much even though I asked many questions, and it seems that he was understanding, but there is no communication. LABORATORY DATA: Last white count is 13.2 today, hemoglobin 12.5, hematocrit is 36.5, MCV is high, MCH is high, and neutrophils are 77. Anion gap is 17, BUN is 9, creatinine is 1. AST is 85, ALT is 66, alkaline phosphatase is 174. His B12 and folate levels were high does not go with high MCV. Urine had 1+ blood, rbc's 6, squamous cell epithelial 19. This is on 10/03/2017, however. The culture grew VRE. 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 We will add Colistin as well as Merrem at this time. His last chest x-ray shows interval atelectasis or infiltrate, right middle lobe linear atelectasis, left base. No cardiomegaly or pulmonary congestion. So, we will at this time discontinue the Zosyn and continue Tygacil and Colistin. We will follow. Tico Monk MD
--- NOTE | 2017-10-07 06:45 | CP.PCM.PN ---
Subjective - Date & Time of Evaluation Date of Evaluation: 10/07/17 Time of Evaluation: 06:45 - Subjective Subjective: Mr. Mejia was seen and examined at the bedside. He is asleep, but was restless and agitated last night. According to the staff, his behavior is still with episode of restlessness and mumbles words that some incomprehensible and clear. He spontaneously moves his bilateral upper extremities and movement of his lower extremities which are becoming stronger. According to staff, he is able to participate during his therapy session. He remains on 1:1 sitter and bilateral hand mitten for patient safety. There was no untoward events overnight Objective - Vital Signs/Intake and Output Vital Signs (last 24 hours): Temp Pulse Resp BP Pulse Ox 97.9 F 114 H 20 110/73 97 10/07/17 00:00 10/07/17 00:00 10/07/17 00:00 10/07/17 00:00 10/07/17 00:00 Intake and Output: 10/06/17 10/07/17 18:59 06:59 Intake Total 600 Balance 600 - Medications Medications: Current Medications Albuterol/Ipratropium (Duoneb 3 Mg/0.5 Mg (3 Ml) Ud) 3 ml INH RQ4 PRN PRN Reason: Shortness of Breath Amantadine HCl (Amantadine 100 Mg Cap) 100 mg PO BID [facility] Last Admin: 10/06/17 17:20 Dose: 100 mg Artificial Tears (Artificial Tears) 1 ml OU Q4 PRN PRN Reason: Other Last Admin: 10/01/17 18:31 Dose: 1 drop Folic Acid (Folic Acid) 1 mg PO DAILY [facility] Last Admin: 10/06/17 10:51 Dose: 1 mg Heparin Sodium (Porcine) (Heparin) 5,000 units SC Q8 [facility] Last Admin: 10/07/17 06:24 Dose: 5,000 units Tigecycline 50 mg/ Sodium (Chloride) 100 mls @ 100 mls/hr IVPB Q12H [facility] PRN Reason: Protocol Last Admin: 10/07/17 04:41 Dose: 100 mls/hr Colistimethate Sodium 80 mg/ (Sodium Chloride) 100 mls @ 200 mls/hr IV Q12H [facility] PRN Reason: Protocol Last Admin: 10/07/17 04:41 Dose: 200 mls/hr Lactulose (Generlac) 200 gm ID DAILY [facility] Metoprolol Tartrate (Lopressor) 25 mg PO BID [facility] Last Admin: 10/06/17 17:00 Dose: Not Given Multivitamins (Hexavitamin) 1 tab PO DAILY [facility] Last Admin: 10/06/17 10:51 Dose: 1 tab Pramipexole Dihydrochloride (Mirapex) 1.5 mg PO TIDCC [facility] Last Admin: 10/06/17 17:20 Dose: 1.5 mg Quetiapine Fumarate (Seroquel) 25 mg PO DAILY [facility] Last Admin: 10/06/17 11:36 Dose: 25 mg Tamsulosin HCl (Flomax) 0.4 mg PO DAILY [facility] Last Admin: 10/06/17 10:50 Dose: 0.4 mg Thiamine HCl (Vitamin B1 Tab) 100 mg PO DAILY [facility] Last Admin: 10/06/17 10:51 Dose: 100 mg Trazodone HCl (Desyrel) 50 mg PO HS [facility] Last Admin: 10/06/17 21:24 Dose: 50 mg - Labs Labs: 10/06/17 07:00 10/06/17 07:00 - Constitutional Appears: No Acute Distress - Head Exam Head Exam: NORMAL INSPECTION - Neurological Exam Neuro motor strength exam: Left Upper Extremity: 5, Right Upper Extremity: 5, Left Lower Extremity: 3, Right Lower Extremity: 3 Additional comments: asleep, unable to participate during assessment, but moves all extremities spontaneously. Assessment and Plan (1) Bradykinesia Assessment & Plan: Case discussed with Dr. York, continue all current medical, physical, and occupational regimen. Recommend hydration, treat any underlying infection and electrolytes abnormalities. Status: Acute
--- NOTE | 2017-10-07 07:09 | CP.PCM.PN ---
<Navin Brown - Last Filed: 10/07/17 19:19> Subjective - Date & Time of Evaluation Date of Evaluation: 10/07/17 Time of Evaluation: 07:09 - Subjective Subjective: Progress note for hospitalist service Patient seen and examined at bedside. Patient's speech is unclear, especially when he is sleepy in the morning. He does have episodes where he is awake and alert and able to answer questions. He complains of pain in his legs. He denies headache, dizziness, chest pain, shortness of breath, abdominal pain, nausea, vomiting, diarrhea. Objective - Vital Signs/Intake and Output Vital Signs (last 24 hours): Temp Pulse Resp BP Pulse Ox 97.9 F 114 H 20 110/73 97 10/07/17 00:00 10/07/17 00:00 10/07/17 00:00 10/07/17 00:00 10/07/17 00:00 Intake and Output: 10/07/17 10/07/17 06:59 18:59 Intake Total 600 Balance 600 - Medications Medications: Current Medications Albuterol/Ipratropium (Duoneb 3 Mg/0.5 Mg (3 Ml) Ud) 3 ml INH RQ4 PRN PRN Reason: Shortness of Breath Amantadine HCl (Amantadine 100 Mg Cap) 100 mg PO BID [facility] Last Admin: 10/06/17 17:20 Dose: 100 mg Artificial Tears (Artificial Tears) 1 ml OU Q4 PRN PRN Reason: Other Last Admin: 10/01/17 18:31 Dose: 1 drop Folic Acid (Folic Acid) 1 mg PO DAILY [facility] Last Admin: 10/06/17 10:51 Dose: 1 mg Heparin Sodium (Porcine) (Heparin) 5,000 units SC Q8 [facility] Last Admin: 10/07/17 06:24 Dose: 5,000 units Tigecycline 50 mg/ Sodium (Chloride) 100 mls @ 100 mls/hr IVPB Q12H [facility] PRN Reason: Protocol Last Admin: 10/07/17 04:41 Dose: 100 mls/hr Colistimethate Sodium 80 mg/ (Sodium Chloride) 100 mls @ 200 mls/hr IV Q12H [facility] PRN Reason: Protocol Last Admin: 10/07/17 04:41 Dose: 200 mls/hr Lactulose (Generlac) 200 gm NE DAILY [facility] Metoprolol Tartrate (Lopressor) 25 mg PO BID [facility] Last Admin: 10/06/17 17:00 Dose: Not Given Multivitamins (Hexavitamin) 1 tab PO DAILY [facility] Last Admin: 10/06/17 10:51 Dose: 1 tab Pramipexole Dihydrochloride (Mirapex) 1.5 mg PO TIDCC [facility] Last Admin: 10/06/17 17:20 Dose: 1.5 mg Quetiapine Fumarate (Seroquel) 25 mg PO DAILY [facility] Last Admin: 10/06/17 11:36 Dose: 25 mg Tamsulosin HCl (Flomax) 0.4 mg PO DAILY [facility] Last Admin: 10/06/17 10:50 Dose: 0.4 mg Thiamine HCl (Vitamin B1 Tab) 100 mg PO DAILY [facility] Last Admin: 10/06/17 10:51 Dose: 100 mg Trazodone HCl (Desyrel) 50 mg PO HS [facility] Last Admin: 10/06/17 21:24 Dose: 50 mg - Labs Labs: 10/06/17 07:00 10/06/17 07:00 - Constitutional Appears: No Acute Distress, Confused - Head Exam Head Exam: ATRAUMATIC, NORMOCEPHALIC - Eye Exam Eye Exam: EOMI - ENT Exam ENT Exam: Mucous Membranes Dry - Respiratory Exam Respiratory Exam: Clear to Ausculation Bilateral, NORMAL BREATHING PATTERN. absent: Rales, Rhonchi, Wheezes - Cardiovascular Exam Cardiovascular Exam: REGULAR RHYTHM, +S1, +S2 - GI/Abdominal Exam GI & Abdominal Exam: Soft, Normal Bowel Sounds. absent: Distended, Firm, Guarding, Rigid, Tenderness - Extremities Exam Extremities Exam: absent: Calf Tenderness, Pedal Edema Additional comments: Decreased muscle tone of calves bilaterally. No edema of bilateral lower extremities present. Sensation intact. - Neurological Exam Neurological Exam: Abnormal Gait - Skin Skin Exam: Dry, Intact, Warm Assessment and Plan - Assessment and Plan (Free Text) Assessment: 51 year old male with no PMD who was admitted for ETOH detox, currently evaluated for lower extremity weakness, confusion. Plan: Assessment/plan Ambulatory dysfunction Parkinson's Disease? - Neurology consulted, Dr. Abdi, to rule out neurologic causes of ambulatory dysfunction. Help appreciated. - Per Neurology, dysfunction may be due to parkinson's - Transferred to medical floors - Lumbar xray: unremarkable - Lumbar MRI: Multilevel facet arthropathy. No disc herniations nor significant disc bulges. Small annual fissure seen within the L4-L5 and L5-S1 posterior lateral disc margins as outlined above - Head CT: no evidence of acute intracranial hemorrhage intracranial collection mass effect or midline shift. Moderate atrophy. 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 - TSH wnl - Folate >20, wnl, Vit B12 >1000 H - Fall precautions - PT/OT Medication: - Pramipexole 1.25mg PO TID at 7am, 12pm, & 3pm (started 0.25 on 09/19 by neurologist) * Per neurology recommendation: Target goal of increasing mirapex 0.25 mg PO BID daily, with a target dose of 1.5 mg PO q 8 hours for maintenance. * Please note this should be timed last dose of medication should be before 5PM. - Discontinued Valproic acid due to transaminitis on 09/29 - 10/03: pt started on Amantadine 100mg PO BID - 10/03: pt started on Lactulose 25mg PO QID (parameters-hold after two liquid BMs) --> d/sonia 10/07/17 Urinary retention Hypernatremia - Repeat UA and urine culture ordered. As per nurse, urine could not be obtained via straight cath. Bladder scan revealed 120cc of urine. - Nephrology consulted, Dr. Arrieta. Help appreciated. - Renal US: Unremarkable ultrasound. No significant post-void residual volume. - As per Nephrology note, likely secondary to poor oral intake and increased GI losses - 10/07/17: Na elevated at 149 - Lactulose D/sonia - 1/2 NS @ 100cc/hr UTI, VRE+ urine - ID Dr. Monk consulted, help appreciated - IV abx Colistimethate 80mg IV, Tigecycline 50mg IV RML pneumonia - CXR: interval atelectasis or infiltrate right middle lobe. Linear atelectasis left base. No cardiomegaly or pulmonary vascular congestion. - ID Dr. Monk consulted, help appreciated - IV abx Colistimethate 80mg IV, Tigecycline 50mg IV Hyperammonemia - Ammonia level: -09/17: 31, wnl -09/22: 22, wnl -10/03: 37, elevated -10/05: 21, wnl -10/07 : 9, wnl -10/03 pt started on Lactulose 20gm PO QID (parameters-hold after two liquid BMs) -10/07: Lactulose D/Sonia Alcohol dependence/withdrawal Per psychiatry Transferred from Detox to Med/Surg Floors Continue to monitor Medications: - Seroquel 12.5mg PO HS prn for agitation (per neurologist) - Trazadone 50mg PO HS - Folic Acid 1mg PO daily - Multivitamin daily - Thiamine 100mg PO daily Hx of Fall - CT Head (09/19/17): no evidence of acute intracranial hemorrhage intracranial collection mass effect or midline shift. Moderate atrophy. 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 - Lumbar xray (09/19/17): unremarkable Thrombocytopenia, resolved - Improving - HIV: negative - Hepatitis B panel: negative - Hepatitis C reactive - Abdominal US: hepatomegaly, hepatic steatosis - Likely secondary to alcohol abuse Hepatitis C Reactive - Hep C reactive - Will need outpatient follow up Conjunctivitis, resolved - Artificial tears - Tobramycin opht solution OU Q6--> discontinued on 09.27 Tachycardia, resolved - Likely secondary to withdrawal - Started on Lopressor 25mg PO BID (active since 09/23) - TSH: wnl - Free T4: 1.41 - DDimer: 736 - CTA: neg for PE - LE dopplers- negative Hypomagnesemia - Mg 1.5 - Continue to monitor Leukocytosis - Pro-calcitonin: elevated, 0.94; repeat- improving - Blood cultures (09/24): negative to date - Urine culture (09/24): negative to date - Blood cultures, urine culture, and chest x-ray repeated on 10/03/2017 - Urine culture : VRE + urine Transaminitis - Likely due to valproic acid - Discontinued on 09/29 - Continue to monitor Prophylaxis - Heparin 5000u SC Q8h - Fall precautions - PT/OT - Aspiration/seizure precautions - Case management/social consult for DC planning to [facility] Case discussed with Dr. Gonzalez <Patrizia Gonzalez V - Last Filed: 10/08/17 19:05> Objective - Vital Signs/Intake and Output Vital Signs (last 24 hours): Temp Pulse Resp BP Pulse Ox 97.6 F 81 20 115/79 98 10/08/17 16:29 10/08/17 16:29 10/08/17 16:29 10/08/17 17:37 10/08/17 16:29 Intake and Output: 10/08/17 10/09/17 18:59 06:59 Intake Total 1890 Output Total 650 Balance 1240 - Medications Medications: Current Medications Albuterol/Ipratropium (Duoneb 3 Mg/0.5 Mg (3 Ml) Ud) 3 ml INH RQ4 PRN PRN Reason: Shortness of Breath Amantadine HCl (Amantadine 100 Mg Cap) 100 mg PO BID [facility] Last Admin: 10/08/17 17:36 Dose: 100 mg Artificial Tears (Artificial Tears) 1 ml OU Q4 PRN PRN Reason: Other Last Admin: 10/01/17 18:31 Dose: 1 drop Folic Acid (Folic Acid) 1 mg PO DAILY [facility] Last Admin: 10/08/17 11:30 Dose: 1 mg Heparin Sodium (Porcine) (Heparin) 5,000 units SC Q8 [facility] Last Admin: 10/08/17 13:36 Dose: 5,000 units Tigecycline 50 mg/ Sodium (Chloride) 100 mls @ 100 mls/hr IVPB Q12H [facility] PRN Reason: Protocol Last Admin: 10/08/17 17:35 Dose: 100 mls/hr Colistimethate Sodium 80 mg/ (Sodium Chloride) 100 mls @ 200 mls/hr IV Q12H [facility] PRN Reason: Protocol Last Admin: 10/08/17 16:30 Dose: 200 mls/hr Sodium Chloride (Sodium Chloride 0.45%) 1,000 mls @ 70 mls/hr IV .[id number] [facility] Last Admin: 10/08/17 12:50 Dose: 70 mls/hr Metoprolol Tartrate (Lopressor) 25 mg PO BID [facility] Last Admin: 10/08/17 17:37 Dose: 25 mg Multivitamins (Hexavitamin) 1 tab PO DAILY [facility] Last Admin: 10/08/17 11:30 Dose: 1 tab Pramipexole Dihydrochloride (Mirapex) 1.5 mg PO TIDCC [facility] Last Admin: 10/08/17 17:36 Dose: 1.5 mg Quetiapine Fumarate (Seroquel) 25 mg PO DAILY [facility] Last Admin: 10/08/17 11:30 Dose: 25 mg Saccharomyces Boulardii (Florastor) 250 mg PO BID [facility] Last Admin: 10/08/17 17:36 Dose: 250 mg Tamsulosin HCl (Flomax) 0.4 mg PO DAILY [facility] Last Admin: 10/08/17 11:30 Dose: 0.4 mg Thiamine HCl (Vitamin B1 Tab) 100 mg PO DAILY [facility] Last Admin: 10/08/17 11:30 Dose: 100 mg Trazodone HCl (Desyrel) 50 mg PO HS [facility] Last Admin: 10/07/17 22:12 Dose: Not Given - Labs Labs: 10/08/17 07:51 10/08/17 07:51 Assessment and Plan (1) Alcohol dependence Status: Acute (2) Ambulatory dysfunction Status: Acute (3) Abnormal gait Status: Acute (4) Tremor Status: Acute Attending/Attestation - Attestation I have personally seen and examined this patient.: Yes I have fully participated in the care of the patient.: Yes I have reviewed all pertinent clinical information, including history, physical exam and plan: Yes Notes (Text): This is a late computer entry for 10/07/2017. Patient seen, examined, case discussed with center medical and lab director. Patient seen during morning rounds he is awake alert speaking with me prior to evaluation and was noted to be sleepy with the resident when she came in to see him earlier. Discussed with patient's nurse, and she attempted to straight cath patient for urine culture there is no urine. Bladder scan noted for urinary retention and patient has hypernatremia. We have consult nephrology to follow. Patient is ordered for renal and bladder ultrasound in light of IV antibiotics. And we'll continue to monitor urine output. Have confirmed with the social services aide that patient's bed at long term is available up until Tuesday. Patient is on IV antibiotic therapy to cover for resistant UTI and remains on contact. Assessment/Plan (1) Ambulatory dysfunction Suspected Parkinson's Disease Assessment and Plan: * Neurology consulted, Dr. Abdi, help appreciated * Per Neurology, dysfunction may be due to parkinson's * Transferred to medical floors on 09/19/17 * Lumbar xray: unremarkable * Lumbar MRI: Limited motion degraded study. Multilevel facet arthropathy. No disc herniations nor significant disc bulges. Small annual fissure seen within the L4-L5 and L5-S1 posterior lateral disc margins as outlined above * Head CT: no evidence of acute intracranial hemorrhage intracranial collection mass effect or midline shift. Moderate atrophy. Mild white matter changes likely represent chronic microvacular ischemic disease * Brain MRI: No acute intracranial hemorrhage or infarction. Minimal chronic periventricular white matter ischemic changes. Moderate generalized volume loss. No enhancing lesions. * Ammonia level: 31, wnl * TSH wnl * Folate >20, wnl, Vit B12 >1000 H * Fall precautions * PT/OT eval * Medication: * Pramipexole 1.5 mg by mouth 3 times a day specifically at 7 AM 12 PM and 3 PM and advised and neurology did not give a dose after 5 PM because it'll cause patient to become very restless. * Amantadine 100 mg by mouth twice a day (2) Alcohol dependence/withdrawal-->resolved Cognitive Decline to Multifactorial (Alcohol and Parkinsons) Assessment and Plan: * Completed detox * Transferred from Detox to Med/Surg Floors on 09/19/17 * Continue to monitor Medications: * Pramipexole 1.5 mg by mouth 3 times a day specifically at 7 AM 12 PM and 3 PM and advised and neurology did not give a dose after 5 PM because it'll cause patient to become very restless. * Amantadine 100 mg by mouth twice a day * Seroquel 25 mg PO daily prn for agitation (per neurologist) * Trazadone 50mg PO HS * Folic Acid 1mg PO daily * Multivitamin daily * Thiamine 100mg PO daily (3) VRE UTI Assessment and Plan: * Infectious Disease (Dr. Monk) on case-->help appreciated * Urine culture (10/04/17): VRE * Follow-up repeat urine culture (10/07/17): pending * Tigecycline 50mg IVPB Q12h (active since 10/06/17) * Colistimethate 80mg IVPNB Q12H (10/06/17) * on contact isolation (4) Leukocytosis-->normalized Assessment and Plan: * Hematology oncology consult Dr. Hargrove help appreciated * Likely reactive given alcohol hx * Infectious Disease consult, Dr. Monk, help appreciated\ * VRE UTI treatment * Blood cultures (09/25/17): negative * Urine culture (09/25/17): no growth * Completed 5 days of IV abx (zosyn) * Pro-calcitonin is elevated--> improved * Blood cultures (10/03/17): no growth after 3 days X2 * Urine culture (09/24/17): No growth * Urine culture (10/04/17): VRE * Urine culture (10/07/17): follow-up * Chest xray (10/03/17): interval atelectasis or infiltrate right middle lobe. linear atelectasis left base. No cardiomegaly or pulmonary vascular congestion. * Procalcitonin (09/24/17): 0.94---> (10/02/17): 0.55-->will order for repeat (5) Hypernatremia-->normalized Assessment and Plan: * Nephrology (Dr. Arrieta) on consult-->help appreciated * suspected secondary to lactulose * Will monitor patients oral intake-->he only eats the side dishes for breakfast * Bladder US (10/07/17): unremarkable renal and bladder US. No significant postvoid residual volume * Normalized 10/08/17 (6) Urinary retention Assessment and Plan: * Bladder US (10/07/17): unremarkable renal and bladder US. No significant postvoid residual volume * possible side effect from amantadine (anticholinergic) (7) Hx of Fall-->past Assessment and Plan: * CT Head (09/19/17): no evidence of acute intracranial hemorrhage intracranial collection mass effect or midline shift. Moderate atrophy. Mild white matter changes likely reprsent chronic microvascular ischemic disease * Lumbar xray (09/19/17): unremarkable * Lumbar MRI: Limited motion degraded study. Multilevel facet arthropathy. No disc herniations nor significant disc bulges. Small annual fissure seen within the L4-L5 and L5-S1 posterior lateral disc margins as outlined above (8) Tachycardia-->controlled Assessment and Plan: * CT angio (09/23/17): No evidence of acute central pulmonary embolus. Multiple calcified granulomata scattered throughout the right lung and to a lesser degree left lung findings consistent with prior exposure to granulomatous disease process. Mild dependent atelectasis both posterior lower lung zones mild scarring of the left lung base borderline splenomegaly * Thyroid studies are within normal * Suspecting tachycardia secondary to withdrawal * Patient start on Lopressor 25 mg by mouth twice a day since September 23 (9) Conjunctivitis-->resolved Assessment and Plan: * Started on Tobrex 0.3 every 6 hours since September 21 and finished (10) Thrombocytopenia-->resolved Assessment and Plan: * HIV: negative * Hepatitis panel: negative * Abdominal US: hepatomegaly, hepatic steatosis * Have normalized (11) Hepatitis C Reactive-->treated in the past Assessment and Plan: * Patient reports he has been treated for hepatitis C. (12) Prophylaxis Assessment and Plan: * Fall precautions * PT/OT eval * Heparin 5000 subcutaneous 8H for DVT prophylaxis * Aspiration precautions * Seizure precautions
[2017-10-07 08:19] LABS: BASO # 0.1 K/uL (0.0-0.2); BASO % 0.4 % (0.0-2.0); EOS # 0.1 K/uL (0.0-0.7); EOS % 0.9 % (0.0-4.0); HEMOGLOBIN 12.2 g/dL (12.0-18.0); LYMPH # 2.1 K/uL (1.0-4.3); LYMPH % 15.2 % (20.0-40.0); MEAN CELL VOLUME 104.8 fL (80.0-94.0); MEAN CORPUSCULAR HEMOGLOBIN 34.4 pg (27.0-31.0); MEAN CORPUSCULAR HGB CONC 32.9 g/dL (33.0-37.0); MEAN PLATELET VOLUME 10.3 fL (7.2-11.7); MONO # 1.1 K/uL (0.0-0.8); MONO % 8.2 % (0.0-10.0); NEUT # 10.5 K/uL (1.8-7.0); NEUT % 75.3 % (50.0-75.0); NRBC % 0.1 % (0.0-2.0); RBC 3.56 Mil/uL (4.40-5.90); RED CELL DISTRIBUTION WIDTH 14.7 % (11.5-14.5); WHITE BLOOD COUNT 13.9 K/uL (4.8-10.8)
[2017-10-07 08:40] LABS: ALB/GLOB RATIO 0.8 (1.0-2.1); ALBUMIN 3.3 g/dL (3.5-5.0); ALT/SGPT 62 U/L (21-72); AST/SGOT 80 U/L (17-59); BLOOD UREA NITROGEN 11 mg/dL (9-20); CALCIUM 9.1 mg/dl (8.6-10.4); GFR AFRICAN-AMERICAN > 60; GFR NON-AFRICAN AMERICAN > 60
[2017-10-07] MEDS ORDERED: Lactulose 10 gm/15 ml (Rectal Use) PR SCH (10:00)
[2017-10-07] MEDS: Multiple Vitamins Tab PO SCH (10:42)
[2017-10-07] MEDS: Sodium Chloride 0.45% 1,000 ML IV SCH (14:51)
--- NOTE | 2017-10-07 15:03 | CP.PCM.CON ---
<ErnestoShay R - Last Filed: 10/07/17 15:08> History of Present Illness - History of Present Illness History of Present Illness: PGY-2 nephrology consult note for Dr Arrieta. Mr Mejia is a 51 yo M with a history of alcohol use disorder who originally presented for alcohol detox but was later transferred to the medical floors on for ambulatory dysfunction and unexplained lethargy. Neurology was consulted and now there's a suspected diagnosis of parkinson's disease. He also has cognitive decline secondary to alcohol and possibly parkinson's. He also currently has VRE growing in the urine as per the urine culture collected on 10/04. Nephrology has now been consulted for hypernatremia and urinary retention. Today he had no urine output with straight catheterization and ensuing bladder scan showed 120cc of urine. Bladder scan on 10/04/17 showed 0 cc of urine. Upon interview today patient appeared drowsy and repeatedly fell asleep during questioning. He had mittens on as he's had episodes of agitation and restlessness. He was unable to follow commands but moves his extermities spontaneously. He is incontinent of both bowel and urine. Per nurse Corbin, patient ate some of his breakfast but did not drink any water even when encouraged. He stated he was thirsty. Complete ROS unobtainable as patient was too drowsy. Per chart review: PMHx: denies SurgHx: denies FamHx: Father- [place] SocHx: drinks 1/2 gallon of wine daily x8 years; started drinking at age 14. Smokes 1/4 pack daily since age 14. denies drug use; lives with in [place]. Unemployed Allergies: NKDA Medications: denies Review of Systems - Review of Systems Systems not reviewed;Unavailable: Dementia Past Patient History - Past Medical History & Family History Past Medical History?: Yes - Past Social History Smoking Status: Light Smoker < 10 Cigarettes Daily - CARDIAC Hx Cardiac Disorders: No Hx Hypertension: No - PULMONARY Hx Tuberculosis: No - NEUROLOGICAL HX Cerebrovascular Accident: No Hx Seizures: No - HEMATOLOGICAL/ONCOLOGICAL Hx Cancer: No Hx Human Immunodeficiency Virus (HIV): No - MUSCULOSKELETAL/RHEUMATOLOGICAL Hx Falls: Yes Other/Comment: Neuropathy - GENITOURINARY/GYNECOLOGICAL Hx Sexually Transmitted Disorders: No - PSYCHIATRIC Hx Substance Use: Yes - SURGICAL HISTORY Hx Surgeries: No - ANESTHESIA Hx Anesthesia: No Meds Allergies/Adverse Reactions: Allergies Allergy/AdvReac Type Severity Reaction Status Date / Time No Known Allergies Allergy Verified 09/17/17 12:56 - Medications Medications: Current Medications Albuterol/Ipratropium (Duoneb 3 Mg/0.5 Mg (3 Ml) Ud) 3 ml INH RQ4 PRN PRN Reason: Shortness of Breath Amantadine HCl (Amantadine 100 Mg Cap) 100 mg PO BID [facility] Last Admin: 10/07/17 10:42 Dose: 100 mg Artificial Tears (Artificial Tears) 1 ml OU Q4 PRN PRN Reason: Other Last Admin: 10/01/17 18:31 Dose: 1 drop Folic Acid (Folic Acid) 1 mg PO DAILY [facility] Last Admin: 10/07/17 10:42 Dose: 1 mg Heparin Sodium (Porcine) (Heparin) 5,000 units SC Q8 [facility] Last Admin: 10/07/17 13:46 Dose: 5,000 units Tigecycline 50 mg/ Sodium (Chloride) 100 mls @ 100 mls/hr IVPB Q12H [facility] PRN Reason: Protocol Last Admin: 10/07/17 04:41 Dose: 100 mls/hr Colistimethate Sodium 80 mg/ (Sodium Chloride) 100 mls @ 200 mls/hr IV Q12H [facility] PRN Reason: Protocol Last Admin: 10/07/17 04:41 Dose: 200 mls/hr Sodium Chloride (Sodium Chloride 0.45%) 1,000 mls @ 100 mls/hr IV .Q10H [facility] Last Admin: 10/07/17 14:51 Dose: 100 mls/hr Metoprolol Tartrate (Lopressor) 25 mg PO BID [facility] Last Admin: 10/07/17 10:42 Dose: Not Given Multivitamins (Hexavitamin) 1 tab PO DAILY [facility] Last Admin: 10/07/17 10:42 Dose: 1 tab Pramipexole Dihydrochloride (Mirapex) 1.5 mg PO TIDCC [facility] Last Admin: 10/07/17 12:12 Dose: 1.5 mg Quetiapine Fumarate (Seroquel) 25 mg PO DAILY [facility] Last Admin: 10/07/17 10:42 Dose: 25 mg Tamsulosin HCl (Flomax) 0.4 mg PO DAILY [facility] Last Admin: 10/07/17 10:42 Dose: 0.4 mg Thiamine HCl (Vitamin B1 Tab) 100 mg PO DAILY [facility] Last Admin: 10/07/17 10:42 Dose: 100 mg Trazodone HCl (Desyrel) 50 mg PO HS [facility] Last Admin: 10/06/17 21:24 Dose: 50 mg Physical Exam - Constitutional Appears: Well, Non-toxic, No Acute Distress, Older Than Stated Age, Chronically Ill - Head Exam Head Exam: ATRAUMATIC, NORMAL INSPECTION - Eye Exam Eye Exam: EOMI. absent: Scleral icterus Pupil Exam: PERRL - ENT Exam ENT Exam: Mucous Membranes Dry. absent: Mucous Membranes Moist - Neck Exam Neck exam: Positive for: Full Rom, Normal Inspection. Negative for: Tenderness - Respiratory Exam Respiratory Exam: Clear to Auscultation Bilateral, NORMAL BREATHING PATTERN. absent: Rales, Rhonchi, Wheezes - Cardiovascular Exam Cardiovascular Exam: REGULAR RHYTHM, +S1, +S2. absent: Bradycardia, Tachycardia , JVD, Systolic Murmur - GI/Abdominal Exam GI & Abdominal Exam: Normal Bowel Sounds, Soft. absent: Distended, Firm, Guarding, Tenderness - Exam Additional comments: No suprapubic fullness or tenderness noted - Extremities Exam Extremities exam: Positive for: normal inspection. Negative for: normal capillary refill, tenderness - Back Exam Back exam: NORMAL INSPECTION. absent: CVA tenderness (L), CVA tenderness (R) - Neurological Exam Additional comments: patient could not follow instructions for neuro exam - Psychiatric Exam Psychiatric exam: Flat Affect - Skin Skin Exam: Dry, Normal Color, Pallor Results - Vital Signs Recent Vital Signs: Last Vital Signs Temp 98.2 F 10/07/17 08:24 Pulse 63 10/07/17 08:24 Resp 20 10/07/17 08:24 BP 107/72 10/07/17 10:42 Pulse Ox 98 10/07/17 08:24 - Labs Result Diagrams: 10/07/17 08:07 10/07/17 08:07 Labs: Laboratory Results - last 24 hr 10/07/17 10/07/17 10/07/17 08:07 08:07 11:34 WBC 13.9 H RBC 3.56 L Hgb 12.2 Hct 37.3 MCV 104.8 H MCH 34.4 H MCHC 32.9 L RDW 14.7 H Plt Count 174 MPV 10.3 Neut % (Auto) 75.3 H Lymph % (Auto) 15.2 L Sanborn % (Auto) 8.2 Eos % (Auto) 0.9 Baso % (Auto) 0.4 Neut # (Auto) 10.5 H Lymph # (Auto) 2.1 Sanborn # (Auto) 1.1 H Eos # (Auto) 0.1 Baso # (Auto) 0.1 Sodium 149 H Potassium 3.8 Chloride 115 H Carbon Dioxide 22 Anion Gap 16 BUN 11 Creatinine 0.8 Est GFR ( Amer) > 60 Est GFR (Non-Af Amer) > 60 Random Glucose 85 Calcium 9.1 Phosphorus 4.5 Magnesium 1.6 Total Bilirubin 1.2 AST 80 H ALT 62 Alkaline Phosphatase 152 H Ammonia 9 D Total Protein 7.4 Albumin 3.3 L Globulin 4.1 H Albumin/Globulin Ratio 0.8 L Assessment & Plan - Assessment and Plan (Free Text) Assessment: Mr Mejia is a 51 yo M with a history of alcohol use disorder who originally presented for alcohol detox but was later transferred to the medical floors on for ambulatory dysfunction and cognitive decline, now with a suspected diagnosis of parkinson's disease. Also currently has VRE growing in the urine. Nephrology has now been consulted for hypernatremia and urinary retention: HYPERNATREMIA Mild hypernatremia at 149 likely secondary to poor oral intake (poor water intake) and increased GI losses 2/2 to recent lactulose administration (given for hyperammonemia). Also appears dry on exam with Map recently in the 80s. Start 1/2NS @ 100cc/hr Lactulose has been discontinued Monitor URINARY RETENTION Recent bladder scans not indicative of urinary retention Recent decrease in urinary void possibly 2/2 poor water intake and increased GI losses Patient with VRE in urine thus condom catheter removed on 10/04 thus we are unable to quantify exact urine output F/U renal US to r/o obstructive nephropathy or renal parachymal disease Care and management d/w with attending Dr Arrieta <Jaden Arrieta - Last Filed: 10/08/17 06:37> Meds - Medications Medications: Current Medications Albuterol/Ipratropium (Duoneb 3 Mg/0.5 Mg (3 Ml) Ud) 3 ml INH RQ4 PRN PRN Reason: Shortness of Breath Amantadine HCl (Amantadine 100 Mg Cap) 100 mg PO BID [facility] Last Admin: 10/07/17 17:46 Dose: 100 mg Artificial Tears (Artificial Tears) 1 ml OU Q4 PRN PRN Reason: Other Last Admin: 10/01/17 18:31 Dose: 1 drop Folic Acid (Folic Acid) 1 mg PO DAILY [facility] Last Admin: 10/07/17 10:42 Dose: 1 mg Heparin Sodium (Porcine) (Heparin) 5,000 units SC Q8 [facility] Last Admin: 10/08/17 06:06 Dose: 5,000 units Tigecycline 50 mg/ Sodium (Chloride) 100 mls @ 100 mls/hr IVPB Q12H [facility] PRN Reason: Protocol Last Admin: 10/08/17 04:17 Dose: 100 mls/hr Colistimethate Sodium 80 mg/ (Sodium Chloride) 100 mls @ 200 mls/hr IV Q12H [facility] PRN Reason: Protocol Last Admin: 10/08/17 04:16 Dose: 200 mls/hr Sodium Chloride (Sodium Chloride 0.45%) 1,000 mls @ 100 mls/hr IV .Q10H [facility] Last Admin: 10/08/17 02:51 Dose: 100 mls/hr Metoprolol Tartrate (Lopressor) 25 mg PO BID [facility] Last Admin: 10/07/17 17:41 Dose: Not Given Multivitamins (Hexavitamin) 1 tab PO DAILY [facility] Last Admin: 10/07/17 10:42 Dose: 1 tab Pramipexole Dihydrochloride (Mirapex) 1.5 mg PO TIDCC [facility] Last Admin: 10/07/17 17:46 Dose: 1.5 mg Quetiapine Fumarate (Seroquel) 25 mg PO DAILY [facility] Last Admin: 10/07/17 10:42 Dose: 25 mg Tamsulosin HCl (Flomax) 0.4 mg PO DAILY [facility] Last Admin: 10/07/17 10:42 Dose: 0.4 mg Thiamine HCl (Vitamin B1 Tab) 100 mg PO DAILY [facility] Last Admin: 10/07/17 10:42 Dose: 100 mg Trazodone HCl (Desyrel) 50 mg PO HS [facility] Last Admin: 10/07/17 22:12 Dose: Not Given Results - Vital Signs Recent Vital Signs: Last Vital Signs Temp 97.3 F L 10/07/17 23:23 Pulse 78 10/07/17 23:23 Resp 18 10/07/17 23:23 BP 113/76 10/07/17 23:23 Pulse Ox 97 10/07/17 23:23 - Labs Result Diagrams: 10/07/17 08:07 10/07/17 08:07 Labs: Laboratory Results - last 24 hr 10/07/17 10/07/17 10/07/17 08:07 08:07 11:34 WBC 13.9 H RBC 3.56 L Hgb 12.2 Hct 37.3 MCV 104.8 H MCH 34.4 H MCHC 32.9 L RDW 14.7 H Plt Count 174 MPV 10.3 Neut % (Auto) 75.3 H Lymph % (Auto) 15.2 L Sanborn % (Auto) 8.2 Eos % (Auto) 0.9 Baso % (Auto) 0.4 Neut # (Auto) 10.5 H Lymph # (Auto) 2.1 Sanborn # (Auto) 1.1 H Eos # (Auto) 0.1 Baso # (Auto) 0.1 Sodium 149 H Potassium 3.8 Chloride 115 H Carbon Dioxide 22 Anion Gap 16 BUN 11 Creatinine 0.8 Est GFR ( Amer) > 60 Est GFR (Non-Af Amer) > 60 Random Glucose 85 Calcium 9.1 Phosphorus 4.5 Magnesium 1.6 Total Bilirubin 1.2 AST 80 H ALT 62 Alkaline Phosphatase 152 H Ammonia 9 D Total Protein 7.4 Albumin 3.3 L Globulin 4.1 H Albumin/Globulin Ratio 0.8 L Urine Color Urine Clarity Urine pH Ur Specific Sheridan Urine Protein Urine Glucose (UA) Urine Ketones Urine Blood Urine Nitrate Urine Bilirubin Urine Urobilinogen Ur Leukocyte Esterase Urine WBC (Auto) Urine RBC (Auto) Ur Squamous Epith Cells Urine Osmolality Ur Random Sodium 10/07/17 10/07/17 20:26 20:26 WBC RBC Hgb Hct MCV MCH MCHC RDW Plt Count MPV Neut % (Auto) Lymph % (Auto) Sanborn % (Auto) Eos % (Auto) Baso % (Auto) Neut # (Auto) Lymph # (Auto) Sanborn # (Auto) Eos # (Auto) Baso # (Auto) Sodium Potassium Chloride Carbon Dioxide Anion Gap BUN Creatinine Est GFR ( Amer) Est GFR (Non-Af Amer) Random Glucose Calcium Phosphorus Magnesium Total Bilirubin AST ALT Alkaline Phosphatase Ammonia Total Protein Albumin Globulin Albumin/Globulin Ratio Urine Color Chiara Urine Clarity Hazy Urine pH 5.0 Ur Specific Sheridan 1.021 Urine Protein Negative Urine Glucose (UA) Normal Urine Ketones Negative Urine Blood Negative Urine Nitrate Negative Urine Bilirubin Negative Urine Urobilinogen Normal Ur Leukocyte Esterase Neg Urine WBC (Auto) 6 H Urine RBC (Auto) 5 H Ur Squamous Epith Cells < 1 Urine Osmolality 814 Ur Random Sodium 157 Attending/Attestation - Attestation I have personally seen and examined this patient.: Yes I have fully participated in the care of the patient.: Yes I have reviewed all pertinent clinical information: Yes Notes (Text): Patient seen and examined; I agree with the resident's note as above with the following edits/additions: 51 yo M w/ pmh of ETOH abuse, initially admitted for detox, transferred to medical floor due to ambulatory instability; diagnosed by neurology to have bradykinesia; nephrology being consulted for oliuguria and hypernatremia; Patient with lethargy and varying degree of changes in mental status; may have have decreased PO intake lately with mild YORDAN on labs (serum creatinine 0.7 -> 1.0, now slightly improved); Hypernatremia developing lately in the setting of stool free water losses from lactulose administration; likely also with inadequate intake of free water (~ 2.5L deficit); Now with VRE UTI, started on nephrotoxic agent colistin by ID; -IVF as above with 1/2NS at 100 cc/hr -Checking urine osm (should be elevated if hypernatremia is simply due to inadeqate free water intake); -Monitor serum creatinine daily while patient is on IV colistin; risk for developing ATN; may need dose reduction or alternative agent; -Avoid other nephrotoxic agents (NSAIDS, phosphate enema, etc);
--- NOTE | 2017-10-07 15:38 | CP.PCM.PN ---
Subjective - Date & Time of Evaluation Date of Evaluation: 10/07/17 Time of Evaluation: 03:00 - Subjective Subjective: dictated Objective - Vital Signs/Intake and Output Vital Signs (last 24 hours): Temp Pulse Resp BP Pulse Ox 98.2 F 63 20 107/72 98 10/07/17 08:24 10/07/17 08:24 10/07/17 08:24 10/07/17 10:42 10/07/17 08:24 Intake and Output: 10/07/17 10/07/17 06:59 18:59 Intake Total 600 Balance 600 - Medications Medications: Current Medications Albuterol/Ipratropium (Duoneb 3 Mg/0.5 Mg (3 Ml) Ud) 3 ml INH RQ4 PRN PRN Reason: Shortness of Breath Amantadine HCl (Amantadine 100 Mg Cap) 100 mg PO BID [facility] Last Admin: 10/07/17 10:42 Dose: 100 mg Artificial Tears (Artificial Tears) 1 ml OU Q4 PRN PRN Reason: Other Last Admin: 10/01/17 18:31 Dose: 1 drop Folic Acid (Folic Acid) 1 mg PO DAILY [facility] Last Admin: 10/07/17 10:42 Dose: 1 mg Heparin Sodium (Porcine) (Heparin) 5,000 units SC Q8 [facility] Last Admin: 10/07/17 13:46 Dose: 5,000 units Tigecycline 50 mg/ Sodium (Chloride) 100 mls @ 100 mls/hr IVPB Q12H [facility] PRN Reason: Protocol Last Admin: 10/07/17 04:41 Dose: 100 mls/hr Colistimethate Sodium 80 mg/ (Sodium Chloride) 100 mls @ 200 mls/hr IV Q12H [facility] PRN Reason: Protocol Last Admin: 10/07/17 04:41 Dose: 200 mls/hr Sodium Chloride (Sodium Chloride 0.45%) 1,000 mls @ 100 mls/hr IV .Q10H [facility] Last Admin: 10/07/17 14:51 Dose: 100 mls/hr Metoprolol Tartrate (Lopressor) 25 mg PO BID [facility] Last Admin: 10/07/17 10:42 Dose: Not Given Multivitamins (Hexavitamin) 1 tab PO DAILY [facility] Last Admin: 10/07/17 10:42 Dose: 1 tab Pramipexole Dihydrochloride (Mirapex) 1.5 mg PO TIDCC [facility] Last Admin: 10/07/17 12:12 Dose: 1.5 mg Quetiapine Fumarate (Seroquel) 25 mg PO DAILY [facility] Last Admin: 10/07/17 10:42 Dose: 25 mg Tamsulosin HCl (Flomax) 0.4 mg PO DAILY [facility] Last Admin: 10/07/17 10:42 Dose: 0.4 mg Thiamine HCl (Vitamin B1 Tab) 100 mg PO DAILY [facility] Last Admin: 10/07/17 10:42 Dose: 100 mg Trazodone HCl (Desyrel) 50 mg PO HS [facility] Last Admin: 10/06/17 21:24 Dose: 50 mg - Labs Labs: 10/07/17 08:07 10/07/17 08:07
--- NOTE | 2017-10-07 17:27 | US ---
PROCEDURE: Ultrasound of the Kidneys HISTORY: no urine output, check for urinary retention COMPARISON: Renal/bladder ultrasound dated 09/25/2017. TECHNIQUE: Sonogram of the kidneys. FINDINGS: RIGHT KIDNEY: Measures: 12.1 x 5.0 x 4.9 cm. Normal in size, contour and echogenicity. No stone, solid mass lesion or hydronephrosis visualized. LEFT KIDNEY: Measures: 12.3 x 6.3 x 5.8 cm. Normal in size, contour and echogenicity. No stone, solid mass lesion or hydronephrosis visualized. OTHER FINDINGS: Prevoid urinary bladder volume measures 159 cc. No significant postvoid residual was noted. Bilateral ureteral jets were evident. Prostate volume measures 27.9 cc. IMPRESSION: Unremarkable renal and bladder ultrasound. No significant postvoid residual volume.
[2017-10-07 20:36] LABS: SQUAMOUS EPITHIAL < 1 /hpf (0-5); URINE BILIRUBIN NEGATIVE (NEGATIVE); URINE BLOOD NEGATIVE (NEGATIVE); URINE CLARITY Hazy (Clear); URINE COLOR Amber (YELLOW); URINE GLUCOSE (UA) NORMAL (Normal); URINE LEUKOCYTE ESTERASE NEG Leu/uL (Negative); URINE PROTEIN NEGATIVE (NEGATIVE); URINE UROBILINOGEN NORMAL mg/dL (0.2-1.0)
[2017-10-07 20:55] LABS: OSMOLALITY,URINE 814 mosm/kg (300-1000)
--- NOTE | 2017-10-07 21:43 | PN ---
DATE: 10/07/2017 SUBJECTIVE: His is at the bedside. She said she comes from [place], and this patient was admitted for alcohol detox and was transferred here and I am asked to see because his urine had a very resistant UTI. The patient is very drowsy, and he was the same way this morning as I saw him yesterday. His is trying to wake him up, and he is not even getting, but he appears to be in no acute respiratory distress. Mental status is very poor. PHYSICAL EXAMINATION: VITAL SIGNS: T-max is 98.2, pulse of 63, blood pressure 107/72, respirations are 20. HEENT: Head is atraumatic. NECK: Supple. LUNGS: Clear. HEART: S1 and S2 is regular. ABDOMEN: Soft, nontender. EXTREMITIES: Have no edema. His urine had VRE and it was even resistant to tetracycline and so I have placed him on Tygacil and Colistin for now, and he is every 12 of Colistin and on Tygacil, and we will follow, and the patient has gait abnormality and alcohol abuse in the past and was admitted to the rehab but he appears very drowsy, maybe his psych medications needs to be reevaluated, and I would repeat creatinine tomorrow again as he is on Colistin. IMPRESSION: He has urinary tract infection with vancomycin-resistant enterococcal, and we will treat him with that and also we will get a sonogram. They did a bladder ultrasound actually on 09/25/2017, which was not too long ago, it shows no nephrolithiasis or hydronephrosis, urinary bladder is distended and grossly normal, bilateral ureteral jets were not visualized on color flow. The patient was not able to void. The prevoid volume was 106, so we will treat urinary tract infection for now, cystitis, and we will follow and repeat labs tomorrow. Tico Monk MD
[2017-10-08] MEDS: Sodium Chloride 0.45% 1,000 ML IV SCH ×3 (02:51→12:50)
--- NOTE | 2017-10-08 04:43 | CP.PCM.PN ---
Addendum entered and electronically signed by Lola Dennison 10/08/17 04:47 : EXAM: - Constitutional Appears: No Acute Distress - Head Exam Head Exam: ATRAUMATIC, NORMOCEPHALIC - Respiratory Exam Respiratory Exam: Clear to Ausculation Bilateral - Cardiovascular Exam Cardiovascular Exam: REGULAR RHYTHM, +S1, +S2. absent: Murmur - GI/Abdominal Exam GI & Abdominal Exam: Soft, Normal Bowel Sounds. absent: Tenderness - Extremities Exam Extremities Exam: absent: Pedal Edema - Neurological Exam Additional comments: Pt sleeping, difficult to arouse. - Additional Findings Additional findings: - Constitutional Appears: Unkempt Original Note: <Lola Dennison - Last Filed: 10/08/17 04:27> Subjective - Date & Time of Evaluation Date of Evaluation: 10/08/17 Time of Evaluation: 04:27 - Subjective Subjective: Medicine progress note for Dr. Gonzalez. Patient seen and evaluated at bedside. Patient in no acute distress. Patient deeply asleep, unable to obtain history. No acute events overnight. Objective - Vital Signs/Intake and Output Vital Signs (last 24 hours): Temp Pulse Resp BP Pulse Ox 97.3 F L 78 18 113/76 97 10/07/17 23:23 10/07/17 23:23 10/07/17 23:23 10/07/17 23:23 10/07/17 23:23 Intake and Output: 10/07/17 10/08/17 18:59 06:59 Intake Total 560 1030 Output Total 1 500 Balance 559 530 - Medications Medications: Current Medications Albuterol/Ipratropium (Duoneb 3 Mg/0.5 Mg (3 Ml) Ud) 3 ml INH RQ4 PRN PRN Reason: Shortness of Breath Amantadine HCl (Amantadine 100 Mg Cap) 100 mg PO BID [facility] Last Admin: 10/07/17 17:46 Dose: 100 mg Artificial Tears (Artificial Tears) 1 ml OU Q4 PRN PRN Reason: Other Last Admin: 10/01/17 18:31 Dose: 1 drop Folic Acid (Folic Acid) 1 mg PO DAILY [facility] Last Admin: 10/07/17 10:42 Dose: 1 mg Heparin Sodium (Porcine) (Heparin) 5,000 units SC Q8 [facility] Last Admin: 10/07/17 22:12 Dose: Not Given Tigecycline 50 mg/ Sodium (Chloride) 100 mls @ 100 mls/hr IVPB Q12H [facility] PRN Reason: Protocol Last Admin: 10/08/17 04:17 Dose: 100 mls/hr Colistimethate Sodium 80 mg/ (Sodium Chloride) 100 mls @ 200 mls/hr IV Q12H [facility] PRN Reason: Protocol Last Admin: 10/08/17 04:16 Dose: 200 mls/hr Sodium Chloride (Sodium Chloride 0.45%) 1,000 mls @ 100 mls/hr IV .Q10H [facility] Last Admin: 10/08/17 02:51 Dose: 100 mls/hr Metoprolol Tartrate (Lopressor) 25 mg PO BID [facility] Last Admin: 10/07/17 17:41 Dose: Not Given Multivitamins (Hexavitamin) 1 tab PO DAILY [facility] Last Admin: 10/07/17 10:42 Dose: 1 tab Pramipexole Dihydrochloride (Mirapex) 1.5 mg PO TIDCC [facility] Last Admin: 10/07/17 17:46 Dose: 1.5 mg Quetiapine Fumarate (Seroquel) 25 mg PO DAILY [facility] Last Admin: 10/07/17 10:42 Dose: 25 mg Tamsulosin HCl (Flomax) 0.4 mg PO DAILY [facility] Last Admin: 10/07/17 10:42 Dose: 0.4 mg Thiamine HCl (Vitamin B1 Tab) 100 mg PO DAILY [facility] Last Admin: 10/07/17 10:42 Dose: 100 mg Trazodone HCl (Desyrel) 50 mg PO HS [facility] Last Admin: 10/07/17 22:12 Dose: Not Given - Labs Labs: 10/07/17 08:07 10/07/17 08:07 Assessment and Plan - Assessment and Plan (Free Text) Plan: 51 year old male with no PMD who was admitted for ETOH detox, currently evaluated for lower extremity weakness, confusion. Plan: 1. Ambulatory Dysfunction with Hx of fall - Neurology consulted, Dr. Abdi, to rule out neurologic causes of ambulatory dysfunction. Help appreciated. - Per Neurology, dysfunction may be due to parkinson's - 09/19 Lumbar xray: unremarkable - 09/03 Lumbar MRI: Multilevel facet arthropathy. No disc herniations nor significant disc bulges. Small annual fissure seen within the L4-L5 and L5-S1 posterior lateral disc margins as outlined above - 09/[address]: no evidence of acute intracranial hemorrhage intracranial collection mass effect or midline shift. Moderate atrophy. 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 - 09/22 Brain MRI: no acute intracranial hemorrhage or infarction; minimal chronic pervientricular white matter ischemic changes; moderate generalized volume loss; no enhancing lesions. -10/03 f/u EEG - TSH wnl - Folate >20, wnl, Vit B12 >1000 H - Fall precautions - PT/OT Medication: - Pramipexole 1.5mg PO TID at 7am, 12pm, & 3pm (started 0.25 on 09/19 by neurologist) * Per neurology recommendation: Target goal of increasing mirapex 0.25 mg PO BID daily, with a target dose of 1.5 mg PO q 8 hours for maintenance. * Please note this should be timed last dose of medication should be before 5PM. - Discontinued Valproic acid due to transaminitis on 09/29 -10/03: pt started on Amantadine 100mg PO BID -10/06: started lactulose 200mg WA, discontinued Po 2. Urinary Retention Hypernatremia - Repeat UA and urine culture ordered. As per nurse, urine could not be obtained via straight cath. Bladder scan revealed 120cc of urine. - Nephrology consulted, Dr. Arrieta. Help appreciated. - Renal US: Unremarkable ultrasound. No significant post-void residual volume. - As per Nephrology note, likely secondary to poor oral intake and increased GI losses - 10/07/17: Na elevated at 149 - Lactulose D/sonia - 1/2 NS @ 100cc/hr 3. UTI, VRE+ -10/03 UA: trace leukocyte Esterase, 6RBC, rare bacteria -10/04 Started on Zoxyn 3.375 IVQH -10/04 Started on Tamsulosin 0.4mg PO daily for retention -f/u bladder scan -10/06 urine culture VRE+ -Id, Dr. Garcia, consulted. Placed patient on Colistimethate 80mg IV 4. Right middle lobe pneumonia -10/03 CXR: Interval atelectasis or infiltrate in R middle lobe. Linear atelectasis L base.. No cardiomegaly or pulmonary congestion. -Serology: Flu, Legionella, mycoplasma, N Meningiditis, N. meningi B/E.coli, Group B strep, S. pneumoniae all negative - Zoxyn 3.375 IVQH was discontinued--> Colistimethate 80mg IV, Tigecycline 50mg IV 5. Hyperammonemia - Ammonia level: -09/17: 31, wnl -09/22: 22, wnl -10/03: 37, elevated -10/03 pt started on Lactulose 20gm PO QID->discontinued 6. leukocytosis- persistent -10/03 CXR: Interval atelectasis or infiltrate R middle lobe. Linear atelectasis L base. No cardiomegaly or pulmonary vascular congestion. -Order placed for Duonebs 3ml INH RQ4 PRN shortness of breath -F/U blood cx- No growth 4 days -F/u urine cx-VRE + -Hematology, consulted, help appreciated. -suspect rebound leukocytosis from bone marrow suppression from alcohol. Anemia also suspected from alcohol induced bone marrow suppression-will check retic count, b12, folate, ferritin 7. Alcohol dependence with withdrawal Per Psychiatry Transferred from Detox to Med/Surg Floors Continue to monitor Medications: - Seroquel 12.5mg PO HS prn for agitation (per neurologist) - Trazadone 50mg PO HS - Folic Acid 1mg PO daily - Multivitamin daily - Thiamine 100mg PO daily 8. Hypomagnesemia-stable -10/03 M.4 -Mg sulfate 4gm IVPB oce -10/04 M.8 9. Tachycardia likely secondary to withdrawal-stable - Started on Lopressor 25mg PO BID (active since 09/23) - TSH: wnl - Free T4: 1.41 - DDimer: 736 - CTA: neg for PE - LE dopplers- negative 10. Hepatitis C reactive -Outpatient follow up 11. Transaminitis-stable -D/C hepatoxic medications -Continue to monitor 12. Conjunctivits- resolved -Artificial tears -Tobramycin opht solution OU Q6H- discontinued on 09/27 13. Thrombocytopenia-resolved - HIV: negative - Hepatitis B panel: negative - Hepatitis C reactive - Abdominal US: hepatomegaly, hepatic steatosis - Likely secondary to alcohol abuse 14. Prophylaxis -Fall precautions -PT/OT eval -Aspiration/seizure precautions -case management/social consult for DC planning to rehab facility -Heparin 5000 U SC Q8 <Patrizia Gonzalez V - Last Filed: 10/08/17 10:35> Objective - Vital Signs/Intake and Output Vital Signs (last 24 hours): Temp Pulse Resp BP Pulse Ox 98.3 F 81 20 112/78 99 10/08/17 07:43 10/08/17 07:43 10/08/17 07:43 10/08/17 07:43 10/08/17 07:43 Intake and Output: 10/08/17 10/08/17 06:59 18:59 Intake Total 1030 700 Output Total 500 0 Balance 530 700 - Medications Medications: Current Medications Albuterol/Ipratropium (Duoneb 3 Mg/0.5 Mg (3 Ml) Ud) 3 ml INH RQ4 PRN PRN Reason: Shortness of Breath Amantadine HCl (Amantadine 100 Mg Cap) 100 mg PO BID [facility] Last Admin: 10/07/17 17:46 Dose: 100 mg Artificial Tears (Artificial Tears) 1 ml OU Q4 PRN PRN Reason: Other Last Admin: 10/01/17 18:31 Dose: 1 drop Folic Acid (Folic Acid) 1 mg PO DAILY [facility] Last Admin: 10/07/17 10:42 Dose: 1 mg Heparin Sodium (Porcine) (Heparin) 5,000 units SC Q8 [facility] Last Admin: 10/08/17 06:06 Dose: 5,000 units Tigecycline 50 mg/ Sodium (Chloride) 100 mls @ 100 mls/hr IVPB Q12H [facility] PRN Reason: Protocol Last Admin: 10/08/17 04:17 Dose: 100 mls/hr Colistimethate Sodium 80 mg/ (Sodium Chloride) 100 mls @ 200 mls/hr IV Q12H [facility] PRN Reason: Protocol Last Admin: 10/08/17 04:16 Dose: 200 mls/hr Sodium Chloride (Sodium Chloride 0.45%) 1,000 mls @ 100 mls/hr IV .Q10H [facility] Last Admin: 10/08/17 02:51 Dose: 100 mls/hr Magnesium Sulfate/Dextrose (Magnesium Sulfate 1 Gm/100 Ml D5w) 1 gm in 100 mls @ 300 mls/hr IVPB Q30M [facility] Stop: 10/08/17 10:49 Metoprolol Tartrate (Lopressor) 25 mg PO BID [facility] Last Admin: 10/07/17 17:41 Dose: Not Given Multivitamins (Hexavitamin) 1 tab PO DAILY [facility] Last Admin: 10/07/17 10:42 Dose: 1 tab Pramipexole Dihydrochloride (Mirapex) 1.5 mg PO TIDCC [facility] Last Admin: 10/08/17 08:14 Dose: 1.5 mg Quetiapine Fumarate (Seroquel) 25 mg PO DAILY [facility] Last Admin: 10/07/17 10:42 Dose: 25 mg Saccharomyces Boulardii (Florastor) 250 mg PO BID [facility] Tamsulosin HCl (Flomax) 0.4 mg PO DAILY [facility] Last Admin: 10/07/17 10:42 Dose: 0.4 mg Thiamine HCl (Vitamin B1 Tab) 100 mg PO DAILY [facility] Last Admin: 10/07/17 10:42 Dose: 100 mg Trazodone HCl (Desyrel) 50 mg PO HS [facility] Last Admin: 10/07/17 22:12 Dose: Not Given - Labs Labs: 10/08/17 07:51 10/08/17 07:51 - Constitutional Appears: Non-toxic, No Acute Distress, Cachectic - Head Exam Head Exam: NORMAL INSPECTION - Eye Exam Eye Exam: EOMI - ENT Exam ENT Exam: Mucous Membranes Moist - Respiratory Exam Respiratory Exam: Clear to Ausculation Bilateral, NORMAL BREATHING PATTERN. absent: Rales, Rhonchi, Wheezes - Cardiovascular Exam Cardiovascular Exam: RRR, +S1, +S2 - GI/Abdominal Exam GI & Abdominal Exam: Soft, Normal Bowel Sounds. absent: Distended, Firm, Guarding, Rigid, Tenderness, Rebound - Extremities Exam Additional comments: poor muscle tone bilateral no edema, no cyanosis no clubbing - Neurological Exam Neurological Exam: Alert, Awake Neuro motor strength exam: Left Upper Extremity: 5, Right Upper Extremity: 5, Left Lower Extremity: 5, Right Lower Extremity: 5 - Skin Skin Exam: Dry, Intact, Normal Color, Warm Assessment and Plan (1) Alcohol dependence Status: Acute (2) Ambulatory dysfunction Status: Acute (3) Abnormal gait Status: Acute (4) Tremor Status: Acute Attending/Attestation - Attestation I have personally seen and examined this patient.: Yes I have fully participated in the care of the patient.: Yes I have reviewed all pertinent clinical information, including history, physical exam and plan: Yes Notes (Text): Patient seen, examined and case discussed with day-time resident. Patient is more awake and alert today seen this morning at 10AM. Patient is speaking well in Sinhala and Yakut more communicative this morning at this time. Patient able to follow directions. Not aggressive at bedside. I spoke with the CP at bedside. No events noted overnight. patient did void today about 300c when I spoke with the CP this morning. possible side effect since on Amantadine (se: anticholinergic) White count has normalized. Afebrile. Reviewed neurology, infectious disease, and nephrology notes-->help appreciated We will need to f/u urine culture and procalcitonin. Assessment/Plan (1) Ambulatory dysfunction Suspected Parkinson's Disease Assessment and Plan: * Neurology consulted, Dr. Abdi, help appreciated * Per Neurology, dysfunction may be due to parkinson's * Transferred to medical floors on 09/19/17 * Lumbar xray: unremarkable * Lumbar MRI: Limited motion degraded study. Multilevel facet arthropathy. No disc herniations nor significant disc bulges. Small annual fissure seen within the L4-L5 and L5-S1 posterior lateral disc margins as outlined above * Head CT: no evidence of acute intracranial hemorrhage intracranial collection mass effect or midline shift. Moderate atrophy. Mild white matter changes likely represent chronic microvacular ischemic disease * Brain MRI: No acute intracranial hemorrhage or infarction. Minimal chronic periventricular white matter ischemic changes. Moderate generalized volume loss. No enhancing lesions. * Ammonia level: 31, wnl * TSH wnl * Folate >20, wnl, Vit B12 >1000 H * Fall precautions * PT/OT eval * Medication: * Pramipexole 1.5 mg by mouth 3 times a day specifically at 7 AM 12 PM and 3 PM and advised and neurology did not give a dose after 5 PM because it'll cause patient to become very restless. * Amantadine 100 mg by mouth twice a day (2) Alcohol dependence/withdrawal-->resolved Cognitive Decline to Multifactorial (Alcohol and Parkinsons) Assessment and Plan: * Completed detox * Transferred from Detox to Med/Surg Floors on 09/19/17 * Continue to monitor Medications: * Pramipexole 1.5 mg by mouth 3 times a day specifically at 7 AM 12 PM and 3 PM and advised and neurology did not give a dose after 5 PM because it'll cause patient to become very restless. * Amantadine 100 mg by mouth twice a day * Seroquel 25 mg PO daily prn for agitation (per neurologist) * Trazadone 50mg PO HS * Folic Acid 1mg PO daily * Multivitamin daily * Thiamine 100mg PO daily (3) VRE UTI Assessment and Plan: * Infectious Disease (Dr. Monk) on case-->help appreciated * Urine culture (10/04/17): VRE * Follow-up repeat urine culture (10/07/17): pending * Tigecycline 50mg IVPB Q12h (active since 10/06/17) * Colistimethate 80mg IVPNB Q12H (10/06/17) * on contact isolation (4) Leukocytosis-->normalized Assessment and Plan: * Hematology oncology consult Dr. Hargrove help appreciated * Likely reactive given alcohol hx * Infectious Disease consult, Dr. Monk, help appreciated\ * VRE UTI treatment * Blood cultures (09/25/17): negative * Urine culture (09/25/17): no growth * Completed 5 days of IV abx * Pro-calcitonin is elevated--> improved * Blood cultures (10/03/17): no growth after 4 days X2 * Urine culture (09/24/17): No growth * Urine culture (10/04/17): VRE * Urine culture (10/07/17): follow-up * Chest xray (10/03/17): interval atelectasis or infiltrate right middle lobe. linear atelectasis left base. No cardiomegaly or pulmonary vascular congestion. * Procalcitonin (09/24/17): 0.94---> (10/02/17): 0.55-->will order for repeat (5) Hypernatremia-->normalized Assessment and Plan: * Nephrology (Dr. Arrieta) on consult-->help appreciated * suspected secondary to lactulose * Will monitor patients oral intake-->he only eats the side dishes for breakfast * Bladder US (10/07/17): unremarkable renal and bladder US. No significant postvoid residual volume * Normalized 10/08/17 * Urine osmolarity: 814 (normal) * Urine random sodium: 157 (6) Urinary retention Assessment and Plan: * Bladder US (10/07/17): unremarkable renal and bladder US. No significant postvoid residual volume * Patient has voided today 10/08/17 * possible side effect from amantadine (anticholinergic) (7) Hx of Fall-->past Assessment and Plan: * CT Head (09/19/17): no evidence of acute intracranial hemorrhage intracranial collection mass effect or midline shift. Moderate atrophy. Mild white matter changes likely reprsent chronic microvascular ischemic disease * Lumbar xray (09/19/17): unremarkable * Lumbar MRI: Limited motion degraded study. Multilevel facet arthropathy. No disc herniations nor significant disc bulges. Small annual fissure seen within the L4-L5 and L5-S1 posterior lateral disc margins as outlined above (8) Tachycardia-->controlled Assessment and Plan: * CT angio (09/23/17): No evidence of acute central pulmonary embolus. Multiple calcified granulomata scattered throughout the right lung and to a lesser degree left lung findings consistent with prior exposure to granulomatous disease process. Mild dependent atelectasis both posterior lower lung zones mild scarring of the left lung base borderline splenomegaly * Thyroid studies are within normal * Suspecting tachycardia secondary to withdrawal * Patient start on Lopressor 25 mg by mouth twice a day since September 23 (9) Conjunctivitis-->resolved Assessment and Plan: * Started on Tobrex 0.3 every 6 hours since September 21 and finished (10) Thrombocytopenia-->resolved Assessment and Plan: * HIV: negative * Hepatitis panel: negative * Abdominal US: hepatomegaly, hepatic steatosis * Have normalized (11) Hepatitis C Reactive-->treated in the past Assessment and Plan: * Patient reports he has been treated for hepatitis C. (12) Prophylaxis Assessment and Plan: * Fall precautions * PT/OT eval * Heparin 5000 subcutaneous 8H for DVT prophylaxis * Aspiration precautions * Seizure precautions
[2017-10-08 07:43] VITALS: RESP 20
[2017-10-08 08:09] LABS: BASO # 0.1 K/uL (0.0-0.2); BASO % 1.3 % (0.0-2.0); EOS # 0.2 K/uL (0.0-0.7); EOS % 1.9 % (0.0-4.0); HEMOGLOBIN 11.9 g/dL (12.0-18.0); LYMPH # 1.9 K/uL (1.0-4.3); LYMPH % 18.4 % (20.0-40.0); MEAN CELL VOLUME 104.1 fL (80.0-94.0); MEAN CORPUSCULAR HEMOGLOBIN 35.2 pg (27.0-31.0); MEAN CORPUSCULAR HGB CONC 33.8 g/dL (33.0-37.0); MEAN PLATELET VOLUME 10.6 fL (7.2-11.7); MONO # 0.7 K/uL (0.0-0.8); MONO % 6.8 % (0.0-10.0); NEUT # 7.4 K/uL (1.8-7.0); NEUT % 71.6 % (50.0-75.0); NRBC % 0.1 % (0.0-2.0); RBC 3.38 Mil/uL (4.40-5.90); RED CELL DISTRIBUTION WIDTH 14.5 % (11.5-14.5); WHITE BLOOD COUNT 10.4 K/uL (4.8-10.8)
[2017-10-08 08:14] LABS: ALB/GLOB RATIO 0.9 (1.0-2.1); ALT/SGPT 63 U/L (21-72); AST/SGOT 81 U/L (17-59); BLOOD UREA NITROGEN 10 mg/dL (9-20); CALCIUM 8.7 mg/dl (8.6-10.4); GFR AFRICAN-AMERICAN > 60; GFR NON-AFRICAN AMERICAN > 60
[2017-10-08] MEDS: Magnesium Sulfate 1 gm in D5W 1 GM/100 ML BAG IVPB SCH ×2 (11:29→12:11)
[2017-10-08] MEDS: Saccharomyces Boulardi 250 mg Cap PO SCH ×2 (11:30→17:36)
[2017-10-08] MEDS: Multiple Vitamins Tab PO SCH (11:30)
--- NOTE | 2017-10-09 04:06 | CP.PCM.PN ---
<Lola Dennison P - Last Filed: 10/09/17 04:33> Subjective - Date & Time of Evaluation Date of Evaluation: 10/09/17 Time of Evaluation: 01:00 - Subjective Subjective: Medicine progress noted for Dr. Gonzalez. Patient was seen and evaluated at bedside. Patient in no acute distress, awake and alert. Patient was encouraged to eat and drink fluids. Patient states he had and ensure and a half for dinner last night. As per nurse, patient has periods of extreme sleepiness and at other times is restless, tries to punch the olivas and get out of bed. Denies chest pain, shortness of breath, abdominal pain, nausea, vomiting, headache, fever, and chills. Objective - Vital Signs/Intake and Output Vital Signs (last 24 hours): Temp Pulse Resp BP Pulse Ox 98.1 F 76 20 121/83 97 10/09/17 00:35 10/09/17 00:35 10/09/17 00:35 10/09/17 00:35 10/09/17 00:35 Intake and Output: 10/08/17 10/09/17 18:59 06:59 Intake Total 1890 Output Total 650 Balance 1240 - Medications Medications: Current Medications Albuterol/Ipratropium (Duoneb 3 Mg/0.5 Mg (3 Ml) Ud) 3 ml INH RQ4 PRN PRN Reason: Shortness of Breath Amantadine HCl (Amantadine 100 Mg Cap) 100 mg PO BID [facility] Last Admin: 10/08/17 17:36 Dose: 100 mg Artificial Tears (Artificial Tears) 1 ml OU Q4 PRN PRN Reason: Other Last Admin: 10/01/17 18:31 Dose: 1 drop Folic Acid (Folic Acid) 1 mg PO DAILY [facility] Last Admin: 10/08/17 11:30 Dose: 1 mg Heparin Sodium (Porcine) (Heparin) 5,000 units SC Q8 [facility] Last Admin: 10/08/17 21:51 Dose: 5,000 units Tigecycline 50 mg/ Sodium (Chloride) 100 mls @ 100 mls/hr IVPB Q12H [facility] PRN Reason: Protocol Last Admin: 10/08/17 17:35 Dose: 100 mls/hr Colistimethate Sodium 80 mg/ (Sodium Chloride) 100 mls @ 200 mls/hr IV Q12H [facility] PRN Reason: Protocol Last Admin: 10/08/17 16:30 Dose: 200 mls/hr Sodium Chloride (Sodium Chloride 0.45%) 1,000 mls @ 70 mls/hr IV .[id number] [facility] Last Admin: 10/08/17 12:50 Dose: 70 mls/hr Metoprolol Tartrate (Lopressor) 25 mg PO BID [facility] Last Admin: 10/08/17 17:37 Dose: 25 mg Multivitamins (Hexavitamin) 1 tab PO DAILY [facility] Last Admin: 10/08/17 11:30 Dose: 1 tab Pramipexole Dihydrochloride (Mirapex) 1.5 mg PO TIDCC [facility] Last Admin: 10/08/17 17:36 Dose: 1.5 mg Quetiapine Fumarate (Seroquel) 25 mg PO DAILY [facility] Last Admin: 10/08/17 11:30 Dose: 25 mg Saccharomyces Boulardii (Florastor) 250 mg PO BID [facility] Last Admin: 10/08/17 17:36 Dose: 250 mg Tamsulosin HCl (Flomax) 0.4 mg PO DAILY [facility] Last Admin: 10/08/17 11:30 Dose: 0.4 mg Thiamine HCl (Vitamin B1 Tab) 100 mg PO DAILY [facility] Last Admin: 10/08/17 11:30 Dose: 100 mg Trazodone HCl (Desyrel) 50 mg PO HS [facility] Last Admin: 10/08/17 21:51 Dose: 50 mg - Labs Labs: 10/08/17 07:51 10/08/17 07:51 - Constitutional Appears: No Acute Distress, Unkempt - Head Exam Head Exam: ATRAUMATIC, NORMOCEPHALIC - Eye Exam Eye Exam: EOMI - ENT Exam ENT Exam: Mucous Membranes Moist - Respiratory Exam Respiratory Exam: Clear to Ausculation Bilateral. absent: Rales, Rhonchi, Wheezes - Cardiovascular Exam Cardiovascular Exam: REGULAR RHYTHM, +S1, +S2 - GI/Abdominal Exam GI & Abdominal Exam: Soft, Normal Bowel Sounds. absent: Tenderness - Extremities Exam Extremities Exam: absent: Pedal Edema, Tenderness - Neurological Exam Neurological Exam: Alert - Psychiatric Exam Psychiatric exam: Normal Mood - Skin Skin Exam: Dry, Intact, Warm Assessment and Plan - Assessment and Plan (Free Text) Plan: 51 year old male with no PMD who was admitted for ETOH detox, currently evaluated for lower extremity weakness, confusion. Plan: 1. Ambulatory Dysfunction with Hx of fall - Neurology consulted, Dr. Abdi, to rule out neurologic causes of ambulatory dysfunction. Help appreciated. - Per Neurology, dysfunction may be due to parkinson's - 09/19 Lumbar xray: unremarkable - 09/03 Lumbar MRI: Multilevel facet arthropathy. No disc herniations nor significant disc bulges. Small annual fissure seen within the L4-L5 and L5-S1 posterior lateral disc margins as outlined above - 09/[address]: no evidence of acute intracranial hemorrhage intracranial collection mass effect or midline shift. Moderate atrophy. 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 - 09/22 Brain MRI: no acute intracranial hemorrhage or infarction; minimal chronic pervientricular white matter ischemic changes; moderate generalized volume loss; no enhancing lesions. -10/03 f/u EEG - TSH wnl - Folate >20, wnl, Vit B12 >1000 H - Fall precautions - PT/OT Medication: - Pramipexole 1.5mg PO TID at 7am, 12pm, & 3pm (started 0.25 on 09/19 by neurologist) * Per neurology recommendation: Target goal of increasing mirapex 0.25 mg PO BID daily, with a target dose of 1.5 mg PO q 8 hours for maintenance. * Please note this should be timed last dose of medication should be before 5PM. - Discontinued Valproic acid due to transaminitis on 09/29 -10/03: pt started on Amantadine 100mg PO BID -10/06: started lactulose 200mg [place], discontinued Po 2. Urinary Retention Hypernatremia - Repeat UA and urine culture ordered. As per nurse, urine could not be obtained via straight cath. Bladder scan revealed 120cc of urine. - Nephrology consulted, Dr. Arrieta. Help appreciated. - Renal US: Unremarkable ultrasound. No significant post-void residual volume. - As per Nephrology note, likely secondary to poor oral intake and increased GI losses - 10/07/17: Na elevated at 149 - Lactulose D/sonia - 04/05 NS @ 100cc/hr 3. UTI, VRE+ -10/03 UA: trace leukocyte Esterase, 6RBC, rare bacteria -10/04 Started on Zoxyn 3.375 IVQH -10/04 Started on Tamsulosin 0.4mg PO daily for retention -f/u bladder scan -10/06 urine culture VRE+ -Id, Dr. Garcia, consulted. Placed patient on Colistimethate 80mg IV 4. Right middle lobe pneumonia -10/03 CXR: Interval atelectasis or infiltrate in R middle lobe. Linear atelectasis L base.. No cardiomegaly or pulmonary congestion. -Serology: Flu, Legionella, mycoplasma, N Meningiditis, N. meningi B/E.coli, Group B strep, S. pneumoniae all negative - Zoxyn 3.375 IVQH was discontinued--> Colistimethate 80mg IV, Tigecycline 50mg IV 5. Hyperammonemia - Ammonia level: -09/17: 31, wnl -09/22: 22, wnl -10/03: 37, elevated -10/03 pt started on Lactulose 20gm PO QID->discontinued 6. leukocytosis- persistent -10/03 CXR: Interval atelectasis or infiltrate R middle lobe. Linear atelectasis L base. No cardiomegaly or pulmonary vascular congestion. -Order placed for Duonebs 3ml INH RQ4 PRN shortness of breath -F/U blood cx- No growth 4 days -F/u urine cx-VRE + -Hematology, consulted, help appreciated. -suspect rebound leukocytosis from bone marrow suppression from alcohol. Anemia also suspected from alcohol induced bone marrow suppression-will check retic count, b12, folate, ferritin 7. Alcohol dependence with withdrawal Per Psychiatry Transferred from Detox to Med/Surg Floors Continue to monitor Medications: - Seroquel 12.5mg PO HS prn for agitation (per neurologist) - Trazadone 50mg PO HS - Folic Acid 1mg PO daily - Multivitamin daily - Thiamine 100mg PO daily 8. Hypomagnesemia-stable -10/03 M.4 -Mg sulfate 4gm IVPB oce -10/04 M.8 9. Tachycardia likely secondary to withdrawal-stable - Started on Lopressor 25mg PO BID (active since 09/23) - TSH: wnl - Free T4: 1.41 - DDimer: 736 - CTA: neg for PE - LE dopplers- negative 10. Hepatitis C reactive -Outpatient follow up 11. Transaminitis-stable -D/C hepatoxic medications -Continue to monitor 12. Conjunctivits- resolved -Artificial tears -Tobramycin opht solution OU Q6H- discontinued on 09/27 13. Thrombocytopenia-resolved - HIV: negative - Hepatitis B panel: negative - Hepatitis C reactive - Abdominal US: hepatomegaly, hepatic steatosis - Likely secondary to alcohol abuse 14. Prophylaxis -Fall precautions -PT/OT eval -Aspiration/seizure precautions -case management/social consult for DC planning to rehab facility -Heparin 5000 U SC Q8 <Patrizia Gonzalez V - Last Filed: 10/09/17 20:31> Objective - Vital Signs/Intake and Output Vital Signs (last 24 hours): Temp Pulse Resp BP Pulse Ox 98.1 F 76 20 120/80 97 10/09/17 00:35 10/09/17 00:35 10/09/17 00:35 10/09/17 09:33 10/09/17 00:35 Intake and Output: 10/09/17 10/10/17 18:59 06:59 Intake Total 200 Balance 200 - Medications Medications: Current Medications Albuterol/Ipratropium (Duoneb 3 Mg/0.5 Mg (3 Ml) Ud) 3 ml INH RQ4 PRN PRN Reason: Shortness of Breath Amantadine HCl (Amantadine 100 Mg Cap) 100 mg PO BID [facility] Last Admin: 10/09/17 17:57 Dose: Not Given Artificial Tears (Artificial Tears) 1 ml OU Q4 PRN PRN Reason: Other Last Admin: 10/01/17 18:31 Dose: 1 drop Folic Acid (Folic Acid) 1 mg PO DAILY [facility] Last Admin: 10/09/17 09:35 Dose: 1 mg Heparin Sodium (Porcine) (Heparin) 5,000 units SC Q8 [facility] Last Admin: 10/09/17 06:28 Dose: 5,000 units Tigecycline 50 mg/ Sodium (Chloride) 100 mls @ 100 mls/hr IVPB Q12H [facility] PRN Reason: Protocol Last Admin: 10/09/17 17:57 Dose: 100 mls/hr Colistimethate Sodium 80 mg/ (Sodium Chloride) 100 mls @ 200 mls/hr IV Q12H [facility] PRN Reason: Protocol Last Admin: 10/09/17 16:11 Dose: 200 mls/hr Sodium Chloride (Sodium Chloride 0.9%) 1,000 mls @ 40 mls/hr IV .Q24H [facility] Last Admin: 10/09/17 14:00 Dose: 40 mls/hr Metoprolol Tartrate (Lopressor) 25 mg PO BID [facility] Last Admin: 10/09/17 17:58 Dose: Not Given Multivitamins (Hexavitamin) 1 tab PO DAILY [facility] Last Admin: 10/09/17 09:33 Dose: 1 tab Pramipexole Dihydrochloride (Mirapex) 1.5 mg PO TIDCC [facility] Last Admin: 10/09/17 17:58 Dose: Not Given Quetiapine Fumarate (Seroquel) 25 mg PO DAILY [facility] Last Admin: 10/09/17 09:36 Dose: 25 mg Saccharomyces Boulardii (Florastor) 250 mg PO BID [facility] Last Admin: 10/09/17 17:58 Dose: Not Given Tamsulosin HCl (Flomax) 0.4 mg PO DAILY [facility] Last Admin: 10/09/17 09:35 Dose: 0.4 mg Thiamine HCl (Vitamin B1 Tab) 100 mg PO DAILY [facility] Last Admin: 10/09/17 09:35 Dose: 100 mg Trazodone HCl (Desyrel) 50 mg PO HS [facility] Last Admin: 10/08/17 21:51 Dose: 50 mg - Labs Labs: 10/09/17 08:58 10/09/17 08:58 Assessment and Plan (1) Alcohol dependence Status: Acute (2) Ambulatory dysfunction Status: Acute (3) Abnormal gait Status: Acute (4) Tremor Status: Acute Attending/Attestation - Attestation I have personally seen and examined this patient.: Yes I have fully participated in the care of the patient.: Yes I have reviewed all pertinent clinical information, including history, physical exam and plan: Yes Notes (Text): Patient seen, examined this afternoon at lunch time. Patient able to follow directions. Not aggressive at bedside. I spoke with the CP at bedside. Patient was agitated overnight; require dose of Ativan 1mg IvX1. Later in the afternoon , noted to be hallucinating and trying to get out of bed to leave. Patient's agitation noted controlled with Seroquel 25mg PO X1; requiring Ativan 1mg IV X1. Patient is not eating the meals at bedside; He is only eating the side meals like yogurt, banana. I have also told him he can ask his to bring food from home. Repeat urine culture shows VRE clearance-->We will need to f/u with infectious disease; since patient is on 2 IV Abx that I do not believe we can give him at the assisted. Also, we need to f/u with neurology regarding d/c planning for management and optimization of Parkinson's. Procalcitonin is normalized. Assessment/Plan (1) Ambulatory dysfunction Suspected Parkinson's Disease Assessment and Plan: * Neurology consulted, Dr. Abdi, help appreciated * Per Neurology, dysfunction may be due to parkinson's * Transferred to medical floors on 09/19/17 * Lumbar xray: unremarkable * Lumbar MRI: Limited motion degraded study. Multilevel facet arthropathy. No disc herniations nor significant disc bulges. Small annual fissure seen within the L4-L5 and L5-S1 posterior lateral disc margins as outlined above * Head CT: no evidence of acute intracranial hemorrhage intracranial collection mass effect or midline shift. Moderate atrophy. Mild white matter changes likely represent chronic microvacular ischemic disease * Brain MRI: No acute intracranial hemorrhage or infarction. Minimal chronic periventricular white matter ischemic changes. Moderate generalized volume loss. No enhancing lesions. * Ammonia level: 31, wnl * TSH wnl * Folate >20, wnl, Vit B12 >1000 H * Fall precautions * PT/OT eval * Medication: * Pramipexole 1.5 mg by mouth 3 times a day specifically at 7 AM 12 PM and 3 PM and advised and neurology did not give a dose after 5 PM because it'll cause patient to become very restless. * Amantadine 100 mg by mouth twice a day (2) Alcohol dependence/withdrawal-->resolved Cognitive Decline to Multifactorial (Alcohol and Parkinsons) Assessment and Plan: * Completed detox * Transferred from Detox to Med/Surg Floors on 09/19/17 * Continue to monitor Medications: * Pramipexole 1.5 mg by mouth 3 times a day specifically at 7 AM 12 PM and 3 PM and advised and neurology did not give a dose after 5 PM because it'll cause patient to become very restless. * Amantadine 100 mg by mouth twice a day * Seroquel 25 mg PO daily prn for agitation (per neurologist)-->does not control patient * Trazadone 50mg PO HS * Folic Acid 1mg PO daily * Multivitamin daily * Thiamine 100mg PO daily (3) VRE UTI Assessment and Plan: * Infectious Disease (Dr. Monk) on case-->help appreciated * Urine culture (10/04/17): VRE * Repeat urine culture (10/07/17): No growth * Tigecycline 50mg IVPB Q12h (active since 10/06/17) * Colistimethate 80mg IVPNB Q12H (10/06/17) * on contact isolation (4) Leukocytosis-->normalized Assessment and Plan: * Hematology oncology consult Dr. Hargrove help appreciated * Likely reactive given alcohol hx * Infectious Disease consult, Dr. Monk, help appreciated\ * VRE UTI treatment * Blood cultures (09/25/17): negative * Urine culture (09/25/17): no growth * Completed 5 days of IV abx * Pro-calcitonin is elevated--> improved * Blood cultures (10/03/17): no growth after 4 days X2 * Urine culture (09/24/17): No growth * Urine culture (10/04/17): VRE * Urine culture (10/07/17): No growth * Chest xray (10/03/17): interval atelectasis or infiltrate right middle lobe. linear atelectasis left base. No cardiomegaly or pulmonary vascular congestion. * Procalcitonin (09/24/17): 0.94---> (10/02/17): 0.55-->0.41 (5) Hypernatremia-->normalized Assessment and Plan: * Nephrology (Dr. Arrieta) on consult-->help appreciated * suspected secondary to lactulose * Will monitor patients oral intake-->he only eats the side dishes for breakfast * Bladder US (10/07/17): unremarkable renal and bladder US. No significant postvoid residual volume * Normalized 10/08/17 * Urine osmolarity: 814 (normal) * Urine random sodium: 157 (6) Urinary retention Assessment and Plan: * Bladder US (10/07/17): unremarkable renal and bladder US. No significant postvoid residual volume * Patient has voided today 10/08/17 * possible side effect from amantadine (anticholinergic) (7) Hx of Fall-->past Assessment and Plan: * CT Head (09/19/17): no evidence of acute intracranial hemorrhage intracranial collection mass effect or midline shift. Moderate atrophy. Mild white matter changes likely reprsent chronic microvascular ischemic disease * Lumbar xray (09/19/17): unremarkable * Lumbar MRI: Limited motion degraded study. Multilevel facet arthropathy. No disc herniations nor significant disc bulges. Small annual fissure seen within the L4-L5 and L5-S1 posterior lateral disc margins as outlined above (8) Tachycardia-->controlled Assessment and Plan: * CT angio (09/23/17): No evidence of acute central pulmonary embolus. Multiple calcified granulomata scattered throughout the right lung and to a lesser degree left lung findings consistent with prior exposure to granulomatous disease process. Mild dependent atelectasis both posterior lower lung zones mild scarring of the left lung base borderline splenomegaly * Thyroid studies are within normal * Suspecting tachycardia secondary to withdrawal * Patient start on Lopressor 25 mg by mouth twice a day since September 23 (9) Conjunctivitis-->resolved Assessment and Plan: * Started on Tobrex 0.3 every 6 hours since September 21 and finished (10) Thrombocytopenia-->resolved Assessment and Plan: * HIV: negative * Hepatitis panel: negative * Abdominal US: hepatomegaly, hepatic steatosis * Have normalized (11) Hepatitis C Reactive-->treated in the past Assessment and Plan: * Patient reports he has been treated for hepatitis C. (12) Prophylaxis Assessment and Plan: * Fall precautions * PT/OT eval * Heparin 5000 subcutaneous 8H for DVT prophylaxis * Aspiration precautions * Seizure precaution Disposition: f/u with infectious disease given repeat urine culture shows no growth. patient is currently on colistin and trigeycyline--->monitor renal function. Will need to f/u with neurology regarding discharge planning purposes
[2017-10-09] MEDS: Sodium Chloride 0.45% 1,000 ML IV SCH (07:40)
--- NOTE | 2017-10-09 08:01 | CP.PCM.PN ---
Subjective - Date & Time of Evaluation Date of Evaluation: 10/08/17 Time of Evaluation: 12:30 - Subjective Subjective: Patient still reporting weakness in legs; tolerating diet; no breathing complaints; Objective - Vital Signs/Intake and Output Vital Signs (last 24 hours): Temp Pulse Resp BP Pulse Ox 98.1 F 76 20 121/83 97 10/09/17 00:35 10/09/17 00:35 10/09/17 00:35 10/09/17 00:35 10/09/17 00:35 - Medications Medications: Current Medications Albuterol/Ipratropium (Duoneb 3 Mg/0.5 Mg (3 Ml) Ud) 3 ml INH RQ4 PRN PRN Reason: Shortness of Breath Amantadine HCl (Amantadine 100 Mg Cap) 100 mg PO BID [facility] Last Admin: 10/08/17 17:36 Dose: 100 mg Artificial Tears (Artificial Tears) 1 ml OU Q4 PRN PRN Reason: Other Last Admin: 10/01/17 18:31 Dose: 1 drop Folic Acid (Folic Acid) 1 mg PO DAILY [facility] Last Admin: 10/08/17 11:30 Dose: 1 mg Heparin Sodium (Porcine) (Heparin) 5,000 units SC Q8 [facility] Last Admin: 10/09/17 06:28 Dose: 5,000 units Tigecycline 50 mg/ Sodium (Chloride) 100 mls @ 100 mls/hr IVPB Q12H [facility] PRN Reason: Protocol Last Admin: 10/09/17 05:03 Dose: 100 mls/hr Colistimethate Sodium 80 mg/ (Sodium Chloride) 100 mls @ 200 mls/hr IV Q12H [facility] PRN Reason: Protocol Last Admin: 10/09/17 04:03 Dose: 200 mls/hr Sodium Chloride (Sodium Chloride 0.45%) 1,000 mls @ 70 mls/hr IV .[id number] [facility] Last Admin: 10/09/17 07:40 Dose: 70 mls/hr Metoprolol Tartrate (Lopressor) 25 mg PO BID [facility] Last Admin: 10/08/17 17:37 Dose: 25 mg Multivitamins (Hexavitamin) 1 tab PO DAILY [facility] Last Admin: 10/08/17 11:30 Dose: 1 tab Pramipexole Dihydrochloride (Mirapex) 1.5 mg PO TIDCC [facility] Last Admin: 10/09/17 07:43 Dose: 1.5 mg Quetiapine Fumarate (Seroquel) 25 mg PO DAILY [facility] Last Admin: 10/08/17 11:30 Dose: 25 mg Saccharomyces Boulardii (Florastor) 250 mg PO BID [facility] Last Admin: 10/08/17 17:36 Dose: 250 mg Tamsulosin HCl (Flomax) 0.4 mg PO DAILY [facility] Last Admin: 10/08/17 11:30 Dose: 0.4 mg Thiamine HCl (Vitamin B1 Tab) 100 mg PO DAILY [facility] Last Admin: 10/08/17 11:30 Dose: 100 mg Trazodone HCl (Desyrel) 50 mg PO HS [facility] Last Admin: 10/08/17 21:51 Dose: 50 mg - Labs Labs: 10/08/17 07:51 10/08/17 07:51 - Constitutional Appears: Non-toxic, No Acute Distress - Eye Exam Eye Exam: absent: Scleral icterus - ENT Exam ENT Exam: Mucous Membranes Moist - Respiratory Exam Respiratory Exam: Clear to Ausculation Bilateral. absent: Respiratory Distress - Cardiovascular Exam Cardiovascular Exam: RRR, +S1, +S2 - GI/Abdominal Exam GI & Abdominal Exam: Soft. absent: Distended, Tenderness - Extremities Exam Additional comments: no leg edema; - Neurological Exam Neurological Exam: Alert, Awake - Psychiatric Exam Psychiatric exam: Normal Mood. absent: Agitated - Skin Skin Exam: Warm. absent: Cyanosis Assessment and Plan (1) YORDAN (acute kidney injury) Assessment & Plan: Relatively mild, now resolved with IVF and better PO intake; continuing IVF in the setting of being on colistin (with the hope that ATN can be prevented - but not evidence based); decreasing 1/2NS to 70 cc/hr; Status: Acute (2) Hypernatremia Assessment & Plan: Resolved; secondary to inadequate free water intake with urine osm appropriately elevated; continuing hypotonic IVF for now, can switch to maintenance NS by tomorrow; Status: Resolved (3) UTI (urinary tract infection) Assessment & Plan: Multi-drug resistant enterococcus; on colistin, see above; Status: Acute
[2017-10-09 09:08] LABS: BASO # 0.1 K/uL (0.0-0.2); EOS # 0.1 K/uL (0.0-0.7); EOS % 1.3 % (0.0-4.0); HEMOGLOBIN 12.5 g/dL (12.0-18.0); LYMPH # 1.7 K/uL (1.0-4.3); LYMPH % 16.6 % (20.0-40.0); MEAN CELL VOLUME 102.2 fL (80.0-94.0); MEAN CORPUSCULAR HEMOGLOBIN 34.9 pg (27.0-31.0); MEAN CORPUSCULAR HGB CONC 34.2 g/dL (33.0-37.0); MEAN PLATELET VOLUME 10.1 fL (7.2-11.7); MONO # 0.7 K/uL (0.0-0.8); MONO % 6.6 % (0.0-10.0); NEUT # 7.5 K/uL (1.8-7.0); NEUT % 74.5 % (50.0-75.0); NRBC % 0.1 % (0.0-2.0); RBC 3.59 Mil/uL (4.40-5.90); RED CELL DISTRIBUTION WIDTH 14.5 % (11.5-14.5); WHITE BLOOD COUNT 10.1 K/uL (4.8-10.8)
[2017-10-09 09:21] LABS: ALB/GLOB RATIO 0.8 (1.0-2.1); ALBUMIN 3.1 g/dL (3.5-5.0); ALT/SGPT 61 U/L (21-72); AST/SGOT 82 U/L (17-59); BLOOD UREA NITROGEN 10 mg/dL (9-20); CALCIUM 8.5 mg/dl (8.6-10.4); GFR AFRICAN-AMERICAN > 60; GFR NON-AFRICAN AMERICAN > 60
[2017-10-09] MEDS: Multiple Vitamins Tab PO SCH (09:33)
[2017-10-09] MEDS: Saccharomyces Boulardi 250 mg Cap PO SCH ×3 (09:36→21:11)
[2017-10-09] MEDS ORDERED: Sodium Chloride 0.9% 1,000 ML IV SCH (13:00)
--- NOTE | 2017-10-09 14:36 | CP.PCM.PN ---
Subjective - Date & Time of Evaluation Date of Evaluation: 10/09/17 Time of Evaluation: 02:30 - Subjective Subjective: dictated Objective - Vital Signs/Intake and Output Vital Signs (last 24 hours): Temp Pulse Resp BP Pulse Ox 98.1 F 76 20 120/80 97 10/09/17 00:35 10/09/17 00:35 10/09/17 00:35 10/09/17 09:33 10/09/17 00:35 - Medications Medications: Current Medications Albuterol/Ipratropium (Duoneb 3 Mg/0.5 Mg (3 Ml) Ud) 3 ml INH RQ4 PRN PRN Reason: Shortness of Breath Amantadine HCl (Amantadine 100 Mg Cap) [address] [facility] Last Admin: 10/09/17 09:36 Dose: 100 mg Artificial Tears (Artificial Tears) 1 ml OU Q4 PRN PRN Reason: Other Last Admin: 10/01/17 18:31 Dose: 1 drop Folic Acid (Folic Acid) [address] [facility] Last Admin: 10/09/17 09:35 Dose: 1 mg Heparin Sodium (Porcine) (Heparin) 5,[address] [facility] Last Admin: 10/09/17 06:28 Dose: 5,000 units Tigecycline 50 mg/ Sodium (Chloride) 100 mls @ 100 mls/hr IVPB Q12H [facility] PRN Reason: Protocol Last Admin: 10/09/17 05:03 Dose: 100 mls/hr Colistimethate Sodium 80 mg/ (Sodium Chloride) 100 mls @ 200 mls/hr IV Q12H [facility] PRN Reason: Protocol Last Admin: 10/09/17 04:03 Dose: 200 mls/hr Sodium Chloride (Sodium Chloride 0.9%) 1,000 mls @ 40 mls/hr IV .Q24H [facility] Metoprolol Tartrate (Lopressor) [address] [facility] Last Admin: 10/09/17 09:33 Dose: 25 mg Multivitamins (Hexavitamin) [address] [facility] Last Admin: 10/09/17 09:33 Dose: 1 tab Pramipexole Dihydrochloride (Mirapex) 1.[address] [facility] Last Admin: 10/09/17 13:06 Dose: 1.5 mg Quetiapine Fumarate (Seroquel) [address] [facility] Last Admin: 10/09/17 09:36 Dose: 25 mg Saccharomyces Boulardii (Florastor) [address] [facility] Last Admin: 10/09/17 09:36 Dose: 250 mg Tamsulosin HCl (Flomax) 0.[address] [facility] Last Admin: 10/09/17 09:35 Dose: 0.4 mg Thiamine HCl (Vitamin B1 Tab) [address] [facility] Last Admin: 10/09/17 09:35 Dose: 100 mg Trazodone HCl (Desyrel) 50 mg PO [facility] Last Admin: 10/08/17 21:51 Dose: 50 mg - Labs Labs: 10/09/17 08:58 10/09/17 08:58
--- NOTE | 2017-10-09 20:32 | PN ---
DATE: 10/09/2017 SUBJECTIVE: The patient is more awake right now, but he is still kind of agitated. He is unable to hear well what he is trying to say as he is mumbling. PHYSICAL EXAMINATION: VITAL SIGNS: T-max is 98.1, pulse 76, blood pressure 121/83, respirations 20. He is still on 1:1 watch. HEENT: Head is atraumatic. NECK: Supple. LUNGS: Clear. HEART: S1 and S2 regular. ABDOMEN: Soft, nontender. EXTREMITIES: Have no edema. He has weakness in lower extremities. LABORATORY DATA: I told him he has a urine infection and 10.1 and hemoglobin 12.5, hematocrit 36.7, and platelet is 139. This is from today. His chemistry shows BUN 10, creatinine 0.8. He did had a very resistant VRE. I have been giving him Tygacil and Cholestene and would like to repeat UA and urine C and S and see if he improves. We did a bladder ultrasound. Bladder ultrasound on 10/07/2017 shows unremarkable renal and bladder ultrasound. No significant postvoid residual. IMPRESSION: He had the vancomycin-resistant enterococci urinary tract infection with gait imbalance disturbance and is being followed by the also and was initially admitted for detox and alcohol. We will follow. Tico Monk MD
[2017-10-09] MEDS: Magnesium Sulfate 1 gm in D5W 1 GM/100 ML BAG IVPB SCH (21:10)
--- NOTE | 2017-10-10 06:29 | CP.PCM.PN ---
Subjective - Date & Time of Evaluation Date of Evaluation: 10/10/17 Time of Evaluation: 06:29 - Subjective Subjective: Mr. Mejia was seen and examined at the bedside. He is asleep, but was restless and agitated last night. According to the staff, his behavior is still with episode of restlessness and mumbles words that some incomprehensible and clear. He spontaneously moves his bilateral upper extremities and movement of his lower extremities which are becoming stronger. He has the bilateral hand mittens on and remains on 1:1 sitter for patient safety. According to the staff , he was alert, behaving well the other night and staff was able to remove bilateral hand mittens.There was no untoward events overnight Objective - Vital Signs/Intake and Output Vital Signs (last 24 hours): Temp Pulse Resp BP Pulse Ox 97.4 F L 74 20 106/71 97 10/10/17 00:00 10/10/17 00:00 10/10/17 00:00 10/10/17 00:00 10/10/17 00:00 Intake and Output: 10/09/17 10/10/17 18:59 06:59 Intake Total 200 Balance 200 - Medications Medications: Current Medications Albuterol/Ipratropium (Duoneb 3 Mg/0.5 Mg (3 Ml) Ud) 3 ml INH RQ4 PRN PRN Reason: Shortness of Breath Amantadine HCl (Amantadine 100 Mg Cap) 100 mg PO BID [facility] Last Admin: 10/09/17 21:11 Dose: 100 mg Artificial Tears (Artificial Tears) 1 ml OU Q4 PRN PRN Reason: Other Last Admin: 10/01/17 18:31 Dose: 1 drop Folic Acid (Folic Acid) 1 mg PO DAILY [facility] Last Admin: 10/09/17 09:35 Dose: 1 mg Heparin Sodium (Porcine) (Heparin) 5,000 units SC Q8 [facility] Last Admin: 10/10/17 06:20 Dose: 5,000 units Tigecycline 50 mg/ Sodium (Chloride) 100 mls @ 100 mls/hr IVPB Q12H [facility] PRN Reason: Protocol Last Admin: 10/10/17 04:47 Dose: 100 mls/hr Colistimethate Sodium 80 mg/ (Sodium Chloride) 100 mls @ 200 mls/hr IV Q12H [facility] PRN Reason: Protocol Last Admin: 10/10/17 04:47 Dose: 200 mls/hr Sodium Chloride (Sodium Chloride 0.9%) 1,000 mls @ 40 mls/hr IV .Q24H [facility] Last Admin: 10/09/17 14:00 Dose: 40 mls/hr Metoprolol Tartrate (Lopressor) 25 mg PO BID [facility] Last Admin: 10/09/17 21:11 Dose: 25 mg Multivitamins (Hexavitamin) 1 tab PO DAILY [facility] Last Admin: 10/09/17 09:33 Dose: 1 tab Pramipexole Dihydrochloride (Mirapex) 1.5 mg PO TIDCC [facility] Last Admin: 10/09/17 21:11 Dose: 1.5 mg Quetiapine Fumarate (Seroquel) 25 mg PO DAILY [facility] Saccharomyces Boulardii (Florastor) 250 mg PO BID [facility] Last Admin: 10/09/17 21:11 Dose: 250 mg Tamsulosin HCl (Flomax) 0.4 mg PO DAILY [facility] Last Admin: 10/09/17 09:35 Dose: 0.4 mg Thiamine HCl (Vitamin B1 Tab) 100 mg PO DAILY [facility] Last Admin: 10/09/17 09:35 Dose: 100 mg Trazodone HCl (Desyrel) 50 mg PO HS [facility] Last Admin: 10/09/17 21:09 Dose: 50 mg - Labs Labs: 10/09/17 08:58 10/09/17 08:58 - Constitutional Appears: No Acute Distress - Head Exam Head Exam: NORMAL INSPECTION - Neurological Exam Neuro motor strength exam: Left Upper Extremity: 4, Right Upper Extremity: 4, Left Lower Extremity: 4, Right Lower Extremity: 4 Additional comments: asleeep, unable to do assessment. Assessment and Plan (1) Bradykinesia Assessment & Plan: Case discussed with Dr. Abdi, continue all current medical, physical, and occupational regimen. 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 Status: Acute
--- NOTE | 2017-10-10 07:52 | CP.PCM.PN ---
Subjective - Date & Time of Evaluation Date of Evaluation: 10/10/17 Time of Evaluation: 07:52 - Subjective Subjective: Patient seen and evaluated at bedside. Patient in no acute distress. Patient deeply asleep, unable to obtain history. As per nurse, patient unable to sleep all night. Objective - Vital Signs/Intake and Output Vital Signs (last 24 hours): Temp Pulse Resp BP Pulse Ox 97.4 F L 74 20 106/71 97 10/10/17 00:00 10/10/17 00:00 10/10/17 00:00 10/10/17 00:00 10/10/17 00:00 - Medications Medications: Current Medications Albuterol/Ipratropium (Duoneb 3 Mg/0.5 Mg (3 Ml) Ud) 3 ml INH RQ4 PRN PRN Reason: Shortness of Breath Amantadine HCl (Amantadine 100 Mg Cap) 100 mg PO BID [facility] Last Admin: 10/09/17 21:11 Dose: 100 mg Artificial Tears (Artificial Tears) 1 ml OU Q4 PRN PRN Reason: Other Last Admin: 10/01/17 18:31 Dose: 1 drop Folic Acid (Folic Acid) 1 mg PO DAILY [facility] Last Admin: 10/09/17 09:35 Dose: 1 mg Heparin Sodium (Porcine) (Heparin) 5,000 units SC Q8 [facility] Last Admin: 10/10/17 06:20 Dose: 5,000 units Tigecycline 50 mg/ Sodium (Chloride) 100 mls @ 100 mls/hr IVPB Q12H [facility] PRN Reason: Protocol Last Admin: 10/10/17 04:47 Dose: 100 mls/hr Colistimethate Sodium 80 mg/ (Sodium Chloride) 100 mls @ 200 mls/hr IV Q12H [facility] PRN Reason: Protocol Last Admin: 10/10/17 04:47 Dose: 200 mls/hr Sodium Chloride (Sodium Chloride 0.9%) 1,000 mls @ 40 mls/hr IV .Q24H [facility] Last Admin: 10/09/17 14:00 Dose: 40 mls/hr Metoprolol Tartrate (Lopressor) 25 mg PO BID [facility] Last Admin: 10/09/17 21:11 Dose: 25 mg Multivitamins (Hexavitamin) 1 tab PO DAILY [facility] Last Admin: 10/09/17 09:33 Dose: 1 tab Pramipexole Dihydrochloride (Mirapex) 1.5 mg PO TIDCC [facility] Last Admin: 10/09/17 21:11 Dose: 1.5 mg Quetiapine Fumarate (Seroquel) 25 mg PO DAILY@0600 [facility] Last Admin: 10/10/17 07:39 Dose: 25 mg Saccharomyces Boulardii (Florastor) 250 mg PO BID [facility] Last Admin: 10/09/17 21:11 Dose: 250 mg Tamsulosin HCl (Flomax) 0.4 mg PO DAILY [facility] Last Admin: 10/09/17 09:35 Dose: 0.4 mg Thiamine HCl (Vitamin B1 Tab) 100 mg PO DAILY [facility] Last Admin: 10/09/17 09:35 Dose: 100 mg Trazodone HCl (Desyrel) 50 mg PO HS [facility] Last Admin: 10/09/17 21:09 Dose: 50 mg - Labs Labs: 10/09/17 08:58 10/09/17 08:58 - Additional Findings Additional findings: - Constitutional Appears: No Acute Distress, unkempt - Head Exam Head Exam: ATRAUMATIC, NORMOCEPHALIC - Respiratory Exam Respiratory Exam: Clear to Ausculation Bilateral - Cardiovascular Exam Cardiovascular Exam: REGULAR RHYTHM, +S1, +S2. absent: Murmur - GI/Abdominal Exam GI & Abdominal Exam: Soft, Normal Bowel Sounds. absent: Tenderness - Extremities Exam Extremities Exam: absent: Pedal Edema - Neurological Exam Additional comments: Pt sleeping, difficult to arouse. Assessment and Plan - Assessment and Plan (Free Text) Plan: Assessment/Plan (1) Ambulatory dysfunction Suspected Parkinson's Disease Assessment and Plan: * Neurology consulted, Dr. Abdi, help appreciated * Per Neurology, dysfunction may be due to parkinson's * Transferred to medical floors on 09/19/17 * Lumbar xray: unremarkable * Lumbar MRI: Limited motion degraded study. Multilevel facet arthropathy. No disc herniations nor significant disc bulges. Small annual fissure seen within the L4-L5 and L5-S1 posterior lateral disc margins as outlined above * Head CT: no evidence of acute intracranial hemorrhage intracranial collection mass effect or midline shift. Moderate atrophy. Mild white matter changes likely represent chronic microvacular ischemic disease * Brain MRI: No acute intracranial hemorrhage or infarction. Minimal chronic periventricular white matter ischemic changes. Moderate generalized volume loss. No enhancing lesions. * Ammonia level: 31, wnl * TSH wnl * Folate >20, wnl, Vit B12 >1000 H * Fall precautions * PT/OT eval * Medication: * Pramipexole 1.5 mg by mouth 3 times a day specifically at 7 AM 12 PM and 3 PM and advised and neurology did not give a dose after 5 PM because it'll cause patient to become very restless. * Amantadine 100 mg by mouth twice a day (2) Alcohol dependence/withdrawal-->resolved Cognitive Decline to Multifactorial (Alcohol and Parkinsons) Assessment and Plan: * Completed detox * Transferred from Detox to Med/Surg Floors on 09/19/17 * Continue to monitor Medications: * Pramipexole 1.5 mg by mouth 3 times a day specifically at 7 AM 12 PM and 3 PM and advised and neurology did not give a dose after 5 PM because it'll cause patient to become very restless. * Amantadine 100 mg by mouth twice a day * Seroquel 25 mg PO daily prn for agitation (per neurologist)-->does not control patient * Trazadone 50mg PO HS * Folic Acid 1mg PO daily * Multivitamin daily * Thiamine 100mg PO daily (3) VRE UTI Assessment and Plan: * Infectious Disease (Dr. Monk) on case-->help appreciated * Urine culture (10/04/17): VRE * Repeat urine culture (10/07/17): No growth * Tigecycline 50mg IVPB Q12h (active since 10/06/17) * Colistimethate 80mg IVPNB Q12H (10/06/17)-> discontinued 10/10/17 * on contact isolation * Pt to be discharged to [facility] (10/11/17) on Tigecycline 50mg IV from -10/14/[address] Monk (4) Leukocytosis-->normalized Assessment and Plan: * Hematology oncology consult Dr. Hargrove help appreciated * Likely reactive given alcohol hx * Infectious Disease consult, Dr. Monk, help appreciated\ * VRE UTI treatment * Blood cultures (09/25/17): negative * Urine culture (09/25/17): no growth * Completed 5 days of IV abx * Pro-calcitonin is elevated--> improved * Blood cultures (10/03/17): no growth after 4 days X2 * Urine culture (09/24/17): No growth * Urine culture (10/04/17): VRE * Urine culture (10/07/17): No growth * Chest xray (10/03/17): interval atelectasis or infiltrate right middle lobe. linear atelectasis left base. No cardiomegaly or pulmonary vascular congestion. * Procalcitonin (09/24/17): 0.94---> (10/02/17): 0.55-->0.41 (5) Hypernatremia-->normalized Assessment and Plan: * Nephrology (Dr. Arrieta) on consult-->help appreciated * suspected secondary to lactulose * Will monitor patients oral intake-->he only eats the side dishes for breakfast * Bladder US (10/07/17): unremarkable renal and bladder US. No significant postvoid residual volume * Normalized 10/08/17 * Urine osmolarity: 814 (normal) * Urine random sodium: 157 (6) Urinary retention Assessment and Plan: * Bladder US (10/07/17): unremarkable renal and bladder US. No significant postvoid residual volume * Patient has voided today 10/08/17 * possible side effect from amantadine (anticholinergic) (7) Hx of Fall-->past Assessment and Plan: * CT Head (09/19/17): no evidence of acute intracranial hemorrhage intracranial collection mass effect or midline shift. Moderate atrophy. Mild white matter changes likely reprsent chronic microvascular ischemic disease * Lumbar xray (09/19/17): unremarkable * Lumbar MRI: Limited motion degraded study. Multilevel facet arthropathy. No disc herniations nor significant disc bulges. Small annual fissure seen within the L4-L5 and L5-S1 posterior lateral disc margins as outlined above (8) Tachycardia-->controlled Assessment and Plan: * CT angio (09/23/17): No evidence of acute central pulmonary embolus. Multiple calcified granulomata scattered throughout the right lung and to a lesser degree left lung findings consistent with prior exposure to granulomatous disease process. Mild dependent atelectasis both posterior lower lung zones mild scarring of the left lung base borderline splenomegaly * Thyroid studies are within normal * Suspecting tachycardia secondary to withdrawal * Patient start on Lopressor 25 mg by mouth twice a day since September 23 (9) Conjunctivitis-->resolved Assessment and Plan: * Started on Tobrex 0.3 every 6 hours since September 21 and finished (10) Thrombocytopenia-->resolved Assessment and Plan: * HIV: negative * Hepatitis panel: negative * Abdominal US: hepatomegaly, hepatic steatosis * Have normalized (11) Hepatitis C Reactive-->treated in the past Assessment and Plan: * Patient reports he has been treated for hepatitis C. (12) Prophylaxis Assessment and Plan: * Fall precautions * PT/OT eval * Heparin 5000 subcutaneous 8H for DVT prophylaxis * Aspiration precautions * Seizure precaution Disposition: Pt to be discharged to [facility] tomorrow (10/11/17) on Tigecycline 50mg IV from 10/11-10/14/[address] Monk. colistin discontinued on 10/10/17. Neurology, Dr. Abdi: continue all current medical, physical, and occupational regimen. Recommend to change time of seroquel since the effect of the medicine is effective benefit specialist and being restless and agitated during the day, hydration, treat any underlying infection and electrolytes abnormalities.
[2017-10-10 08:20] LABS: BASO # 0.1 K/uL (0.0-0.2); BASO % 0.9 % (0.0-2.0); EOS # 0.2 K/uL (0.0-0.7); EOS % 1.8 % (0.0-4.0); HEMOGLOBIN 11.8 g/dL (12.0-18.0); LYMPH # 1.6 K/uL (1.0-4.3); LYMPH % 16.7 % (20.0-40.0); MEAN CELL VOLUME 101.9 fL (80.0-94.0); MEAN CORPUSCULAR HGB CONC 34.3 g/dL (33.0-37.0); MEAN PLATELET VOLUME 10.6 fL (7.2-11.7); MONO # 0.7 K/uL (0.0-0.8); MONO % 7.3 % (0.0-10.0); NEUT % 73.3 % (50.0-75.0); NRBC % 0.1 % (0.0-2.0); RBC 3.36 Mil/uL (4.40-5.90); RED CELL DISTRIBUTION WIDTH 14.7 % (11.5-14.5); WHITE BLOOD COUNT 9.5 K/uL (4.8-10.8)
[2017-10-10 08:34] LABS: ALB/GLOB RATIO 0.8 (1.0-2.1); ALBUMIN 2.9 g/dL (3.5-5.0); ALT/SGPT 57 U/L (21-72); AST/SGOT 77 U/L (17-59); BLOOD UREA NITROGEN 10 mg/dL (9-20); CALCIUM 8.5 mg/dl (8.6-10.4); GFR AFRICAN-AMERICAN > 60; GFR NON-AFRICAN AMERICAN > 60
[2017-10-10] MEDS: Saccharomyces Boulardi 250 mg Cap PO SCH ×2 (10:12→17:12)
[2017-10-10] MEDS: Multiple Vitamins Tab PO SCH (10:12)
[2017-10-10] MEDS ORDERED: Sodium Chloride 0.9% 1,000 ML IV SCH (12:39)
--- NOTE | 2017-10-10 14:05 | CP.PCM.PCO ---
Physician Communication Note - Physician Communication Note Physician Communication Note: Please see above
--- NOTE | 2017-10-10 14:40 | CP.PCM.PN ---
Subjective - Date & Time of Evaluation Date of Evaluation: 10/10/17 Time of Evaluation: 02:30 - Subjective Subjective: dictated Objective - Vital Signs/Intake and Output Vital Signs (last 24 hours): Temp Pulse Resp BP Pulse Ox 98.3 F 73 20 108/77 97 10/10/17 07:55 10/10/17 07:55 10/10/17 07:55 10/10/17 10:11 10/10/17 07:55 - Medications Medications: Current Medications Albuterol/Ipratropium (Duoneb 3 Mg/0.5 Mg (3 Ml) Ud) 3 ml INH RQ4 PRN PRN Reason: Shortness of Breath Amantadine HCl (Amantadine 100 Mg Cap) 100 mg PO BID [facility] Last Admin: 10/10/17 10:11 Dose: 100 mg Artificial Tears (Artificial Tears) 1 ml OU Q4 PRN PRN Reason: Other Last Admin: 10/01/17 18:31 Dose: 1 drop Folic Acid (Folic Acid) 1 mg PO DAILY [facility] Last Admin: 10/10/17 10:11 Dose: 1 mg Heparin Sodium (Porcine) (Heparin) 5,000 units SC Q8 [facility] Last Admin: 10/10/17 13:16 Dose: 5,000 units Tigecycline 50 mg/ Sodium (Chloride) 100 mls @ 100 mls/hr IVPB Q12H [facility] PRN Reason: Protocol Last Admin: 10/10/17 04:47 Dose: 100 mls/hr Colistimethate Sodium 80 mg/ (Sodium Chloride) 100 mls @ 200 mls/hr IV Q12H [facility] PRN Reason: Protocol Last Admin: 10/10/17 04:47 Dose: 200 mls/hr Sodium Chloride (Sodium Chloride 0.9%) 1,000 mls @ 80 mls/hr IV .[id number] [facility] Last Admin: 10/10/17 13:16 Dose: 80 mls/hr Metoprolol Tartrate (Lopressor) 25 mg PO BID [facility] Last Admin: 10/10/17 10:11 Dose: 25 mg Multivitamins (Hexavitamin) 1 tab PO DAILY [facility] Last Admin: 10/10/17 10:12 Dose: 1 tab Pramipexole Dihydrochloride (Mirapex) 1.5 mg PO TIDCC [facility] Last Admin: 10/10/17 13:00 Dose: 1.5 mg Quetiapine Fumarate (Seroquel) 25 mg PO DAILY@0600 [facility] Last Admin: 10/10/17 07:39 Dose: 25 mg Saccharomyces Boulardii (Florastor) 250 mg PO BID [facility] Last Admin: 10/10/17 10:12 Dose: 250 mg Tamsulosin HCl (Flomax) 0.4 mg PO DAILY [facility] Last Admin: 10/10/17 10:11 Dose: 0.4 mg Thiamine HCl (Vitamin B1 Tab) 100 mg PO DAILY [facility] Last Admin: 10/10/17 10:11 Dose: 100 mg Trazodone HCl (Desyrel) 50 mg PO HS [facility] Last Admin: 10/09/17 21:09 Dose: 50 mg - Labs Labs: 10/10/17 08:02 10/10/17 08:02
[2017-10-10] MEDS ORDERED: Magnesium Sulfate 1 gm in D5W 1 GM/100 ML BAG IVPB ONE (19:45)
--- NOTE | 2017-10-10 21:03 | PN ---
DATE: 10/10/2017 SUBJECTIVE: The patient is verbalizing little bit. He is very weak and frail. He did say he has urgency to go to bathroom many times, but he is verbalizing now. He is going to get physical therapy. However, his urine culture now came out negative, and he is going to go to rehab to get further antibiotics. PHYSICAL EXAMINATION: GENERAL: He is awake and alert. VITAL SIGNS: T-max is 98.3, pulse 73, blood pressure 108/77, and respirations are 20. HEENT: Head is atraumatic, normocephalic. NECK: Supple. LUNGS: Clear. HEART: S1 and S2 is regular. ABDOMEN: Soft and nontender. EXTREMITIES: There is no edema. He does have weakness in lower extremities. He is getting physical therapy, and he will be going on 50 every 12 hours of Tygacil for 4 days and would be done for the urine. He did have VRE and we gave Colistin and Tygacil, but I do not want to send him with Colistin as the culture is now negative and to continue Tygacil and his symptoms will improve. IMPRESSION: He has vancomycin-resistant enterococci in the urine and he has gait imbalance and has clinical diagnosis of Parkinson's. Tico Monk MD
--- NOTE | 2017-10-10 23:53 | CP.PCM.PN ---
Objective - Vital Signs/Intake and Output Vital Signs (last 24 hours): Temp Pulse Resp BP Pulse Ox 97.5 F L 69 20 108/76 100 10/10/17 15:00 10/10/17 15:00 10/10/17 15:00 10/10/17 18:01 10/10/17 15:00 - Medications Medications: Current Medications Albuterol/Ipratropium (Duoneb 3 Mg/0.5 Mg (3 Ml) Ud) 3 ml INH RQ4 PRN PRN Reason: Shortness of Breath Amantadine HCl (Amantadine 100 Mg Cap) 100 mg PO BID [facility] Last Admin: 10/10/17 17:12 Dose: 100 mg Artificial Tears (Artificial Tears) 1 ml OU Q4 PRN PRN Reason: Other Last Admin: 10/01/17 18:31 Dose: 1 drop Folic Acid (Folic Acid) 1 mg PO DAILY [facility] Last Admin: 10/10/17 10:11 Dose: 1 mg Heparin Sodium (Porcine) (Heparin) 5,000 units SC Q8 [facility] Last Admin: 10/10/17 22:09 Dose: 5,000 units Tigecycline 50 mg/ Sodium (Chloride) 100 mls @ 100 mls/hr IVPB Q12H [facility] PRN Reason: Protocol Stop: 10/14/17 05:00 Last Admin: 10/10/17 17:13 Dose: 100 mls/hr Metoprolol Tartrate (Lopressor) 25 mg PO BID [facility] Last Admin: 10/10/17 18:01 Dose: Not Given Multivitamins (Hexavitamin) 1 tab PO DAILY [facility] Last Admin: 10/10/17 10:12 Dose: 1 tab Pramipexole Dihydrochloride (Mirapex) 1.5 mg PO TIDCC [facility] Last Admin: 10/10/17 17:12 Dose: 1.5 mg Quetiapine Fumarate (Seroquel) 25 mg PO DAILY@0600 [facility] Last Admin: 10/10/17 07:39 Dose: 25 mg Saccharomyces Boulardii (Florastor) 250 mg PO BID [facility] Stop: 11/14/17 10:00 Last Admin: 10/10/17 17:12 Dose: 250 mg Tamsulosin HCl (Flomax) 0.4 mg PO DAILY [facility] Last Admin: 10/10/17 10:11 Dose: 0.4 mg Thiamine HCl (Vitamin B1 Tab) 100 mg PO DAILY [facility] Last Admin: 10/10/17 10:11 Dose: 100 mg Trazodone HCl (Desyrel) 50 mg PO [facility] Last Admin: 10/10/17 22:09 Dose: Not Given - Labs Labs: 10/10/17 08:02 10/10/17 08:02 Assessment and Plan (1) YORDAN (acute kidney injury) Status: Acute (2) Hypernatremia Status: Resolved (3) UTI (urinary tract infection) Status: Acute
[2017-10-11 01:57] LABS: OSMOLALITY,URINE 543 mosm/kg (300-1000)
[2017-10-11 09:18] LABS: BASO # 0.1 K/uL (0.0-0.2); BASO % 0.9 % (0.0-2.0); EOS # 0.1 K/uL (0.0-0.7); EOS % 1.7 % (0.0-4.0); HEMOGLOBIN 12.2 g/dL (12.0-18.0); LYMPH # 1.7 K/uL (1.0-4.3); LYMPH % 19.8 % (20.0-40.0); MEAN CELL VOLUME 101.6 fL (80.0-94.0); MEAN CORPUSCULAR HEMOGLOBIN 34.8 pg (27.0-31.0); MEAN CORPUSCULAR HGB CONC 34.3 g/dL (33.0-37.0); MEAN PLATELET VOLUME 10.2 fL (7.2-11.7); MONO # 0.7 K/uL (0.0-0.8); NEUT % 69.6 % (50.0-75.0); RBC 3.5 Mil/uL (4.40-5.90); RED CELL DISTRIBUTION WIDTH 14.5 % (11.5-14.5); WHITE BLOOD COUNT 8.6 K/uL (4.8-10.8)
[2017-10-11 09:31] LABS: ALB/GLOB RATIO 0.8 (1.0-2.1)
[2017-10-11 09:33] VITALS: PULSE 83
[2017-10-11 09:33] LABS: ALT/SGPT 57 U/L (21-72); AST/SGOT 76 U/L (17-59); BLOOD UREA NITROGEN 10 mg/dL (9-20); CALCIUM 8.8 mg/dl (8.6-10.4); GFR AFRICAN-AMERICAN > 60; GFR NON-AFRICAN AMERICAN > 60
[2017-10-11] MEDS: Saccharomyces Boulardi 250 mg Cap PO SCH (09:33)
[2017-10-11] MEDS: Multiple Vitamins Tab PO SCH (09:33)
[2017-10-11] MEDS ORDERED: Sodium Chloride 0.9% 1,000 ML IV SCH (11:00)
[2017-10-11 16:08] VITALS: BP 95/60; TEMP 98.4; O2SAT 97
--- NOTE | 2017-10-11 22:04 | CP.PCM.DIS ---
Provider - Provider Date of Admission: 09/17/17 16:54 Attending physician: Nolan Gómez MD Consults: Dr. Monk, ID Dr. Arrieta, Nephro Dr. Abdi, Neuro Dr. Hargrove, Hematology Dr. Steele, Psychiatry Time Spent in preparation of Discharge (in minutes): 45 Diagnosis - Discharge Diagnosis (1) Ambulatory dysfunction Status: Acute (2) Fall Status: Acute (3) Hepatitis C antibody positive in blood Status: Acute (4) Alcohol dependence Status: Acute (5) Conjunctivitis Status: Acute (6) Leukocytosis Status: Acute (7) Tachycardia Status: Acute (8) Transaminitis Status: Acute (9) UTI (urinary tract infection) Status: Acute Hospital Course - Lab Results Lab Results: Micro Results 10/07/17 20:26 Urine,Catheterized Urine Culture - Final No Growth (<1,000 CFU/ML) 10/03/17 14:05 Blood Blood Culture - Final NO GROWTH AFTER 5 DAYS 10/03/17 14:05 Blood Gram Stain - Final TEST NOT PERFORMED 10/03/17 13:58 Blood Blood Culture - Final NO GROWTH AFTER 5 DAYS 10/03/17 13:58 Blood Gram Stain - Final TEST NOT PERFORMED 10/04/17 00:54 Urine Urine Culture - Final Vancomycin Resistant E.faecium 09/24/17 14:23 Blood Blood Culture - Final NO GROWTH AFTER 5 DAYS 09/24/17 14:23 Blood Gram Stain - Final TEST NOT PERFORMED 09/24/17 14:17 Blood Blood Culture - Final NO GROWTH AFTER 5 DAYS 09/24/17 14:17 Blood Gram Stain - Final TEST NOT PERFORMED 09/24/17 14:23 Urine,Clean Catch Urine Culture - Final No Growth (<1,000 CFU/ML) 09/22/17 16:41 Urine Urine Culture - Final No Growth (<1,000 CFU/ML) Most Recent Lab Values WBC 8.6 K/uL (4.8-10.8) 10/11/17 09:07 RBC 3.50 Mil/uL (4.40-5.90) L 10/11/17 09:07 Hgb 12.2 g/dL (12.0-18.0) 10/11/17 09:07 Hct 35.5 % (35.0-51.0) 10/11/17 09:07 MCV 101.6 fL (80.0-94.0) H 10/11/17 09:07 MCH 34.8 pg (27.0-31.0) H 10/11/17 09:07 MCHC 34.3 g/dL (33.0-37.0) 10/11/17 09:07 RDW 14.5 % (11.5-14.5) 10/11/17 09:07 Plt Count 123 K/uL (130-400) L 10/11/17 09:07 MPV 10.2 fL (7.2-11.7) 10/11/17 09:07 Neut % (Auto) 69.6 % (50.0-75.0) 10/11/17 09:07 Lymph % (Auto) 19.8 % (20.0-40.0) L 10/11/17 09:07 [place] % (Auto) 8.0 % (0.0-10.0) 10/11/17 09:07 Eos % (Auto) 1.7 % (0.0-4.0) 10/11/17 09:07 Baso % (Auto) 0.9 % (0.0-2.0) 10/11/17 09:07 Neut # (Auto) 6.0 K/uL (1.8-7.0) 10/11/17 09:07 Lymph # (Auto) 1.7 K/uL (1.0-4.3) 10/11/17 09:07 [place] # (Auto) 0.7 K/uL (0.0-0.8) 10/11/17 09:07 Eos # (Auto) 0.1 K/uL (0.0-0.7) 10/11/17 09:07 Baso # (Auto) 0.1 K/uL (0.0-0.2) 10/11/17 09:07 Neutrophils % (Manual) 84 % (50-75) H 09/27/17 10:49 Band Neutrophils % 1 % (0-2) 09/27/17 10:49 Lymphocytes % (Manual) 10 % (20-40) L 09/27/17 10:49 Monocytes % (Manual) 5 % (0-10) 09/27/17 10:49 Differential Comment 09/17/17 13:50 Toxic Granulation Present 09/25/17 06:53 Platelet Estimate Normal (NORMAL) 09/27/17 10:49 Polychromasia Slight 09/26/17 07:50 Hypochromasia (manual) Slight 09/26/17 07:50 Anisocytosis (manual) Slight 09/25/17 06:53 Microcytosis (manual) Slight 09/26/17 07:50 Macrocytosis (manual) Slight 09/27/17 10:49 Ovalocytes Slight 09/25/17 06:53 Retic Count 2.1 % (0.5-1.5) H 10/06/17 07:00 D-Dimer, Quantitative 736 ng/mlDDU (0-243) H 09/22/17 13:56 Sodium 132 mmol/L (132-148) 10/11/17 09:07 Potassium 4.2 mmol/L (3.6-5.2) 10/11/17 09:07 Chloride 101 mmol/L (98-107) 10/11/17 09:07 Carbon Dioxide 21 mmol/L (22-30) L 10/11/17 09:07 Anion Gap 14 (10-20) 10/11/17 09:07 BUN 10 mg/dL (9-20) 10/11/17 09:07 Creatinine 0.6 mg/dL (0.8-1.5) L 10/11/17 09:07 Est GFR ( Amer) > 60 10/11/17 09:07 Est GFR (Non-Af Amer) > 60 10/11/17 09:07 POC Glucose (mg/dL) 96 mg/dL (65-110) 09/20/17 16:59 Random Glucose 78 mg/dL (75-110) 10/11/17 09:07 Calcium 8.8 mg/dl (8.6-10.4) 10/11/17 09:07 Phosphorus 4.4 mg/dL (2.5-4.5) 10/10/17 08:02 Magnesium 1.3 mg/dL (1.6-2.3) L 10/11/17 09:07 Ferritin 490.0 ng/mL 10/06/17 07:00 Total Bilirubin 1.2 mg/dL (0.2-1.3) 10/11/17 09:07 AST 76 U/L (17-59) H 10/11/17 09:07 ALT 57 U/L (21-72) 10/11/17 09:07 Alkaline Phosphatase 141 U/L (38-126) H 10/11/17 09:07 Ammonia 9 umol/L (9-33) D 10/07/17 11:34 Total Creatine Kinase < 20 U/L (55-170) L 09/19/17 11:45 Total Protein 6.8 g/dL (6.3-8.3) 10/11/17 09:07 Albumin 3.0 g/dL (3.5-5.0) L 10/11/17 09:07 Globulin 3.8 gm/dL (2.2-3.9) 10/11/17 09:07 Albumin/Globulin Ratio 0.8 (1.0-2.1) L 10/11/17 09:07 Vitamin B12 > 1000 pg/mL (239-931) H 10/06/17 07:00 Folate > 20.0 ng/mL 10/06/17 07:00 Procalcitonin 0.41 NG/ML (0.19-0.49) 10/08/17 11:47 Free T4 1.41 ng/dL (0.78-2.19) 09/22/17 13:56 TSH 3rd Generation 0.82 mIU/L (0.46-4.68) 09/19/17 11:45 Urine Color Chiara (YELLOW) 10/07/17 20:26 Urine Clarity Hazy (Clear) 10/07/17 20:26 Urine pH 5.0 (5.0-8.0) 10/07/17 20:26 Ur Specific [place] 1.021 (1.003-1.030) 10/07/17 20:26 Urine Protein Negative mg/dL (NEGATIVE) 10/07/17 20:26 Urine Glucose (UA) Normal mg/dL (Normal) 10/07/17 20:26 Urine Ketones Negative mg/dL (NEGATIVE) 10/07/17 20:26 Urine Blood Negative (NEGATIVE) 10/07/17 20:26 Urine Nitrate Negative (NEGATIVE) 10/07/17 20:26 Urine Bilirubin Negative (NEGATIVE) 10/07/17 20:26 Urine Urobilinogen Normal mg/dL (0.2-1.0) 10/07/17 20:26 Ur Leukocyte Esterase Neg Alexia/uL (Negative) 10/07/17 20:26 Urine WBC (Auto) 6 /hpf (0-5) H 10/07/17 20:26 Urine RBC (Auto) 5 /hpf (0-3) H 10/07/17 20:26 Ur Squamous Epith Cells < 1 /hpf (0-5) 10/07/17 20:26 Calcium Oxalate Crystal Few /hpf (<OCC) H 09/22/17 16:41 Amorphous Sediment Rare /ul (<OCC) H 09/17/17 15:40 Urine Bacteria Rare (<OCC) 10/03/17 13:58 Hyaline Casts 0-2 /lpf (0-2) 09/17/17 15:40 Urine Osmolality 543 mosm/kg (300-1000) 10/11/17 00:24 Ur Random Sodium 172 mmol/L 10/11/17 00:24 Urine Opiates Screen Negative (NEGATIVE) 09/17/17 15:40 Urine Methadone Screen Negative (NEGATIVE) 09/17/17 15:40 Ur Barbiturates Screen Negative (NEGATIVE) 09/17/17 15:40 Ur Phencyclidine Scrn Negative (NEGATIVE) 09/17/17 15:40 Ur Amphetamines Screen Negative (NEGATIVE) 09/17/17 15:40 U Benzodiazepines Scrn Positive (NEGATIVE) 09/17/17 15:40 U Oth Cocaine Metabols Negative (NEGATIVE) 09/17/17 15:40 U Cannabinoids Screen Negative (NEGATIVE) 09/17/17 15:40 Alcohol, Quantitative < 10 mg/dl (0-10) 09/17/17 13:50 Hepatitis A IgM Ab Negative (NEGATIVE) 09/20/17 13:56 Hep Bs Antigen Negative (NEGATIVE) 09/20/17 13:56 Hep B Core IgM Ab Negative (NEGATIVE) 09/20/17 13:56 Hepatitis C Antibody Reactive (NEGATIVE) 09/20/17 13:56 HIV 1&2 Antibody Screen Negative (NEGATIVE) 09/20/17 13:56 H.influenzae Type B Ag Negative (NEGATIVE) 10/03/17 13:58 Ur L.pneumophila Ag Negative (NEGATIVE) 10/03/17 13:58 Mycoplasma pneumon IgM Negative (NEGATIVE) 10/03/17 13:58 N.meningitidis ACY/W135 Negative (NEGATIVE) 10/03/17 13:58 N.meningi B/E.coli K1 Ag Negative (NEGATIVE) 10/03/17 13:58 Group B Strep Antigen Negative (NEGATIVE) 10/03/17 13:58 S. pneumoniae Antigen Negative (NEGATIVE) 10/03/17 13:58 - Hospital Course Hospital Course: On admission: Patient is a 51 year old male with no past medical history who originally presents to the hospital for alcohol detox. Patient drinks 1/2 gallon of wine daily for the past 8 years. He first started drinking at 14 years of age. Patient's last drink was night. Patient states he has had ambulatory issues for the past 6 months. He uses a cane to ambulate. He also states he has has bilateral lower extremity neuropathy and weakness for "at least 3 months". 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 Patient denies chest pain, dyspnea, headaches, dizziness, nausea, vomiting, fevers, abdominal pain. Patient is lethargic and is a poor historian. Hospitalization: Patient was treated for alcohol detox and later transferred to medical service for ambulatory dysfunction and frequent falls. Patient had imaging of the head. Head CT: no evidence of acute intracranial hemorrhage intracranial collection mass effect or midline shift. Moderate atrophy. Mild white matter changes likely represent chronic microvacular ischemic disease. (see full report) Brain MRI: No acute intracranial hemorrhage or infarction. Minimal chronic periventricular white matter ischemic changes. Moderate generalized volume loss. No enhancing lesions. (see full report). Patient was evaluated by neurology, Dr. Abdi and Dr. York, who suspected ambulatory dysfunction was due to Parkinson's disease. Patient was placed on Pramipexole 1.5 mg TIC and amantadine 100mg PO BID. During hospitalization, patient developed urinary retention and VRE UTI and was treated with Colistimethate and tigecycline. Patient discharged on [id number] mg IV Q12H for 4 more days starting 10/11/17 through 10/14/17 for treatment of VRE UTI. Patient's repeat urine culture came back negative. During hospitalization, patient also found to be Hepatitis C reactive and will need outpatient follow up. Patient now stable for discharge to [facility]. This is a brief summary of hospitalization. For complete record please review EMR. Instructions: Pt is stable for discharge to [facility] when bed is available per Dr. Fatemeh Gómez. Patient is to follow up with Neurologist, Dr. Abdi upon discharge from rehab. Patient is to follow up at the [facility] for coordination of health care. Discharge Exam - Head Exam Head Exam: NORMAL INSPECTION - Eye Exam Eye Exam: EOMI, Normal appearance - Respiratory Exam Respiratory Exam: Clear to PA & Lateral, NORMAL BREATHING PATTERN, UNREMARKABLE. absent: Accessory Muscle Use, Rales, Rhonchi, Wheezes, Respiratory Distress - Cardiovascular Exam Cardiovascular Exam: REGULAR RHYTHM, +S1, +S2 - GI/Abdominal Exam GI & Abdominal Exam: Normal Bowel Sounds, Soft, Unremarkable. absent: Tenderness - Extremities Exam Extremities exam: normal inspection (no edema, no tenderness, moving all extremities) - Neurological Exam Neurological exam: Alert - Psychiatric Exam Psychiatric exam: Normal Mood - Skin Skin Exam: Dry, Normal Color, Warm Discharge Plan - Follow Up Plan Condition: STABLE Disposition: REHAB FACILITY/REHAB UNIT Instructions: Pneumonia in Adults, Tigecycline, Alcohol Withdrawal (DC), Alcohol Abuse and Alcoholism (DC), Effects of Alcohol on Your Health, Urinary Tract Infection in Men (DC), Weakness (GEN) Additional Instructions: Discharge Hotline Numbers: [place] [facility] 24 Hour Hotline: 1-580-641 HELP (3515) [place] Addictions Services Hotline - AA- Alcoholics Anonymous 24 Hour Hotline: NA- Narcotics Anonymous 24 Hour Hotline: [place] Quitline (cigarettes): If needed you can reach the detox unit at Avoid all mood and mind altering substances including alcohol. Make every effort to make 90 meetings in 90 days and obtain a sponsor and get involved in 12 step recovery. Follow up with you primary doctor for your medical needs Discharge Medications: Duoneb 3mg/0.5mg 3ml INH Q4H PRN Amantadine HCl 100mg PO BID Artificial Tears 1ml OU Q4H PRN Folic Acid 1mg PO daily Heparin 5000u SC Q8H Lopressor 25mg PO BID Multivitamins 1 tab PO daily Pramipexole Dihydrochloride 1.5mg PO TIDCC Quietapine Fumarate 25mg PO daily @0600 Florastor 250mg PO BID Tamsulosin HCl 0.4mg PO daily Tigecycline 50mg IVPB Q12H Nutrition: Eat balanced meals incorporating fruits, vegetables and protein. Drink plenty of water throughout the day at least 8 to 10 cups. Sleep is extremely important in your recovery. Follow Up Appointments Pt is stable for discharge to [facility] when bed is available per Dr. Fatemeh Gómez. Patient is to follow up with Neurologist, Dr. Abdi upon discharge from rehab. Patient is to follow up at the [facility] for coordination of health care and further work up for Hepatitis C reactivity. Referrals: Rober Hargrove MD [Staff Provider] - Jaden Arrieta MD [Staff Provider] - Brenda Abdi MD [Staff Provider] - Tico Monk MD [Staff Provider] -
== END 2017-10-11 16:43 | DRG 895 ==
LOC: C.ER 12:52 → C.7D 16:54 → C.5S 09-19 14:28
PROVIDERS: ADMIT Family Medicine; ATTEND Family Medicine
PROC: HZ52ZZZ Individual Psychotherapy for Substance Abuse Treatment, Cognitive-Behavioral (ICD-10-PCS; principal; 2017-09-17)
PROC: HZ2ZZZZ Detoxification Services for Substance Abuse Treatment (ICD-10-PCS; 2017-09-17)
PROC: HZ59ZZZ Individual Psychotherapy for Substance Abuse Treatment, Supportive (ICD-10-PCS; 2017-09-17)
PROC: HZ56ZZZ Individual Psychotherapy for Substance Abuse Treatment, Psychoeducation (ICD-10-PCS; 2017-09-17)
PROC: HZ42ZZZ Group Counseling for Substance Abuse Treatment, Cognitive-Behavioral (ICD-10-PCS; 2017-09-17)
PROC: HZ46ZZZ Group Counseling for Substance Abuse Treatment, Psychoeducation (ICD-10-PCS; 2017-09-17)
DX: F10.230 Alcohol dependence with withdrawal, uncomplicated (principal); E87.0 Hyperosmolality and hypernatremia; N17.9 Acute kidney failure, unspecified; J98.11 Atelectasis; Y90.0 Blood alcohol level of less than 20 mg/100 ml; E86.0 Dehydration; G20 Parkinson's disease; F02.80 Dementia in other diseases classified elsewhere, unspecified severity, without behavioral disturbance, psychotic disturbance, mood disturbance, and anxiety; G62.1 Alcoholic polyneuropathy; K76.0 Fatty (change of) liver, not elsewhere classified; N30.90 Cystitis, unspecified without hematuria; E83.42 Hypomagnesemia; T42.6X5A Adverse effect of other antiepileptic and sedative-hypnotic drugs, initial encounter; F17.210 Nicotine dependence, cigarettes, uncomplicated; D72.828 Other elevated white blood cell count; D64.9 Anemia, unspecified; B19.20 Unspecified viral hepatitis C without hepatic coma; H10.9 Unspecified conjunctivitis; R00.0 Tachycardia, unspecified; R74.0 Nonspecific elevation of levels of transaminase and lactic acid dehydrogenase [LDH]; R41.0 Disorientation, unspecified; Z91.81 History of falling; D69.6 Thrombocytopenia, unspecified